=== PATIENT | female | born 1945 | race Caucasian/White ===

== ENCOUNTER 2020-01-02 07:53 | Outpatient (REF) | payer MEDICARE, SELFPAY ==
--- NOTE | 2020-01-02 08:48 | P.BOP_ITS ---
Brief Operative Note Date of Service: 01/02/20 Pre-op diagnosis: Nn toxic multinodular goiter Post-op diagnosis: same Procedure: This procedure was explained to the patient. Alternatives, risks and benefits were discussed. Written consent was obtained. After sterile preparation of the skin, fine-needle aspiration biopsy of left lower pole thyroid nodule size 1.6 x 1.2 x 1.5 cm was performed under direct ultrasound guidance to confirm accurate needle placement. Five passes were performed with 27 gauge needles. Sample was submitted to cytology, initial cytology reading was borderline. 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 Patient tolerated procedure well. Aftercare instructions were provided. Impression: uncomplicated fine-needle aspiration biopsy of lower pole thyroid nodule under direct ultrasound guidance. Surgeon: Genoveva Fuentse MD Anesthesia: local (Lidocaine 1 % 2ml) Estimated blood loss (mL): 0 Condition: stable Disposition: same day
[2020-01-02] MEDS: Lidocaine HCl 1 % MPF 5 ML VIAL SUBCUT (13:50)
== END 2020-01-02 07:54 | disposition home or self-care (01) ==
LOC: HO.US 07:53
PROVIDERS: Visit Provider Internal Medicine Endocrinology, Diabetes & Metabolism
DX: E04.2 Nontoxic multinodular goiter (principal)
CPT/HCPCS: 10005; 88172; 88173; 88177; 88305

== ENCOUNTER 2020-01-15 10:19 | Outpatient (REF) | payer MEDICARE, SELFPAY ==
[2020-01-15 14:17] LABS: MANUAL DIFF FLAG NO
[2020-01-15 14:30] LABS: Basophils Percent Auto 0.5 % (0-2); Eosinophils Absolute Auto 0.1 X10*3/uL (0.0-0.4); Eosinophils Percent Auto 1.3 % (0-4); Hematocrit 44.3 % (37-47); Hemoglobin 13.8 g/dl (12.0-16.0); Imm Gran Abs Auto 0.02 X10*3/uL (0.00-0.03); Imm Gran Pct Auto 0.2 % (0.0-0.4); Lymphocytes Percent Auto 34.8 % (20-40); Mean Corpuscular HGB Conc 31.2 g/dl (31.0-35.0); Mean Corpuscular Hemoglobin 27.4 pg (27.0-33.0); Mean Corpuscular Volume 87.9 fL (80-98); Mean Platelet Volume 11.6 fL (9.4-12.3); Monocytes Absolute Auto 0.7 X10*3/uL (0.1-1.2); Monocytes Percent Auto 7.6 % (2-11); NRBC Pct Auto 0.5 /100WBC (0.0-0.2); Neutrophils Absolute Auto 4.8 X10*3/uL (2.0-8.3); Neutrophils Percent Auto 55.6 % (45-73); Platelet Count 276 X10*3/uL (160-400); Red Blood Count 5.04 X10*6/uL (4.20-5.50); Red Cell Distribution Width 14.6 % (11.0-16.0); White Blood Count 8.7 X10*3/uL (4.8-10.8)
[2020-01-15 14:53] LABS: Alanine Aminotransferase 16 U/L (0-31); Albumin Level 4.2 g/dL (3.5-5.0); Alkaline Phosphatase 89 U/L (39-117); Anion Gap 12 (12-20); Aspartate Amino Transferase 17 U/L (5-31); Bilirubin Total 0.5 mg/dL (0.0-1.0); Blood Urea Nitrogen 15 mg/dL (9-16); Carbon Dioxide 22 mmol/L (22-29); Chloride 110 mmol/L (96-108); Estimated Glomerular Filt Rate > 60; Glucose Random 114 mg/dL (60-115); Potassium 4.5 mmol/l (3.3-5.1); Sodium 139 mmol/L (135-145); Total Protein 6.6 g/dL (6.5-8.0)
[2020-01-15 15:01] LABS: Free T4 (Free Thyroxine) 0.95 ng/dL (0.71-1.85)
[2020-01-15 15:17] LABS: Erythrocyte Sedimentation Rate 9 MM/HR (0-20)
== END 2020-01-15 10:20 | disposition home or self-care (01) ==
LOC: HO.10HDL 10:19
PROVIDERS: Visit Provider Family Medicine
DX: G62.9 Polyneuropathy, unspecified (principal)
CPT/HCPCS: 36415; 80053; 84439; 85025; 85652

== ENCOUNTER → 2020-01-23 09:23 | Outpatient (BNVA) | payer MEDICARE, SELFPAY | PROVIDERS: PCP Family Medicine; Referring Provider Family Medicine; Visit Provider Internal Medicine Endocrinology, Diabetes & Metabolism | DX: E04.2 Nontoxic multinodular goiter (principal); E21.0 Primary hyperparathyroidism; M81.0 Age-related osteoporosis without current pathological fracture | CPT/HCPCS: 99212 ==

== ENCOUNTER 2020-01-24 09:31 | Outpatient (REF) | payer MEDICARE, SELFPAY ==
[2020-01-24 11:16] LABS: Alanine Aminotransferase 13 U/L (0-31); Albumin Level 4.4 g/dL (3.5-5.0); Alkaline Phosphatase 87 U/L (39-117); Anion Gap 13 (12-20); Aspartate Amino Transferase 16 U/L (5-31); Bilirubin Total 0.7 mg/dL (0.0-1.0); Blood Urea Nitrogen 15 mg/dL (9-16); Calcium 10.2 mg/dL (8.4-10.2); Carbon Dioxide 24 mmol/L (22-29); Chloride 107 mmol/L (96-108); Estimated Glomerular Filt Rate > 60; Glucose Fasting 102 mg/dL (60-99); Magnesium 2.3 mg/dL (1.6-2.6); Phosphorus 2.7 mg/dL (2.7-4.5); Potassium 4.2 mmol/l (3.3-5.1); Sodium 140 mmol/L (135-145); Total Protein 6.6 g/dL (6.5-8.0)
[2020-01-27 19:02] LABS: Calcium (PTHI) 10.6 mg/dL (8.6-10.4); PTHI 84 pg/mL (14-64)
[2020-01-31 07:13] LABS: N-Telopeptide 50 (see note); NTXCreaRU 212 mg/dL (20-275)
== END 2020-01-24 09:32 | disposition home or self-care (01) ==
LOC: HO.10HDL 09:31
PROVIDERS: Visit Provider Internal Medicine Endocrinology, Diabetes & Metabolism
DX: E21.0 Primary hyperparathyroidism (principal)
CPT/HCPCS: 80053; 82306; 82523; 83735; 83970; 84100

== ENCOUNTER 2020-01-25 10:06 | Outpatient (REF) | payer MEDICARE, SELFPAY | END 2020-01-25 10:07 | disposition home or self-care (01) | LOC: HO.LAB 10:06 | PROVIDERS: PCP Family Medicine; Visit Provider Internal Medicine | DX: Z20.828 Contact with and (suspected) exposure to other viral communicable diseases (principal) | CPT/HCPCS: C9803; U0003 ==

== ENCOUNTER 2020-03-13 09:51 | Outpatient (REF) | payer MEDICARE, SELFPAY ==
--- NOTE | 2020-03-13 09:54 | FL_ITS ---
EXAMINATION: XR GI SERIES CLINICAL INFORMATION: Gastroesophageal reflux disease. Evaluate for ulcer. COMPARISON: None TECHNIQUE: Upper GI was performed using thin and thick barium and effervescent granules. FINDINGS: There is a small sliding-type hiatal hernia. There is mild gastroesophageal reflux. Esophageal motility is normal. The stomach and duodenum are normal-appearing. No fold thickening, mass, ulcer or stricture is seen. FLUOROSCOPY TIME: 1 minute. Dose 24 mgy. DAP 8 Bee per centimeter squared. 29 saved fluoroscopic images. FL/FL upper GI series IMPRESSION: Small sliding-type hiatal hernia and mild gastroesophageal reflux.
== END 2020-03-13 09:52 | disposition home or self-care (01) ==
LOC: HO.XRAY 09:51
PROVIDERS: Visit Provider Family Medicine
DX: K21.9 Gastro-esophageal reflux disease without esophagitis (principal)
CPT/HCPCS: 74240

== ENCOUNTER 2020-04-01 08:58 | Outpatient (REF) | payer MEDICARE, SELFPAY ==
[2020-04-01 10:40] LABS: Albumin Level 4.2 g/dL (3.5-5.0); Calcium 8.6 mg/dL (8.4-10.2)
== END 2020-04-01 08:59 | disposition home or self-care (01) ==
LOC: HO.10HDL 08:58
PROVIDERS: Visit Provider Surgery
DX: Z86.39 Personal history of other endocrine, nutritional and metabolic disease (principal); Z98.890 Other specified postprocedural states
CPT/HCPCS: 36415; 82040; 82310

== ENCOUNTER 2020-04-13 10:39 | Outpatient (REF) | payer MEDICARE, SELFPAY ==
[2020-04-13 14:42] LABS: Albumin Level 4.4 g/dL (3.5-5.0); Calcium 8.9 mg/dL (8.4-10.2)
== END 2020-04-13 10:40 | disposition home or self-care (01) ==
LOC: HO.10HDL 10:39
PROVIDERS: Visit Provider Surgery
DX: E89.2 Postprocedural hypoparathyroidism (principal)
CPT/HCPCS: 36415; 82040; 82310

== ENCOUNTER → 2020-06-26 08:32 | Outpatient (BNVA) | payer MEDICARE, SELFPAY | PROVIDERS: PCP Family Medicine; Visit Provider Internal Medicine Endocrinology, Diabetes & Metabolism | DX: E21.0 Primary hyperparathyroidism (principal); M81.0 Age-related osteoporosis without current pathological fracture; E04.2 Nontoxic multinodular goiter | CPT/HCPCS: 99212 ==

== ENCOUNTER 2020-06-26 09:45 | Outpatient (REF) | payer MEDICARE, SELFPAY ==
[2020-06-26 10:47] LABS: Alanine Aminotransferase 13 U/L (0-31); Albumin Level 4.2 g/dL (3.5-5.0); Alkaline Phosphatase 71 U/L (39-117); Anion Gap 12 (12-20); Aspartate Amino Transferase 16 U/L (5-31); Bilirubin Total 0.4 mg/dL (0.0-1.0); Blood Urea Nitrogen 16 mg/dL (9-16); Calcium 9.1 mg/dL (8.4-10.2); Carbon Dioxide 23 mmol/L (22-29); Chloride 109 mmol/L (96-108); Estimated Glomerular Filt Rate > 60; Glucose Random 107 mg/dL (60-115); Magnesium 2.3 mg/dL (1.6-2.6); Phosphorus 2.7 mg/dL (2.7-4.5); Sodium 140 mmol/L (135-145); Total Protein 6.3 g/dL (6.5-8.0)
[2020-06-26 11:11] LABS: Free T4 (Free Thyroxine) 0.83 ng/dL (0.71-1.85); Thyroid Stimulating Hormone 1.15 uIU/mL (0.32-4.0); Vitamin D 25-OH Total 38.4 ng/mL (>30)
[2020-06-29 13:32] LABS: Calcium (PTHI) 9.3 mg/dL (8.6-10.4); PTHI 20 pg/mL (14-64)
[2020-07-03 01:42] LABS: VITAMIN D (1,25 OH) D3 79 pg/mL; Vit D (1,25-Dihydroxy) Total 79 pg/mL (18-72); Vitamin D (1,25 OH) D2 <8 pg/mL
== END 2020-06-26 09:46 | disposition home or self-care (01) ==
LOC: HO.10HDL 09:45
PROVIDERS: Visit Provider Internal Medicine Endocrinology, Diabetes & Metabolism
DX: M81.0 Age-related osteoporosis without current pathological fracture (principal); E21.0 Primary hyperparathyroidism
CPT/HCPCS: 36415; 80053; 82306; 82652; 83735; 83970; 84100; 84439; 84443

== ENCOUNTER 2020-09-11 10:11 | Outpatient (REF) | payer MEDICARE, SELFPAY ==
[2020-09-16 23:01] LABS: N-Telopeptide 24 (see note); NTXCreaRU 117 mg/dL (20-275)
== END 2020-09-11 10:12 | disposition home or self-care (01) ==
LOC: HO.LNP 10:11
PROVIDERS: Visit Provider Internal Medicine Endocrinology, Diabetes & Metabolism
DX: E21.0 Primary hyperparathyroidism (principal); M81.0 Age-related osteoporosis without current pathological fracture
CPT/HCPCS: 82523

== ENCOUNTER 2020-09-22 08:50 | Outpatient (REF) | payer MEDICARE, SELFPAY ==
[2020-09-22 09:45] LABS: Anion Gap 11 (12-20); Blood Urea Nitrogen 19 mg/dL (9-16); Calcium 9.1 mg/dL (8.4-10.2); Carbon Dioxide 25 mmol/L (22-29); Chloride 108 mmol/L (96-108); Estimated Glomerular Filt Rate > 60; Potassium 4.2 mmol/L (3.3-5.1); Sodium 140 mmol/L (135-145)
[2020-09-22 10:11] LABS: Vitamin D 25-OH Total 42.6 ng/mL (>30)
[2020-09-23 16:37] LABS: Calcium (PTHI) 9.3 mg/dL (8.6-10.4); PTHI 19 pg/mL (14-64)
== END 2020-09-22 08:51 | disposition home or self-care (01) ==
LOC: HO.LAB 08:50
PROVIDERS: PCP Family Medicine; Visit Provider Family Medicine
DX: R19.7 Diarrhea, unspecified (principal); E21.3 Hyperparathyroidism, unspecified
CPT/HCPCS: 36415; 80051; 82306; 82310; 82565; 83970; 84100; 84439; 84443; 84520

== ENCOUNTER 2020-10-23 08:31 | Outpatient (REF) | payer MEDICARE, SELFPAY ==
--- NOTE | ~2020-10-23 | MM_ITS ---
EXAMINATION: MM SCREENING DIGITAL BREAST TOMOSYNTHESIS, BILATERAL CLINICAL INFORMATION: Screening. Asymptomatic. The lifetime risk of breast cancer based on the Tyrer-Cuzick Model is 4%. COMPARISON: Mammography: 11/29/2018, 09/11/2017, 06/07/2016 TECHNIQUE: Digital breast tomosynthesis is performed in both the craniocaudal and mediolateral oblique views along with computer-aided detection (CAD). Synthesized 2D images are generated from the tomosynthesis. FINDINGS: There are scattered areas of fibroglandular density (ACR BI-RADS breast composition Category b). There are no significant masses, abnormal calcifications, or other abnormalities. Parenchymal pattern is similar to prior studies. MM/MM tomosynthesis screening BI IMPRESSION: No mammographic evidence of malignancy. ASSESSMENT: BI-RADS 1: Negative RECOMMENDATION: Routine annual mammography screening. This patient's information was entered into a reminder system with a target due date for their next mammogram.
== END 2020-10-23 08:32 | disposition home or self-care (01) ==
LOC: HO.MAMMO 08:31
PROVIDERS: Visit Provider Family Medicine
DX: Z12.31 Encounter for screening mammogram for malignant neoplasm of breast (principal)
CPT/HCPCS: 77063; 77067

== ENCOUNTER 2021-03-04 10:16 | Outpatient (REF) | payer MEDICARE, SELFPAY ==
[2021-03-04 14:26] LABS: Calcium 9.5 mg/dL (8.4-10.2)
[2021-03-05 13:06] LABS: Calcium (PTHI) 9.1 mg/dL (8.6-10.4); PTHI 25 pg/mL (14-64)
== END 2021-03-04 10:17 | disposition home or self-care (01) ==
LOC: HO.10HDL 10:16
PROVIDERS: Visit Provider Family Medicine
DX: E21.0 Primary hyperparathyroidism (principal); M81.0 Age-related osteoporosis without current pathological fracture
CPT/HCPCS: 36415; 82310; 83970

== ENCOUNTER → 2021-06-30 14:27 | Outpatient (BNVA) | payer MEDICARE, SELFPAY | PROVIDERS: PCP Family Medicine; Visit Provider Internal Medicine Endocrinology, Diabetes & Metabolism | DX: M81.0 Age-related osteoporosis without current pathological fracture (principal); E04.2 Nontoxic multinodular goiter | CPT/HCPCS: 99212 ==

== ENCOUNTER 2021-07-08 09:47 | Outpatient (REF) | payer MEDICARE, SELFPAY ==
[2021-07-08 11:52] LABS: Free T4 (Free Thyroxine) 0.96 ng/dL (0.71-1.85); Thyroid Stimulating Hormone 1.39 uIU/mL (0.32-4.0)
[2021-07-12 15:26] LABS: Prot Elec - Albumin 4.1 g/dL (3.8-4.8); Prot Elec - Alpha1 0.2 g/dL (0.2-0.3); Prot Elec - Alpha2 0.8 g/dL (0.5-0.9); Prot Elec - Beta 1 0.4 g/dL (0.4-0.6); Prot Elec - Beta 2 0.3 g/dL (0.2-0.5); Prot Elec - Gamma 0.5 g/dL (0.8-1.7); Prot Elec - Total Protein 6.3 g/dL (6.1-8.1)
== END 2021-07-08 09:48 | disposition home or self-care (01) ==
LOC: HO.LAB 09:47
PROVIDERS: Internal Medicine Endocrinology, Diabetes & Metabolism; PCP Family Medicine; Visit Provider Family Medicine
DX: M81.0 Age-related osteoporosis without current pathological fracture (principal); E04.2 Nontoxic multinodular goiter
CPT/HCPCS: 84165; 84439; 84443; 86335

== ENCOUNTER 2021-08-11 08:57 | Outpatient (REF) | payer MEDICARE, SELFPAY ==
--- NOTE | ~2021-08-11 | US_ITS ---
EXAMINATION: US THYROID CLINICAL INFORMATION: Nontoxic multinodular goiter. COMPARISON: Ultrasound-guided thyroid biopsy 10/24/2019. Thyroid ultrasound 04/10/2019. TECHNIQUE: Linear transducer grayscale and color Doppler examination with attention to the region of the thyroid. FINDINGS: SIZE: Measurements of the thyroid lobes and nodules are given in sagittal, anteroposterior and transverse dimensions respectively. Right Thyroid Lobe: 5.5 x 1.2 x 2.0 cm, volume 8.6 mL. Previously 4.6 x 1.8 x 1.7 cm, volume 7.4 mL. Parenchyma: The gland echotexture is heterogeneous. Thyroid vascularity is increased. Left Thyroid Lobe: 5.4 x 1.1 x 1.7 cm, volume 5.3 mL. Previously 3.8 x 1.6 x 1.8 cm, volume 5.7 mL. Parenchyma: The gland echotexture is heterogeneous. Thyroid vascularity is increased. Isthmus: 0.5 cm in maximum AP dimension. Previously 0.4 cm. Estimated total number of nodules greater than or equal to 1 cm: 5. Wedding Planner nodules are described as follows: 1. Location: Right upper pole. Size: 1.7 x 0.7 x 1.5 cm, volume 0.9 mL. Previously: 1.5 x 1.0 x 1.4 cm, volume 1.1 mL. Nodule characteristics: Composition: Solid (2). Echogenicity: Isoechoic (1). Shape: Not taller than wide (0). Margins: Lobulated (2). Echogenic Foci: Punctate echogenic foci (3). ACR TI-RADS total points: 8 ACR TI-RADS category: 5 Significant change in size (>/= 20% in 2 dimensions and minimal increase of 2 mm or 50% or greater increase in volume): Minimal Change in features: None Change in ACR TI-RADS risk category: Not applicable 2. Location: Right midpole. Size: 1.2 x 0.8 x 1.6 cm, volume 0.8 mL. Previously: 1.9 x 1.5 x 1.3 cm, volume 1.9 mL. Nodule characteristics: Composition: Solid (2). Echogenicity: Isoechoic (1). Shape: Not taller than wide (0). Margins: Smooth (0). Echogenic Foci: None (0). ACR TI-RADS total points: 3 ACR TI-RADS category: 3 Significant change in size (>/= 20% in 2 dimensions and minimal increase of 2 mm or 50% or greater increase in volume): None Change in features: None Change in ACR TI-RADS risk category: Not applicable 3. Location: Right lower pole. Size: 1.4 x 1.0 x 1.1 cm, volume 0.8 mL. Previously: 0.8 x 0.9 x 0.9 cm, volume 0.3 mL. Nodule characteristics: Composition: Solid (2). Echogenicity: Isoechoic (1). Shape: Not taller than wide (0). Margins: Smooth (0). Echogenic Foci: None (0). ACR TI-RADS total points: 3 ACR TI-RADS category: 3 Significant change in size (>/= 20% in 2 dimensions and minimal increase of 2 mm or 50% or greater increase in volume): Minimal increase Change in features: None Change in ACR TI-RADS risk category: Not applicable 4. Location: Left lower pole. Size: 1.6 x 0.9 x 1.8 cm, volume 1.3 mL. Previously: 1.6 x 1.2 x 1.5 cm, volume 1.5 mL. Nodule characteristics: Not applicable Composition: Solid (2). Echogenicity: Isoechoic (1). Shape: Not taller than wide (0). Margins: Smooth (0). Echogenic Foci: None (0). ACR TI-RADS total points: 3 ACR TI-RADS category: 3 Significant change in size (>/= 20% in 2 dimensions and minimal increase of 2 mm or 50% or greater increase in volume): None Change in features: None Change in ACR TI-RADS risk category: Not applicable 5. Location: Right isthmus. Size: 1.0 x 0.6 x 1.5 cm, volume 0.5 mL. Previously: 1.5 x 0.6 x 1.2 cm, volume 0.6 mL. Nodule characteristics: Composition: Solid (2). Echogenicity: Hypoechoic (2). Shape: Not taller than wide (0). Margins: Smooth (0). Echogenic Foci: None (0). ACR TI-RADS total points: 4 ACR TI-RADS category: 4 Significant change in size (>/= 20% in 2 dimensions and minimal increase of 2 mm or 50% or greater increase in volume): None Change in features: None Change in ACR TI-RADS risk category: Not applicable NODES: No lymphadenopathy is seen in the tissue surrounding the thyroid gland. US/US thyroid IMPRESSION: Enlarged thyroid gland right greater than left with multiple nodules. There are fewer nodules in the left lobe compared to previous study. Hyperechoic area inferior to right lobe is not visualized at this time. There are multiple bilateral thyroid nodules. These nodules are measured but not mentioned on this report as they measured subcentimeter. Most suspicious nodule measuring 1.7 cm right upper pole. If this nodule has been biopsied continued followup is recommended, if not consider biopsy. ACR TI-RADS RECOMMENDATION REFERENCE: Ultrasound-guided fine-needle aspiration, followup ultrasound, no further follow up. * TR1 (0 point) and TR 2 (2 points): No FNA or follow up * TR3 (3 points): FNA if more than or equal to 2.5 cm in maximum dimension, followup ultrasound in 1, 3 and 5 years if 1.5 to 2.4 cm in maximum dimension. * TR4 (4-6 points): FNA if more than or equal to 1.5 cm in maximum dimension, followup ultrasound in 1, 2, 3 and 5 years if 1 to 1.4 cm in maximum dimension. * TR5 (more than or equal to 7 points): FNA if more than or equal to 1 cm in maximum dimension, followup ultrasound every year for 5 years if 0.5 to 0.9 cm in maximum dimension. * TR3, TR4 or TR5 nodules that are below the size threshold for follow up receive no follow up.
== END 2021-08-11 08:58 | disposition home or self-care (01) ==
LOC: HO.US 08:57
PROVIDERS: PCP Family Medicine; Visit Provider Internal Medicine Endocrinology, Diabetes & Metabolism
DX: E04.2 Nontoxic multinodular goiter (principal)
CPT/HCPCS: 76536

== ENCOUNTER 2021-08-24 07:55 | Outpatient (REF) | payer MEDICARE, SELFPAY | END 2021-08-24 07:56 | disposition home or self-care (01) | LOC: HO.MAMMO 07:55 | PROVIDERS: PCP Family Medicine; Visit Provider Internal Medicine Endocrinology, Diabetes & Metabolism | DX: Z13.89 Encounter for screening for other disorder (principal) ==

== ENCOUNTER 2021-09-07 08:49 | Outpatient (REF) | payer MEDICARE, SELFPAY ==
--- NOTE | ~2021-09-07 | MM_ITS ---
EXAMINATION: BONE DENSITOMETRY CLINICAL INDICATION: Osteoporosis. COMPARISON: Baseline BD dated 09/03/2019. TECHNIQUE: Using a [employer] DXA System (software version: 13.1) manufactured by [employer], dual-energy x-ray absorptiometry was performed of the lumbar spine, left hip, and left forearm radius 33%. The images are of good technical quality. Summary results are attached. FINDINGS: AP SPINE L1-L3 (excluding L4): The data of L1-L4 has been changed to exclude the L4 vertebral body, because degenerative changes at this level may cause overestimation of lumbar spine density. Current: BMD 0.741 g/cm2, Z-score -1.8, T-score -3.6, osteoporosis, 5.3% increase from baseline (<5% change is not significant). Baseline: BMD 0.704 g/cm2. LEFT FEMUR, NECK: Current: BMD 0.501 g/cm2, Z-score -1.9, T-score -3.9, osteoporosis. Baseline: BMD 0.537 g/cm2. LEFT FEMUR, TOTAL: Current: BMD 0.526 g/cm2, Z-score -2.0, T-score -3.8, osteoporosis, 6.2% decrease from baseline (<5% change is not significant). Baseline: BMD 0.561 g/cm2. LEFT FOREARM RADIUS 33%: BMD 0.532 g/cm2, Z-score -1.5, T-score -3.9, osteoporosis, 22.0% increase from baseline (<5% change is not significant). Baseline: BMD 0.436 g/cm2. IDENTIFIED RISK FACTORS: Early menopause, height loss, hyperparathyroid, low calcium intake, osteoporosis, secondary osteoporosis. HISTORY OF FRACTURE: None listed. MEDICATIONS: Calcium, vitamin D. MM/XR DEXA appendicular skeleton IMPRESSION: 1. DIAGNOSIS: Osteoporosis based on the lowest T-score value of -3.9 in the femur neck and forearm radius 33% applying World Health Organization criteria. 2. 10-YEAR FRACTURE RISK PREDICTION, FRAX: According to the guidelines, FRAX calculation should only be performed on patients in the osteopenia bone density category. Therefore, FRAX was not performed on this patient. 3. Treatment Recommendations: NOF guidelines recommend consideration for treatment in postmenopausal women and men age 50 and older presenting with the following: -A hip or vertebral (clinical or morphometric) fracture. -T-score less than or equal to -2.5 at the femoral neck or spine after appropriate evaluation to exclude secondary causes. -Low bone mass at the hip or spine and a 10-year fracture probability by FRAX of greater than or equal to 3% for hip fracture or greater than or equal to 20% for major osteoporotic fracture based on the [place] adapted WHO algorithm. 4. Other Recommendations: All treatment decisions require clinical judgment and consideration of individual patient factors, including patient preferences, comorbidities, previous drug use, risk factors not captured in the FRAX model (e.g. frailty, falls, vitamin D deficiency, increased bone turnover, interval significant decline in bone density) and possible under or overestimation of fracture risk by FRAX. Additional medical evaluation for secondary cause of low bone mineral density may be appropriate. FUTURE SCAN RECOMMENDATION: People with diagnosed cases of osteoporosis or at high risk for fracture should have regular bone mineral density tests. For patients eligible for Medicare, routine testing is allowed once every 2 years. The testing frequency can be increased to one year for patients who have rapidly progressing disease, those who are receiving or discontinuing medical therapy to restore bone mass, or have additional risk factors.
== END 2021-09-07 08:50 | disposition home or self-care (01) ==
LOC: HO.MAMMO 08:49
PROVIDERS: PCP Family Medicine; Visit Provider Family Medicine
DX: Z13.820 Encounter for screening for osteoporosis (principal); M81.0 Age-related osteoporosis without current pathological fracture; Z78.0 Asymptomatic menopausal state
CPT/HCPCS: 77081

== ENCOUNTER 2021-12-06 07:54 | Outpatient (REF) | payer MEDICARE, SELFPAY ==
--- NOTE | ~2021-12-06 | MM_ITS ---
EXAMINATION: MM SCREENING DIGITAL BREAST TOMOSYNTHESIS, BILATERAL CLINICAL INFORMATION: Screening. Asymptomatic. The lifetime risk of breast cancer based on the Tyrer-Cuzick Model is 1.2%. COMPARISON: Mammography: October 23, 2020 and studies dating back to 02/12/2021. TECHNIQUE: Digital breast tomosynthesis is performed in both the craniocaudal and mediolateral oblique views along with computer-aided detection (CAD). Synthesized 2D images are generated from the tomosynthesis. FINDINGS: There are scattered areas of fibroglandular density (ACR BI-RADS breast composition Category b). There is a stable parenchymal pattern of the right breast without evidence of new abnormal dominant mass or suspicious grouping of microcalcifications. Within the superior and probable lateral aspect of the left breast, there is a new ill-defined density without calcification or spiculated margins lying approximately 5 cm from the nipple on mediolateral oblique projection for which spot compression view is recommended. MM/MM tomosynthesis screening BI IMPRESSION: Left breast density superiorly for further evaluation. ASSESSMENT: BI-RADS 0: Incomplete - Need Additional Imaging Evaluation RECOMMENDATION: 1. Additional views of the left breast 2. Targeted ultrasound if warranted after review of the additional views. 3. Radiology department staff will contact the patient for additional imaging. This patient's information was entered into a reminder system with a target due date for their next mammogram.
== END 2021-12-06 07:55 | disposition home or self-care (01) ==
LOC: HO.MAMMO 07:54
PROVIDERS: PCP Family Medicine; Visit Provider Family Medicine
DX: Z12.31 Encounter for screening mammogram for malignant neoplasm of breast (principal)
CPT/HCPCS: 77063; 77067

== ENCOUNTER 2021-12-08 09:04 | Outpatient (REF) | payer MEDICARE, SELFPAY ==
[2021-12-08 10:40] LABS: Creatinine, mg/dL 99.48
[2021-12-08 10:41] LABS: Creatinine, mg/dL 100.12
[2021-12-08 12:40] LABS: Total Volume 24 Hour Urine 1000 mL
[2021-12-08 12:41] LABS: Total Volume 24 Hour Urine 1000 mL
[2021-12-09 17:51] LABS: Calcium, 24 Hr Urine 114 mg/24 h; Calcium/Creatinine Ratio 118 mg/g creat (30-275); Creatinine 24Hr Urine 0.97 g/24 h (0.50-2.15)
== END 2021-12-08 09:05 | disposition home or self-care (01) ==
LOC: HO.LNP 09:04
PROVIDERS: Visit Provider Internal Medicine Endocrinology, Diabetes & Metabolism
DX: M81.0 Age-related osteoporosis without current pathological fracture (principal); E04.2 Nontoxic multinodular goiter
CPT/HCPCS: 82340; 82570; 84300

== ENCOUNTER 2021-12-13 09:17 | Outpatient (REF) | payer MEDICARE, SELFPAY ==
--- NOTE | ~2021-12-13 | MM_ITS ---
EXAMINATION: MM DIAGNOSTIC DIGITAL BREAST TOMOSYNTHESIS, LEFT US DIAGNOSTIC ULTRASOUND BREAST, LEFT CLINICAL INFORMATION: Recall from screening for question of ill-defined oval asymmetric density anterior upper left breast on MLO view. COMPARISON: Mammography: 12/06/2021, 10/23/2020, 11/29/2018 TECHNIQUE: Digital breast tomosynthesis is performed. 2D images are generated from the tomosynthesis. The following views are obtained: Spot CC, spot ML, spot MLO. Ultrasound left breast is performed using grayscale imaging and color Doppler without and with harmonics. Imaging is performed from 12:00 through 7:00 position. FINDINGS: There are scattered areas of fibroglandular density (ACR BI-RADS breast composition Category b). The additional views show no architectural abnormality or significant mass. There is questionable oval equal attenuation parenchymal asymmetry in the area for recall upper breast 4.6 cm from nipple. Ultrasound demonstrates a bilobed cyst 2:00 position approximately 5 x 3 mm which may represent the finding intended for recall. There is no solid mass or architectural abnormality or focal duct ectasia. Results are discussed with the patient at time of visit. As a precaution, short interval follow-up left mammography will be recommended to exclude remote possibility of a occult developing density. MM/MM tomosynthesis added views L IMPRESSION: -Benign asymmetry upper left breast possibly related to a simple cyst on targeted ultrasound. -No architectural abnormality or solid mass. ASSESSMENT: BI-RADS 3: Probably Benign RECOMMENDATION: Diagnostic left mammography in 6 months. This patient's information was entered into a reminder system with a target due date for their next mammogram.
== END 2021-12-13 09:18 | disposition home or self-care (01) ==
LOC: HO.MAMMO 09:17
PROVIDERS: PCP Family Medicine; Visit Provider Family Medicine
DX: R92.2 Inconclusive mammogram (principal)
CPT/HCPCS: 76642; 77061; 77065

== ENCOUNTER → 2021-12-29 08:53 | Outpatient (BNVA) | payer MEDICARE, SELFPAY | PROVIDERS: PCP Family Medicine; Visit Provider Internal Medicine Endocrinology, Diabetes & Metabolism | DX: M81.0 Age-related osteoporosis without current pathological fracture (principal); E04.2 Nontoxic multinodular goiter | CPT/HCPCS: 99212 ==

== ENCOUNTER → 2022-03-17 09:37 | Outpatient (BNVA) | payer MEDICARE, SELFPAY | PROVIDERS: PCP Family Medicine; Visit Provider Internal Medicine Endocrinology, Diabetes & Metabolism | DX: Z13.89 Encounter for screening for other disorder (principal) ==

== ENCOUNTER 2022-06-21 15:13 | Emergency (ER) | payer MEDICARE, SELFPAY ==
[2022-06-21] VITALS (7 sets, daily range): BP systolic 153–187; BP diastolic 70–89; PULSE 67–94; RESP 13–18; TEMP 36.5–36.9; O2SAT 95–96; BMI 25.7
--- NOTE | ~2022-06-21 | CT_ITS ---
EXAMINATION: CT HEAD WITHOUT CONTRAST CLINICAL INFORMATION: Headache, lightheadedness COMPARISON: None available. TECHNIQUE: Contiguous axial imaging was performed from the skull base to vertex without intravenous administration of contrast. This CT examination was performed using dose optimization techniques as appropriate, variously including the following: *Automated exposure control *Adjustment of mA and/or kV according to patient size (this includes techniques or standardized protocols for targeted exams where dose is matched to indication/reason for exam; i.e. extremities or head) *Use of iterative reconstruction technique DLP: 593 mGy-cm FINDINGS: There is no evidence of acute intracranial hemorrhage or territorial infarction. No abnormal mass effect or midline shift is seen. Bee to white matter differentiation is well preserved. No extra-axial fluid collections are identified. The ventricles are normal in size. No abnormal attenuation in the brain parenchyma. No acute calvarial fracture.. Paranasal sinuses and mastoid air cells are well-aerated. CT/CT head/brain wo IV con IMPRESSION: No CT evidence of acute intracranial hemorrhage or edematous territorial infarction.
--- NOTE | 2022-06-21 15:52 | ED.GENADULT ---
HPI - General Adult General Chief complaint: Headache <JUAN Gorman - Last Filed: 06/21/22 16:09> Stated complaint: high bp <JUAN Gorman - Last Filed: 06/21/22 16:09> Time Seen by Provider: 06/21/22 21:08 <JUAN Gorman - Last Filed: 06/21/22 16:09> Source: patient <Paulino Martini MD - Last Filed: 06/22/22 00:09> Mode of arrival: ambulatory <Paulino Martini MD - Last Filed: 06/22/22 00:09> Limitations: no limitations <Paulino Martini MD - Last Filed: 06/22/22 00:09> History of Present Illness HPI narrative: Patient under increased stress lately no history of hypertension started complaining of headache at the top of the head since 14:00 by the time patient arrived to the ER headache is gone no nausea no vomit patient never had similar headache in the past patient when came blood pressure was 187/88 no chest pain or palpitation <Paulino Martini MD - Last Filed: 06/22/22 00:09> Related Data Home medications: Home Medications Medication Instructions Recorded Confirmed estradiol 0.01% (0.1 mg/gram) g vaginal 2XW 06/26/20 12/29/21 vaginal cream omeprazole 20 mg capsule,delayed 20 mg PO DAILY 06/26/20 12/29/21 release Previous Rx's Medication Instructions Recorded cholecalciferol (vitamin D3) 50 50 mcg PO DAILY 90 days #90 caps 06/26/20 mcg (2,000 unit) capsule teriparatide 20 mcg/dose (600 20 mcg (0.08 mL) subcut DAILY #2.4 03/14/22 mcg/2.4 mL) subcutaneous pen mL injector (Forteo) abaloparatide (Tymlos) 80 mcg (0.04 mL) subcut DAILY 03/15/22 #1.56 mL <JUAN Gorman - Last Filed: 06/21/22 16:09> Allergies/adverse reactions: Allergies Allergy/AdvReac Type Severity Reaction Status Date / Time From BENADRYL Allergy Unknown RACING Uncoded 06/21/22 16:04 HEART <JUAN Gorman - Last Filed: 06/21/22 16:09> Review of Systems Review of Systems: Yes all other systems are reviewed and are negative <Paulino Martini MD - Last Filed: 06/22/22 00:09> [facility] Past Medical History Medical History: Medical History Non-toxic multinodular goiter Osteoporosis Primary hyperparathyroidism <JUAN Gorman - Last Filed: 06/21/22 16:09> Surgical History: Surgical History Hx of hysterectomy Hx of left breast biopsy Hx of parathyroidectomy Hx of tonsillectomy Status post fine needle aspiration <JUAN Gorman - Last Filed: 06/21/22 16:09> Family History Family History: Family History Father Rectal cancer Mother Heart disease Diabetes Brother Celiac disease <JUAN Gorman - Last Filed: 06/21/22 16:09> Social History Social History: Social History Household Members: Spouse Alcohol intake: current Alcohol intake frequency: a few times a month Alcohol type: wine Patient Tobacco Use Status: Never used Tobacco Smoked in Last 30 Days: No Use of substances other than those prescribed or required for medical reasons: No Advance Directives: No Advance Directives Information Provided: Yes <JUAN Gorman - Last Filed: 06/21/22 16:09> Physical Exam ED Vital Signs: Vital Signs - 24 hr 06/21/22 15:59 06/21/22 21:04 06/21/22 21:42 Temperature 98.4 F 97.7 F Pulse Rate 94 75 75 Respiratory Rate 18 16 Blood Pressure 187/88 H 163/77 H 164/86 H Pulse Oximetry 95 96 Oxygen Delivery Method Room Air Room Air 06/21/22 21:43 06/21/22 21:45 06/21/22 22:34 Temperature Pulse Rate 81 88 67 Respiratory Rate 14 Blood Pressure 161/87 H 181/89 H 160/77 H Pulse Oximetry 95 Oxygen Delivery Method Room Air 06/21/22 22:52 Temperature Pulse Rate 70 Respiratory Rate 13 Blood Pressure 153/70 H Pulse Oximetry 95 Oxygen Delivery Method Room Air BMI result Body Mass Index 25.7 <JUAN Gorman - Last Filed: 06/21/22 16:09> Vital Signs - 24 hr 06/21/22 15:59 06/21/22 21:04 06/21/22 21:42 Temperature 98.4 F 97.7 F Pulse Rate 94 75 75 Respiratory Rate 18 16 Blood Pressure 187/88 H 163/77 H 164/86 H Pulse Oximetry 95 96 Oxygen Delivery Method Room Air Room Air 06/21/22 21:43 06/21/22 21:45 06/21/22 22:34 Temperature Pulse Rate 81 88 67 Respiratory Rate 14 Blood Pressure 161/87 H 181/89 H 160/77 H Pulse Oximetry 95 Oxygen Delivery Method Room Air 06/21/22 22:52 Temperature Pulse Rate 70 Respiratory Rate 13 Blood Pressure 153/70 H Pulse Oximetry 95 Oxygen Delivery Method Room Air BMI result Body Mass Index 25.7 <Paulino Martini MD - Last Filed: 06/22/22 00:09> Appearance: Alert. Oriented X3. No acute distress. Anxious Eyes: PERRLA, No Nystagmus ENT: Pharynx normal. Oral Mucosa moist Neck: Normal inspection. Neck supple. CVS: Normal heart rate and rhythm. Pulses normal. Respiratory: No respiratory distress. Equal air entry bilateral, no wheezing/rales/rhonchi Abdomen: Soft and nontender. Bowel sounds are present, no mass palpable, no CVA tenderness Skin: Skin warm and dry. Normal skin color. Normal skin turgor. Extremities: No lower extremity edema. No calf tenderness Neuro: Oriented X 3. No motor deficit. No sensory deficit.No cerebellar signs , cranial nerves II-XII intact <Paulino Martini MD - Last Filed: 06/22/22 00:09> Course Course Course Narrative: RME: 76-year-old female with a past medical history osteoporosis, hyperparathyroidism presenting to the ED complaining of PASCAL x 1.5hrs with assoc elevated BP 160's/unknown, lightheadedness and feeling off balance. Denies taking AC. admits has been under a lot of stress lately. also reports RUE pain BP 187/101 in triage, no focal neuro deficits, ambulating with steady gait EKG, labs, UA, head CT, orthostatics ordered Full HPI, ROS and PE to be performed by primary ED provider. <JUAN Gorman - Last Filed: 06/21/22 16:09> Medications Administered Discontinued Medications Generic Name Dose Route Start Last Admin Trade Name Freq PRN Reason Stop Dose Admin Losartan Potassium 25 mg 06/21/22 21:54 06/21/22 22:33 Losartan Potassium 25 Mg Tablet PO 06/21/22 21:55 25 mg ONCE ONE Administration Protocol <JUAN Gorman - Last Filed: 06/21/22 16:09> Medications Administered Discontinued Medications Generic Name Dose Route Start Last Admin Trade Name Freq PRN Reason Stop Dose Admin Losartan Potassium 25 mg 06/21/22 21:54 06/21/22 22:33 Losartan Potassium 25 Mg Tablet PO 06/21/22 21:55 25 mg ONCE ONE Administration Protocol <Paulino Martini MD - Last Filed: 06/22/22 00:09> Medical Decision Making Medical Decision Making MDM Narrative: Patient increased stress noticed to have slightly high blood pressure with headache CT scan of the head negative for bleed which was done within 6 hours of the headache. Patient feeling much better now denies any significant headache patient advised to follow with PCP check blood pressure likely is from tension headache <Paulino Martini MD - Last Filed: 06/22/22 00:09> Lab Data [facility] Lab Attestation statement: I reviewed the patient's lab results. <Paulino Martini MD - Last Filed: 06/22/22 00:09> Result Diagrams: 06/21/22 17:01 06/21/22 17:01 <JUAN Gorman - Last Filed: 06/21/22 16:09> Labs: Lab Results 06/21/22 06/21/22 06/21/22 Range/Units 17:01 17:01 17:01 WBC 9.8 (4.8-10.8) X10*3/uL RBC 5.06 (4.20-5.50) X10*6/uL Hgb 13.4 (12.0-16.0) g/dl Hct 42.4 (37.0-47.0) % MCV 83.8 (80.0-98.0) fL MCH 26.5 L (27.0-33.0) pg MCHC 31.6 (31.0-35.0) g/dl RDW 14.5 (11.0-16.0) % Plt Count 235 (160-400) X10*3/uL MPV 10.7 (9.4-12.3) fL Immature Gran % (Auto) 0.2 (0.0-0.4) % Neut % (Auto) 57.7 (45-73) % Lymph % (Auto) 33.0 (20-40) % [place] % (Auto) 6.7 (2-11) % Eos % (Auto) 2.0 (0-4) % Baso % (Auto) 0.4 (0-2) % Lymph # (Auto) 3.3 (1.2-4.9) X10*3/uL [place] # (Auto) 0.7 (0.1-1.2) X10*3/uL Eos # (Auto) 0.2 (0.0-0.4) X10*3/uL Baso # (Auto) 0.0 (0.0-0.2) X10*3/uL Abs Immat Gran (auto) 0.02 (0.00-0.03) X10*3/uL Absolute Neuts (auto) 5.7 (2.0-8.3) x10*3/uL Absolute Nucleated RBC 0.000 (0.0-0.012) X10*3/uL Nucleated RBC % (auto) 0.0 (0.0-0.2) /100WBC PT 10.8 (10.0-13.1) SEC INR 0.9 (0.9-1.1) Sodium 142 (135-145) mmol/L Potassium 4.0 (3.3-5.1) mmol/L Chloride 110 H (96-108) mmol/L Carbon Dioxide 27 (22-29) mmol/L Anion Gap 9 L (12-20) BUN 17 H (9-16) mg/dL Creatinine 0.87 (0.5-1.4) mg/dL Estim Creat Clear Calc 51.3 Estimated GFR > 60 Random Glucose 100 (60-115) mg/dL Calcium 9.3 (8.4-10.2) mg/dL Magnesium 2.1 (1.6-2.6) mg/dL Total Bilirubin 0.4 (0.0-1.0) mg/dL Direct Bilirubin 0.1 (0.0-0.5) mg/dL AST 20 (5-31) U/L ALT 15 (0-31) U/L Alkaline Phosphatase 73 (39-117) U/L Troponin I High Sens (<3.5-17.0) ng/L Total Protein 6.4 L (6.5-8.0) g/dL Albumin 4.3 (3.5-5.0) g/dL 06/21/22 Range/Units 17:01 WBC (4.8-10.8) X10*3/uL RBC (4.20-5.50) X10*6/uL Hgb (12.0-16.0) g/dl Hct (37.0-47.0) % MCV (80.0-98.0) fL MCH (27.0-33.0) pg MCHC (31.0-35.0) g/dl RDW (11.0-16.0) % Plt Count (160-400) X10*3/uL MPV (9.4-12.3) fL Immature Gran % (Auto) (0.0-0.4) % Neut % (Auto) (45-73) % Lymph % (Auto) (20-40) % [place] % (Auto) (2-11) % Eos % (Auto) (0-4) % Baso % (Auto) (0-2) % Lymph # (Auto) (1.2-4.9) X10*3/uL [place] # (Auto) (0.1-1.2) X10*3/uL Eos # (Auto) (0.0-0.4) X10*3/uL Baso # (Auto) (0.0-0.2) X10*3/uL Abs Immat Gran (auto) (0.00-0.03) X10*3/uL Absolute Neuts (auto) (2.0-8.3) x10*3/uL Absolute Nucleated RBC (0.0-0.012) X10*3/uL Nucleated RBC % (auto) (0.0-0.2) /100WBC PT (10.0-13.1) SEC INR (0.9-1.1) Sodium (135-145) mmol/L Potassium (3.3-5.1) mmol/L Chloride (96-108) mmol/L Carbon Dioxide (22-29) mmol/L Anion Gap (12-20) BUN (9-16) mg/dL Creatinine (0.5-1.4) mg/dL Estim Creat Clear Calc Estimated GFR Random Glucose (60-115) mg/dL Calcium (8.4-10.2) mg/dL Magnesium (1.6-2.6) mg/dL Total Bilirubin (0.0-1.0) mg/dL Direct Bilirubin (0.0-0.5) mg/dL AST (5-31) U/L ALT (0-31) U/L Alkaline Phosphatase (39-117) U/L Troponin I High Sens < 2.7 (<3.5-17.0) ng/L Total Protein (6.5-8.0) g/dL Albumin (3.5-5.0) g/dL <JUAN Gorman - Last Filed: 06/21/22 16:09> Lab Results 06/21/22 06/21/22 06/21/22 Range/Units 17:01 17:01 17:01 WBC 9.8 (4.8-10.8) X10*3/uL RBC 5.06 (4.20-5.50) X10*6/uL Hgb 13.4 (12.0-16.0) g/dl Hct 42.4 (37.0-47.0) % MCV 83.8 (80.0-98.0) fL MCH 26.5 L (27.0-33.0) pg MCHC 31.6 (31.0-35.0) g/dl RDW 14.5 (11.0-16.0) % Plt Count 235 (160-400) X10*3/uL MPV 10.7 (9.4-12.3) fL Immature Gran % (Auto) 0.2 (0.0-0.4) % Neut % (Auto) 57.7 (45-73) % Lymph % (Auto) 33.0 (20-40) % [place] % (Auto) 6.7 (2-11) % Eos % (Auto) 2.0 (0-4) % Baso % (Auto) 0.4 (0-2) % Lymph # (Auto) 3.3 (1.2-4.9) X10*3/uL [place] # (Auto) 0.7 (0.1-1.2) X10*3/uL Eos # (Auto) 0.2 (0.0-0.4) X10*3/uL Baso # (Auto) 0.0 (0.0-0.2) X10*3/uL Abs Immat Gran (auto) 0.02 (0.00-0.03) X10*3/uL Absolute Neuts (auto) 5.7 (2.0-8.3) x10*3/uL Absolute Nucleated RBC 0.000 (0.0-0.012) X10*3/uL Nucleated RBC % (auto) 0.0 (0.0-0.2) /100WBC PT 10.8 (10.0-13.1) SEC INR 0.9 (0.9-1.1) Sodium 142 (135-145) mmol/L Potassium 4.0 (3.3-5.1) mmol/L Chloride 110 H (96-108) mmol/L Carbon Dioxide 27 (22-29) mmol/L Anion Gap 9 L (12-20) BUN 17 H (9-16) mg/dL Creatinine 0.87 (0.5-1.4) mg/dL Estim Creat Clear Calc 51.3 Estimated GFR > 60 Random Glucose 100 (60-115) mg/dL Calcium 9.3 (8.4-10.2) mg/dL Magnesium 2.1 (1.6-2.6) mg/dL Total Bilirubin 0.4 (0.0-1.0) mg/dL Direct Bilirubin 0.1 (0.0-0.5) mg/dL AST 20 (5-31) U/L ALT 15 (0-31) U/L Alkaline Phosphatase 73 (39-117) U/L Troponin I High Sens (<3.5-17.0) ng/L Total Protein 6.4 L (6.5-8.0) g/dL Albumin 4.3 (3.5-5.0) g/dL 06/21/22 Range/Units 17:01 WBC (4.8-10.8) X10*3/uL RBC (4.20-5.50) X10*6/uL Hgb (12.0-16.0) g/dl Hct (37.0-47.0) % MCV (80.0-98.0) fL MCH (27.0-33.0) pg MCHC (31.0-35.0) g/dl RDW (11.0-16.0) % Plt Count (160-400) X10*3/uL MPV (9.4-12.3) fL Immature Gran % (Auto) (0.0-0.4) % Neut % (Auto) (45-73) % Lymph % (Auto) (20-40) % [place] % (Auto) (2-11) % Eos % (Auto) (0-4) % Baso % (Auto) (0-2) % Lymph # (Auto) (1.2-4.9) X10*3/uL [place] # (Auto) (0.1-1.2) X10*3/uL Eos # (Auto) (0.0-0.4) X10*3/uL Baso # (Auto) (0.0-0.2) X10*3/uL Abs Immat Gran (auto) (0.00-0.03) X10*3/uL Absolute Neuts (auto) (2.0-8.3) x10*3/uL Absolute Nucleated RBC (0.0-0.012) X10*3/uL Nucleated RBC % (auto) (0.0-0.2) /100WBC PT (10.0-13.1) SEC INR (0.9-1.1) Sodium (135-145) mmol/L Potassium (3.3-5.1) mmol/L Chloride (96-108) mmol/L Carbon Dioxide (22-29) mmol/L Anion Gap (12-20) BUN (9-16) mg/dL Creatinine (0.5-1.4) mg/dL Estim Creat Clear Calc Estimated GFR Random Glucose (60-115) mg/dL Calcium (8.4-10.2) mg/dL Magnesium (1.6-2.6) mg/dL Total Bilirubin (0.0-1.0) mg/dL Direct Bilirubin (0.0-0.5) mg/dL AST (5-31) U/L ALT (0-31) U/L Alkaline Phosphatase (39-117) U/L Troponin I High Sens < 2.7 (<3.5-17.0) ng/L Total Protein (6.5-8.0) g/dL Albumin (3.5-5.0) g/dL <Paulino Martini MD - Last Filed: 06/22/22 00:09> Discharge Plan Discharge Clinical Impression: Hypertension, Tension headache <JUAN Gorman - Last Filed: 06/21/22 16:09> Patient Disposition: Home, Self-Care <JUAN Gorman - Last Filed: 06/21/22 16:09> Instructions: Tension Headache (ED), Hypertension (ED) <JUAN Gorman - Last Filed: 06/21/22 16:09> Additional Instructions: You have slightly elevated blood pressure likely from the stress Relax check blood pressure 2 times a day and follow-up with your PCP Normal blood pressure should be less than 135/85 <JUAN Gorman - Last Filed: 06/21/22 16:09> Prescriptions: No Action Forteo 20 mcg/dose (600mcg/2.4mL) pen injector 20 mcg subcut DAILY Qty: 2.4 11RF Tymlos 80 mcg (3,120 mcg/1.56 mL) pen injector 80 mcg subcut DAILY Qty: 1.56 5RF Rx Instructions: inject into abdomen; do not inject within 2 inches of belly button/navel; rotate sites omeprazole 20 mg capsule,delayed release(DR/EC) 20 mg PO DAILY estradiol 0.01 % (0.1 mg/gram) cream vaginal 2XW cholecalciferol (vitamin D3) 50 mcg (2,000 unit) capsule 50 mcg PO DAILY 90 Days Qty: 90 3RF <JUAN Gorman - Last Filed: 06/21/22 16:09> Interventions: ED Discharge Assessment Last Done: 06/21/22 23:04 <JUAN Gorman - Last Filed: 06/21/22 16:09> Discharge Date/Time: 06/21/22 23:05 <JUAN Gorman - Last Filed: 06/21/22 16:09>
--- NOTE | 2022-06-21 15:59 | ECG_ITS ---
Test Reason : DIZZINESS/ HEADHACHE Blood Pressure : / mmHG Vent. Rate : 069 BPM Atrial Rate : 069 BPM P-R Int : 180 ms QRS Dur : 084 ms QT Int : 404 ms P-R-T Axes : 027 -16 005 degrees QTc Int : 432 ms Normal sinus rhythm Minimal voltage criteria for LVH, may be normal variant ( R in aVL ) Borderline ECG When compared with ECG of 16-FEB-2012 07:17, T wave inversion now evident in Inferior leads Referred By: Reva Pyle Electronically Signed By:ENOCH SOLANO
[2022-06-21 17:05] LABS: MANUAL DIFF FLAG NO
[2022-06-21 17:07] LABS: Basophils Percent Auto 0.4 % (0-2); Eosinophils Absolute Auto 0.2 X10*3/uL (0.0-0.4); Hematocrit 42.4 % (37.0-47.0); Hemoglobin 13.4 g/dl (12.0-16.0); Imm Gran Abs Auto 0.02 X10*3/uL (0.00-0.03); Imm Gran Pct Auto 0.2 % (0.0-0.4); Lymphocytes Absolute Auto 3.3 X10*3/uL (1.2-4.9); Mean Corpuscular HGB Conc 31.6 g/dl (31.0-35.0); Mean Corpuscular Hemoglobin 26.5 pg (27.0-33.0); Mean Corpuscular Volume 83.8 fL (80.0-98.0); Mean Platelet Volume 10.7 fL (9.4-12.3); Monocytes Absolute Auto 0.7 X10*3/uL (0.1-1.2); Monocytes Percent Auto 6.7 % (2-11); Neutrophils Absolute Auto 5.7 x10*3/uL (2.0-8.3); Neutrophils Percent Auto 57.7 % (45-73); Platelet Count 235 X10*3/uL (160-400); Red Blood Count 5.06 X10*6/uL (4.20-5.50); Red Cell Distribution Width 14.5 % (11.0-16.0); White Blood Count 9.8 X10*3/uL (4.8-10.8)
[2022-06-21 17:19] LABS: INTERNATIONAL NORM RATIO 0.9 (0.9-1.1); Prothrombin Time 10.8 SEC (10.0-13.1)
[2022-06-21 17:29] LABS: Troponin-I High Sensitivity < 2.7 ng/L (<3.5-17.0)
[2022-06-21 17:38] LABS: Alanine Aminotransferase 15 U/L (0-31); Albumin Level 4.3 g/dL (3.5-5.0); Alkaline Phosphatase 73 U/L (39-117); Anion Gap 9 (12-20); Aspartate Amino Transferase 20 U/L (5-31); Bilirubin Direct 0.1 mg/dL (0.0-0.5); Bilirubin Total 0.4 mg/dL (0.0-1.0); Blood Urea Nitrogen 17 mg/dL (9-16); Calcium 9.3 mg/dL (8.4-10.2); Carbon Dioxide 27 mmol/L (22-29); Chloride 110 mmol/L (96-108); Creatinine Clr Calc Pharmacy 51.3; Estimated Glomerular Filt Rate > 60; Glucose Random 100 mg/dL (60-115); Magnesium 2.1 mg/dL (1.6-2.6); Sodium 142 mmol/L (135-145); Total Protein 6.4 g/dL (6.5-8.0)
--- NOTE | 2022-06-21 21:12 | PC.NURSE ---
Pt ca&ox3. Pt denies chest pain and sob. No signs of distress. Pt changed into ed gown. Will continue to monitor.
--- NOTE | 2022-06-21 21:29 | PC.NURSE ---
Pt placed on monitor. Pt requesting to go home stating headache has resolved and would feel more comfortable resting at home. Pt denies chest pain and sob. No signs of distress. Will continue to monitor.
[2022-06-21] MEDS: Losartan Potassium 25 MG TABLET PO (22:33)
--- NOTE | 2022-06-21 22:39 | PC.NURSE ---
Pt ca&ox3. No signs of distress. Pt given meds per mar. Pt requesting food and drink. RN confirmed with provider and pt given food and drink. Pt denies chest pain and sob. Will continue to monitor.
--- NOTE | 2022-06-21 23:03 | PC.NURSE ---
Pt a&o, no sob or chest pain, no sign of distress, Reviewed discharge instructions, pt verbalized understanding,
== END 2022-06-21 23:05 | disposition home or self-care (01) ==
PROVIDERS: Physician Assistant; Emergency Provider Internal Medicine; PCP Family Medicine
DX: G44.209 Tension-type headache, unspecified, not intractable (principal); R10.11 Right upper quadrant pain; I10 Essential (primary) hypertension; Z79.899 Other long term (current) drug therapy
CPT/HCPCS: 36415; 70450; 80048; 80076; 83735; 84484; 85025; 85610; 93005; 99284; 99285

== ENCOUNTER 2022-06-26 15:59 | Emergency (ER) | payer MEDICARE, SELFPAY ==
[2022-06-26 16:07] VITALS: BP 163/82; PULSE 99; RESP 16; TEMP 37.1; O2SAT 100; BMI 25.6
--- NOTE | 2022-06-26 16:08 | ED.GENADULT ---
HPI - General Adult General Chief complaint: Headache Stated complaint: Blood [id number] Headache Time Seen by Provider: 06/26/22 16:29 Source: patient Mode of arrival: ambulatory Limitations: no limitations History of Present Illness HPI narrative: Patient history of multinodular goiter osteoporosis been having fluctuating hyper blood pressure for last 2 weeks was seen here on 06/21 when blood pressure was elevated with headache again today she comes at when she checked the blood pressure at home was 174/89 having frontal headache no nausea no vomiting no photosensitivity patient does have strong family history of hypertension did drink 2 cups of coffee today not in any stress at this time no chest pain or palpitation or shortness of breath Related Data Home Medications Medication Instructions Recorded Confirmed estradiol 0.01% (0.1 mg/gram) g vaginal 2XW 06/26/20 12/29/21 vaginal cream omeprazole 20 mg capsule,delayed 20 mg PO DAILY 06/26/20 12/29/21 release Previous Rx's Medication Instructions Recorded cholecalciferol (vitamin D3) 50 50 mcg PO DAILY 90 days #90 caps 06/26/20 mcg (2,000 unit) capsule teriparatide 20 mcg/dose (600 20 mcg (0.08 mL) subcut DAILY #2.4 03/14/22 mcg/2.4 mL) subcutaneous pen mL injector (Forteo) abaloparatide (Tymlos) 80 mcg (0.04 mL) subcut DAILY 03/15/22 #1.56 mL amlodipine 2.5 mg tablet 2.5 mg PO DAILY #30 tabs 06/26/22 aspirin 81 mg tablet,delayed 81 mg PO DAILY #90 tabs 06/26/22 release Allergies Allergy/AdvReac Type Severity Reaction Status Date / Time From BENADRYL Allergy Unknown RACING Uncoded 06/21/22 16:04 HEART Review of Systems Review of Systems: Yes all other systems are reviewed and are negative PMFSH Past Medical History Medical History Non-toxic multinodular goiter Osteoporosis Primary hyperparathyroidism Surgical History Hx of hysterectomy Hx of left breast biopsy Hx of parathyroidectomy Hx of tonsillectomy Status post fine needle aspiration Family History Family History Father Rectal cancer Mother Heart disease Diabetes Brother Celiac disease Social History Social History Household Members: Spouse Alcohol intake: current Alcohol intake frequency: holidays/special occasions only Alcohol type: wine Patient Tobacco Use Status: Never used Tobacco Smoked in Last 30 Days: No Use of substances other than those prescribed or required for medical reasons: No Advance Directives: No Advance Directives Information Provided: Yes Physical Exam ED Vital Signs: Vital Signs - 24 hr 06/26/22 16:07 06/26/22 17:26 Temperature 98.8 F Pulse Rate 99 86 Respiratory Rate 16 16 Blood Pressure 163/82 H 165/63 H Pulse Oximetry 100 98 Oxygen Delivery Method Room Air Room Air BMI result Body Mass Index 25.6 Appearance: Alert. Oriented X3. No acute distress. Eyes: PERRLA, No Nystagmus ENT: Pharynx normal. Oral Mucosa moist Neck: Normal inspection. Neck supple. CVS: Normal heart rate and rhythm. Pulses normal. Respiratory: No respiratory distress. Equal air entry bilateral, no wheezing/rales/rhonchi Abdomen: Soft and nontender. Bowel sounds are present, no mass palpable, no CVA tenderness Skin: Skin warm and dry. Normal skin color. Normal skin turgor. Extremities: No lower extremity edema. No calf tenderness Neuro: Oriented X 3. No motor deficit. No sensory deficit.No cerebellar signs , cranial nerves II-XII intact Course Course Course Narrative: RME performed by Lor Campbell PA-C. Patient is a 76 year old assigned female at presenting to the emergency department with a headache. Patient states that she was just evaluated here for a similar issue and was given blood pressure medicaiton which helped it. Patient states that she is not currently on blood pressure medications at home. Labs and EKG ordered. Patient placed back in the waiting room pending room availability and results. Medications Administered Discontinued Medications Generic Name Dose Route Start Last Admin Trade Name Freq PRN Reason Stop Dose Admin Acetaminophen 650 mg 06/26/22 16:55 06/26/22 17:25 Acetaminophen 325 Mg Tablet PO 06/26/22 16:56 650 mg ONCE ONE Administration Amlodipine Besylate 2.5 mg 06/26/22 16:55 06/26/22 17:24 Amlodipine Besylate 2.5 Mg Tablet PO 06/26/22 16:56 2.5 mg ONCE ONE Administration Protocol Aspirin 81 mg 06/26/22 16:55 06/26/22 17:24 Aspirin 81 Mg Tab.Chew PO 06/26/22 16:56 81 mg ONCE ONE Administration Medical Decision Making Medical Decision Making [facility] Narrative: Patient with mild hypertension with his increased risk factors will start patient on amlodipine 2.5 mg daily along with baby aspirin advised to follow-up with PCP Lab Data [facility] Lab Attestation statement: I reviewed the patient's lab results. 06/26/22 16:27 06/26/22 16:27 Labs: Lab Results 06/26/22 06/26/22 Range/Units 16:27 16:27 WBC 10.1 (4.8-10.8) X10*3/uL RBC 5.14 (4.20-5.50) X10*6/uL Hgb 13.7 (12.0-16.0) g/dl Hct 42.5 (37.0-47.0) % MCV 82.7 (80.0-98.0) fL MCH 26.7 L (27.0-33.0) pg MCHC 32.2 (31.0-35.0) g/dl RDW 14.3 (11.0-16.0) % Plt Count 251 (160-400) X10*3/uL MPV 10.6 (9.4-12.3) fL Immature Gran % (Auto) 0.3 (0.0-0.4) % Neut % (Auto) 55.0 (45-73) % Lymph % (Auto) 37.1 (20-40) % [place] % (Auto) 5.6 (2-11) % Eos % (Auto) 1.6 (0-4) % Baso % (Auto) 0.4 (0-2) % Lymph # (Auto) 3.8 (1.2-4.9) X10*3/uL [place] # (Auto) 0.6 (0.1-1.2) X10*3/uL Eos # (Auto) 0.2 (0.0-0.4) X10*3/uL Baso # (Auto) 0.0 (0.0-0.2) X10*3/uL Abs Immat Gran (auto) 0.03 (0.00-0.03) X10*3/uL Absolute Neuts (auto) 5.6 (2.0-8.3) x10*3/uL Absolute Nucleated RBC 0.000 (0.0-0.012) X10*3/uL Nucleated RBC % (auto) 0.0 (0.0-0.2) /100WBC Sodium 142 (135-145) mmol/L Potassium 3.9 (3.3-5.1) mmol/L Chloride 107 (96-108) mmol/L Carbon Dioxide 26 (22-29) mmol/L Anion Gap 13 (12-20) BUN 20 H (9-16) mg/dL Creatinine 1.04 (0.5-1.4) mg/dL Estim Creat Clear Calc 42.8 Estimated GFR 51 Random Glucose 133 H (60-115) mg/dL Calcium 9.7 (8.4-10.2) mg/dL Magnesium 1.9 (1.6-2.6) mg/dL Total Bilirubin 0.3 (0.0-1.0) mg/dL AST 22 (5-31) U/L ALT 16 (0-31) U/L Alkaline Phosphatase 80 (39-117) U/L Total Protein 6.8 (6.5-8.0) g/dL Albumin 4.5 (3.5-5.0) g/dL Independent Interpretation I performed an independent interpretation of an: EKG Interpretation: Heart rate 88 beats per minute normal sinus rhythm slightly LVH no acute ST changes no acute ischemia Discharge Plan Discharge Clinical Impression: Hypertension Patient Disposition: Home, Self-Care Instructions: Hypertension (ED) Additional Instructions: You have borderline hypertension Take amlodipine 2.5 mg daily normal blood pressure should be less than 135/85 Also start taking baby aspirin 81 mg Follow-up with your PCP Normal blood pressure should be less than 135/85 Prescriptions: New amlodipine 2.5 mg tablet 2.5 mg PO DAILY Qty: 30 2RF aspirin 81 mg tablet,delayed release (DR/EC) 81 mg PO DAILY Qty: 90 3RF No Action Forteo 20 mcg/dose (600mcg/2.4mL) pen injector 20 mcg subcut DAILY Qty: 2.4 11RF Tymlos 80 mcg (3,120 mcg/1.56 mL) pen injector 80 mcg subcut DAILY Qty: 1.56 5RF Rx Instructions: inject into abdomen; do not inject within 2 inches of belly button/navel; rotate sites omeprazole 20 mg capsule,delayed release(DR/EC) 20 mg PO DAILY estradiol 0.01 % (0.1 mg/gram) cream vaginal 2XW cholecalciferol (vitamin D3) 50 mcg (2,000 unit) capsule 50 mcg PO DAILY 90 Days Qty: 90 3RF
--- NOTE | 2022-06-26 16:09 | ECG_ITS ---
Test Reason : HIGH BLOOD PRESSURE/HEADACHE Blood Pressure : / mmHG Vent. Rate : 088 BPM Atrial Rate : 088 BPM P-R Int : 152 ms QRS Dur : 080 ms QT Int : 366 ms P-R-T Axes : 030 -18 034 degrees QTc Int : 442 ms Normal sinus rhythm Possible Left atrial enlargement Minimal voltage criteria for LVH, may be normal variant ( R in aVL ) Borderline ECG When compared with ECG of 21-JUN-2022 16:46, No significant change was found Referred By: Lor Campbell Electronically Signed By:Oscar Mejias
[2022-06-26 16:32] LABS: MANUAL DIFF FLAG NO
[2022-06-26 16:33] LABS: Basophils Percent Auto 0.4 % (0-2); Eosinophils Absolute Auto 0.2 X10*3/uL (0.0-0.4); Eosinophils Percent Auto 1.6 % (0-4); Hematocrit 42.5 % (37.0-47.0); Hemoglobin 13.7 g/dl (12.0-16.0); Imm Gran Abs Auto 0.03 X10*3/uL (0.00-0.03); Imm Gran Pct Auto 0.3 % (0.0-0.4); Lymphocytes Absolute Auto 3.8 X10*3/uL (1.2-4.9); Lymphocytes Percent Auto 37.1 % (20-40); Mean Corpuscular HGB Conc 32.2 g/dl (31.0-35.0); Mean Corpuscular Hemoglobin 26.7 pg (27.0-33.0); Mean Corpuscular Volume 82.7 fL (80.0-98.0); Mean Platelet Volume 10.6 fL (9.4-12.3); Monocytes Absolute Auto 0.6 X10*3/uL (0.1-1.2); Monocytes Percent Auto 5.6 % (2-11); Neutrophils Absolute Auto 5.6 x10*3/uL (2.0-8.3); Platelet Count 251 X10*3/uL (160-400); Red Blood Count 5.14 X10*6/uL (4.20-5.50); Red Cell Distribution Width 14.3 % (11.0-16.0); White Blood Count 10.1 X10*3/uL (4.8-10.8)
[2022-06-26 16:46] LABS: Alanine Aminotransferase 16 U/L (0-31); Albumin Level 4.5 g/dL (3.5-5.0); Alkaline Phosphatase 80 U/L (39-117); Anion Gap 13 (12-20); Aspartate Amino Transferase 22 U/L (5-31); Bilirubin Total 0.3 mg/dL (0.0-1.0); Blood Urea Nitrogen 20 mg/dL (9-16); Calcium 9.7 mg/dL (8.4-10.2); Carbon Dioxide 26 mmol/L (22-29); Chloride 107 mmol/L (96-108); Creatinine Clr Calc Pharmacy 42.8; Estimated Glomerular Filt Rate 51; Glucose Random 133 mg/dL (60-115); Magnesium 1.9 mg/dL (1.6-2.6); Potassium 3.9 mmol/L (3.3-5.1); Sodium 142 mmol/L (135-145); Total Protein 6.8 g/dL (6.5-8.0)
[2022-06-26] MEDS: Aspirin 81 MG TAB.CHEW PO (17:24)
[2022-06-26] MEDS: amLODIPine Besylate 2.5 MG TABLET PO (17:24)
[2022-06-26] MEDS: Acetaminophen 325 MG TABLET 650 MG PO (17:25)
[2022-06-26 17:26] VITALS: BP 165/63; PULSE 86; RESP 16; O2SAT 98
== END 2022-06-26 18:04 | disposition home or self-care (01) ==
PROVIDERS: Physician Assistant Medical; Emergency Provider Internal Medicine
DX: R51.9 Headache, unspecified (principal); I10 Essential (primary) hypertension; R94.31 Abnormal electrocardiogram [ECG] [EKG]; Z79.899 Other long term (current) drug therapy
CPT/HCPCS: 36415; 80053; 83735; 85025; 93005; 99284

== ENCOUNTER → 2022-06-28 08:47 | Outpatient (BNVA) | payer MEDICARE, SELFPAY | PROVIDERS: PCP Family Medicine; Visit Provider Internal Medicine Endocrinology, Diabetes & Metabolism | DX: M81.0 Age-related osteoporosis without current pathological fracture (principal); E04.2 Nontoxic multinodular goiter; I10 Essential (primary) hypertension | CPT/HCPCS: 99212 ==

== ENCOUNTER 2022-06-28 09:36 | Outpatient (REF) | payer MEDICARE, SELFPAY ==
[2022-06-28 11:19] LABS: Free T4 (Free Thyroxine) 0.87 ng/dL (0.71-1.85); Thyroid Stimulating Hormone 1.35 uIU/mL (0.32-4.0)
[2022-07-04 12:13] LABS: Renin 1.14 ng/mL/h (0.25-5.82)
[2022-07-04 19:43] LABS: Metanephrine, Free 77 pg/mL (<=57); Normetanephrines, Free 119 pg/mL (<=148); Total Metanephrine, Free 196 pg/mL (<=205)
== END 2022-06-28 09:37 | disposition home or self-care (01) ==
LOC: HO.10HDL 09:36
PROVIDERS: Visit Provider Internal Medicine Endocrinology, Diabetes & Metabolism
DX: E04.2 Nontoxic multinodular goiter (principal); I10 Essential (primary) hypertension
CPT/HCPCS: 36415; 82088; 83835; 84244; 84439; 84443

== ENCOUNTER 2022-07-13 13:09 | Outpatient (REF) | payer MEDICARE, SELFPAY ==
--- NOTE | ~2022-07-13 | MM_ITS ---
EXAMINATION: MM DIAGNOSTIC DIGITAL BREAST TOMOSYNTHESIS, LEFT CLINICAL INFORMATION: Short interval six-month follow-up benign-appearing parenchymal asymmetry upper outer left breast possibly related to a simple cyst on targeted ultrasound. Assess for developing density. TC score under 3%. COMPARISON: Mammography 12/13/2021, 12/06/2021 (BI-RADS 0), 10/23/2020, 11/29/2018. Ultrasound left breast 12/13/2021. TECHNIQUE: Digital breast tomosynthesis is performed in both the craniocaudal and mediolateral oblique views along with computer-aided detection (CAD). Synthesized 2D images are generated from the tomosynthesis. FINDINGS: There are scattered areas of fibroglandular density (ACR BI-RADS breast composition Category b). There are no significant masses, abnormal calcifications, or other abnormalities. The oval parenchymal asymmetry mid upper left breast MLO view appears slightly decreased. There is no developing density or architectural abnormality. Results are provided to the patient at time of visit by the technologist. MM/MM tomosynthesis diagnostic LT IMPRESSION: -No mammographic evidence of malignancy. -Finding for follow-up is slightly decreased. ASSESSMENT: BI-RADS 3: Probably Benign RECOMMENDATION: Diagnostic mammography at time of annual exam, due in 6 months. This patient's information was entered into a reminder system with a target due date for their next mammogram.
== END 2022-07-13 13:10 | disposition home or self-care (01) ==
LOC: HO.MAMMO 13:09
PROVIDERS: PCP Family Medicine; Visit Provider Family Medicine
DX: R92.2 Inconclusive mammogram (principal)
CPT/HCPCS: 77061; 77065

== ENCOUNTER 2022-07-15 10:21 | Outpatient (REF) | payer MEDICARE, SELFPAY ==
[2022-07-15 11:53] LABS: Creatinine, mg/dL 80.99
[2022-07-15 13:08] LABS: Creatinine, 24Hr Urine 0.9 G/Day (1.0-2.0); Total Volume 24 Hour Urine 1150 mL
[2022-07-21 11:33] LABS: Metanephrine, Free 24U 167 mcg/24 h (90-315); Normetanephrine, Free 24U 351 mcg/24 h (122-676); Total Metanephrine, Free 24U 518 mcg/24 h (224-832); Total Volume 24U 1150 mL
== END 2022-07-15 10:22 | disposition home or self-care (01) ==
LOC: HO.LNP 10:21
PROVIDERS: Visit Provider Internal Medicine Endocrinology, Diabetes & Metabolism
DX: R00.2 Palpitations (principal)
CPT/HCPCS: 82570; 83835

== ENCOUNTER 2022-11-14 12:45 | Outpatient (REF) | payer MEDICARE, SELFPAY ==
[2022-11-14 14:15] LABS: Anion Gap 13 (12-20); Blood Urea Nitrogen 18 mg/dL (9-16); Carbon Dioxide 23 mmol/L (22-29); Chloride 107 mmol/L (96-108); Estimated Glomerular Filt Rate > 60; Potassium 3.8 mmol/L (3.3-5.1); Sodium 139 mmol/L (135-145)
== END 2022-11-14 12:46 | disposition home or self-care (01) ==
LOC: HO.LAB 12:45
PROVIDERS: PCP Family Medicine; Visit Provider Family Medicine
DX: I10 Essential (primary) hypertension (principal)
CPT/HCPCS: 36415; 80051; 82565; 84520

== ENCOUNTER 2023-01-11 11:21 | Outpatient (REF) | payer MEDICARE, SELFPAY ==
--- NOTE | ~2023-01-11 | MM_ITS ---
EXAMINATION: MM DIAGNOSTIC DIGITAL BREAST TOMOSYNTHESIS, BILATERAL CLINICAL INFORMATION: Follow-up to left breast upper densities, likely cysts on ultrasound dated 12/13/2021. Patient also due for routine screening. COMPARISON: Mammography: 07/13/2022, 12/13/2021, 12/06/2021; ultrasound left breast 12/13/2021. TECHNIQUE: Digital breast tomosynthesis is performed in both the craniocaudal and mediolateral oblique views along with computer-aided detection (CAD). Synthesized 2D images are generated from the tomosynthesis. FINDINGS: There are scattered areas of fibroglandular density (ACR BI-RADS breast composition Category b). In the left breast, anterior aspect, upper region, there are 2 circumscribed densities which are completely unchanged in morphology and size, which likely correlate with cysts on recent ultrasound. These are probably benign and unchanged. Otherwise, There are no suspicious masses, suspicious grouped calcifications, or areas of architectural distortion in either breast. The parenchymal pattern is stable from prior exams. No skin or axillary changes. MM/MM tomosynthesis diagnostic BI IMPRESSION: There are no significant changes from prior study. No findings suspicious for malignancy in either breast. Stable parenchymal pattern with 2 small left breast upper asymmetries which most likely represent simple cysts. Recommend follow-up in one year's time to assess stability. No suspicious findings in the right breast. ASSESSMENT: BI-RADS BI-RADS 3 - Probably benign finding(s) - 12 month follow-up suggested RECOMMENDATION: 12 month diagnostic follow up Results were provided to the patient at time of visit by the technologist. This patient's information was entered into a reminder system with a target due date for their next mammogram.
== END 2023-01-11 11:22 | disposition home or self-care (01) ==
LOC: HO.MAMMO 11:21
PROVIDERS: PCP Family Medicine; Visit Provider Family Medicine
DX: R92.2 Inconclusive mammogram (principal)
CPT/HCPCS: 77062; 77066

== ENCOUNTER → 2023-01-11 11:30 | Outpatient (BNV) | payer MEDICARE, SELFPAY | PROVIDERS: PCP Family Medicine; Visit Provider Radiology Diagnostic Radiology | DX: N60.02 Solitary cyst of left breast (principal); R92.323 Mammographic fibroglandular density, bilateral breasts | CPT/HCPCS: 77062; 77066 ==

== ENCOUNTER 2023-05-25 14:05 | Outpatient (REF) | payer MEDICARE, SELFPAY ==
[2023-05-25 15:39] LABS: Anion Gap 12 (12-20); Blood Urea Nitrogen 16 mg/dL (9-16); Carbon Dioxide 24 mmol/L (22-29); Chloride 108 mmol/L (96-108); Estimated Glomerular Filt Rate > 60; Potassium 3.6 mmol/L (3.3-5.1); Sodium 140 mmol/L (135-145)
== END 2023-05-25 14:06 | disposition home or self-care (01) ==
LOC: HO.LAB 14:05
PROVIDERS: PCP Family Medicine; Visit Provider Family Medicine
DX: I10 Essential (primary) hypertension (principal)
CPT/HCPCS: 36415; 80051; 82565; 84520

== ENCOUNTER 2023-06-05 12:21 | Outpatient (REF) | payer MEDICARE, SELFPAY ==
--- NOTE | ~2023-06-05 | XR_ITS ---
EXAMINATION: XR SHOULDER, RIGHT CLINICAL INFORMATION: Patient states pain right shoulder, no trauma, limited range of motion. COMPARISON: None available. TECHNIQUE: AP external rotation, Grashey, scapular Y, and axillary views of the right shoulder. FINDINGS: The bones are diffusely demineralized. Degenerative changes in the imaged upper thoracic spine. Possible parenchymal disease in the visualized upper lung should be evaluated with dedicated views of the chest. Surgical clip in the medial upper right hemithorax. Moderate degenerative changes in the acromioclavicular joint. Glenohumeral alignment preserved. Mild subacromial spurring. XR/XR shoulder RT min 2V IMPRESSION: 1. Moderate degenerative changes in the acromioclavicular joint. 2. Possible parenchymal disease in the visualized upper lung should be evaluated with dedicated views of the chest.
== END 2023-06-05 12:22 | disposition home or self-care (01) ==
LOC: HO.XRAY 12:21
PROVIDERS: PCP Family Medicine; Visit Provider Family Medicine
DX: M25.511 Pain in right shoulder (principal)
CPT/HCPCS: 73030

== ENCOUNTER 2023-06-24 18:06 | Emergency (ER) | payer MEDICARE, SELFPAY ==
--- NOTE | ~2023-06-24 | CT_ITS ---
EXAMINATION: CTA OF THE HEAD AND NECK CLINICAL INFORMATION: Altered mental status. COMPARISON: Head CT dated 06/21/2022. TECHNIQUE: Test bolus sequences followed by intravenous administration 70 mL of Omnipaque 350. Helical imaging was performed in the axial plane from the mediastinum to the skull vertex. Delayed postcontrast imaging of the head was also performed. The data was processed at the generation engineering technologist's workstation for generation of MIP sequences. Three-dimensional volume rendered reformatted images were also generated at an offline 3-D workstation. Stenoses are assessed in accordance with NASCET criteria unless otherwise indicated. This CT examination was performed using dose optimization techniques as appropriate, variously including the following: *Automated exposure control *Adjustment of mA and/or kV according to patient size (this includes techniques or standardized protocols for targeted exams where dose is matched to indication/reason for exam; i.e. extremities or head) *Use of iterative reconstruction technique DLP: 2044 mGy-cm. FINDINGS: CT head: There is no evidence of acute intracranial hemorrhage or territorial infarction. There is no loss of michele to white matter differentiation. No abnormal mass effect or midline shift is seen. No extra-axial fluid collections are identified. There is no abnormal enhancement. The ventricles are normal in size. Patchy areas of low-density change again visible in the cerebral white matter from presumed underlying chronic microangiopathy. The osseous structures and soft tissues are normal. The mastoid air cells and visualized portions of the paranasal sinuses are well aerated. CTA neck: The imaged aortic arch and origins of the great vessels are normal. The common carotid arteries are widely patent. There is mild atheromatous disease at the origin of the left internal carotid artery without significant stenosis. The right carotid bifurcation and cervical right internal carotid artery are normal. The vertebral arteries opacify normally and are of normal caliber. Heterogeneous multinodular thyroid gland with a dominant 2 cm nodule in the right thyroid lobe. There is moderate to severe spondylosis in the mid to lower cervical spine with hypertrophic facet arthropathy and a leftward cervical spinal curvature. Additional reversal of the normal cervical lordosis evident. The imaged portions of the lungs are clear. CTA head: The intradural vertebral arteries are normal. The basilar artery is mildly irregular but otherwise widely patent. The posterior cerebral arteries are widely patent. The internal carotid arteries are of normal caliber. The TRINY and MCA vascular complexes bilaterally are normal. The venous sinuses opacify normally. CT/CT angio head neck IMPRESSION: No hemodynamically significant stenosis or vessel occlusion in the cervical or intracranial vasculature at the level of the [place]. No acute intracranial hemorrhage or territorial infarction. Mild chronic white matter microangiopathy. Multinodular thyroid gland with a dominant nodule measuring up to 2 cm in size. A nonemergent follow-up thyroid ultrasound is recommended for more complete evaluation. Moderate to severe mid to lower cervical spondylosis.
[2023-06-24 19:20] VITALS: BP 149/66; PULSE 91; RESP 16; TEMP 36.7; O2SAT 94; BMI 24.6
--- NOTE | 2023-06-24 19:22 | ED.GENADULT ---
HPI - General Adult General Chief complaint: Neuro Symptoms/Deficit Stated complaint: ref by pcp, speech/communication difficulty Time Seen by Provider: 06/24/23 20:11 Source: patient, RN notes reviewed and old records reviewed Mode of arrival: ambulatory Limitations: no limitations History of Present Illness HPI narrative: 77-year-old female with past medical history significant for hyperparathyroidism, osteoporosis presents for evaluation of word-finding difficulties. Patient reports that about 2 days ago, slightly over 48 hours ago she was on the phone with her daughter about an upcoming trip. The patient states that she was having difficulty finding words to discuss the trip that was upcoming in 1 week She reports that she was able to speak clearly and about anything other than the trip that was approaching She reports that these symptoms lasted for about 1 hour before completely resolving She had a mild headache at the same time but otherwise no other symptoms This was 2 days ago on The patient states that she called her brother who is a high school band teacher yesterday and when she explain what happened he encouraged her to call her primary The patient called her doctor who then prescribed baby aspirin and clopidogrel and asked the patient to call them back on Monday to check in The patient has had no further symptoms but presents for evaluation She never have any facial droop, slurred speech or difficulty moving any of her extremities Related Data Home Medications ?Medication ?Instructions ?Recorded ?Confirmed estradiol 0.01% (0.1 mg/gram) g vaginal 2XW 06/26/20 06/28/22 vaginal cream omeprazole 20 mg capsule,delayed 20 mg PO DAILY 06/26/20 06/28/22 release Previous Rx's ?Medication ?Instructions ?Recorded cholecalciferol (vitamin D3) 50 50 mcg PO DAILY 90 days #90 caps 06/26/20 mcg (2,000 unit) capsule amlodipine 2.5 mg tablet 2.5 mg PO DAILY #30 tabs 06/26/22 aspirin 81 mg tablet,delayed 81 mg PO DAILY #90 tabs 06/26/22 release abaloparatide (Tymlos) 10 mcg (0.005 mL) subcut DAILY 08/29/22 #1.56 mL Allergies Allergy/AdvReac Type Severity Reaction Status Date / Time From BENADRYL Allergy Unknown RACING Uncoded 06/24/23 19:30 HEART Review of Systems Constitutional: Constitutional: Denies body ache(s), Denies chills and Reports headache(s) Eyes: Eyes: Denies blurry vision and Denies loss of vision ENT: Reports headache(s) Cardiovascular: Cardiovascular: Denies chest pain and Denies dyspnea Respiratory: Respiratory: Denies cough and Denies dyspnea Gastrointestinal: Gastrointestinal: Denies abdominal pain, Denies nausea and Denies vomiting Integumentary/Breasts: Skin/Breast: Denies rash Neurologic: Reports headache(s), Denies focal weakness, Denies loss of vision and Denies memory loss Psychiatric: Psychiatric: Denies memory loss [facility] Past Medical History Medical History (Updated 06/24/23 @ 21:44 by Dante Ospina) Palpitation Non-toxic multinodular goiter Osteoporosis Primary hyperparathyroidism Surgical History (Updated 11/24/22 @ 15:57 by Sudha Palomo) Status post fine needle aspiration Hx of parathyroidectomy Hx of left breast biopsy Hx of tonsillectomy Hx of hysterectomy Family History Family History (System 11/24/22 @ 15:57 by Sudha Palomo) Father Rectal cancer Mother Heart disease Diabetes Brother Celiac disease Social History Social History (System 11/24/22 @ 15:57 by Sudha Palomo) Household Members: Spouse Alcohol intake: current Alcohol intake frequency: a few times a month Alcohol type: wine Patient Tobacco Use Status: Never used Tobacco Smoked in Last 30 Days: No Use of substances other than those prescribed or required for medical reasons: No Advance Directives: No Advance Directives Information Provided: No Do you have a plan to hurt others: No Plan Physical Exam ED Vital Signs: Vital Signs - 24 hr 06/24/23 19:20 06/24/23 20:02 06/24/23 21:41 Temperature 98.0 F 97.9 F 97.6 F Pulse Rate 91 83 87 Respiratory Rate 16 15 16 Blood Pressure 149/66 H 169/74 H 150/69 H Pulse Oximetry 94 96 98 Oxygen Delivery Method Room Air Room Air Room Air BMI result Body Mass Index 24.6 Const General: healthy appearing, comfortable, no acute distress, alert and awake Nutritional Appearance: well nourished Orientation/consciousness: patient oriented x3 HENMT Head: Yes normocephalic and Yes atraumatic Eyes Eyelids: Yes eyelids normal Conjunctivae: conjunctivae normal Sclerae: sclerae normal Corneas: corneas normal Pupils: Equal, round and reactive pupils present EOM: EOMs intact bilaterally Neck Neck: Yes full ROM Resp Effort & Inspection: normal respiratory effort, able to speak in complete sentences and not labored GI Inspection: No distended Palpation (GI): Soft to palpation, not firm, nontender, no guarding and not rigid Skin General skin exam: elasticity normal Neuro General: patient oriented x3 Cranial nerves: Yes CN's II-XII intact bilaterally, Yes Equal, round and reactive pupils present and Yes Bilaterally intact EOM present Cognition (Neuro): normal cognition Extrem Other: Moving all extremities well without any obvious deformities Course Course Course Narrative: This is a rapid medical exam completed by Bennett CORDOVAN: Additional HPI, ROS, PE not included below will be deferred to primary provider. Reports several days ago she had difficulty communicating what she wanted to say. States she was able to speak but was unable to use the words she wanted to. Reports that she spoke to her PCP who started her on plavix, amlodipine, and baby ASA. Reports concerns for hypertension. BP here in the ED 119/75 Plan: CT head, CTA, blood work, UA Medications Administered Discontinued Medications Generic Name Dose Route Start Last Admin Trade Name Freq PRN Reason Stop Dose Admin Iohexol 100 ml 06/24/23 20:44 06/24/23 20:44 Iohexol 350 Mg/Ml 100 Ml Infus..Btl IV 06/24/23 20:45 70 ml ONCE ONE Administration Medical Decision Making Medical Decision Making [facility] Narrative: 78-year-old female presents for evaluation of word-finding difficulties. This happened 2 days ago. History is consistent with TIA as her symptoms have completely resolved. She spoke with Who already prescribed aspirin and Plavix. She reports that she has had issues with statins in the past. Her blood pressure is well controlled. Currently her NIH stroke score is 0. Patient's labs have no significant abnormalities. CT angiography shows no evidence of critical stenosis or occlusion. No evidence of CVA or hemorrhage. I consider admission for the patient but the patient is reluctant to stay due to the holiday being tomorrow. She has a very close relationship with her PCP who was already expecting her to call to check on Monday. Therefore I feel is appropriate to discharge the patient at this time. Differential Diagnosis Differential Diagnoses: The differential diagnosis associated with the presentation includes TIA Word-finding difficulty CVA Medication side effects Lab Data [facility] Lab Attestation statement: I reviewed the patient's lab results. Patient has a mild leukocytosis to 11.2 with no left shift. No anemia. Normal platelet count. No electrolyte abnormalities. Patient's BUN is slightly above normal at 20 but creatinine within normal limits. Glucose slightly elevated to 120, but this is a random glucose. 06/24/23 19:37 06/24/23 19:37 Labs: Lab Results 06/24/23 06/24/23 Range/Units 19:37 19:38 WBC 11.2 H (4.8-10.8) X10*3/uL RBC 5.18 (4.20-5.50) X10*6/uL Hgb 14.2 (12.0-16.0) g/dl Hct 43.4 (37.0-47.0) % MCV 83.8 (80.0-98.0) fL MCH 27.4 (27.0-33.0) pg MCHC 32.7 (31.0-35.0) g/dl RDW 14.6 (11.0-16.0) % Plt Count 274 (160-400) X10*3/uL MPV 10.6 (9.4-12.3) fL Immature Gran % (Auto) 0.4 (0.0-0.4) % Neut % (Auto) 51.8 (45-73) % Lymph % (Auto) 37.9 (20-40) % Butts % (Auto) 7.6 (2-11) % Eos % (Auto) 1.8 (0-4) % Baso % (Auto) 0.5 (0-2) % Lymph # (Auto) 4.2 (1.2-4.9) X10*3/uL Butts # (Auto) 0.9 (0.1-1.2) X10*3/uL Eos # (Auto) 0.2 (0.0-0.4) X10*3/uL Baso # (Auto) 0.1 (0.0-0.2) X10*3/uL Abs Immat Gran (auto) 0.04 H (0.00-0.03) X10*3/uL Absolute Neuts (auto) 5.8 (2.0-8.3) x10*3/uL Absolute Nucleated RBC 0.000 (0.0-0.012) X10*3/uL Nucleated RBC % (auto) 0.0 (0.0-0.2) /100WBC Sodium 142 (135-145) mmol/L Potassium 3.6 (3.3-5.1) mmol/L Chloride 106 (96-108) mmol/L Carbon Dioxide 25 (22-29) mmol/L Anion Gap 15 (12-20) BUN 20 H (9-16) mg/dL Creatinine 0.91 (0.5-1.4) mg/dL Estim Creat Clear Calc 45.8 Estimated GFR 60 Random Glucose 120 H (60-115) mg/dL Calcium 9.8 (8.4-10.2) mg/dL Total Bilirubin 0.3 (0.0-1.0) mg/dL AST 18 (5-31) U/L ALT 15 (0-31) U/L Alkaline Phosphatase 72 (39-117) U/L Total Protein 7.1 (6.5-8.0) g/dL Albumin 4.5 (3.5-5.0) g/dL Urine Color Yellow Urine Appearance Cloudy Urine pH 7.0 (5.0-9.0) Ur Specific [place] 1.015 (1.005-1.025) Urine Protein Negative (Neg-Trace) mg/dL Urine Glucose (UA) Negative (Negative) mg/dL Urine Ketones Negative (Negative) mg/dL Urine Blood Small (1+) H (Negative) Urine Nitrite Negative (Negative) Ur Leukocyte Esterase Moderate (2+) H (Negative) Urine RBC 0-2 (0-2) /HPF Urine WBC 0-5 (0-5) /HPF Ur Squamous Epith Cells 0-2 (0-2) /HPF Urine Bacteria None Seen (None Seen) Hyaline Casts 0-2 (0-2) /LPF Independent Interpretation I performed an independent interpretation of an: CT Scan Interpretation: Agree with Radiology interpretation Radiology Impression Discussion of test interpretation with radiology: I have reviewed the radiologist's reading. Radiologist Impression: CT/CT angio head neck IMPRESSION: No hemodynamically significant stenosis or vessel occlusion in the cervical or intracranial vasculature at the level of the [place]. No acute intracranial hemorrhage or territorial infarction. Mild chronic white matter microangiopathy. Multinodular thyroid gland with a dominant nodule measuring up to 2 cm in size. A nonemergent follow-up thyroid ultrasound is recommended for more complete evaluation. Moderate to severe mid to lower cervical spondylosis. Discharge Plan Discharge Clinical Impression: Word finding difficulty Patient Disposition: Home, Self-Care Instructions: Transient Ischemic Attack (ED) Additional Instructions: There is some concern that you had a TIA or transient ischemic attack based on your history Your CT angiography did not show any stenosis or abnormal lesions Your blood work was reassuring I recommend that you continue the aspirin and clopidogrel that was recently prescribed Call your doctor on Monday as planned You may benefit from an outpatient MRI Return for new or worsening symptoms Prescriptions: No Action Tymlos 80 mcg (3,120 mcg/1.56 mL) pen injector 10 mcg subcut DAILY Qty: 1.56 11RF amlodipine 2.5 mg tablet 2.5 mg PO DAILY Qty: 30 2RF aspirin 81 mg tablet,delayed release (DR/EC) 81 mg PO DAILY Qty: 90 3RF omeprazole 20 mg capsule,delayed release(DR/EC) 20 mg PO DAILY estradiol 0.01 % (0.1 mg/gram) cream vaginal 2XW cholecalciferol (vitamin D3) 50 mcg (2,000 unit) capsule 50 mcg PO DAILY 90 Days Qty: 90 3RF Print Language: Uzbek
[2023-06-24 19:48] LABS: MANUAL DIFF FLAG NO
[2023-06-24 19:49] LABS: Basophils Absolute Auto 0.1 X10*3/uL (0.0-0.2); Basophils Percent Auto 0.5 % (0-2); Eosinophils Absolute Auto 0.2 X10*3/uL (0.0-0.4); Eosinophils Percent Auto 1.8 % (0-4); Hematocrit 43.4 % (37.0-47.0); Hemoglobin 14.2 g/dl (12.0-16.0); Imm Gran Abs Auto 0.04 X10*3/uL (0.00-0.03); Imm Gran Pct Auto 0.4 % (0.0-0.4); Lymphocytes Absolute Auto 4.2 X10*3/uL (1.2-4.9); Lymphocytes Percent Auto 37.9 % (20-40); Mean Corpuscular HGB Conc 32.7 g/dl (31.0-35.0); Mean Corpuscular Hemoglobin 27.4 pg (27.0-33.0); Mean Corpuscular Volume 83.8 fL (80.0-98.0); Mean Platelet Volume 10.6 fL (9.4-12.3); Monocytes Absolute Auto 0.9 X10*3/uL (0.1-1.2); Monocytes Percent Auto 7.6 % (2-11); Neutrophils Absolute Auto 5.8 x10*3/uL (2.0-8.3); Neutrophils Percent Auto 51.8 % (45-73); Platelet Count 274 X10*3/uL (160-400); Red Blood Count 5.18 X10*6/uL (4.20-5.50); Red Cell Distribution Width 14.6 % (11.0-16.0); White Blood Count 11.2 X10*3/uL (4.8-10.8)
[2023-06-24 19:51] LABS: Appearance Urine Cloudy; Color Urine Yellow; Glucose Urine UA Negative (Negative); Leukocyte Esterase Urine Moderate (2+) (Negative); Nitrite Urine Negative (Negative); Specific Gravity - Urine 1.015 (1.005-1.025); UMIC TRIGGER UACC YES; Urine Blood Small (1+) (Negative); Urine Ketones Negative (Negative); Urine Protein Negative (Neg-Trace)
[2023-06-24 19:58] LABS: Bacteria Urine None Seen (None Seen); Hyaline Casts Urine 0-2 /LPF (0-2); RBC Urine 0-2 /HPF (0-2); Squamous Epithelial Cell Urine 0-2 /HPF (0-2); WBC Urine 0-5 /HPF (0-5)
[2023-06-24 20:02] VITALS: BP 169/74; PULSE 83; RESP 15; TEMP 36.6; O2SAT 96
[2023-06-24 20:03] LABS: Alanine Aminotransferase 15 U/L (0-31); Albumin Level 4.5 g/dL (3.5-5.0); Alkaline Phosphatase 72 U/L (39-117); Anion Gap 15 (12-20); Aspartate Amino Transferase 18 U/L (5-31); Bilirubin Total 0.3 mg/dL (0.0-1.0); Blood Urea Nitrogen 20 mg/dL (9-16); Calcium 9.8 mg/dL (8.4-10.2); Carbon Dioxide 25 mmol/L (22-29); Chloride 106 mmol/L (96-108); Creatinine Clr Calc Pharmacy 45.8; Estimated Glomerular Filt Rate 60; Glucose Random 120 mg/dL (60-115); Potassium 3.6 mmol/L (3.3-5.1); Sodium 142 mmol/L (135-145); Total Protein 7.1 g/dL (6.5-8.0)
--- NOTE | 2023-06-24 20:11 | PC.NURSE ---
Pt brought into ED room 8 from waiting room . changed into hospital gown, placed on manager monitoring, initial assessment complete. Pt A&Ox4, speaking clear full sentences, in no apparent distress. Pt reports she experienced expressive aphasia and headache (sudden onset) ON MONDAY AFTERNOON while in the middle of a conversation with her granddaughter, LASTED 1 HOUR. EXPRESSIVE APHASIA AND HEADACHE RESOLVED AFTER 1 HR; however patient reports the episode was followed by feelings of high blood pressures throughout the rest of the day and Monday. Pt called her PCP - he increased the dose of her blood pressure medication, and advised she come to the ER for evaluation of possible TIA. #20g iv line placed in RAC, CT angio head/neck ordered by provider in triage. Call jose within reach. Plan of care ongoing.
[2023-06-24] MEDS: iohexoL 350 MG/ML 100 ML INFUS..BTL IV (20:44)
[2023-06-24 21:41] VITALS: BP 150/69; PULSE 87; RESP 16; TEMP 36.4; O2SAT 98
[2023-06-24 21:59] VITALS: BP 150/69; PULSE 87; RESP 16; TEMP 36.4; O2SAT 98
== END 2023-06-24 22:01 | disposition home or self-care (01) ==
PROVIDERS: Nurse Practitioner Family; Emergency Provider Emergency Medicine; PCP Family Medicine
DX: R47.01 Aphasia (principal); E21.3 Hyperparathyroidism, unspecified; M81.0 Age-related osteoporosis without current pathological fracture; R00.2 Palpitations; E04.9 Nontoxic goiter, unspecified; Z79.899 Other long term (current) drug therapy
CPT/HCPCS: 36415; 70496; 70498; 80053; 81001; 85025; 99284; Q9967

== ENCOUNTER 2023-08-08 13:30 | Outpatient (REF) | payer MEDICARE, SELFPAY ==
--- NOTE | ~2023-08-08 | XR_ITS ---
EXAMINATION: XR CHEST CLINICAL INFORMATION: Left upper lobe lesion cough COMPARISON: None. TECHNIQUE: 2 views of the chest were obtained. FINDINGS: Slight bronchial thickening. Left apical pleural parenchymal scarring. No pneumothorax. Trachea is midline. Cardiac mediastinal silhouette is not enlarged. No large pleural effusion. Degenerative changes of the thoracolumbar spine. Soft tissues are unremarkable. XR/XR chest 2V IMPRESSION: 1. Slight bronchial thickening. 2. Left apical pleural parenchymal scarring.
== END 2023-08-08 13:31 | disposition home or self-care (01) ==
LOC: HO.XRAY 13:30
PROVIDERS: PCP Family Medicine; Visit Provider Family Medicine
DX: R05.9 Cough, unspecified (principal)
CPT/HCPCS: 71046

== ENCOUNTER → 2023-09-05 12:39 | Outpatient (REF) | payer MEDICARE, SELFPAY ==
--- NOTE | 2023-09-05 12:49 | CA_ITS ---
Transthoracic Echocardiogram Patient (Last, First, Middle): Jody Carroll A Gender: Female Date of : 1945 Age: 78 Procedure Date: 09/05/2023 Procedure Type: Transthoracic Echocardiogram Location: OP Height: 162.56 cm Weight: 67.13 kg BSA: 1.72 m2 Heart Rate: bpm BP: 130 / 65 mmHg Drapery Estimator: NÉSTOR Referring MD: Daniel Park MD Symptoms: I.10 HTN [id number],[id number] HX TIA Study Quality: Adequate ECG Rhythm: Sinus Conclusions: - The left ventricular systolic function is normal. The calculated ejection fraction is 67% by biplane method. - There is mild to moderate tricuspid valve regurgitation. Findings Left Ventricle Normal left ventricular cavity size. The left ventricular systolic function is normal. The calculated ejection fraction is 67% by biplane method. There is no evidence of regional wall motion abnormalities. Diastolic function is normal for age. There is mild septal and mild basal asymmetric hypertrophy. Right Ventricle Normal right ventricular cavity size and systolic function. Atria Both atria are normal in size. Aortic Valve There is a normal trileaflet aortic valve. There is mild calcification of the aortic valve. There is no aortic valve stenosis. There is no aortic valve regurgitation. Mitral Valve The mitral valve appears normal. There is trace mitral valve regurgitation. There is no mitral valve stenosis. Pulmonic Valve The pulmonic valve is likely normal. Tricuspid Valve There is mild to moderate tricuspid valve regurgitation. There is no evidence of pulmonary hypertension. Great Vessels The asc aorta is normal in size. Venous The inferior vena cava is normal in size and collapses greater than 50% with inspiration. Pericardium/Pleural There is no evidence of pericardial effusion. Prior Study Comparison No prior study available for comparison. Measurements 2D Linear Measurements IVSd: 1.08 0.6-0.9/0.6-1.0 cm LVIDd: 3.60 3.9-5.3/4.2-5.9 cm LVIDd Index: 2.09 2.4-3.2/2.2-3.1 cm/m2 LVIDs: 2.46 2.0-3.6 cm LVPWd: 0.89 0.7-1.1 cm LA Diam: 3.10 2.7-3.8/3.0-4.0 cm LAIDs Index: 1.80 1.5-2.3 cm/m2 LV Mass: 131.10 67-162/88-224 g LV Mass Index: 76.22 43-95/49-115 g/m2 LVOT Diam: 1.90 3.0+(-)1.3 cm 2D Systolic Function EF 4C: 65.40 >55% EF 2C: 71.40 >55% EF BiP: 67.30 >55% Mitral Valve MV Pk E: 0.96 MV PK A: 1.01 MV Decel Time: 185.00 E/A: 0.90 E'Lateral: 8.59 E'Medial: 5.11 E/E' Med: 18.70 E/E' Lat: 11.10 PHT: 54.00 MVA PHT: 4.07 Decel [place]: 5.17 Aortic Valve AoV Pk Markus: 1.46 AoV Mn Markus: 1.00 AoV VTI: 0.31 AoV Pk Grad: 9.00 Aov Mn Grad: 5.00 SASHA Cont.VTI: 2.13 LVOT LVOT Pk Markus: 1.07 LVOT Mn Markus: 0.71 LVOT VTI: 0.23 LVOT Pk Grad: 5.00 LVOT Mn Grad: 2.00 LVOT Diam: 1.90 LVOT Area: 2.84 Diastolic Function MV Pk E: 0.96 MV Pk A: 1.01 E/A: 0.90 E'Medial: 5.11 E/E' Med: 18.70 E' Laterial: 8.59 E/E' Lat: 11.10 Right Ventricle TAPSE (mm): 21.60 TVS' Markus: 12.50 Tricuspid Valve TR Pk Markus: 2.47 TR Pk Grad: 24.00 RA Press: 3.00 RVSP: 27.00 Great Vessels Aorta Sinus of Valsalva: 2.92 2.0-3.[address] [place]: 1.96 1.7-3.4 cm Ao Asc: 3.60 2.1-3.4 cm Updated in Other Vendor System with Status of Final Valdez Thomas MD electronically signed on 09/05/2023 3:31:25 PM with status of Final
== END ==
LOC: HO.CARD 12:39
PROVIDERS: PCP Family Medicine; Visit Provider Family Medicine
DX: I10 Essential (primary) hypertension (principal); Z86.73 Personal history of transient ischemic attack (TIA), and cerebral infarction without residual deficits
CPT/HCPCS: 93242; 93306

== ENCOUNTER → 2023-09-05 12:49 | Outpatient (BNV) | payer MEDICARE, SELFPAY | PROVIDERS: PCP Family Medicine; Visit Provider Internal Medicine | DX: I36.1 Nonrheumatic tricuspid (valve) insufficiency (principal); I35.8 Other nonrheumatic aortic valve disorders; I42.2 Other hypertrophic cardiomyopathy | CPT/HCPCS: 93306 ==

== ENCOUNTER 2023-09-07 08:21 | Outpatient (AMB) | payer MEDICARE, SELFPAY ==
[2023-09-07 08:24] VITALS: BP 130/70; PULSE 95; BMI 25.3
--- NOTE | 2023-09-07 08:24 | A.OFFVIS_ITS ---
Vital Signs 09/07/23 08:24 Height 5 ft 5 in Weight 152 lb 1.903 oz BMI 25.3 BP 130/70 Blood Pressure Location Lt brachial Position Sitting Pulse 95 Pulse Source Pulse Oximeter Intake Visit Reasons: Osteoporosis-confirmed Intake Note: Patient present today for Osteoporosis follow up visit. 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 for nontoxic multinodular goiter and primary hyperparathyroidism/osteoporosis She is feeling , she has no complains. She had exploratory parathyroidectomy on 03/25/[address] Vo. She had right superior, left superior and left inferior parathyroidectomy and right inferior biopsy. PTH intraop was 99 decreased to 15 pg/mL She had fine-needle aspiration on 01/02/2020 of left lower pole nodule. Cytology was consistent with benign follicular nodule [place] category 2. Patient had fine-needle aspiration on 10/24/2019 of Right mid pole, right upper pole, isthmic and left lower pole nodules . Right side nodules and isthmic nodules cytology was consistent with benign follicular nodules. [place] category 2. The left lower pole nodule was nondiagnostic. Patient reports that she was diagnosed with osteoporosis in her 40s. She had hysterectomy ,but not oophorectomy at age 37 and she reports that 5 years after she was diagnosed with osteoporosis after an x-ray of her foot by a manager specialty. She reports that she was on Premarin for 10 years. Stopped at age 54. She also was on alendronate 70 mg weekly for about 10 years. Patient took alendronate 2 times and had severe GERD. She had to stop the m edication because she could not improve even with omeprazole. Was on risidronate but stopped due to GERD She is currently on Tymlos 80 mg q.d. as well as calcium and vitamin-D supplementation. Been on Tymlos since 03/2022 She denies history of fragility fractures. She has positive family history of osteoporosis in her mother, she had a spine fracture in her 60s. She denies use of high-dose of steroids, SSRIs, never smoker no antiseizure medications in a [place] use. She does have acid reflux and she has been on PPI for a while. She does not take calcium or vitamin-D. She has daily intolerant and she use daily product at a minimum. She denies family history of thyroid disease and hypercalcemia or kidney stones. She denies cold or heat intolerance, weigth loss or gain, diarrhea, constipation, imsomnia, fatigue, dry skin, she denies dysphagia, dyspnea, dysphonia, tremors, palpitations, irritability, anxiety. She has negative History of head or neck irradiation. Secondary workup was negative including repeat 24 hour urine for calcium Bisphosphonates use: 10 years many years ago. Herbal medications. none 04/10/2019 thyroid ultrasound Right Thyroid Lobe: 4.6 x 1.8 x 1.7 cm, volume 7.4 mL. Parenchyma: The gland echotexture is heterogeneous. Thyroid vascularity is increased. Left Thyroid Lobe: 3.8 x 1.6 x 1.8 cm, volume 5.7 mL. Parenchyma: The gland echotexture is heterogeneous. Thyroid vascularity is increased. Isthmus: 0.4 cm in maximum AP dimension. RIGHT THYROID LOBE: There are 4 nodules seen. 1. Location: Superior. Size: 1.5 x 1.0 x 1.4 cm. Nodule characteristics: Slightly hypoechoic, smooth margin, calcification and positive intranodular flow 2. Location: Middle. Size: 1.9 x 1.5 x 1.3 cm. Nodule characteristics: Slightly hypoechoic and heterogeneous, smooth margin, calcification and positive intranodular flow. 3. Location: Middle. Size: 0.6 x 0.5 x 0.6 cm. Nodule characteristics: Hypoechoic, smooth margin, no calcification and no intranodular flow. 4. Location: Exophytic to the lower pole Size: 0.8 x 0.9 x 0.9 cm. Nodule characteristics: Hypoechoic with echogenic center, smooth margin, no calcification and minimal central flow. Differential would include an exophytic nodule, adjacent lymph node and less likely given history of hyperparathyroidism, parathyroid adenoma. ISTHMUS: There is 1 nodule seen. 1. Location: Right isthmus. Size: 1.5 x 0.6 x 1.2 cm. Nodule characteristics: Hypoechoic, smooth margin, no calcification and positive intranodular flow. LEFT THYROID LOBE: There are 3 nodules seen. 1. Location: Superior. Size: 0.9 x 0.6 x 0.9 cm. Nodule characteristics: Hypoechoic and complex cystic, smooth margin, no calcification and positive peripheral flow. 2. Location: Middle. Size: 0.7 x 0.6 x 0.8 cm. Nodule characteristics: Isoechoic, smooth margin, no calcification and positive intranodular flow. 3. Location: Inferior. Size: 1.6 x 1.2 x 1.5 cm. Nodule characteristics: Isoechoic hyperechoic, smooth margin, no calcification and positive intranodular flow. 04/30/2019 had FNA of right mid pole nodule size1.8 x 1.3 x 1.4 cm IR was nondiagnostic. FINDINGS: AP SPINE L1-L3 (excluding L4): The data of L1-L4 has been changed to exclude the L4 vertebral body, because degenerative changes at this level may cause overestimation of lumbar spine density. Current: BMD 0.741 g/cm2, Z-score -1.8, T-score -3.6, osteoporosis, 5.3% increase from baseline (<5% change is not significant). Baseline: BMD 0.704 g/cm2. LEFT FEMUR, NECK: Current: BMD 0.501 g/cm2, Z-score -1.9, T-score -3.9, osteoporosis. Baseline: BMD 0.537 g/cm2. LEFT FEMUR, TOTAL: Current: BMD 0.526 g/cm2, Z-score -2.0, T-score -3.8, osteoporosis, 6.2% decrease from baseline (<5% change is not significant). Baseline: BMD 0.561 g/cm2. LEFT FOREARM RADIUS 33%: BMD 0.532 g/cm2, Z-score -1.5, T-score -3.9, osteoporosis, 22.0% increase from baseline (<5% change is not significant). Baseline: BMD 0.436 g/cm2. IDENTIFIED RISK FACTORS: Early menopause, height loss, hyperparathyroid, low calcium intake, osteoporosis, secondary osteoporosis. HISTORY OF FRACTURE: None listed. MEDICATIONS: Calcium, vitamin D. MM/XR DEXA appendicular skeleton IMPRESSION: 1. DIAGNOSIS: Osteoporosis based on the lowest T-score value of -3.9 in the femur neck and forearm radius 33% applying World Health Organization criteria.? ? Laboratory Tests 08/28/19 08/28/19 01/15/20 07:00 07:00 10:20 Creatinine Estimated GFR Calcium Phosphorus Magnesium Alkaline Phosphatase Albumin N-Telopeptide X-linked 25-OH Vitamin D Total Free T4 0.95 PTH Intact Calcium (PTH Intact) Ur 24 Hour Volume 1925 Urine Creatinine Ur Creatinine mg/dL 45.17 Ur Creatinine 24 Hour 0.9 L Ur Calcium 24 Hr 306 H Calcium/Creat 24 Hr 353 H 01/24/20 01/24/20 01/24/20 09:20 09:20 09:20 Creatinine 0.77 Estimated GFR > 60 Calcium Phosphorus 2.7 Magnesium 2.3 Alkaline Phosphatase 87 Albumin N-Telopeptide X-linked 50 25-OH Vitamin D Total 27.0 Free T4 PTH Intact 84 H Calcium (PTH Intact) 10.6 H Ur 24 Hour Volume Urine Creatinine 212 Ur Creatinine mg/dL Ur Creatinine 24 Hour Ur Calcium 24 Hr Calcium/Creat 24 Hr 04/13/20 10:40 Creatinine Estimated GFR Calcium 8.9 Phosphorus Magnesium Alkaline Phosphatase Albumin 4.4 N-Telopeptide X-linked 25-OH Vitamin D Total Free T4 PTH Intact Calcium (PTH Intact) Ur 24 Hour Volume Urine Creatinine Ur Creatinine mg/dL Ur Creatinine 24 Hour Ur Calcium 24 Hr Calcium/Creat 24 Hr She is also complaining of episodic hypertension associated with headache. Was seen in the emergency room placed on amlodipine. There are no other symptoms of pheochromocytoma . Workup for primary hyperaldosteronism and pheochromocytoma was negative. Currently on Tymlos for osteoporosis at end of course [facility] Medical History (Updated 06/25/23 @ 00:00 by Yamileth Monroe) Palpitation Non-toxic multinodular goiter Osteoporosis Primary hyperparathyroidism Surgical History (Updated 11/24/22 @ 15:57 by Sudha Palomo) Status post fine needle aspiration Hx of parathyroidectomy Hx of left breast biopsy Hx of tonsillectomy Hx of hysterectomy Family History (System 11/24/22 @ 15:57 by Sudha Palomo) Father Rectal cancer Mother Heart disease Diabetes Brother Celiac disease Social History (System 11/24/22 @ 15:57 by Sudha Palomo) Household Members: Spouse Alcohol intake: current Alcohol intake frequency: a few times a month Alcohol type: wine Patient Tobacco Use Status: Never used Tobacco Assessment & Plan Assessment & Plan (1) Osteoporosis: Code(s): M81.0 - Age-related osteoporosis without current pathological fracture Category: Medical Plan: This 76-year-old white female with a history of primary hyperparathyroidism status post parathyroidectomy with osteoporosis treated many years with bisphosphonate. She is currently on Tymlos 80 mg q.d. but has about a 2 week course left to complete the 18 months The plan is to continue the Tymlos for 18 months. Will recheck DEXA bone density of hip and spine. Depending upon above may transition the patient from Tymlos to either Prolia or bisphosphonate (2) Non-toxic multinodular goiter: Code(s): E04.2 - Nontoxic multinodular goiter Category: Medical Plan: Status post FNA of multiple nodules with benign cytology. Appears clinically euthyroid. Thyroid ultrasound done 2 years ago shows nodules are stable in size Will recheck TSH and free T4 and repeat thyroid ultrasound (3) Hypertension: Code(s): I10 - Essential (primary) hypertension Category: Medical Plan: Episodic hypertension associated with headache. Endocrine secondary causes ruled out such as pheochromocytoma and primary hyperaldosteronism (4) Non-toxic multinodular goiter: Code(s): E04.2 - Nontoxic multinodular goiter Category: Medical Plan: As per plan above (5) Osteoporosis: Code(s): M81.0 - Age-related osteoporosis without current pathological fracture Category: Medical Plan: See above plan Orders: Orders XR DEXA appendicular skeleton Today M81.0 - Age-related osteoporosis without current pathological fracture Free T4 (Free Thyroxine) Today E04.2 - Nontoxic multinodular goiter Thyroid Stimulating Hormone Today E04.2 - Nontoxic multinodular goiter XR DEXA axial skeleton Today M81.0 - Age-related osteoporosis without current pathological fracture US thyroid Today E04.2 - Nontoxic multinodular goiter Coding Level of Care Code Est Pt Level 3 (01784) Diagnoses Osteoporosis M81.0 Non-toxic multinodular goiter E04.2 Hypertension I10
== END 2023-09-07 09:04 | disposition home or self-care (01) ==
PROVIDERS: PCP Family Medicine; Visit Provider Internal Medicine Endocrinology, Diabetes & Metabolism
DX: M81.0 Age-related osteoporosis without current pathological fracture (principal); E04.2 Nontoxic multinodular goiter; I10 Essential (primary) hypertension
CPT/HCPCS: 99213

== ENCOUNTER → 2023-09-07 08:21 | Outpatient (BNVA) | payer MEDICARE, SELFPAY | PROVIDERS: PCP Family Medicine; Visit Provider Internal Medicine Endocrinology, Diabetes & Metabolism | DX: M81.0 Age-related osteoporosis without current pathological fracture (principal); E04.2 Nontoxic multinodular goiter; E83.51 Hypocalcemia; I10 Essential (primary) hypertension; Z98.890 Other specified postprocedural states; Z90.89 Acquired absence of other organs | CPT/HCPCS: 36415; 84439; 84443; 99212 ==

== ENCOUNTER 2023-09-07 09:23 | Outpatient (REF) | payer MEDICARE, SELFPAY ==
[2023-09-07 11:52] LABS: Free T4 (Free Thyroxine) 0.94 ng/dL (0.71-1.85); Thyroid Stimulating Hormone 0.33 uIU/mL (0.32-4.0)
== END 2023-09-07 09:24 | disposition home or self-care (01) ==
LOC: HO.10HDL 09:23
PROVIDERS: Visit Provider Internal Medicine Endocrinology, Diabetes & Metabolism
DX: Z13.89 Encounter for screening for other disorder (principal)
CPT/HCPCS: 36415; 84439; 84443

== ENCOUNTER 2023-09-12 13:47 | Outpatient (REF) | payer MEDICARE, SELFPAY ==
--- NOTE | ~2023-09-12 | MM_ITS ---
EXAMINATION: BONE DENSITOMETRY CLINICAL INDICATION: Age-related osteoporosis without current pathological fracture. COMPARISON: Previous BD dated 09/07/2021 and baseline BD dated 09/03/2019 for the left hip and left forearm radius 33%; this is the baseline for the spine. TECHNIQUE: Using a Xsigo DXA System (software version: 13.1) manufactured by [employer], dual-energy x-ray absorptiometry was performed of the lumbar spine and left hip and left forearm radius 33%. The images are of good technical quality. Summary results are attached. FINDINGS: LEFT FEMUR, NECK: Current: BMD 0.421 g/cm2, Z-score -2.4, T-score -4.4, osteoporosis. Prior: BMD 0.501 g/cm2. Baseline: BMD 0.537 g/cm2. LEFT FEMUR, TOTAL: Current: BMD 0.452 g/cm2, Z-score -2.5, T-score -4.4, osteoporosis, 14.1% decrease from previous, 19.4% decrease from baseline (<5% change is not significant). Prior: BMD 0.526 g/cm2. Baseline: BMD 0.561 g/cm2. AP SPINE L1-L4: Current: BMD 0.878 g/cm2, Z-score -0.8, T-score -2.5, osteoporosis. LEFT FOREARM RADIUS 33%: BMD 0.463 g/cm2, Z-score -2.1, T-score -4.7, osteoporosis, 13.0% decrease from previous, 6.2% increase from baseline (<5% change is not significant). Prior: BMD 0.532 g/cm2. Baseline: BMD 0.436 g/cm2. IDENTIFIED RISK FACTORS: Bilateral oophorectomy, early menopause, hyperparathyroid, hysterectomy, low calcium intake, osteoporosis, secondary osteoporosis. HISTORY OF FRACTURE: None listed. MEDICATIONS: Calcium, vitamin D. MM/XR DEXA appendicular skeleton IMPRESSION: 1. DIAGNOSIS: Osteoporosis based on the lowest T-score value of -4.7 in the forearm radius 33% applying World Health Organization criteria. 2. 10-YEAR FRACTURE RISK PREDICTION, FRAX: According to the guidelines, FRAX calculation should only be performed on patients in the osteopenia bone density category. Therefore, FRAX was not performed on this patient. 3. Treatment Recommendations: NOF guidelines recommend consideration for treatment in postmenopausal women and men age 50 and older presenting with the following: -A hip or vertebral (clinical or morphometric) fracture. -T-score less than or equal to -2.5 at the femoral neck or spine after appropriate evaluation to exclude secondary causes. -Low bone mass at the hip or spine and a 10-year fracture probability by FRAX of greater than or equal to 3% for hip fracture or greater than or equal to 20% for major osteoporotic fracture based on the [place] adapted WHO algorithm. 4. Other Recommendations: All treatment decisions require clinical judgment and consideration of individual patient factors, including patient preferences, comorbidities, previous drug use, risk factors not captured in the FRAX model (e.g. frailty, falls, vitamin D deficiency, increased bone turnover, interval significant decline in bone density) and possible under or overestimation of fracture risk by FRAX. Additional medical evaluation for secondary cause of low bone mineral density may be appropriate. FUTURE SCAN RECOMMENDATION: People with diagnosed cases of osteoporosis or at high risk for fracture should have regular bone mineral density tests. For patients eligible for Medicare, routine testing is allowed once every 2 years. The testing frequency can be increased to one year for patients who have rapidly progressing disease, those who are receiving or discontinuing medical therapy to restore bone mass, or have additional risk factors.
== END 2023-09-12 13:48 | disposition home or self-care (01) ==
LOC: HO.MAMMO 13:47
PROVIDERS: PCP Family Medicine; Visit Provider Internal Medicine Endocrinology, Diabetes & Metabolism
DX: M81.0 Age-related osteoporosis without current pathological fracture (principal)
CPT/HCPCS: 77081

== ENCOUNTER → 2023-09-13 10:30 | Outpatient (BNV) | payer MEDICARE, SELFPAY | PROVIDERS: PCP Family Medicine; Visit Provider Internal Medicine | DX: I47.10 Supraventricular tachycardia, unspecified (principal) | CPT/HCPCS: 93244 ==

== ENCOUNTER → 2023-09-13 13:07 | Outpatient (REF) | payer MEDICARE, SELFPAY ==
--- NOTE | 2023-09-13 | HM_ITS ---
* Total monitoring time 3 days. * Underlying rhythm is sinus with an average rate of 82/Min. * Rare supraventricular ectopy. * Rare ventricular ectopy. * No significant pauses or AV blocks. * No patient markers or diary events. MTDD
== END ==
LOC: HO.CARD 13:07
PROVIDERS: PCP Family Medicine; Visit Provider Family Medicine
DX: I10 Essential (primary) hypertension (principal); Z86.73 Personal history of transient ischemic attack (TIA), and cerebral infarction without residual deficits
CPT/HCPCS: 93242

== ENCOUNTER 2023-09-25 09:31 | Outpatient (REF) | payer MEDICARE, SELFPAY ==
[2023-09-25 10:56] LABS: Albumin Level 4.2 g/dL (3.5-5.0); Anion Gap 14 (12-20); Blood Urea Nitrogen 17 mg/dL (9-16); Carbon Dioxide 22 mmol/L (22-29); Chloride 110 mmol/L (96-108); Estimated Glomerular Filt Rate > 60; Glucose Random 99 mg/dL (60-115); Potassium 3.9 mmol/L (3.3-5.1); Sodium 142 mmol/L (135-145)
== END 2023-09-25 09:32 | disposition home or self-care (01) ==
LOC: HO.10HDL 09:31
PROVIDERS: Visit Provider Internal Medicine Endocrinology, Diabetes & Metabolism
DX: M81.0 Age-related osteoporosis without current pathological fracture (principal)
CPT/HCPCS: 36415; 80048; 82040; 96372; J0897

== ENCOUNTER 2023-09-25 14:00 | Outpatient (AMB) | payer MEDICARE, SELFPAY ==
--- NOTE | 2023-09-25 14:27 | AM.OFFVISNUR ---
Intake Visit Reasons: Prolia Injection Allergies From BENADRYL Allergy (Unknown, Uncoded 09/07/23 08:30) [facility] Office Meds Prolia 60 mg/mL subcutaneous syringe Performing Provider: Abdifatah Coombs MD [place] [facility] [place] Administered by: Dorothea Tolbert RN on 09/25/23 14:27 Dose Route Admin Location Dispensed Lot Number Expiration Date NDC Dye Worker 60 mg subcut left upper arm 1 mL [id number] 01/12/26 20117-606-31 [facility] Comments: Pt consent form signed. Pt tolerated well. Pt observed for 15 minutes following injection. Pt aware to call the office with any signs/symptoms of a reaction. Assessment & Plan Assessment & Plan Orders: Orders AMB Denosumab Injection Practice Supplied Today M81.0 - Age-related osteoporosis without current pathological fracture Medications: New Prolia (denosumab) 60 mg subcut ONCE 1 mL 0RF NS M81.0 - Age-related osteoporosis without current pathological fracture
== END 2023-09-25 14:26 | disposition home or self-care (01) ==
PROVIDERS: PCP Family Medicine; Visit Provider Internal Medicine Endocrinology, Diabetes & Metabolism
DX: M81.0 Age-related osteoporosis without current pathological fracture (principal)

== ENCOUNTER 2023-09-29 12:23 | Outpatient (REF) | payer MEDICARE, SELFPAY ==
[2023-09-29 13:54] LABS: Calcium 8.6 mg/dL (8.4-10.2)
== END 2023-09-29 12:24 | disposition home or self-care (01) ==
LOC: HO.10HDL 12:23
PROVIDERS: Visit Provider Internal Medicine Endocrinology, Diabetes & Metabolism
DX: M81.0 Age-related osteoporosis without current pathological fracture (principal)
CPT/HCPCS: 36415; 82310

== ENCOUNTER 2023-10-02 07:47 | Outpatient (REF) | payer MEDICARE, SELFPAY ==
--- NOTE | ~2023-10-02 | US_ITS ---
EXAMINATION: US THYROID CLINICAL INFORMATION: Multinodular goiter COMPARISON: August 11, 2021 TECHNIQUE: Linear transducer grayscale and color Doppler examination with attention to the region of the thyroid. FINDINGS: SIZE: Measurements of the thyroid lobes and nodules are given in sagittal, anteroposterior and transverse dimensions respectively. Right Thyroid Lobe: 5.3 x 1.9 x 1.9 cm, volume 9.2 mL. Parenchyma: The gland echotexture is heterogeneous. Thyroid vascularity is hypervascular. Left Thyroid Lobe: 4.6 x 1.4 x 1.9 cm, volume 5.9 mL. Parenchyma: The gland echotexture is heterogeneous. Thyroid vascularity is hypervascular. Isthmus: 0.8 cm in maximum AP dimension. Estimated total number of nodules greater than or equal to 1 cm: 5. Crushing Machine Operator nodules are described as follows: 1. Location: Right upper. Size: 1.8 x 0.9 x 1.8 cm, volume 1.5 mL. Nodule characteristics: Composition: Solid (2). Echogenicity: Isoechoic (1). Shape: Not taller than wide (0). Margins: Ill-defined (0). Echogenic Foci: None (0). ACR TI-RADS total points: 3 ACR TI-RADS category: 3 2. Location: Right midpole. Size: 0.8 x 0.6 x 0.7 cm, volume 0.16 mL. Nodule characteristics: Composition: Solid (2). Echogenicity: Very hypoechoic 3 Shape: Not taller than wide (0). Margins: 0 Echogenic Foci: 0 ACR TI-RADS total points: 5 ACR TI-RADS category: 4 3. Location: Right lower pole. Size: 1.9 x 1.3 x 1.4 cm, volume 1.8 mL. Nodule characteristics: Composition: Solid (2). Echogenicity: Hypoechoic 2 Shape: Not taller than wide (0). Margins: Smooth (0). Echogenic Foci: None (0). ACR TI-RADS total points: 4 ACR TI-RADS category: 4 4. Location: Isthmus Size: 1.6 x 0.7 x 1.3 cm, volume 3.0 mL. Nodule characteristics: Composition: Solid (2). Echogenicity: Isoechoic (1). Shape: Not taller than wide (0). Margins: Smooth (0). Echogenic Foci: None (0). ACR TI-RADS total points: 3 ACR TI-RADS category: 3 5. Location: Lower pole, left Size: 2.1 1.3 x 2.2 cm, volume 3.0 mL. Nodule characteristics: Composition: Solid (2). Echogenicity: Isoechoic (1). Shape: Not taller than wide (0). Margins: Ill-defined (0). Echogenic Foci: None (0). ACR TI-RADS total points: 3 ACR TI-RADS category: 3 NODES: No lymphadenopathy is seen in the tissue surrounding the thyroid gland. US/US thyroid IMPRESSION: Multinodular goiter, minimal interval change ACR TI-RADS RECOMMENDATION REFERENCE: Ultrasound-guided fine-needle aspiration, followup ultrasound, no further follow up. * TR1 (0 point) and TR2 (2 points): No FNA or follow up. * TR3 (3 points): FNA if more than or equal to 2.5 cm in maximum dimension, followup ultrasound in 1, 3 and 5 years if 1.5 to 2.4 cm in maximum dimension. * TR4 (4-6 points): FNA if more than or equal to 1.5 cm in maximum dimension, followup ultrasound in 1, 2, 3 and 5 years if 1 to 1.4 cm in maximum dimension. * TR5 (more than or equal to 7 points): FNA if more than or equal to 1 cm in maximum dimension, followup ultrasound every year for 5 years if 0.5 to 0.9 cm in maximum dimension. * TR3, TR4 or TR5 nodules that are below the size threshold for followup receive no follow up. Electronically signed by: Falguni Park MD 10/05/2023 09:29 AM EDT
== END 2023-10-02 07:48 | disposition home or self-care (01) ==
LOC: HO.US 07:47
PROVIDERS: PCP Family Medicine; Visit Provider Nurse Practitioner Family
DX: E04.2 Nontoxic multinodular goiter (principal)
CPT/HCPCS: 76536

== ENCOUNTER 2023-10-05 09:14 | Outpatient (AMB) | payer MEDICARE, SELFPAY ==
--- NOTE | 2023-10-05 09:30 | A.OFFVIS_ITS ---
Vital Signs 10/05/23 09:34 Height 5 ft 3.94 in Weight 152 lb 8.958 oz BMI 26.2 BP 126/62 Blood Pressure Location Rt brachial Position Sitting Pulse 75 Pulse Source Pulse Oximeter Intake Visit Reasons: Osteoporosis-confirmed Intake Note: Patient present today for Osteoporosis follow up visit. Wheel And Axle Inspector Required: No Accompanied by: Spouse Allergies From BENADRYL Allergy (Unknown, Uncoded 10/05/23 09:34) RACING HEART Medication List - Last Reconciled 10/05/23 by Abdifatah Coombs MD amlodipine 5 mg PO DAILY aspirin 81 mg PO DAILY cholecalciferol (vitamin D3) 50 mcg PO DAILY 90 days denosumab (Prolia) 60 mg subcut [id number] estradiol 0.01%(0.1mg/gram) grams vaginal 2XW ezetimibe 10 mg PO DAILY omeprazole 20 mg PO DAILY HPI Comments Details: 78-year-old female today for follow-up visit. for nontoxic multinodular goiter and primary hyperparathyroidism/osteoporosis She is feeling , she has no complains. She had exploratory parathyroidectomy on 03/25/[address] Vo. She had right superior, left superior and left inferior parathyroidectomy and right inferior biopsy. PTH intraop was 99 decreased to 15 pg/mL She had fine-needle aspiration on 01/02/2020 of left lower pole nodule. Cytology was consistent with benign follicular nodule [place] category 2. Patient had fine-needle aspiration on 10/24/2019 of Right mid pole, right upper pole, isthmic and left lower pole nodules . Right side nodules and isthmic nodules cytology was consistent with benign follicular nodules. [place] category 2. The left lower pole nodule was nondiagnostic. Patient reports that she was diagnosed with osteoporosis in her 40s. She had hysterectomy ,but not oophorectomy at age 37 and she reports that 5 years after she was diagnosed with osteoporosis after an x-ray of her foot by a music supervisor. She reports that she was on Premarin for 10 years. Stopped at age 54. She also was on alendronate 70 mg weekly for about 10 years. Patient took alendronate 2 times and had severe GERD. She had to stop the medication because she could not improve even with omeprazole. Was on risidronate but stopped due to GERD She is currently on Tymlos 80 mg q.d. as well as calcium and vitamin-D supplementation. Been on Tymlos since 03/2022 She denies history of fragility fractures. She has positive family history of osteoporosis in her mother, she had a spine fracture in her 60s. She denies use of high-dose of steroids, SSRIs, never smoker no antiseizure medications in a [place] use. She does have acid reflux and she has been on PPI for a while. She does not take calcium or vitamin-D. She has daily intolerant and she use daily product at a minimum. She denies family history of thyroid disease and hypercalcemia or kidney stones. She denies cold or heat intolerance, weigth loss or gain, diarrhea, constipation, imsomnia, fatigue, dry skin, she denies dysphagia, dyspnea, dysphonia, tremors, palpitations, irritability, anxiety. She has negative History of head or neck irradiation. Secondary workup was negative including repeat 24 hour urine for calcium Bisphosphonates use: 10 years many years ago. Herbal medications. none 04/10/2019 thyroid ultrasound Right Thyroid Lobe: 4.6 x 1.8 x 1.7 cm, volume 7.4 mL. Parenchyma: The gland echotexture is heterogeneous. Thyroid vascularity is increased. Left Thyroid Lobe: 3.8 x 1.6 x 1.8 cm, volume 5.7 mL. Parenchyma: The gland echotexture is heterogeneous. Thyroid vascularity is increased. Isthmus: 0.4 cm in maximum AP dimension. RIGHT THYROID LOBE: There are 4 nodules seen. 1. Location: Superior. Size: 1.5 x 1.0 x 1.4 cm. Nodule characteristics: Slightly hypoechoic, smooth margin, calcification and positive intranodular flow 2. Location: Middle. Size: 1.9 x 1.5 x 1.3 cm. Nodule characteristics: Slightly hypoechoic and heterogeneous, smooth margin, calcification and positive intranodular flow. 3. Location: Middle. Size: 0.6 x 0.5 x 0.6 cm. Nodule characteristics: Hypoechoic, smooth margin, no calcification and no intranodular flow. 4. Location: Exophytic to the lower pole Size: 0.8 x 0.9 x 0.9 cm. Nodule characteristics: Hypoechoic with echogenic center, smooth margin, no calcification and minimal central flow. Differential would include an exophytic nodule, adjacent lymph node and less likely given history of hyperparathyroidism, parathyroid adenoma. ISTHMUS: There is 1 nodule seen. 1. Location: Right isthmus. Size: 1.5 x 0.6 x 1.2 cm. Nodule characteristics: Hypoechoic, smooth margin, no calcification and positive intranodular flow. LEFT THYROID LOBE: There are 3 nodules seen. 1. Location: Superior. Size: 0.9 x 0.6 x 0.9 cm. Nodule characteristics: Hypoechoic and complex cystic, smooth margin, no calcification and positive peripheral flow. 2. Location: Middle. Size: 0.7 x 0.6 x 0.8 cm. Nodule characteristics: Isoechoic, smooth margin, no calcification and positive intranodular flow. 3. Location: Inferior. Size: 1.6 x 1.2 x 1.5 cm. Nodule characteristics: Isoechoic hyperechoic, smooth margin, no calcification and positive intranodular flow. 04/30/2019 had FNA of right mid pole nodule size1.8 x 1.3 x 1.4 cm IR was nondiagnostic. FINDINGS: AP SPINE L1-L3 (excluding L4): The data of L1-L4 has been changed to exclude the L4 vertebral body, because degenerative changes at this level may cause overestimation of lumbar spine density. Current: BMD 0.741 g/cm2, Z-score -1.8, T-score -3.6, osteoporosis, 5.3% increase from baseline (<5% change is not significant). Baseline: BMD 0.704 g/cm2. LEFT FEMUR, NECK: Current: BMD 0.501 g/cm2, Z-score -1.9, T-score -3.9, osteoporosis. Baseline: BMD 0.537 g/cm2. LEFT FEMUR, TOTAL: Current: BMD 0.526 g/cm2, Z-score -2.0, T-score -3.8, osteoporosis, 6.2% decrease from baseline (<5% change is not significant). Baseline: BMD 0.561 g/cm2. LEFT FOREARM RADIUS 33%: BMD 0.532 g/cm2, Z-score -1.5, T-score -3.9, osteoporosis, 22.0% increase from baseline (<5% change is not significant). Baseline: BMD 0.436 g/cm2. IDENTIFIED RISK FACTORS: Early menopause, height loss, hyperparathyroid, low calcium intake, osteoporosis, secondary osteoporosis. HISTORY OF FRACTURE: None listed. MEDICATIONS: Calcium, vitamin D. MM/XR DEXA appendicular skeleton IMPRESSION: 1. DIAGNOSIS: Osteoporosis based on the lowest T-score value of -3.9 in the femur neck and forearm radius 33% applying World Health Organization criteria.? ? Laboratory Tests 08/28/19 08/28/19 01/15/20 07:00 07:00 10:20 Creatinine Estimated GFR Calcium Phosphorus Magnesium Alkaline Phosphatase Albumin N-Telopeptide X-linked 25-OH Vitamin D Total Free T4 0.95 PTH Intact Calcium (PTH Intact) Ur 24 Hour Volume 1925 Urine Creatinine Ur Creatinine mg/dL 45.17 Ur Creatinine 24 Hour 0.9 L Ur Calcium 24 Hr 306 H Calcium/Creat 24 Hr 353 H 01/24/20 01/24/20 01/24/20 09:20 09:20 09:20 Creatinine 0.77 Estimated GFR > 60 Calcium Phosphorus 2.7 Magnesium 2.3 Alkaline Phosphatase 87 Albumin N-Telopeptide X-linked 50 25-OH Vitamin D Total 27.0 Free T4 PTH Intact 84 H Calcium (PTH Intact) 10.6 H Ur 24 Hour Volume Urine Creatinine 212 Ur Creatinine mg/dL Ur Creatinine 24 Hour Ur Calcium 24 Hr Calcium/Creat 24 Hr 04/13/20 10:40 Creatinine Estimated GFR Calcium 8.9 Phosphorus Magnesium Alkaline Phosphatase Albumin 4.4 N-Telopeptide X-linked 25-OH Vitamin D Total Free T4 PTH Intact Calcium (PTH Intact) Ur 24 Hour Volume Urine Creatinine Ur Creatinine mg/dL Ur Creatinine 24 Hour Ur Calcium 24 Hr Calcium/Creat 24 Hr She is also complaining of episodic hypertension associated with headache. Was seen in the emergency room placed on amlodipine. There are no other symptoms of pheochromocytoma . Workup for primary hyperaldosteronism and pheochromocytoma was negative. Currently on Tymlos for osteoporosis at end of course and transitioning to Prolia. Received 1st dose of Prolia 09/25/2023 [facility] Medical History (Updated 06/25/23 @ 00:00 by Yamileth Monroe) Palpitation Non-toxic multinodular goiter Osteoporosis Primary hyperparathyroidism Surgical History Status post fine needle aspiration Hx of parathyroidectomy Hx of left breast biopsy Hx of tonsillectomy Hx of hysterectomy Family History Father Rectal cancer Mother Heart disease Diabetes Brother Celiac disease Social History Household Members: Spouse Alcohol intake: current Alcohol intake frequency: a few times a month Alcohol type: wine Patient Tobacco Use Status: Never used Tobacco Physical Exam Const Other: Thyroid gland is normal size weighs about 15 g. There are no thyroid nodules palpated. There is no tenderness on palpation of the vertebral spine. Assessment & Plan Assessment & Plan (1) Osteoporosis: Code(s): M81.0 - Age-related osteoporosis without current pathological fracture Category: Medical Plan: This 76-year-old white female with a history of primary hyperparathyroidism status post parathyroidectomy with osteoporosis treated many years with bisphosphonate. She is currently on Tymlos 80 mg q.d. but has about a 2 week course left to complete the 18 months The plan is to continue the the Prolia. Suggested possible 2nd opinion at [facility] considering very large decrease in bone density on anabolic therapy which was not typical. She will have a follow-up visit with Dr. Diamond regarding the osteoporosis in 6 months as well (2) Non-toxic multinodular goiter: Code(s): E04.2 - Nontoxic multinodular goiter Category: Medical Plan: Status post FNA of multiple nodules with benign cytology. Appears clinically euthyroid. Thyroid ultrasound done last month shows nodules are stable in size. Clinically and biochemically euthyroid Plan is for continued observation . will schedule follow-up visit in [address] Diamond in digital experience manager recently starting on practice with expertise in thyroid ultrasound Coding Level of Care Code Est Pt Level 3 (87925) Diagnoses Osteoporosis M81.0 Non-toxic multinodular goiter E04.2
[2023-10-05 09:34] VITALS: BP 126/62; PULSE 75; BMI 26.2
== END 2023-10-05 10:12 | disposition home or self-care (01) ==
PROVIDERS: PCP Family Medicine; Visit Provider Internal Medicine Endocrinology, Diabetes & Metabolism
DX: M81.0 Age-related osteoporosis without current pathological fracture (principal); E04.2 Nontoxic multinodular goiter
CPT/HCPCS: 99213

== ENCOUNTER → 2023-10-05 09:14 | Outpatient (BNVA) | payer MEDICARE, SELFPAY | PROVIDERS: PCP Family Medicine; Visit Provider Internal Medicine Endocrinology, Diabetes & Metabolism | DX: M81.0 Age-related osteoporosis without current pathological fracture (principal); I10 Essential (primary) hypertension; E04.2 Nontoxic multinodular goiter; Z79.899 Other long term (current) drug therapy | CPT/HCPCS: 99212 ==

== ENCOUNTER 2023-10-11 07:53 | Emergency (ER) | payer MEDICARE, SELFPAY ==
--- NOTE | ~2023-10-11 | CT_ITS ---
EXAMINATION: CT ABDOMEN AND PELVIS WITH CONTRAST CLINICAL INFORMATION: Sudden onset left lower quadrant pain, rule out perforation, diverticulitis COMPARISON: None available. TECHNIQUE: Multidetector volumetric images were obtained from the superior aspect of the liver through the pubic symphysis following administration 85 mL of Omnipaque 350 intravenous contrast. Sagittal and coronal reformatted images were obtained on the technologist's workstation. Oral contrast: No This CT examination was performed using dose optimization techniques as appropriate, variously including the following: *Automated exposure control *Adjustment of mA and/or kV according to patient size (this includes techniques or standardized protocols for targeted exams where dose is matched to indication/reason for exam; i.e. extremities or head) *Use of iterative reconstruction technique DLP: 461 mGy-cm FINDINGS: LUNG BASES: Mild dependent atelectasis. Mild bibasilar bronchiectasis. No pleural effusions. LIVER, GALLBLADDER, AND BILIARY TREE: The liver is normal in size, shape, and attenuation. Few scattered simple hepatic cysts, the largest in the left hepatic lobe segment 3 measures up to 2.3 cm. Geographic area of enhancement within the left hepatic lobe segment 4 may be related to perfusion variant, 3:18. No biliary ductal dilatation is present. The gallbladder is physiologically distended with no evidence of radiopaque gallstones, gallbladder wall thickening, or obvious pericholecystic inflammatory changes. Mild wall enhancement at the level of the neck of the gallbladder. PANCREAS: Linear coarse calcification in the body of the pancreas. No ductal dilatation. SPLEEN: Unremarkable. ADRENAL GLANDS: Unremarkable. KIDNEYS AND URETERS: The kidneys are normal in size, shape, and attenuation. No hydronephrosis, hydroureter, or calculi seen. No perinephric stranding. Simple cyst in the upper pole of the left kidney, for which no dedicated follow-up imaging is required. Another subcentimeter cortical hypodensity at the inferior pole of the left kidney which is too small to characterize but statistically suggestive of a cyst BLADDER: Unremarkable. GASTROINTESTINAL TRACT: Stomach and small bowel are non-dilated. Moderate colonic stool burden. Scattered colonic diverticulosis. There is focal wall thickening in the region of the hepatic flexure in the region of the diverticula. Portions of the transverse colon are decompressed limiting evaluation. No pericolonic inflammatory changes. No evidence of free air or abscess. The appendix is unremarkable. ABDOMINAL WALL: Tiny fat-containing umbilical hernia. LYMPH NODES: No abdominopelvic lymphadenopathy. VASCULAR: The abdominal aorta is nonaneurysmal with scattered aortoiliac atherosclerosis. PELVIC VISCERA: The uterus is not visualized. No adnexal mass lesions. OSSEOUS STRUCTURES: Diffuse osteopenia. Degenerative changes of the visualized spine. Lumbosacral transitional vertebrae with sacralization of L5. Severe degenerative disc disease at L4-L5. CT/CT abdomen pelvis w IV con IMPRESSION: Scattered colonic diverticulosis without CT evidence of acute diverticulitis. There is focal wall thickening in the hepatic flexure of the colon in the region of the diverticuli. Although findings may be secondary to muscular hypertrophy , underlying lesion is not excluded. Further evaluation with colonoscopy is recommended. Fleischner guidelines were followed. Electronically signed by: Marcel Wall MD 10/11/2023 10:14 AM EDT
[2023-10-11 07:57] VITALS: BP 159/71; PULSE 90; RESP 18; TEMP 36.6; O2SAT 98; BMI 25.7
--- NOTE | 2023-10-11 08:16 | ED.ABDPAIN ---
HPI - Abdominal Pain General Chief Complaint: Abdominal Pain Stated Complaint: Abd pain Time Seen by Provider: 10/11/23 08:02 Source: patient and family Mode of arrival: ambulatory Limitations: no limitations History of Present Illness ED Provider: Dr. José Miguel Ricardo HPI narrative: 78-year-old female with a history of hypertension, hyperlipidemia, GERD who presents emergency department for elevation of sudden onset of left lower quadrant abdominal pain which began approximately 30 minutes prior to coming to the emergency department. The patient states that she did have a bowel movement this morning which was normal. She states this is a 1st episode this type of abdominal pain. She states the pain is constant, the pain does not radiate to her back or groin. She denied fever, chills, cough, chest pain, shortness of breath, nausea, vomiting, frequency, urgency or dysuria. She has not noticed any dark, red or bloody stools. Related Data Home Medications ?Medication ?Instructions ?Recorded ?Confirmed estradiol 0.01% (0.1 mg/gram) g vaginal 2XW 06/26/20 06/28/22 vaginal cream omeprazole 20 mg capsule,delayed 20 mg PO DAILY 06/26/20 06/28/22 release ezetimibe 10 mg tablet 10 mg PO DAILY 09/07/23 denosumab 60 mg/mL subcutaneous 60 mg subcut [id number] 09/27/23 syringe (Prolia) amlodipine 5 mg tablet 5 mg PO DAILY 10/05/23 Previous Rx's ?Medication ?Instructions ?Recorded cholecalciferol (vitamin D3) 50 50 mcg PO DAILY 90 days #90 caps 06/26/20 mcg (2,000 unit) capsule aspirin 81 mg tablet,delayed 81 mg PO DAILY #90 tabs 06/26/22 release Allergies Allergy/AdvReac Type Severity Reaction Status Date / Time From BENADRYL Allergy Unknown RACING Uncoded 10/11/23 07:59 HEART Review of Systems Review of Systems Yes all other systems are reviewed and are negative [facility] Past Medical History [facility] Narrative: Social history: She denies tobacco use. She occasionally drinks alcohol she states her last drink was 3 days prior-she drank 1 or 2 glasses of wine. She denies drug use. Medical History (Updated 10/11/23 @ 13:15 by José Miguel Ricardo MD) Palpitation Non-toxic multinodular goiter Osteoporosis Primary hyperparathyroidism Surgical History Status post fine needle aspiration Hx of parathyroidectomy Hx of left breast biopsy Hx of tonsillectomy Hx of hysterectomy Family History Family History Father Rectal cancer Mother Heart disease Diabetes Brother Celiac disease Social History Social History Household Members: Spouse Alcohol intake: current Alcohol intake frequency: a few times a month Alcohol type: wine Patient Tobacco Use Status: Never used Tobacco Smoked in Last 30 Days: No Use of substances other than those prescribed or required for medical reasons: No Advance Directives: No Do you have a plan to hurt others: No Plan Physical Exam ED Vital Signs: Vital Signs - 24 hr 10/11/23 07:57 10/11/23 10:05 10/11/23 11:51 Temperature 98 F 98.0 F 97.6 F Pulse Rate 90 81 73 Respiratory Rate 18 14 14 Blood Pressure 159/71 H 130/61 116/61 Pulse Oximetry 98 98 94 Oxygen Delivery Method Room Air Room Air 10/11/23 13:27 Temperature 97.6 F Pulse Rate 73 Respiratory Rate 14 Blood Pressure 116/61 Pulse Oximetry 94 Oxygen Delivery Method Room Air BMI result Body Mass Index 25.7 Vital signs revealed an elevated blood pressure of 159/71 otherwise unremarkable Exam: General: Awake, alert, appears to be uncomfortable, patient's bent over holding her left side Head: Normocephalic, atraumatic EENT: PERRL, Lids normal, sclera normal, conjunctiva normal, nose normal , ears normal, throat without erythema or exudates Neck: Supple, no adenopathy Lung: breath sounds symmetric, no wheezing, rales or rhonchi Chest: symmetric movement, nontender Heart: regular rate and rhythm, normal S1, S2 no murmurs or rubs Abdomen: soft, moderate left lower quadrant tenderness, no rebound, no voluntary or involuntary guarding, nondistended, normal bowel sounds Back: no vertebral tenderness, no CVAT Extremities: no deformities, moves all extremities symmetrically Neuro: Awake, alert, oriented, normal speech, moves all extremities symmetrically Psych: Pleasant, cooperative Medical Decision Making Medical Decision Making MDM Narrative: 78-year-old female with a history of hypertension, hyperlipidemia, GERD who presents emergency department for elevation of sudden onset of left lower quadrant abdominal pain, onset 30 minutes prior to arrival, pain is constant, severe 8/10, with no associated systemic symptoms, no nausea, vomiting, frequency, dysuria or change in bowel movements. She did have a bowel movement 1-1/2 hours prior to coming to the emergency department. Vital signs revealed an elevated blood pressure otherwise unremarkable. Physical examination did reveal moderate left lower quadrant tenderness with no rebound, no voluntary or involuntary guarding. Differential diagnosis: ?Includes but is not limited to pancreatitis, diverticulitis, perforation, renal colic, ureteral stone, anemia, electrolyte abnormalities Following evaluation was ordered: CBC, CMP, lactic acid, lipase, PTT, urinalysis, CT scan abdomen pelvis with IV contrast, case monitor, O2 saturation monitor, IV insert Patient was initially treated with the following: Toradol 15 mg IV, Zofran 4 mg IV, normal saline x1 L Course: 13:10 Patient's laboratory revealed no acute significant abnormalities. Patient's CT scan of the abdomen pelvis revealed scattered diverticulosis without clear evidence for diverticulitis. There was focal thickening at the hepatic flexure of the colon but I do not think that this is the cause of her pain, radiologist is recommending colonoscopy follow-up. Patient's pain completely resolved after the above treatment. Patient has no tenderness on repeat examination. At this time I do not have a clear etiology for her pain and I did discuss this with her and her . Patient was advised to take Tylenol ibuprofen for pain. She was advised to follow up with her PCP for re-evaluation in 2 days and discussion regarding GI follow-up. Admission/Observation Consideration of admission/observation: Escalation of care including admission/observation considered Lab Data [facility] Lab Attestation statement: I reviewed the patient's lab results. My independent interpretation patient's laboratory evaluation as follows: CBC was normal. CMP revealed an elevated BUN at 17, elevated glucose of 137, elevated AST and ALT of 72 and 32. Lipase was normal. Urinalysis was negative. 10/11/23 08:34 10/11/23 08:34 Labs: Lab Results 10/11/23 10/11/23 Range/Units 08:34 10:08 WBC 8.1 (4.8-10.8) X10*3/uL RBC 4.97 (4.20-5.50) X10*6/uL Hgb 13.4 (12.0-16.0) g/dl Hct 41.2 (37.0-47.0) % MCV 82.9 (80.0-98.0) fL MCH 27.0 (27.0-33.0) pg MCHC 32.5 (31.0-35.0) g/dl RDW 14.6 (11.0-16.0) % Plt Count 255 (160-400) X10*3/uL MPV 10.3 (9.4-12.3) fL Immature Gran % (Auto) 0.2 (0.0-0.4) % Neut % (Auto) 57.3 (45-73) % Lymph % (Auto) 32.8 (20-40) % [place] % (Auto) 7.1 (2-11) % Eos % (Auto) 2.2 (0-4) % Baso % (Auto) 0.4 (0-2) % Lymph # (Auto) 2.7 (1.2-4.9) X10*3/uL [place] # (Auto) 0.6 (0.1-1.2) X10*3/uL Eos # (Auto) 0.2 (0.0-0.4) X10*3/uL Baso # (Auto) 0.0 (0.0-0.2) X10*3/uL Abs Immat Gran (auto) 0.02 (0.00-0.03) X10*3/uL Absolute Neuts (auto) 4.7 (2.0-8.3) x10*3/uL Absolute Nucleated RBC 0.000 (0.0-0.012) X10*3/uL Nucleated RBC % (auto) 0.0 (0.0-0.2) /100WBC APTT 25.4 L (26.0-36.8) SEC Sodium 142 (135-145) mmol/L Potassium 3.8 (3.3-5.1) mmol/L Chloride 111 H (96-108) mmol/L Carbon Dioxide 24 (22-29) mmol/L Anion Gap 11 L (12-20) BUN 17 H (9-16) mg/dL Creatinine 0.84 (0.5-1.4) mg/dL Estim Creat Clear Calc 51.4 Estimated GFR > 60 Random Glucose 137 H (60-115) mg/dL Lactic Acid 0.7 (0.5-2.0) mmol/L Calcium 8.8 (8.4-10.2) mg/dL Total Bilirubin 0.7 (0.0-1.0) mg/dL AST 72 H (5-31) U/L ALT 32 H (0-31) U/L Alkaline Phosphatase 92 (39-117) U/L Total Protein 6.5 (6.5-8.0) g/dL Albumin 4.1 (3.5-5.0) g/dL Lipase 21 (8-78) U/L Urine Color Yellow Urine Appearance Clear Urine pH 7.0 (5.0-9.0) Ur Specific [place] 1.025 (1.005-1.025) Urine Protein Negative (Neg-Trace) mg/dL Urine Glucose (UA) Negative (Negative) mg/dL Urine Ketones Negative (Negative) mg/dL Urine Blood Negative (Negative) Urine Nitrite Negative (Negative) Ur Leukocyte Esterase Negative (Negative) Radiology Impression Discussion of test interpretation with radiology: I have reviewed the radiologist's reading. Radiologist Impression: CT abdomen pelvis w IV con IMPRESSION: Scattered colonic diverticulosis without CT evidence of acute diverticulitis. There is focal wall thickening in the hepatic flexure of the colon in the region of the diverticuli. Although findings may be secondary to muscular hypertrophy , underlying lesion is not excluded. Further evaluation with colonoscopy is recommended. Fleischner guidelines were followed. Electronically signed by: Marcel Wall MD 10/11/2023 10:14 AM EDT Dictated By: Marcel Wall Independent Historian Clinical information obtained from an independent historian. History obtained from or confirmed by: Spouse Chronic Conditions Patient?s care impacted by: Hypertension and Other (Hyperlipidemia) Medications Administered Discontinued Medications Generic Name Dose Route Start Last Admin Trade Name Freq PRN Reason Stop Dose Admin Sodium Chloride 1,000 mls @ 999 mls/hr 10/11/23 08:17 10/11/23 10:11 Ns IV 10/11/23 09:17 Infused .Q1H1M STA Infusion Iohexol 85 ml 10/11/23 09:25 10/11/23 09:25 Iohexol 350 Mg/Ml 75 Ml Infus..Btl IV 10/11/23 09:26 85 ml ONCE ONE Administration Ketorolac Tromethamine 15 mg 10/11/23 08:18 10/11/23 08:38 Ketorolac Tromethamine 15 Mg/Ml Vial IVPUSH 10/11/23 08:19 15 mg ONCE STA Administration Ondansetron HCl 4 mg 10/11/23 08:25 10/11/23 08:38 Ondansetron Hcl 4 Mg/2 Ml Vial IVPUSH 10/11/23 08:26 4 mg ONCE ONE Administration Discharge Plan Discharge Clinical Impression: Abdominal pain Qualifiers: Abdominal location: left lower quadrant Qualified Code(s): R10.32 - Left lower quadrant pain Patient Disposition: Home, Self-Care Instructions: Abdominal Pain (ED) Additional Instructions: Your lab evaluation did not reveal any concerning or specific abnormalities to explain your pain which is reassuring. The CT scan did reveal that you have diverticulosis but no evidence of diverticulitis at this time which is reassuring. The radiologist did question possible focal wall thickening at the splenic flexure but I do not think this is the cause of your pain but the radiologist did recommend that you get a follow-up colonoscopy to further evaluate this finding. At this time I do not have a clear cause for your pain but given the fact that your tenderness has resolved I think it is okay to send you home with close follow-up with your primary care doctor. Take ibuprofen 200 mg pills, 2 pills every 6 hours as needed for pain or fever. Take Tylenol (acetaminophen) 500 mg pills, 2 pills every 6 hours as needed for pain or fever. Follow-up with your doctor in 2 days. Please return to the emergency department if your symptoms get worse or if you develop any symptoms that are concerning to you. The radiology impression of your CT scan of the abdomen pelvis is below. Please review this with a your primary care doctor IMPRESSION: Scattered colonic diverticulosis without CT evidence of acute diverticulitis. There is focal wall thickening in the hepatic flexure of the colon in the region of the diverticuli. Although findings may be secondary to muscular hypertrophy , underlying lesion is not excluded. Further evaluation with colonoscopy is recommended. Fleischner guidelines were followed. Electronically signed by: Marcel Wall MD 10/11/2023 10:14 AM EDT RP Dictated By: Marcel Wall Prescriptions: No Action Prolia 60 mg/mL syringe 60 mg subcut [id number] aspirin 81 mg tablet,delayed release (DR/EC) 81 mg PO DAILY Qty: 90 3RF omeprazole 20 mg capsule,delayed release(DR/EC) 20 mg PO DAILY estradiol 0.01 % (0.1 mg/gram) cream vaginal 2XW cholecalciferol (vitamin D3) 50 mcg (2,000 unit) capsule 50 mcg PO DAILY 90 Days Qty: 90 3RF ezetimibe 10 mg tablet 10 mg PO DAILY amlodipine 5 mg tablet 5 mg PO DAILY Interventions: ED Discharge Assessment Last Done: 10/11/23 13:27 Discharge Date/Time: 10/11/23 13:28 Print Language: Mexican
[2023-10-11] MEDS: ondansetron HCL 4 MG/2 ML VIAL IVPUSH (08:38)
[2023-10-11] MEDS: Ketorolac Tromethamine 15 MG/ML VIAL IVPUSH (08:38)
[2023-10-11] MEDS: 0.9 % Sodium Chloride 1,000 ML 999 ML IV (08:38)
[2023-10-11 08:40] LABS: MANUAL DIFF FLAG NO
[2023-10-11 08:42] LABS: Basophils Percent Auto 0.4 % (0-2); Eosinophils Absolute Auto 0.2 X10*3/uL (0.0-0.4); Eosinophils Percent Auto 2.2 % (0-4); Hematocrit 41.2 % (37.0-47.0); Hemoglobin 13.4 g/dl (12.0-16.0); Imm Gran Abs Auto 0.02 X10*3/uL (0.00-0.03); Imm Gran Pct Auto 0.2 % (0.0-0.4); Lymphocytes Absolute Auto 2.7 X10*3/uL (1.2-4.9); Lymphocytes Percent Auto 32.8 % (20-40); Mean Corpuscular HGB Conc 32.5 g/dl (31.0-35.0); Mean Corpuscular Volume 82.9 fL (80.0-98.0); Mean Platelet Volume 10.3 fL (9.4-12.3); Monocytes Absolute Auto 0.6 X10*3/uL (0.1-1.2); Monocytes Percent Auto 7.1 % (2-11); Neutrophils Absolute Auto 4.7 x10*3/uL (2.0-8.3); Neutrophils Percent Auto 57.3 % (45-73); Platelet Count 255 X10*3/uL (160-400); Red Blood Count 4.97 X10*6/uL (4.20-5.50); Red Cell Distribution Width 14.6 % (11.0-16.0); White Blood Count 8.1 X10*3/uL (4.8-10.8)
[2023-10-11 08:55] LABS: Lactic Acid 0.7 mmol/L (0.5-2.0)
[2023-10-11 08:56] LABS: Partial Thromboplastin Time 25.4 SEC (26.0-36.8)
[2023-10-11 08:59] LABS: Alanine Aminotransferase 32 U/L (0-31); Albumin Level 4.1 g/dL (3.5-5.0); Alkaline Phosphatase 92 U/L (39-117); Anion Gap 11 (12-20); Aspartate Amino Transferase 72 U/L (5-31); Bilirubin Total 0.7 mg/dL (0.0-1.0); Blood Urea Nitrogen 17 mg/dL (9-16); Calcium 8.8 mg/dL (8.4-10.2); Carbon Dioxide 24 mmol/L (22-29); Chloride 111 mmol/L (96-108); Creatinine Clr Calc Pharmacy 51.4; Estimated Glomerular Filt Rate > 60; Glucose Random 137 mg/dL (60-115); Lipase 21 U/L (8-78); Potassium 3.8 mmol/L (3.3-5.1); Sodium 142 mmol/L (135-145); Total Protein 6.5 g/dL (6.5-8.0)
--- NOTE | 2023-10-11 09:24 | PC.NURSE ---
alert and oriented. comes to ED with after episode of sudden onset LUQ pain reported as an 8/10 30 min prior to arrival. tender upon palpation. After about half an hour in the ER pt reports that her pain has lessened to a 5/10. IV inserted, medicated per APR, pt to CT scan.
[2023-10-11] MEDS: iohexoL 350 MG/ML 75 ML INFUS..BTL 85 ML IV (09:25)
--- NOTE | 2023-10-11 10:02 | MHC.EDTECH ---
this tech assisted pt with ambulating to bathroom. pt ambulated with a steady gait and zero complaints.
[2023-10-11 10:05] VITALS: BP 130/61; PULSE 81; RESP 14; TEMP 36.7; O2SAT 98
[2023-10-11 10:18] LABS: Appearance Urine Clear; Color Urine Yellow; Glucose Urine UA Negative (Negative); Leukocyte Esterase Urine Negative (Negative); Nitrite Urine Negative (Negative); Specific Gravity - Urine 1.025 (1.005-1.025); Urine Blood Negative (Negative); Urine Ketones Negative (Negative); Urine Protein Negative (Neg-Trace)
[2023-10-11 11:51] VITALS: BP 116/61; PULSE 73; RESP 14; TEMP 36.4; O2SAT 94
[2023-10-11 13:27] VITALS: BP 116/61; PULSE 73; RESP 14; TEMP 36.4; O2SAT 94
== END 2023-10-11 13:28 | disposition home or self-care (01) ==
PROVIDERS: Emergency Provider Emergency Medicine Emergency Medical Services; PCP Family Medicine
DX: R10.32 Left lower quadrant pain (principal); I10 Essential (primary) hypertension; E78.5 Hyperlipidemia, unspecified; Z79.899 Other long term (current) drug therapy; Z79.82 Long term (current) use of aspirin
CPT/HCPCS: 36415; 74177; 80053; 81003; 83605; 83690; 85025; 85730; 96361; 96374; 96375; 99284; 99285; J1885; J2405; Q9967

== ENCOUNTER 2023-12-08 10:41 | Day surgery (SDC) | payer MEDICARE, SELFPAY ==
[2023-12-08 11:15] VITALS: BMI 24.9
[2023-12-08 11:17] VITALS: BP 124/69; PULSE 82; RESP 18; TEMP 36.7; O2SAT 96
--- NOTE | 2023-12-08 11:34 | MHC.SHP ---
Pre-Procedural Eval Section A - 24 Hr Update-Section A only Date of Service: 12/08/23 The patient is an INPATIENT: No Changes since office visit: No Cold of Flu in the past 2 weeks, No New Medical Problems, No Changes in Medication and No Patient answered all questions The patient has been examined within 24 hours of the surgical procedure. The History & Physical has been completed within 30 days and I have reviewed it.: Yes Section B - Complete if H&P > 30 days Chief Complaint: Abnormal findings on diagnostic imaging Allergies: Allergies Allergy/AdvReac Type Severity Reaction Status Date / Time From [facility] Allergy Unknown RACING Uncoded 10/11/23 07:59 HEART Plan I have reviewed the history and physical and performed a pertinent physical examination on my patient. No changes have occurred unless specified. Time Spent With Patient Time: Total time managing care of this patient today ____ minutes.
--- NOTE | 2023-12-08 11:39 | HO.ANESPROP2 ---
HPI - Anesthesia Eval Consult details Narrative: 78 yo F presenting for colonoscopy PMF Active Problems Active Problems: All Active Problems Palpitation (Acute) Non-toxic multinodular goiter (Acute) Osteoporosis (Acute) Primary hyperparathyroidism (Acute) Past Medical History Medical History (Updated 10/12/23 @ 00:00 by Yamileth [place]) Palpitation Non-toxic multinodular goiter Osteoporosis Primary hyperparathyroidism Family History Family History Father Rectal cancer Mother Heart disease Diabetes Brother Celiac disease Family history of problems with anesthesia: No Surgical History Surgical History Status post fine needle aspiration Hx of parathyroidectomy Hx of left breast biopsy Hx of tonsillectomy Hx of hysterectomy History of Problems with Anesthesia: No Social History Social History Household Members: Spouse Alcohol intake: current Alcohol intake frequency: a few times a month Alcohol type: wine Patient Tobacco Use Status: Never used Tobacco Advance Directives: No Advance Directives Information Provided: Yes Meds Allergies Allergy/AdvReac Type Severity Reaction Status Date / Time From BENADRYL Allergy Unknown RACING Uncoded 10/11/23 07:59 HEART Active Medications: Current Medications Lactated Ringer's (Lr) 1,000 mls @ 80 mls/hr IVCONT .[id number] KRYSTIAN Home Medications ?Medication ?Instructions ?Recorded ?Confirmed ?Last Taken ?Type estradiol 0.01% (0.1 mg/gram) g vaginal 2XW 06/26/20 06/28/22 Unknown History vaginal cream omeprazole 20 mg capsule,delayed 20 mg PO DAILY 06/26/20 06/28/22 Unknown History release ezetimibe 10 mg tablet 10 mg PO DAILY 09/07/23 12/08/23 12/08/23 10:00 History denosumab 60 mg/mL subcutaneous 60 mg subcut [id number] 09/27/23 Unknown History syringe (Prolia) amlodipine 5 mg tablet 5 mg PO DAILY 10/05/23 12/08/23 10:00 History Exam Exam Date and Time: 12/08/23 1135 Height,Weight and Vital Signs: Height 5 ft 4 in Weight 65.771 kg Last Vital Signs Temp 98.1 F 12/08/23 11:17 Pulse 82 12/08/23 11:17 Resp 18 12/08/23 11:17 BP 124/69 12/08/23 11:17 Pulse Ox 96 12/08/23 11:17 O2 Del Method Room Air 12/08/23 11:17 Airway Mallampati Class: II TM Dist: >3cm Neck ROM: Full Loose/Missing/Broken Teeth: No (patient denies any loose or broken teeth) Heart: S1S2 Lungs: CTAB Assessment and Plan Assessment Anesthesia Assessment: Anesthesia Plan Discussed and Chart Reviewed Final Anesthetic Review Family History of Problems with Anesthesia: No History of Problems with Anesthesia: No NPO: Yes ASA Class: II Final Preanesthetic Review: No Changes in Pt Med Stat, Meds/Allgs Chart Reviewed, Consent Obtained/Reviewed and Anes Risks/Benef Reviewed Patient Risk: Low Procedure Risk: Low Anesthetic Plan Anesthetic Plan: MAC: and Agree w/ Assess. and Plan Disposition: Standard PACU
[2023-12-08 12:17] VITALS: BP 90/42; PULSE 74; RESP 16; TEMP 36.1; O2SAT 95
[2023-12-08 12:36] VITALS: BP 116/62; PULSE 72; RESP 18; TEMP 36.1; O2SAT 97
--- NOTE | 2023-12-08 12:56 | OP_ITS ---
DATE OF SERVICE: 12/08/2023 SURGEON: Markus Rahman MD INDICATIONS: Abnormal CT scan of the colon and abdominal pain. PREOPERATIVE DIAGNOSIS: POSTOPERATIVE DIAGNOSIS: PROCEDURE PERFORMED: Colonoscopy to the cecum with biopsy. ESTIMATED BLOOD LOSS: COMPLICATIONS: ANESTHESIA: ASSISTANTS: SPECIMENS: MEDICATIONS: Monitored anesthesia care. DESCRIPTION OF PROCEDURE: A history and physical was performed. The risks and benefits of the procedure were explained to the patient. Informed consent was obtained. The patient was placed in the left lateral decubitus position. A digital rectal exam was performed and was found to be normal. The Olympus pediatric video colonoscope was introduced into the rectum and advanced to the cecum. The cecum was identified by transillumination, palpation, and identification of ileocecal valve. Examination was performed. The scope was removed. She tolerated the procedure well and was returned to the recovery area in stable condition. FINDINGS: The terminal ileum was not examined. The visualized colonic mucosa was normal. There was no evidence of colitis. Two less than 5 mm sessile polyps were identified and removed with a biopsy forceps. These were located in the cecum and hepatic flexure. No other polyps were identified. There was mild sigmoid diverticulosis with a few scattered diverticula throughout the remainder of the colon. Retroflexed examination was normal. IMPRESSION: Colon polyps. RECOMMENDATION: Follow up the biopsy results. MD PHOENIX Bernard/OSCARL / [id number]
== END 2023-12-08 13:17 | disposition home or self-care (01) ==
PROVIDERS: PCP Family Medicine; Visit Provider Internal Medicine Gastroenterology
PROC: 0DJD8ZZ Inspection of Lower Intestinal Tract, Via Natural or Artificial Opening Endoscopic (ICD-10-PCS; CPT 45378; principal; 2023-12-08 12:40)
DX: R93.3 Abnormal findings on diagnostic imaging of other parts of digestive tract (principal); Z86.0101 Personal history of adenomatous and serrated colon polyps; Z80.0 Family history of malignant neoplasm of digestive organs; D12.3 Benign neoplasm of transverse colon; K63.5 Polyp of colon; K57.30 Diverticulosis of large intestine without perforation or abscess without bleeding; K21.9 Gastro-esophageal reflux disease without esophagitis; I10 Essential (primary) hypertension; E78.5 Hyperlipidemia, unspecified; M81.0 Age-related osteoporosis without current pathological fracture; E21.0 Primary hyperparathyroidism; Z79.82 Long term (current) use of aspirin; Z79.83 Long term (current) use of bisphosphonates; Z79.899 Other long term (current) drug therapy; Z88.8 Allergy status to other drugs, medicaments and biological substances; Z91.011 Allergy to milk products; Z98.890 Other specified postprocedural states
CPT/HCPCS: 45380; 88305; J2003; J2371; J2704

== ENCOUNTER 2024-01-16 11:07 | Outpatient (REF) | payer MEDICARE, SELFPAY ==
--- NOTE | ~2024-01-16 | MM_ITS ---
EXAMINATION: MM DIAGNOSTIC DIGITAL BREAST TOMOSYNTHESIS, BILATERAL CLINICAL INFORMATION: Two-year follow-up for left breast asymmetries without prior sonographic correlate. COMPARISON: Mammography: Comparison is made with relevant prior exams. TECHNIQUE: Digital breast mammography with tomosynthesis is performed in both the craniocaudal and mediolateral oblique views along with computer-aided detection (CAD). FINDINGS: There are scattered areas of fibroglandular density (ACR BI-RADS breast composition Category b). The previously seen asymmetries in the superior lateral left breast without prior sonographic correlate are not significantly changed on prior mammograms dating back for 2 years and therefore benign. There are no significant masses, abnormal calcifications, or other abnormalities. Results are provided to the patient at time of visit by the technologist. MM/MM tomosynthesis diagnostic BI IMPRESSION: No mammographic evidence of malignancy. ASSESSMENT: BI-RADS BI-RADS 2 - Benign Findings RECOMMENDATION: 1 year F/U This patient's information was entered into a reminder system with a target due date for their next mammogram. Electronically signed by: Shahida Patel DO 01/16/2024 11:42 AM FANNY
--- OUTSIDE RECORDS SUMMARY | 2024-01-23 13:17 | XMS_ITS ---
Author Organization [facility] Address [address] [place] [address] Care Team Providers Care Production Crew Supervisor Name Role Phone Xavier WATSON, Daniel Primary Care Provider Unavailab Markus Lomeli Jr REASON FOR VISIT pathology Encounters Encounter Location Date Provider Diagnosis [facility] [address] [place] [address] 12/14/2023 Markus Rahman Jr PLAN OF TREATMENT No Information
--- OUTSIDE RECORDS SUMMARY | 2024-01-23 13:17 | XMS_ITS ---
Author Organization [facility] Address [address] [place] [address] Care Team Providers Care Hi Low Truck Driver Name Role Phone Xavier WATSON, Daniel Primary Care Provider Unavailab Markus Lomeli Jr Unavailable [phone] ALLERGIES Allergen (clinical drug ingredient) Drug/Non Drug Allergy documented on EMR Reaction Allergy Type Onset Date Status diphenhydramine Benadryl Unknown Drug Allergy A ctive dairy (uncoded) Unknown Allergy Acti ve REASON FOR VISIT Patient presents today for lower quadrant pain MEDICATIONS Medication SIG (Take, Route, Frequency, Duration) Notes Start Date End Date Status Vitamin B12 1000 MCG 1 tablet Orally Onc e a day for 30 day(s) Active Ezetimibe 10 MG TAKE 1 TABLET BY TAQUERIA TH DAILY Oral for 90 Active busPIRone HCl 5 MG TAKE 1 TABLET BY TAQUERIA TH TWICE DAILY NEEDED FOR ANXIETY Oral for 30 Active Omeprazole 20 MG TAKE 1 CAPSULE BY [place] [facility] EVERY DAY AT 4 PM Oral for 90 Active Aspirin Adult Low Dose 81 MG 1 tablet Orally Once a day for 30 day(s) Active Calcium + D 600-200 MG-UNIT 1 tablet Orally Twice a day for 30 day(s) Active MiraLax (colon prep) 17 GM/SCOOP mixed with Gatorade or Crystal Light Orally begin at 5:00 p.m. the day before the procedure for 1 day 11/30/2023 Active SOCIAL HISTORY Tobacco Use: Social History Observation Description Date Details (start date - stop date) Never Smoker NA - NA Sex Assigned At : Social History Observation Description Sex Assigned At Unknown Tobacco Use/Smoking Question Answer Notes Patient is a nonsmoker Alcohol Screen Question Answer Notes Did you have a drink contain ing alcohol in the past year? Yes How often did you have a dri nk containing alcohol in the past year? 2 to 4 times a month (2 points) How many drinks did you have on a typical day when you were drinking in the past year? 1 or 2 drinks (0 point) How often did you have 6 or more drinks on one occasion in the past year? Never (0 point) Points 2 Interpretation Negative PROBLEMS Problem Type ICD Code Onset Dates Problem Status W/U Status Risk SNOMED Code Notes Problem Abnormal CT scan, colon (R93.3) Active confirmed 148760409 Problem Left lower quadrant pain (R10.32) Active confirmed 896077039 Problem Long-term use of aspirin therapy (Z79.82) Active confirmed 809181607 VITAL SIGNS BMI 25.12 kg/m2 11/30/2023 Blood pressure systolic 00 mm Hg 11/30/19 24 Blood pressure diastolic 00 mm Hg 024 Height 65 in 11/30/2023 Weight 151 lbs 11/30/2023 Encounters Encounter Location Date Provider Diagnosis [facility] [address] [place] [address] 11/30/2023 Markus Rahman Jr Abnormal CT scan, colon R93.3 ; Left lower quadrant pain R10.32 and Long-term use of aspirin therapy Z79.82 ASSESSMENTS Encounter Date Diagnosis Assessment Notes Treatment Notes Treatment Clinical Notes 11/30/[address] scan, colon (ICD-10 - R93.3) Colonoscopy material was printed 11/30/2023 Left lower quadrant pain (ICD-10 - R10.32) 11/30/2023 Long-term use of aspirin therapy (ICD-10 - Z79.82) PLAN OF TREATMENT Medication Medication Name Sig Start Date Stop Date Notes MiraLax (colon prep) 17 GM/SCOOP mixed with Gatorade or Crystal Light Orally begin at 5:00 p.m. the day before the procedure for 1 day 11/30/2023 Treatment Notes Assessment Notes Abnormal CT scan, colon Colonoscopy mate rial was printed Future Test Test Name Order Date COLONOSCOPY 11/30/2023 COLONOSCOPY 12/04/2023 Next Appt Details Follow Up: 1 Year, Reason: Progress Notes * Examination Category Sub-Category Detail Notes General Examination GENERAL APPEARANCE: in no ac [place] distress HEAD: normocephalic EYES: sclera non-icteric NECK/THYROID: no lymphadenopathy HEART: S1, S2 normal, no mu rmurs CHEST: normal shape and exp ansion LUNGS: clear to auscultatio n bilaterally ABDOMEN: soft, nontender, non distended, bowel sounds present, no organomegaly SKIN: anicteric EXTREMITIES: no clubbing, cyanosi s, or edema PSYCH: cognitive function i ntact ORAL CAVITY: mucosa moist
--- OUTSIDE RECORDS SUMMARY | 2024-01-23 13:17 | XMS_ITS ---
Author Organization [facility] Address [address] [place] [address] Care Team Providers Care Cured Meat Packing Supervisor Name Role Phone Xavier WATSON, Daniel Primary Care Provider Unavailab Saumya Christianson Unavailable [phone] Farncesco Oleary Unavailable [phone] Allergies Allergen (clinical drug ingredient) Drug/Non Drug Allergy documented on EMR Reaction Allergy Type Onset Date Status diphenhydramine Benadryl rapid heart beat Drug Allergy Active REASON FOR VISIT Painful nail(s) aggrevated by shoes and causing difficulty standing/walking., pcp-09/2023 Medications Medication SIG (Take, Route, Frequency, Duration) Notes Start Date End Date Status Omeprazole 20 MG Oral for 30 A ctive Advil Not-Taking Estrogel Not-Taking Ibuprofen Not-Taking Zetia Not-Taking Ezetimibe 10 MG Oral for 90 Days Active Tymlos 3120 MCG/1.56ML as directed Subcutaneous Not-Taking Social History Tobacco Use: Social History Observation Description Date Details (start date - stop date) Never Smoker NA - NA Tobacco Use/Smoking Question Answer Notes Are you a: nonsmoker Additional Findings: Tobacco Non-User Current no n-smoker Alcohol Screen Question Answer Notes Did you have a drink contain ing alcohol in the past year? Yes How often did you have a dri nk containing alcohol in the past year? Monthly or less (1 point) Points 1 Interpretation Negative Tobacco use other than smoking: Question Answer Notes Are you an other tobacco user? No Vital Signs Height 5 ft 5 in in 11/13/2023 Weight 148 lbs 11/13/2023 BMI 24.63 kg/m2 11/13/2023 Blood pressure systolic 132 mm Hg 11/13/19 24 Blood pressure diastolic 60 mm Hg 024 Encounters Encounter Location Date Provider Diagnosis [facility] [address] [address] 11/13/2023 Francesco Oleary Tinea unguium B35.1 ; Ingrowing nail L60.0 ; Plantar fascial fibromatosis M72.2 ; Pain in right foot M79.671 ; Other hammer toe(s) (acquired), right foot M20.41 ; Xerosis cutis L85.3 ; Pain in right toe(s) M79.674 ; Pain in left toe(s) M79.675 and Abrasion of toe of left foot, initial encounter S90.415A Assessments Encounter Date Diagnosis (ICD Code) Assessment Notes Treatment Notes Treatment Clinical Notes Section Notes 11/13/2023 Tinea unguium (ICD-10 - B35.1) 11/13/2023 Ingrowing nail (ICD-10 - L60.0) 11/13/2023 Plantar fascial fibromatosis (ICD-10 - M72.2) 11/13/2023 Pain in right foot (ICD-10 - M79.671) 11/13/2023 Other hammer toe(s) (acquired), right foot (ICD-10 - M20.41) 11/13/2023 Xerosis cutis (ICD-10 - L85.3) 11/13/2023 Pain in right toe(s) (ICD-10 - M79.674) 11/13/2023 Pain in left toe(s) (ICD-10 - M79.675) 11/13/2023 Abrasion of toe of left foot, initial encounter (ICD-10 - S90.415A) Plan Of Treatment Next Appt Details Follow Up: 4 Months, Reason: Provider Name:Saumya diamond, 05/13/2024 09:00:00 AM, [address] [place] [address], [phone], Procedure Notes * Category Sub-Category Detail Notes Debride Nail 6-10 Nail debridement Nail debridem ent performed extensively to reduce/remove overall nail length and girth, subungual debris, and necrotic tissue, by manual and electrical means with use of a nail nipper and/or dremel, to more viable healthy nail plate or bed tissue 6-10. Silver nitrate used for any petechial bleeding as necessary. Patient chooses, no pharmaceutical tx (06899) Progress Notes * Jody CARROLL ADOB: 5 (78 yo F)Acc No.[id number]:11/13/2023 Progress Note Patient:?Jody Carroll A Provider:?Francesco Oleary DPM :1945???Age:78 Y???Sex:Female D ate:11/13/2023 Address: [place] [address] , [id number] Pcp:Daniel Park MD Subjective: * Chief Complaints: * ???Painful nail(s) aggrevate d by shoes and causing difficulty standing/walking.Pcp-09/2023 * HPI: ???Toe pain:?Nature:?aching, tenderness.?Location:?Great toe, Left foot.?Painful Nails:?Pt States Last PCP Visit:?Date:?09/14/2023 * ROS:?General/Constitutional:?Nausea?denies.?Vomiting?denies.?Hunger Thirst?denies.?Loss appetite?denies.?Chills?denies.?Fatigue?denies.?Fever?denies.?Night Sweats?denies.?Unexplained weight loss?denies.?Unexplained weight gain?denies.?HEENTM:?Dentures?denies.?Dizziness?denies.?Glasses/contacts?admits.?Retinopathy?de nies.?Blurred/double vision?denies.?TMJ?denies.?Discharge/drainage?denies.?Implants?denies.?Sore throat?denies.?Dental implants?denies.?Hard of hearing ?denies.?Difficulty chewing/swallowing/speaking?denies.?Nose bleeds?denies.?Sore mouth?denies.?Respiratory:?On Oxygen?denies.?Pneumonia/pleurisy?denies.?Bronchitis?denies.?Emphysema?denies.?C oughing?denies.?Cough blood?denies.?Shortness of breath?denies.?Wheezing?denies.?Cardiovascular:?Pacemaker?denies.?MVP?denies.?WPW?denies.?CHF?denies.?Heart attack?denies.?Septal defect?denies.?Rapid beat?denies.?Chest pain ?denies.?Atrial Fib.?denies.?Murmur/Palpitations?denies.?Gastrointestinal:?Hemorrhoids?denies.?Stomach/Abdominal pain?denies.?Dark blood stool?denies.?Irritable bowel ?denies.?Constipation?denies.?Diarrhea?denies.?Hematology:?Swelling?denies.?Clots?denies.?Varicose Veins?denies.?Bruising?denies.?Bleeding problem?denies.?Genitourinary:?Blood urine?denies.?Frequent/Painfu/urination/bladder control?denies.?Kidney stones?denies.?Infection (UTI)?denies.?Nephropathy?denies.?sex trans dis (STD)?denies.?Prostate?denies.?Musculoskeletal:?Hammertoes?admits.?Bunions?admits.?Back Pain?denies.?Muscle Cramps/ Resting?denies.?Muscle cramps / walking?denies.?Generalized aches and pains?admits.?Weakness?denies.?Integ.:?Alba?denies.?Scars?denies.?Corns/calluses?admits.?Ingrown nails?denies.?Painful nails?denies.?Open Sores?denies.?Rashes?denies.?Neurologic:?Difficulty sleeping?denies.?Brain disorder?denies.?Numbness?denies.?Balance trouble?denies.?Confusion?denies.?Fainting/blackouts?denies.?Tingling?denies.?Tr emors?denies.? * Medical History:? * Surgical History:?right foot hammertoe repair hysterectomy vericose vein surgery bilateral legs Condylectomy and hammertoe repair left 04/05/12biopsy on thyroid 10/24/19parathyroidectomy 03/2020 * Hospitalization/Major Diagno stic Procedure:?Denies Past Hospitalization * Family History:?Mother: dece ased, , poor circulation, diagnosed with Family history of arthritis, Diabetic - NIDDM.?Father: , diagnosed with Unspecified essential hypertension, Other malignant neoplasm of unspecified site.? * Social History:?Tobacco Use:?Tobacco Use/Smoking?Are you a:?nonsmoker ?Additional Findings: Tobacco Non-User?Current non-smoker ?Tobacco use other than smoking?Are you an other tobacco user??No ???Drugs/Alcohol:?Drugs?Have you used drugs other than those for medical reasons in the past 12 months??No ?Alcohol Screen?Did you have a drink containing alcohol in the past year??Yes ?How often did you have a drink containing alcohol in the past year??Monthly or less (1 point) ?Points?1 ?Interpretation?Negative ???Miscellaneous:?Caffeine: yes, frequency: decafe, 2-3 cups per day. ?Children: yes, 2. ?Exercise: yes, walking, exercise/dancing, classes at senior center, yoga. ?Marital status: . 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 * Medications:?TakingOmeprazol e 20 MG Capsule Delayed Release Oral Ezetimibe 10 MG Tablet Oral Taking Omeprazole 20 MG Capsule Delayed Release Oral Taking Ezetimibe 10 MG Tablet Oral Not-Taking/PRNTymlos 3120 MCG/1.56ML Solution Pen-injector as directed Subcutaneous Advil Estrogel Ibuprofen Zetia Medication List reviewed and reconciled with the patientNot-Taking/PRN Tymlos 3120 MCG/1.56ML Solution Pen-injector as directed Subcutaneous Not-Taking/PRN Advil Not-Taking/PRN Estrogel Not- Taking/PRN Ibuprofen Not-Taking/PRN Zetia Medication List reviewed and reconciled with the patient * Allergies:?Benadryl: rapid h herminia polk[Allergies Verified] Objective: * Vitals:?Ht: 5 ft 5 in, Wt: 1 48, BMI: 24.63, Shoe size: 9.5, BP: 132/60 mm Hg, Wt-k.13 kg. * Examination: ???Dermatologic: ?SKIN FINDINGS:?Skin shows sign(s) of two plantar fibroma right midfoot which measures 10mm in diameter with new lesion left midfoot is resolved, Skin shows sign(s) of, dryness, scaling, in a stocking fashion, no fissure(s) present, B/L; abrasions distal t2,t3.?Nails: ?NAILS are:? Elongated, overgrown, dystrophic, lytic, greater than 3mm thick, discolored and friable with crumbly malodorous subungual debris, with pain on palpation, 1-5 Right foot, TA, T1, T4.?Vascular: ?DP PULSES(B):?2/4, B/L.?PT PULSES(B):?2/4, B/L.?Neurological: ?SENSORY:?Neurological exam reveals intact sensorium, pain sensation normal, vibration sensation intact, pinprick sensation is normal in the lower extremities, 5.07 monofilament test , normal, B/L, Pt denies, anesthesia, burning, paresthesia, tingling, B/L.?General Examination: ?GENERAL APPEARANCE:?Reveals a pleasant, alert, well nourished, well developed, well hydrated individual, who demonstrates proper attention to hygene/body habitus, and is in no acute distress.?ORIENTED:?person, place, and time.? 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 Plan: * Treatment: * Procedures:?Debride Nail 6-10:?Nail debridement?Nail debridement performed extensively to reduce/remove overall nail length and girth, subungual debris, and necrotic tissue, by manual and electrical means with use of a nail nipper and/or dremel, to more viable healthy nail plate or bed tissue 6-10. Silver nitrate used for any petechial bleeding as necessary. Patient chooses, no pharmaceutical tx (71078).? * Procedure Codes:?06432 DEBRI DE NAIL, 6 OR MORE, Modifiers: XS * Follow Up:?4 Months * Images: * Sign off status: Completed true * Provider:?Francesco Oleary DPM Date:? 024 Generated for Neal virgen/Cynthia/eTpolly on:?01/23/2024 01:17 PM EST History and Physical Notes * HPI (History of Present Illness) Category Sub-Category Detail Notes Category Not es Toe pain Nature: aching, tenderness Location: Great toe, Left foot Painful Nails Pt States Last PCP Visit: Date:: 09/14/2023 Examination Category Sub-Category Detail Notes Category Not es Neurological SENSORY: Neurological exa m reveals intact sensorium, pain sensation normal, vibration sensation intact, pinprick sensation is normal in the lower extremities, 5.07 monofilament test , normal, B/L, Pt denies, anesthesia, burning, paresthesia, tingling, B/L Dermatologic SKIN FINDINGS: Skin shows sign( s) of two plantar fibroma right midfoot which measures 10mm in diameter with new lesion left midfoot is resolved, Skin shows sign(s) of, dryness, scaling, in a stocking fashion, no fissure(s) present, B/L; abrasions distal t2,t3 General Examination GENERAL APPEARANCE: Reveals a pleasant, alert, well nourished, well developed, well hydrated individual, who demonstrates proper attention to hygene/body habitus, and is in no acute distress ORIENTED: person, place, and t naya Vascular DP PULSES(B): 2/4, B/L PT PULSES(B): 2/4, B/L Nails NAILS are: Elongated, overg rown, dystrophic, lytic, greater than 3mm thick, discolored and friable with crumbly malodorous subungual debris, with pain on palpation, 1-5 Right foot, TA, T1, T4
--- OUTSIDE RECORDS SUMMARY | 2024-01-23 13:17 | XMS_ITS ---
Author Organization [facility] Address [address] [place] [address] Care Team Providers Care Special Inspector Name Role Phone Xavier WATSON, Daniel Primary Care Provider Unavailab Markus Lomeli Jr REASON FOR VISIT abnormal ct scan Encounters Encounter Location Date Provider Diagnosis [facility] Outpatient [address] [place] [id number] 12/08/2023 Markus Rahman Jr Abnormal abdominal ultrasound R93.5 ; Abdominal pain R10.9 and Colon polyps K63.5 ASSESSMENTS Encounter Date Diagnosis Assessment Notes Treatment Notes Treatment Clinical Notes 12/08/2023 Abnormal abdominal ultrasound (ICD-10 - R93.5) 12/08/2023 Abdominal pain (ICD-10 - R10.9) 12/08/2023 Colon polyps (ICD-10 - K63.5) PLAN OF TREATMENT No Information
--- OUTSIDE RECORDS SUMMARY | 2024-01-23 13:17 | XMS_ITS | Patient Health Record ---
Author Organization [facility] Address [address] [place] [address] Care Team Providers Care Store Team Member Name Role Phone Xavier WATSON, Daniel Primary Care Provider Unavailab Markus Lomeli Jr Unavailable ALLERGIES Allergen (clinical drug ingredient) Drug/Non Drug Allergy documented on EMR Reaction Allergy Type Onset Date Status diphenhydramine Benadryl Unknown Drug Allergy A ctive dairy (uncoded) Unknown Allergy Acti ve RESULTS Component Value Reference Range Notes Pathology Reviewed date:12/14/2023 07:54:11 AM Interpretation: Performing Lab:[facility], [address] [place] [id number] Notes/Report: REASON FOR REFERRAL No Information MEDICATIONS Medication SIG (Take, Route, Frequency, Duration) Notes Start Date End Date Status Vitamin B12 1000 MCG 1 tablet Orally Onc e a day for 30 day(s) Active Ezetimibe 10 MG TAKE 1 TABLET BY TAQUERIA TH DAILY Oral for 90 Active Aspirin Adult Low Dose 81 MG 1 tablet Orally Once a day for 30 day(s) Active Calcium + D 600-200 MG-UNIT 1 tablet Orally Twice a day for 30 day(s) Active MiraLax (colon prep) 17 GM/SCOOP mixed with Gatorade or Crystal Light Orally begin at 5:00 p.m. the day before the procedure for 1 day 11/30/2023 Active busPIRone HCl 5 MG TAKE 1 TABLET BY TAQUERIA TH TWICE DAILY NEEDED FOR ANXIETY Oral for 30 Active Omeprazole 20 MG TAKE 1 CAPSULE BY MO UT EVERY DAY AT 4 PM Oral for 90 Active IMMUNIZATIONS Vaccine Route Administration Date Status Comme nts Influenza Unknown 12/21/2017 Administered SOCIAL HISTORY Tobacco Use: Social History Observation [...] W/U Status Risk SNOMED Code Notes Problem Colon cancer screening (Z12.11) Active confirmed 783788197 Problem Encounter for other preprocedural examination (Z01.818) Active confirmed 19984217 Problem Family history of colon cancer (Z80.0) Active confirmed 902393255 Problem Hypertension, unspecified type (I10) Active confirmed 42294704 Problem Abdominal bloating (R14.0) Active confirmed 122146360 Problem Change in bowel habits (R19.4) Active confirmed 039227586 Problem Abnormal CT scan, colon (R93.3) Active confirmed 998725400 Problem Left lower quadrant pain (R10.32) Active confirmed 285025835 Problem Long-term use of aspirin therapy (Z79.82) Active confirmed 601780631 VITAL SIGNS Blood pressure diastolic 00 mm Hg 11/30/2023 Height 65 in 11/30/2023 Blood pressure systolic 00 mm Hg 11/30/2023 Weight 151 lbs 11/30/2023 BMI 25.12 kg/m2 11/30/2023 Encounters Encounter Location Date Provider Diagnosis [facility] [address] [place], [place] [phone] 12/08/2023 Markus Rahman Jr Abnormal abdominal ultrasound R93.5 ; Abdominal pain R10.9 and Colon polyps K63.5 [facility] [address] [place] [phone] 11/03/2023 Markus Rahman Jr [facility] [address] [place] [phone] 11/30/2023 Markus Rahman Jr Abnormal CT scan, colon R93.3 ; Left lower quadrant pain R10.32 and Long-term use of aspirin therapy Z79.82 [facility] [address] [place] [address] 10/12/2023 Markus Rahman Jr [facility] [address] [place] [address] 12/14/2023 Markus Rahman Jr ASSESSMENTS Encounter Date Diagnosis Assessment Notes Treatment Notes Treatment Clinical Notes 12/08/2023 Abdominal pain (ICD-10 - R10.9) 12/08/2023 Abnormal abdominal ultrasound (ICD-10 - R93.5) 11/30/2023 Left lower quadrant pain (ICD-10 - R10.32) 11/30/[address] scan, colon (ICD-10 - R93.3) Colonoscopy material was printed 12/08/2023 Colon polyps (ICD-10 - K63.5) 11/30/2023 Long-term use of aspirin therapy (ICD-10 - Z79.82) PLAN OF TREATMENT Future Test Test Name Order Date COLONOSCOPY 01/11/2017 COLONOSCOPY 11/30/2023 COLONOSCOPY 12/04/2023 Insurance Providers Payer Name Payer Address Payer Phone Subscriber Number Group Number Insured Name Patient Relationship to Insured Coverage Start Date Coverage End Date [facility] [address] [place] [address] [id number] DAVID MEREDITH Self - patient is the insured MEDICAL (GENERAL) HISTORY Medical History History ICD Code Hyperlipidemia Hypertension Osteoporosis Gastroesophageal reflux disease Colonoscopy 04/30, tubular adenoma, follo wup optional based on age Primary hyperparathyroidism Abnormal computed tomography of sigmoid colon R93.3 Surgical History Surgery Date(Month/Year) foot surgery hysterectomy
--- OUTSIDE RECORDS SUMMARY | 2024-01-23 13:18 | XMS_ITS ---
Author Organization [facility] Address [address] [place] [address] Care Team Providers Care Referral And Information Aide Name Role Phone Xavier WATSON, Daniel Primary Care Provider Unavailab Saumya Christianson Unavailable [phone] Francesco Oleary [phone] REASON FOR VISIT RS 10/12/23 Encounters Encounter [facility] Date [facility] [address] 10/10/[facility]23 Francesco Oleary Plan Of Treatment Next Appt Details Provider Name:Saumya Marti diamond, 05/13/2024 09:00:00 AM, [address] [place], [address], Progress Notes * GLENJody ADOB: (78 yo F)Acc No.[id number]:10/10/2023 Patient:?Jody Carroll :1945???Age:78 Y???Sex:Female Address:[place] [address] * true * Date:? Generated for Printi ng/Famarzenag/eTransmitting on:?01/23/2024 01:17 PM EST
--- OUTSIDE RECORDS SUMMARY | 2024-01-23 13:18 | XMS_ITS | Continuity of Care Document ---
Author Organization [facility] Address [address] [place] [address] Phone Care Team Providers Care Advertising Sales Executive Name Role Phone Landon WATSON, RVT, MARY [...] Mins- [place] & [place] [facility], [address] [place] [address] Dr Khan 1000[facility] [place] Brunson [place], [id number], tel:[phone] CV[place] Cramp and spasmRestless legs syndromeVenou s insufficiency (chronic) (peripheral)P ruritus, unspecified 4 Landon WATSON RVT, MARY JO Gardiner. [address] [place] [address], [id number], [place]. tel:[phone] Referring Provider: Daniel Park MD S, [address] [place] [address], [address]. tel:[phone] [facility], [address] [place] [address] Dr Khan 1000[facility] [place] Brunson [place], [id number], [place] tel:[phone] CVR - [place] Pain in right leg 4 Landon WATSON RVT, MARY JO Gardiner. [address] [place] [address], [id number], [place]. tel:[phone] Referring Provider: Daniel Park MD S, [address] [place] [address] [place] [address], [address]. tel:[phone] Office/Outpt E&M Established 15 Mins- [place] & [place] [facility], [address] [place] [address] Dr Khan 1000[facility] [place] Brunson MD, [id number], [place] tel:[phone] CVR - [place] Cramp and spasmRestless legs syndromeVenou s insufficiency (chronic) (peripheral)P ruritus, unspecified 4 Landon WATSON RVT, MARY JO Gardiner. [address] [place] [address] d, [place], [id number], [place]. tel:[phone] Referring Provider: Daniel Park MD S, [address] [place] [address] Dr [address], [place], [address]. tel:[phone] [facility], [address] [place] [address] Dr Khan 1000[address], [id number], [place] tel:[phone] CVR - [place] Localized swelling, mass and lump, right lower limbChronic venous hypertension (idiopathic) with other complications of right lower extremity Madhu-0 4 Landon WATSON RVT, MARY JO Gardiner. [address] [facility] 302, January [place], [id number], [place]. tel:[phone] Referring Provider: Daniel Park MD S, [address] [place] [address] [address], [place], [address]. tel:[phone] [facility], [address] [place] [address] [address], [id number], [place] tel:[phone] CVR - [place] - [place] Encounter for follow-up examination after completed treatment for conditions other than malignant neVaricose veins of right lower extremity with pain Apr-1 4 Landon WATSON RVT, MARY JO Gardiner. 3640 [facility] 302, January [place], [id number], [place]. tel:[phone] Referring Provider: Daniel Park MD S, [address] [place] [address] Dr [address] [place], [place], [address]. tel:[phone] [facility], [address] [place] [address] [address], [id number], [place] tel:[phone] CVR - [facility] Varicose veins of right lower extremity with other complications Apr-0 4 Conner Terry. [address] [facility] [address], [place], [id number], [place]. tel:[phone] Referring Provider: Daniel Park MD S, [address] [place] [address] Dr [address] [place], [place], [address]. tel:[phone] [facility], [address] [place] [address] Dr Khan 1000Suite [place] Brunson [place], [id number], [place] tel:[phone] CVR - [place] - [place] Encounter for follow-up examination after completed treatment for conditions other than malignant neVaricose veins of right lower extremity with pain Apr-0 4 Landon WATSON RVT, MARY JO Gardiner. [address] [place] [address], [place], [id number], [place]. tel:[phone] Referring Provider: Daniel Park MD S, [address] [place] [address] Dr [address], [place], [address]. tel:[phone] [facility], [address] [place] [address] Dr Khan 1000[address] 1000[place], [id number], [place] tel:[phone] [facility] - [place] Chronic venous hypertension (idiopathic) with inflammation of right lower extremity Apr-0 4 Landon WATSON RVT, MARY JO Gardiner. [address] [place] [address], [place], [id number], [place]. tel:[phone] Referring Provider: Daniel Park MD S, [address] [place] [address] Dr [address], [place], [address]. tel:[phone] Offic/outpt E&m Estab 5 Min Trial - Telemedicine [facility], [address] [place] [address] Dr Khan 1000Suite [place] Brunson MD, [id number], [place] tel:[phone] CVR [facility] Cramp and spasmRestless legs syndromeVenou s insufficiency (chronic) (peripheral)P ruritus, unspecified Mar-0 4 Conner Terry. 3640 [facility] 302, January [place], [id number], [place]. tel:[phone] Referring Provider: Daniel Park MD S, [address] [place] [address] Dr [address], [place], [address]. tel:[phone] Office/Oupt E&M New Pt 45 Mins [facility], [address] [place] [address] Dr Khan 1000[address] 1000[place], [id number], [place] tel:[phone] CVR - [facility] Varicose veins of bilateral lower extremities with other complications Pain in right lower legPain in left lower legPain in right legRestless legs syndromePruri tus, unspecifiedPa in in left legCramp and spasm 4 Landon WATSON RVT, MARY JO Gardiner. [address] [facility], [address], [place], [id number], [place]. tel:[phone] Referring Provider: Daniel Park MD S, [address] [place] [address] Dr [address], [place], [address]. tel:[phone] [facility], [address], [place], [id number], [place] tel:[phone] CV - [facility] Chronic venous hypertension (idiopathic) with other complications of bilateral lower extremity 4 Landon WATSON RVT, MARY JO Gardiner. 36[address] [facility], [facility] [address], January [place], [id number], [place]. tel:[phone] Referring Provider: Daniel Park MD S, [address] [place] [address] Dr [address], [place], [address]. tel:[phone] Family History Family Member Type Diagnosis Age At Onset No Information Payers Payer name Insurance type Covered green party ID Authoriza tion(s) [facility] AARP Medic are Complete CI [id number] Social History Type Description Quantity Date Captured [...] Information Instructions Date Instruction Additional Infor mation Patient education booklet given Related to Cramp and spasm Compression stocking usage as conservative measure Related to Cramp and spasm Lifestyle education [...]
--- OUTSIDE RECORDS SUMMARY | 2024-01-23 13:18 | XMS_ITS ---
Author Organization [facility] Address [address] [place] [address] Care Team Providers Care Microphone Boom Operator Name Role Phone Xavier WATSON, Daniel Primary Care Provider Unavailab Saumya Christianson Unavailable [phone] Francesco Oleary [phone] Encounters Encounter Location Date Provider Diagnosis [address] [address] 10/12/2023 Francesco Oleary Plan Of Treatment Next Appt Details Provider Name:Saumya Kidd lobo, 05/13/2024 09:00:00 AM, [address] [place] [address], [id number], Progress Notes * Jody CARROLL ADOB: 5 (78 yo F)Acc No.[id number]:10/12/2023 Progress Note Patient:?Jody CARROLL Provider:?Francesco Oleary DPM :1945???Age:78 Y???Sex:Female D ate:10/12/2023 Address:[id number] Pcp:Daniel Park MD Subjective: * Chief Complaints: * ??? * Medical History:? Objective: * Vitals:? Assessment: Plan: * Treatment: * Images: * The named appointment provid er may or may not be the originator of this progress note, and it is not deemed complete until electronically signed by the appointment provider. Sign off status: Pending * Provider:Angelique Oleary DPM Date:? 024 Generated for Neal virgen/Cynthia/Eric on:?01/23/2024 01:17 PM EST
--- OUTSIDE RECORDS SUMMARY | 2024-01-23 13:18 | XMS_ITS | Patient Health Record ---
Author Organization [facility] Address [address] [place] [address] Care Team Providers Care Registered Nurse Name Role Phone Daniel Park MD Primary Care Provider Unavailab Saumya Christianson Unavailable [phone] Francesco Oleary Unavailable [phone] Allergies Allergen (clinical drug ingredient) Drug/Non Drug Allergy documented on EMR Reaction Allergy Type Onset Date Status diphenhydramine Benadryl rapid heart beat Drug Allergy Active Reason For Referral No Information Medications Medication SIG (Take, Route, Frequency, Duration) Notes Start Date End Date Status Omeprazole 20 MG Oral for 30 A ctive Ezetimibe 10 MG Oral for 90 Days Active Tymlos 3120 MCG/1.56ML as directed Subcutaneous Not-Taking Advil Not-Taking Estrogel Not-Taking Ibuprofen Not-Taking Zetia Not-Taking Immunizations Vaccine Route Administration Date Status Comme nts COVID-19 Pfizer BioNTech Vaccine Unknown 12/03/2020 Administered 1st 04/04/20 2nd 04/27/20 Influenza Unknown 10/13/2021 Administered Social History Tobacco Use: Social History Observation [...] Are you an other tobacco user? 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) Active confirmed Problem Acquired hammer toe of right foot (164466626019272 5) Other hammer toe(s) (acquired), right foot (M20.41) Active confirmed Vital Signs Blood pressure diastolic 60 mm Hg 11/13/2023 Height 5 ft 5 in in 11/13/2023 Blood pressure systolic 132 mm Hg 11/13/2023 Weight 148 lbs 11/13/2023 BMI 24.63 kg/m2 11/13/2023 Encounters Encounter Location Date Provider Diagnosis [address] [address] 06/08/2023 Francesco Oleary Tinea unguium B35.1 ; Ingrowing nail L60.0 ; Plantar fascial fibromatosis M72.2 ; Pain in right foot M79.671 ; Other hammer toe(s) (acquired), right foot M20.41 ; Xerosis cutis L85.3 ; Pain in right toe(s) M79.674 ; Pain in left toe(s) M79.675 and Abrasion of toe of left foot, initial encounter S90.415A [facility] [address] 11/13/2023 Francesco Oleary Tinea unguium B35.1 ; Ingrowing nail L60.0 ; Plantar fascial fibromatosis M72.2 ; Pain in right foot M79.671 ; Other hammer toe(s) (acquired), right foot M20.41 ; Xerosis cutis L85.3 ; Pain in right toe(s) M79.674 ; Pain in left toe(s) M79.675 and Abrasion of toe of left foot, initial encounter S90.415A [facility] [address] [place] [address] 10/10/2023 Francesco Oleary Assessments Encounter Date Diagnosis (ICD Code) Assessment Notes Treatment Notes Treatment Clinical Notes Section Notes 06/08/2023 Tinea unguium (ICD-10 - B35.1) 06/08/2023 Ingrowing nail (ICD-10 - L60.0) 11/13/2023 Tinea unguium (ICD-10 - B35.1) 11/13/2023 Ingrowing nail (ICD-10 - L60.0) 06/08/2023 Plantar fascial fibromatosis (ICD-10 - M72.2) 11/13/2023 Plantar fascial fibromatosis (ICD-10 - M72.2) 11/13/2023 Pain in right foot (ICD-10 - M79.671) 06/08/2023 Pain in right foot (ICD-10 - M79.671) 06/08/2023 Other hammer toe(s) (acquired), right foot (ICD-10 - M20.41) 11/13/2023 Other hammer toe(s) (acquired), right foot (ICD-10 - M20.41) 06/08/2023 Xerosis cutis (ICD-10 - L85.3) 11/13/2023 Xerosis cutis (ICD-10 - L85.3) 11/13/2023 Pain in right toe(s) (ICD-10 - M79.674) 06/08/2023 Pain in right toe(s) (ICD-10 - M79.674) 06/08/2023 Pain in left toe(s) (ICD-10 - M79.675) 11/13/2023 Pain in left toe(s) (ICD-10 - M79.675) 06/08/2023 Abrasion of toe of left foot, initial encounter (ICD-10 - S90.415A) 11/13/2023 Abrasion of toe of left foot, initial encounter (ICD-10 - S90.415A) Plan Of Treatment Pending Test Test Name Order Date X ray : Foot, left 2V 04/09/2012 X ray : Foot, left 2V 04/19/2012 X ray : Foot, left 2V 05/03/2012 X ray : Foot, left 2V 11/30/2011 X ray : Foot, right 3V 11/30/2011 X ray : Foot, right 3V 06/07/2017 82720-BNZTJBF NAIL, 1-5 01/16/2013 68487-Foekuqoq Plate 05/03/2012 69518-Shpymcvu Plate 01/16/2013 81546-Xtjabbzd Plate 07/03/2013 12745-Wahcrjjl Plate 12/31/2014 65158-Frcaiccn Plate Each Additional 05/2012 26058- Debride <25 sq cm 02/04/2013 62118- Debride <25 sq cm 11/30/2011 60771- Nail Unit Biopsy 06/07/2017 Next Appt Details Provider Name:Saumya Marti diamond, 05/13/2024 09:00:00 AM, [address] [place] [address], [id number], Insurance Providers Payer Name Payer Address Payer Phone Subscriber Number Group Number Insured Name Patient Relationship to Insured Coverage Start Date Coverage End Date AARP Medicare Complete [address] [address] [place] [address] [id number] Jody Carroll Self - patient is the insured Medical (General) History Medical History History ICD Code back, hip, knee pain measles mumps chicken pox covid-19 Surgical History Surgery Date(Month/Year) right foot hammertoe repair hysterectomy vericose vein surgery bilateral legs Condylectomy and hammertoe repair left biopsy on thyroid 10/24/19 parathyroidectomy 03/2020
== END 2024-01-16 11:08 | disposition home or self-care (01) ==
LOC: HO.MAMMO 11:07
PROVIDERS: PCP Family Medicine; Visit Provider Family Medicine
DX: R92.1 Mammographic calcification found on diagnostic imaging of breast (principal)
CPT/HCPCS: 77062; 77066

== ENCOUNTER → 2024-01-16 11:30 | Outpatient (BNV) | payer MEDICARE, SELFPAY | PROVIDERS: PCP Family Medicine; Visit Provider Internal Medicine | DX: N64.89 Other specified disorders of breast (principal); R92.323 Mammographic fibroglandular density, bilateral breasts | CPT/HCPCS: 77066; G0279 ==

== ENCOUNTER 2024-03-22 10:11 | Outpatient (REF) | payer MEDICARE, SELFPAY ==
--- OUTSIDE RECORDS SUMMARY | 2024-03-22 11:04 | XMS_ITS | Continuity of Care Document ---
Author Organization [facility] Address [address] [place] [address] Phone Care Team Providers Care Service Supervisor Name Role Phone Landon WATSON, RVT, MARY [...] Mins- [place] & [place] [facility], [address] [place] [address] Dr Khan 1000[facility] [place] Brunson [place], [id number], tel:[phone] CV[place] - [place] Cramp and spasmRestless legs syndromeVenou s insufficiency (chronic) (peripheral)P ruritus, unspecified 4 Landon WATSON RVT, MARY JO Gardiner. [address] [place] [address], [id number], [place]. tel:[phone] Referring Provider: Daniel Park MD S, [address] [place] [address], [address]. tel:[phone] [facility], [address] [place] [address] Dr Khan 1000[facility] [place] Brunson [place], [id number], [place] tel:[phone] CVR - [place] Pain in right leg 4 Landon WATSON RVT, MARY JO Gradiner. [address] [place] [address], [id number], [place]. tel:[phone] Referring Provider: Daniel Park MD S, [address] [place] [address] [place] [address], [address]. tel:[phone] Office/Outpt E&M Established 15 Mins- [place] & [place] [facility], [address] [place] [address] Dr Khan 1000[facility] [place] Brunson MD, [id number], [place] tel:[phone] CVR - [place] Cramp and spasmRestless legs syndromeVenou s insufficiency (chronic) (peripheral)P ruritus, unspecified 4 Landon WATSON RVT, MARY JO Gardiner. [address] [place] [address] d, [place], [id number], [place]. tel:[phone] Referring Provider: Daniel Park MD S, [address] [place] [address] Dr Suite [facility], [place], [address]. tel:[phone] [facility], [address] [place] [address] Dr Khan 1000Suite 1000[place]lyn [place], [id number], [place] tel:[phone] CVR - [place] Localized swelling, mass and lump, right lower limbChronic venous hypertension (idiopathic) with other complications of right lower extremity Madhu-0 4 Landon WATSON RVT, MARY JO Gardiner. [address] [facility] 302, [place], [id number], [place]. tel:[phone] Referring Provider: Daniel Park MD S, [address] [place] [address] Suite [facility], [place], [address]. tel:[phone] [place] [facility], [address] [place] [address] [address] 1000Katlyn [place], [id number], [place] tel:[phone] CVR - [place] - [place] Encounter for follow-up examination after completed treatment for conditions other than malignant neVaricose veins of right lower extremity with pain Apr-1 4 Landon WATSON RVT, MARY JO Gardiner. 36[address] [facility] 302, January [place], [id number], [place]. tel:[phone] Referring Provider: Daniel Park MD S, [address] [place] [address] Dr Suite [facility], [place], [address]. tel:[phone] [facility], [address] [place] [address] [address] 1000Katlyn [place], [id number], [place] tel:[phone] CVR - [facility] Varicose veins of right lower extremity with other complications Apr-0 4 Conner Terry. [address] [facility] [address], January [place], [id number], [place]. tel:[phone] Referring Provider: Daniel Park MD S, [address] [place] [address] Dr Suite [facility], [place], [address]. tel:[phone] [facility], [address] [place] [address] Dr Khan 1000Suite [place] Brunson [place], [id number], [place] tel:[phone] CVR - [place] Encounter for follow-up examination after completed treatment for conditions other than malignant neVaricose veins of right lower extremity with pain Apr-0 4 Landon WATSON RVT, MARY JO Gardiner. [address] [place] [address], [place], [id number], [place]. tel:[phone] Referring Provider: Daniel Park MD S, [address] [place] [address] Dr [address], [place], [address]. tel:[phone] [facility], [address] [place] [address] Dr Khan 1000Suite 1000Katlyn [place], [id number], [place] tel:[phone] [facility] - [place] Chronic venous hypertension (idiopathic) with inflammation of right lower extremity Apr-0 4 Landon WATSON RVT, MARY JO Gardiner. [address] [place] [address], January [place], [id number], [place]. tel:[phone] Referring Provider: Daniel Park MD S, [address] [place] [address] Dr [address], [place], [address]. tel:[phone] Offic/outpt E&m Estab 5 Min Trial - Telemedicine [place] [facility], [address] [place] [address] Dr Khan 1000Suite [place] Brunson MD, [id number], [place] tel:[phone] CVR [facility] Cramp and spasmRestless legs syndromeVenou s insufficiency (chronic) (peripheral)P ruritus, unspecified Mar-0 4 Conner Terry. 36[address] [facility] 302, January [place], [id number], [place]. tel:[phone] Referring Provider: Daniel Park MD S, [address] [place] [address] Dr [address], [place], [address]. tel:[phone] Office/Oupt E&M New Pt 45 Mins [facility], [address] [place] [address] Dr Khan 1000Suite 1000Katlyn [place], [id number], [place] tel:[phone] CVR - [facility] Varicose veins of bilateral lower extremities with other complications Pain in right lower legPain in left lower legPain in right legRestless legs syndromePruri tus, unspecifiedPa in in left legCramp and spasm 4 Landon WATSON RVT, MARY JO Gardiner. [address] [facility], [address], [place], [id number], [place]. tel:[phone] Referring Provider: Daniel Park MD S, [address] [place] [address] Dr [address], [place], [address]. tel:[phone] [facility], [address], [place], [id number], [place] tel:[phone] CV - [facility] Chronic venous hypertension (idiopathic) with other complications of bilateral lower extremity 4 Landon WATSON RVT, MARY JO Gardiner. 36[address] [facility], [facility] 302, January [place], [id number], [place]. tel:[phone] Referring Provider: Daniel Park MD S, [address] [place] [address] Dr [address], [place], [address]. tel:[phone] Family History Family Member Type Diagnosis Age At Onset No Information Payers Payer name Insurance type Covered democrat ID Authoriza tion(s) [facility] AARP Medic are Complete CI [id number] Social History Type Description Quantity Date Captured [...] No Information Instructions Date Instruction Additional Infor rachelle Diet education Related to Body mass index [...] adult Patient education booklet given Related to Varicose veins of bilateral lower extremities with other complications Pre and post instruc tions reviewed and provided Related to Varicose veins of bilateral lower extremities with other complications Assessments Type Assessment Date No Information Patient Care Teams Name Effective Dates (start - stop) Status Members No Information
--- OUTSIDE RECORDS SUMMARY | 2024-03-22 11:04 | XMS_ITS ---
Author Organization [facility] Address [address] [facility] [place] [address] Care Team Providers Care Paster Supervisor Name Role Phone Xavier WATSON, Daniel Primary Care Provider Unavailab Saumya Christianson Unavailable [phone] Francesco Oleary Unavailable [phone] Allergies Allergen (clinical drug ingredient) Drug/Non Drug [...] 024 Encounters Encounter Location Date Provider Diagnosis [facility] [address] [address] 11/13/2023 Francesco Oleary Tinea unguium B35.1 ; [...] Up: 4 Months, Reason: Provider Name:Saumya diamond, 07/15/2024 11:15:00 AM, [address] [place] [address], [phone], Procedure Notes * Category Sub-Category Detail Notes [...] as necessary. Patient chooses, no pharmaceutical tx (27362) Progress Notes * Jody CARROLL ADOB: 5 (78 yo F)Acc No.[id number]:11/13/2023 Progress Note Patient:?Jody Carroll A Provider:?Francesco Oleary DPM :1945???Age:78 Y???Sex:Female D ate:11/13/2023 Address: [address] [id number] Pcp:Daniel Park MD Subjective: * Chief Complaints: [...] ?Marital status: . 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 * Medications:?TakingOmeprazol e 20 MG Capsule [...] as necessary. Patient chooses, no pharmaceutical tx (97461).? * Procedure Codes:?64822 DEBRI DE NAIL, 6 OR MORE, Modifiers: XS * Follow Up:?4 Months * Images: * Sign off status: Completed true * Provider:?Francesco Oleary DPM Date:? 024 Generated for Neal virgen/Cynthia/eTpolly on:?03/22/2024 11:04 AM EST History and Physical Notes * HPI [...] person, place, and t naya Vascular DP PULSES (B): 2/4, B/L PT PULSES (B): 2/4, B/L Nails NAILS are: Elongated, overg rown, dystrophic, lytic, greater than 3mm thick, discolored and friable with crumbly malodorous subungual debris, with pain on palpation, 1-5 Right foot, TA, T1, T4
--- OUTSIDE RECORDS SUMMARY | 2024-03-22 11:05 | XMS_ITS ---
Author Organization [facility] Address [address] [place] [address] Care Team Providers Care Bottom Filler Name Role Phone Xavier WATSON, Daniel Primary Care Provider Unavailab Markus Lomeli Jr REASON FOR VISIT abnormal ct scan Encounters Encounter Location Date Provider Diagnosis [facility] Outpatient [address] [place] [id number] 12/08/2023 Markus Rahman Jr Abnormal abdominal ultrasound R93.5 ; Abdominal pain R10.9 and Colon polyps K63.5 ASSESSMENTS Encounter Date Diagnosis Assessment Notes Treatment Notes Treatment Clinical Notes 12/08/2023 Abnormal abdominal ultrasound (ICD-10 - R93.5) 12/08/2023 Abdominal pain (ICD-10 - R10.9) 12/08/2023 Colon polyps (ICD-10 - K63.5) PLAN OF TREATMENT No Information
--- OUTSIDE RECORDS SUMMARY | 2024-03-22 11:05 | XMS_ITS ---
Author Organization [facility] Address [address] [place] [address] Care Team Providers Care Black Top Roller Name Role Phone Xavier WATSON, Daniel Primary Care Provider Unavailab Markus Lomeli Jr Unavailable [phone] ALLERGIES Allergen (clinical drug ingredient) Drug/Non Drug [...] MG TAKE 1 CAPSULE BY [facility] EVERY DAY AT 4 PM Oral for [...] Abnormal CT scan, colon (R93.3) Active confirmed 853690715 Problem Left lower quadrant pain (R10.32) Active confirmed 662951752 Problem Long-term use of aspirin therapy (Z79.82) Active confirmed 677054590 VITAL SIGNS BMI 25.12 kg/m2 11/30/2023 Blood pressure systolic 00 mm Hg 11/30/19 24 Blood pressure diastolic 00 mm Hg 024 Height 65 in 11/30/2023 Weight 151 lbs 11/30/2023 Encounters Encounter Location Date Provider Diagnosis [facility] [address] [place] [address] 11/30/2023 Markus Rahman Jr Abnormal CT scan, [...] General Examination GENERAL APPEARANCE: in no ac [place] distress HEAD: normocephalic EYES: sclera non-icteric NECK/THYROID: no lymphadenopathy HEART: S1, S2 normal, no mu rmurs CHEST: normal shape and exp ansion LUNGS: clear to auscultatio n bilaterally ABDOMEN: soft, nontender, non distended, bowel sounds present, no organomegaly SKIN: anicteric EXTREMITIES: no clubbing, cyanosi s, or edema PSYCH: cognitive function i ntact ORAL CAVITY: mucosa moist
--- OUTSIDE RECORDS SUMMARY | 2024-03-22 11:05 | XMS_ITS | Patient Health Record ---
Author Organization [facility] Address [address] [address] Care Team Providers Care Facility Technician Name Role Phone Daniel Park MD Primary Care Provider Unavailab Saumya Christianson Unavailable [phone] Francesco Oleary Unavailable [phone] Allergies Allergen (clinical drug ingredient) Drug/Non Drug Allergy documented on EMR Reaction Allergy Type Onset Date Status diphenhydramine Benadryl rapid heart beat Drug Allergy Active Reason For Referral No Information Medications Medication SIG (Take, Route, Frequency, Duration) Notes Start Date End Date Status Advil Not-Taking Tymlos 3120 MCG/1.56ML as directed Subcutaneous Not-Taking Ezetimibe 10 MG Oral for 90 Days Active Omeprazole 20 MG Oral for 30 A ctive Zetia Not-Taking Ibuprofen Not-Taking Estrogel Not-Taking Immunizations Vaccine Route Administration Date Status [...] Status Risk Notes Problem Plantar fascial fibromatosis (13713037) Plantar fascial fibromatosis (M72.2) Active confirmed Problem Acquired hammer toe of right foot (117226602602028 5) Other hammer toe(s) (acquired), right foot (M20.41) Active confirmed Vital Signs Blood pressure diastolic 80 mm Hg 02/22/2024 Height 5 ft 5 in in 02/22/2024 Blood pressure systolic 120 mm Hg 02/22/2024 Weight 144 lbs 02/22/2024 BMI 23.96 kg/m2 02/22/2024 Encounters Encounter Location Date Provider Diagnosis [address] [address] 06/08/2023 Francesco Oleary Tinea unguium B35.1 ; Ingrowing nail L60.0 ; Plantar fascial fibromatosis M72.2 ; Pain in right foot M79.671 ; Other hammer toe(s) (acquired), right foot M20.41 ; Xerosis cutis L85.3 ; Pain in right toe(s) M79.674 ; Pain in left toe(s) M79.675 and Abrasion of toe of left foot, initial encounter S90.415A [address] [address] 11/13/2023 Francesco Oleary Tinea unguium B35.1 ; Ingrowing nail L60.0 ; Plantar fascial fibromatosis M72.2 ; Pain in right foot M79.671 ; Other hammer toe(s) (acquired), right foot M20.41 ; Xerosis cutis L85.3 ; Pain in right toe(s) M79.674 ; Pain in left toe(s) M79.675 and Abrasion of toe of left foot, initial encounter S90.415A [address] [address] 02/22/2024 Saumya Harris Pain in right toe(s) M79.674 and Contusion of lesser toe of right foot without damage to nail, initial encounter S90.121A [facility] [address] [address] 10/10/2023 [facility] [place] [address] [place] [address] 02/20/2024 Saumya Harris Assessments Encounter Date Diagnosis (ICD Code) Assessment Notes Treatment Notes Treatment Clinical Notes Section Notes 06/08/2023 Tinea unguium (ICD-10 - B35.1) 06/08/2023 Ingrowing nail (ICD-10 - L60.0) 11/13/2023 Tinea unguium (ICD-10 - B35.1) 11/13/2023 Ingrowing nail (ICD-10 - L60.0) 02/22/2024 Pain in right toe(s) (ICD-10 - M79.674) 02/22/2024 Contusion of lesser toe of right foot without damage to nail, initial encounter (ICD-10 - S90.121A) 11/13/2023 Plantar fascial fibromatosis (ICD-10 - M72.2) 06/08/2023 Plantar fascial fibromatosis (ICD-10 - M72.2) 06/08/2023 Pain in right foot (ICD-10 - M79.671) 11/13/2023 Pain in right foot (ICD-10 - M79.671) 11/13/2023 Other hammer toe(s) (acquired), right foot (ICD-10 - M20.41) 06/08/2023 Other hammer toe(s) (acquired), right foot [...] X ray : Foot, right 3V 06/07/2017 X ray : Foot, right 3V 02/22/2024 44635-LSIQQQL NAIL, 1-5 01/16/2013 77108-Qxyinmfr Plate 05/03/2012 00305-Tltvhpef Plate 01/16/2013 55882-Bxwxeedj Plate 07/03/2013 60084-Zrpqdage Plate 12/31/2014 17436-Exhjosil Plate Each Additional 05/2012 57206- Debride <25 sq cm 02/04/2013 38497- Debride <25 sq cm 11/30/2011 13566- Nail Unit Biopsy 06/07/2017 Next Appt Details Provider Name:Saumya Kidd lobo, 07/15/2024 11:15:00 AM, [address], [place], [address], Insurance Providers Payer Name Payer Address Payer Phone Subscriber Number Group Number Insured Name Patient Relationship to Insured Coverage Start Date Coverage End Date [employer] Medicare Complete [address] [address] [place] [address] [id number] Jody Carroll Self - patient is the insured Medical (General) History Medical History History ICD Code back, hip, knee pain measles mumps chicken pox covid-19 Surgical History Surgery Date(Month/Year) right foot hammertoe repair hysterectomy vericose vein surgery bilateral legs Condylectomy and hammertoe repair left biopsy on thyroid 10/24/19 parathyroidectomy 03/2020
--- OUTSIDE RECORDS SUMMARY | 2024-03-22 11:05 | XMS_ITS | Patient Health Record ---
Author Organization [facility] Address [address] [place] [address] Care Team Providers Care Landscape Painter Name Role Phone Xavier WATSON, Daniel Primary Care Provider Unavailab Markus Lomeli Jr Unavailable [phone] ALLERGIES Allergen (clinical drug ingredient) Drug/Non Drug Allergy documented on EMR Reaction Allergy Type Onset Date Status diphenhydramine Benadryl Unknown Drug Allergy A ctive dairy (uncoded) Unknown Allergy Acti ve RESULTS Component Value Reference Range Notes Pathology Reviewed date:12/14/2023 07:54:11 AM Interpretation: Performing Lab:[facility], [address] [place] [id number] Notes/Report: REASON FOR REFERRAL No Information MEDICATIONS [...] Problem Colon cancer screening (Z12.11) Active confirmed 238066013 Problem Encounter for other preprocedural examination (Z01.818) Active confirmed 54159050 Problem Family history of colon cancer (Z80.0) Active confirmed 217146099 Problem Hypertension, unspecified type (I10) Active confirmed 81923081 Problem Abdominal bloating (R14.0) Active confirmed 038597256 Problem Change in bowel habits (R19.4) Active confirmed 422285849 Problem Abnormal CT scan, colon (R93.3) Active confirmed 589184627 Problem Left lower quadrant pain (R10.32) Active confirmed 625093619 Problem Long-term use of aspirin therapy (Z79.82) Active confirmed 850078070 VITAL SIGNS Blood pressure diastolic 00 mm Hg 11/30/2023 Height 65 in 11/30/2023 Blood pressure systolic 00 mm Hg 11/30/2023 Weight 151 lbs 11/30/2023 BMI 25.12 kg/m2 11/30/2023 Encounters Encounter Location Date Provider Diagnosis [facility] [address] [place], [place] [id number] 12/08/2023 Markus Rahman Jr Abnormal abdominal ultrasound R93.5 ; Abdominal pain R10.9 and Colon polyps K63.5 [facility] [address] [place] [address] 11/03/2023 Markus Rahman Jr [facility] [address] [place] [address] 11/30/2023 Markus Rahman Jr Abnormal CT scan, colon R93.3 ; Left lower quadrant pain R10.32 and Long-term use of aspirin therapy Z79.82 [facility] [address] [place] [address] 10/12/2023 Markus Rahman Jr [facility] [address] [place] [address] 12/14/2023 Markus Rahman Jr ASSESSMENTS Encounter Date [...] Insured Coverage Start Date Coverage End Date [facility] [address] [place] [address] [id number] DAVID MEREDITH Self - patient is the insured MEDICAL (GENERAL) HISTORY Medical History History ICD Code Hyperlipidemia Hypertension Osteoporosis Gastroesophageal reflux disease Colonoscopy 04/30, tubular adenoma, follo wup optional based on age Primary hyperparathyroidism Abnormal computed tomography of sigmoid colon R93.3 Surgical History Surgery Date(Month/Year) foot surgery hysterectomy
--- OUTSIDE RECORDS SUMMARY | 2024-03-22 11:05 | XMS_ITS ---
Author Organization [facility] Address [address] [place] [address] Care Team Providers Care Agile Java Developer Name Role Phone Xavier WATSON, Daniel Primary Care Provider Unavailab Saumya Christianson Unavailable [phone] REASON FOR VISIT injured RT FT Encounters Encounter Location Date Provider Diagnosis [address] [address] 02/20/2024 Saumya Harris Plan Of Treatment Next Appt Details Provider Name:Saumya diamond, 07/15/2024 11:15:00 AM, [address] [place] [address], [phone], Progress Notes * Jody CARROLL ADOB: (78 yo F)Acc No.[id number]:02/20/2024 Patient:?CARROLL Jody Bueno :1945???Age:78 Y???Sex:Female Address:[place] [address] * true * Date:? Generated for Printi param/Cynthia/eTransmitting on:?03/22/2024 11:05 AM EST
--- OUTSIDE RECORDS SUMMARY | 2024-03-22 11:05 | XMS_ITS ---
Author Organization [facility] Address [address] [place] [address] Care Team Providers Care Logging Tractor Operator Name Role Phone Xavier WATSON, Daniel Primary Care Provider Unavailab Markus Lomeli Jr REASON FOR VISIT pathology Encounters Encounter Location Date Provider Diagnosis [facility] [address] [place] [address] 12/14/2023 Markus Rahman Jr PLAN OF TREATMENT No Information
--- OUTSIDE RECORDS SUMMARY | 2024-03-22 11:06 | XMS_ITS | Clinical Summary ---
Author Organization [employer] Address [address] [place] [address] Care Team Providers Care Travel Registered Nurse Nicu Name Role Phone Unavailable Primary Care Provider Unavailabl e Immunizations Name Administration Dates Next Due Influenza, seasonal, injectable, preservative fr ee 11/01/2023 Pfizer Covid-19 Vaccine 12+ 11/01/2023 Social History Tobacco Use Types Packs/Day Years Used Date Smoking Tobacco: Never Assessed Comments Unknown Sex and Gender Information Value Date Recorded Sex Assigned at Female 12/13/2021 10:40 AM EDT Legal Sex Female 10:40 AM EDT Gender Identity Female 12/13/2021 10:40 AM EDT Sexual Orientation Straight 12/13/2021 10 :40 AM EDT Plan of Treatment Health Maintenance Due Date Last Done Comments Depression Screening 1945 Alcohol/Substance Use Screening 1956 Tobacco Screening 1957 Zoster Vaccines (1 of 2) 1994 DTaP/Tdap/Td Vaccines (1 - Tdap) 07/14/2016 07/13/2016 RSV Patients and Patients Aged 60 years or older (1 - 1-dose 75+ series) 07/27/2019 Pneumococcal Vaccine: 50+ Years Completed 02/27/2018, 08/02/2016 COVID-19 Vaccine Completed 11/01/2023, , 12/03/2020, Additional history exists Influenza Vaccine Completed 11/01/2023, , 11/22/2021, Additional history exists HIB Vaccines Aged Out No longer eligi ble based on patient's age to complete this topic HPV Vaccines Aged Out No longer eligi ble based on patient's age to complete this topic Hepatitis A Vaccines Aged Out No long er eligible based on patient's age to complete this topic Hepatitis B Vaccines Aged Out No long er eligible based on patient's age to complete this topic IPV Vaccines Aged Out No longer eligi ble based on patient's age to complete this topic Meningococcal Vaccine Aged Out No brittney bimal eligible based on patient's age to complete this topic RSV under 20 months Aged Out No longe r eligible based on patient's age to complete this topic Rotavirus Vaccines Aged Out No longer eligible based on patient's age to complete this topic
--- OUTSIDE RECORDS SUMMARY | 2024-03-22 11:06 | XMS_ITS | Patient Health Record ---
Author Organization [facility] Address [address] [place] [address] Care Team Providers Care Tool Grinder Name Role Phone YARITZA GARG Primary Care Provider TAMIE Navarro Unavailable [phone] Allergies Allergen (clinical drug ingredient) Drug/Non Drug Allergy documented on EMR Reaction Allergy Type Onset Date Status diphenhydramine Benadryl tachycardia Drug Allergy Active Reason For Referral No Information Medications Medication SIG (Take, Route, Frequency, Duration) Notes Start Date End Date Status Estradiol 0.1 MG/GM 1 gram Vaginal Two t imes a Week for 365 days 07/10/2020 Active Estradiol Vaginal Cream 0.1% 1 Gram Vaginally Twice a week for 30 days 04/20/2020 Active Social History Tobacco Use: Social History Observation Description Date Details (start date - stop date) Never Smoker NA - NA Tobacco Use/Smoking Question Answer Notes Are you a nonsmoker Alcohol Screen (Audit-C) Question Answer Notes Did you have a drink contain ing alcohol in the past year? Yes How often did you have a dri nk containing alcohol in the past year? 2 to 3 times a week (3 points) How many drinks did you have on a typical day when you were drinking in the past year? 1 or 2 drinks (0 point) How often did you have 6 or more drinks on one occasion in the past year? 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 [employer] [address] [address] [place] [address] [id number] DAVID MEREDITH Self - patient is the insured Medical (General) History Medical History History ICD Code Osteoporosis 733.0 COVID-19 U07.1 Surgical History Surgery Date(Month/Year) Hysterectomy 1979 Parathyroidectomy 01/2020 Left breast biopsy Hospitalization History Reason Date(Month/Year) childbirth
--- OUTSIDE RECORDS SUMMARY | 2024-03-22 11:06 | XMS_ITS ---
Author Organization [facility] Address [address] [facility] [place] [address] Care Team Providers Care Industrial Relations Manager Name Role Phone Xavier WATSON, Daniel Primary Care Provider UnavailSaumya Hill Unavailable [phone] Allergies Allergen (clinical drug ingredient) Drug/Non Drug Allergy documented on EMR Reaction Allergy Type Onset Date Status diphenhydramine Benadryl rapid heart beat Drug Allergy Active REASON FOR VISIT Painful Toe(s) Medications Medication SIG (Take, Route, Frequency, Duration) Notes Start Date End Date Status Advil Not-Taking Tymlos 3120 MCG/1.56ML as directed Subcutaneous Not-Taking Zetia Not-Taking Ibuprofen Not-Taking Estrogel Not-Taking Ezetimibe 10 MG Oral for 90 Days Active Omeprazole 20 MG Oral for 30 A ctive Social History Tobacco Use: Social History Observation [...] Signs Height 5 ft 5 in in 02/22/2024 Weight 144 lbs 02/22/2024 BMI 23.96 kg/m2 02/22/2024 Blood pressure systolic 120 mm Hg 02/21/19 25 Blood pressure diastolic 80 mm Hg 025 Encounters Encounter Location Date Provider Diagnosis [facility] [place] [address] [place] [address] 02/22/2024 Saumya Harris Pain in right toe(s) M79.674 and Contusion of lesser toe of right foot without damage to nail, initial encounter S90.121A Assessments Encounter Date Diagnosis (ICD Code) Assessment Notes Treatment Notes Treatment Clinical Notes Section Notes 02/22/2024 Pain in right toe(s) (ICD-10 - M79.674) 02/22/2024 Contusion of lesser toe of right foot without damage to nail, initial encounter (ICD-10 - S90.121A) Plan Of Treatment Pending Test Test Name Order Date X ray : Foot, right 3V 02/22/2024 Next Appt Details Follow Up: 2 Months, Reason: Provider Name:Saumya Kidd lobo, 07/15/2024 11:15:00 AM, [address] [place] [address], [id number], Progress Notes * Jody CARROLL ADOB: 5 (78 yo F)Acc No.[id number]:02/22/2024 Progress Note Patient:?Jody CARROLL Provider:?Saumya Harris DPM :1945???Age:78 Y???Sex:Female D ate:02/22/2024 [facility] Pcp:Daniel Park MD Subjective: * Chief Complaints: * ???Painful Toe(s) * HPI: ???Toe pain:?Nature:?aching,?bruising,?discoloration,?swelling,?tenderness,?throbbing.?Location:?Right foot.?Duration:?since DOI ( 02/20/24).?Onset/Cause:?states traumatic (fell in house ).?Course:?worse.?Aggravated by:?any pressure, standing/walking, shoes.?Treatments:?rest/alter normal daily activity, ice.? * ROS:?General/Constitutional:?Nausea?denies.?Vomiting?denies.?Hunger Thirst?denies.?Loss appetite?denies.?Chills?denies.?Fatigue?denies.?Fever?denies.?Night Sweats?denies.?Unexplained weight loss?denies.?Unexplained [...] arthritis, Diabetic - NIDDM.?Father: , diagnosed with Other malignant neoplasm of unspecified site, Unspecified essential hypertension.? * Social History:?Tobacco Use:?Tobacco Use/Smoking?Are you a:?nonsmoker [...] 2. ?Exercise: yes, walking, exercise/dancing, classes at [facility] [facility], yoga. ?Marital status: . 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 * Medications:?TakingOmeprazol e 20 MG Capsule [...] Objective: * Vitals:?Ht: 5 ft 5 in, Wt:14 4, BMI: 23.96, Shoe size:9.5, BP:120/80mm Hg, Wt-k.32 kg. * Examination: ???Orthopedic: ?DIGITAL DEFORMITIES:?Reveals pain to palpation, swelling, ecchymosis, and limited ROM, T8. T9.?Nails: ?NAILS are:? Nail plate intact.?X-Rays - IMAGING REPORT: ?Clinical Indication(s):? Evaluate for Fracture.?Views:?3 views of Foot, AP, LO, MO, RIGHT??Taken by trained?Podiatric Junior High School Teacher (?EF).?Findings:? normal bone?density consistent for patients age and sex, increase in soft tissue contour and density at the symptomatic site.?Fracture:?Negative fractures identified, possible incomplete intra- articular fracture to proximal phalanx of 4th digit, non displaced.?Vascular: ?DP PULSES (B):?2/4, B/L.?PT PULSES (B):?2/4, B/L.?Neurological: ?SENSORY:?Neurological exam reveals intact sensorium, pain [...] distress.?ORIENTED:?person, place, and time.? Assessment: * Assessment: 1.?Pain in right toe(s) - M7 9.674 (Primary)???2.?Contusion of lesser toe of right foot without damage to nail, initial encounter - S90.121A???Specify :Acute problem, Complicated w/ Multiple Tx Options(4),Dx New problem, Prognosis Uncertain (4)??? Plan: * Treatment: * Procedure Codes:?05529 X-RAY EXAM OF RIGHT FOOT 3V, Modifiers: 26 , RT * Preventive Medicine:? ??Counseling:?Discussion:?-14: Office or other outpatient visit for the evaluation and management of an established patient, which required a medically appropriate history and/or examination and MODERATE level of DECISION MAKING for: 1 OR MORE CHRONIC PROBLEM(S) THATS WORSENING, 2 STABLE CHRONIC PROBLEMS, A NEWLY DIAGNOSED PROBLEM WITH UNCERTAIN PROGNOSIS, AN ACUTE COMPLICATED INJURY WITH MULTIPLE TREATMENT OPTIONS, OR AN ACUTE PROBLEM WITH ACCOMPANYING SYSTEMIC SYMPTOMS, THAT POSE(S) A MODERATE RISK OF MORBIDITY. THIS CONDITION MAY ALSO INCLUDE RX DRUG MANAGEMENT, OR A DECISON FOR MINOR SURGERY. The visit on the day of the encounter encompassed interpreting the data and educating the patient as to the nature of their condition, treatment options available according to their individual PMH, meds, allergies, and overall health/living conditions, as well as any potential risks or complications that may occur from a failure to adhere to, and participate in, the recommended course of therapy. The discussion included a complete verbal, and/or written explanation of the examination results, any x-rays taken, the proposed diagnosis, and outline of the treatment plan. A schedule for future care needs was also explained. The patient verbalized an understanding of the instructions at this time and agreed to be an active participant in their treatment. If the patient should think of any questions or concerns after the visit, I have encouraged the patient to call the office.?Digital Treatment:?I explained to the patient the risks/benefits of all the different treatment options for their pain including: No treatment at all, Rest, Ice, New/supportive/wider/deeper Shoegear, Digital Padding/Strapping/Taping/Bracing/Gel protective sleeves, Foot/Ankle AFO Bracing, Stretching exercises, Deep Tissue Massage, Arch support/shoe inserts with splay metatarsal padding, and Custom orthoses. I insisted that any digital devices be removed daily and not worn overnight for safety. The patient is to carefully examine the toes daily for any skin irritation while using any splinting or padding device. The advantages and disadvantages of each option were discussed and the patients questions re: shoegear, padding, custom vs prefabricated inserts, activity level, and consistency in home treatment regimens for optimal success were answered to their verbally confirmed satisfaction. Conrad noriegaing shown to patient..?P.R.I.C.E.:?The patient was counseled on the use of P.R.I.C.E. and NSAIDS (if well tolerated) to aid in the recovery from their painful condition, Recommended Topical analgesics including Aspercream/Biofreeze/Voltaren gel as directed.? ??Screening/Special Tests:?Fall Risk?Screening:?No falls in the past year ?FALLS: Screening for Future Fall Risk?Have you had any falls with injury in the past year??No * Follow Up:?2 Months * Images: * Sign off status: Completed true * Provider:?Saumya Harris DPM Date:?0 02/22/2024 Generated for Printnevin ng/Faxing/eTransmitting on:?03/22/2024 11:05 AM EST History and Physical Notes * HPI (History of Present Illness) Category Sub-Category Detail Notes Category Not es Toe pain Nature: aching, bruising , discoloration, swelling, tenderness, throbbing Location: Right foot Duration: since DOI ( 02/20/24) Onset/Cause: states traumatic (fe ll in house ) Course: worse Aggravated by: any pressure, standi ng/walking, shoes Treatments: rest/alter normal da elma activity, ice Examination Category Sub-Category Detail Notes Category Not es Neurological SENSORY: Neurological exa m reveals intact sensorium, pain sensation normal, vibration sensation intact, pinprick sensation is normal in the lower extremities, 5.07 monofilament test , normal, B/L, Pt denies, anesthesia, burning, paresthesia, tingling, B/L Orthopedic DIGITAL DEFORMITIES: Reveals alo n to palpation, swelling, ecchymosis, and limited ROM, T8. T9 General Examination GENERAL APPEARANCE: Reveals a pleasant, alert, well nourished, well developed, well hydrated individual, who demonstrates proper attention to hygene/body habitus, and is in no acute distress ORIENTED: person, place, and t naya Vascular DP PULSES (B): 2/4, B/L PT PULSES (B): 2/4, B/L Nails NAILS are: Nail plate intact X-Rays - IMAGING REPORT Findings: normal b one density consistent for patients age and sex, increase in soft tissue contour and density at the symptomatic site Fracture: Negative fractures i dentified, possible incomplete intra-articular fracture to proximal phalanx of 4th digit, non displaced Views: 3 views of Foot, AP, LO, MO, RIGHT Taken by trained Podiatric Junior High School Teacher ( EF) Clinical Indication(s): Evaluate for Fra cture
[2024-03-28 13:13] LABS: Alkaline Phosphatase Bone 8.9 mcg/L (see note)
== END 2024-03-22 10:12 | disposition home or self-care (01) ==
LOC: HO.LAB 10:11
PROVIDERS: PCP Family Medicine; Visit Provider Student in an Organized Health Care Education/Training Program
DX: M81.0 Age-related osteoporosis without current pathological fracture (principal)
CPT/HCPCS: 36415; 80048; 82040; 82306; 83735; 84075; 84100; 84439; 84443

== ENCOUNTER 2024-03-25 08:51 | Outpatient (REF) | payer MEDICARE, SELFPAY ==
--- OUTSIDE RECORDS SUMMARY | 2024-03-25 09:14 | XMS_ITS ---
Author Organization [facility] Address [address] [place] [address] Care Team Providers Care Scow Captain Name Role Phone Xavier WATSON, Daniel Primary Care Provider Unavailab Markus Lomeli Jr REASON FOR VISIT pathology Encounters Encounter Location Date Provider Diagnosis [facility] [address] [place] [address] 12/14/2023 Markus Rahman Jr PLAN OF TREATMENT No Information
--- OUTSIDE RECORDS SUMMARY | 2024-03-25 09:14 | XMS_ITS ---
Author Organization [facility] Address [address] [place] [address] Care Team Providers Care Home Appliances Mechanic Name Role Phone Xavier WATSON, Daniel Primary Care Provider Unavailab Markus Lomeli Jr REASON FOR VISIT abnormal ct scan Encounters Encounter Location Date Provider Diagnosis [facility] Outpatient [address] [place] [id number] 12/08/2023 Markus Rahman Jr Abnormal abdominal ultrasound R93.5 ; Abdominal pain R10.9 and Colon polyps K63.5 ASSESSMENTS Encounter Date Diagnosis Assessment Notes Treatment Notes Treatment Clinical Notes 12/08/2023 Abnormal abdominal ultrasound (ICD-10 - R93.5) 12/08/2023 Abdominal pain (ICD-10 - R10.9) 12/08/2023 Colon polyps (ICD-10 - K63.5) PLAN OF TREATMENT No Information
--- OUTSIDE RECORDS SUMMARY | 2024-03-25 09:14 | XMS_ITS ---
Author Organization [facility] Address [address] [facility] [place] [address] Care Team Providers Care Tile Helper Name Role Phone Xavier WATSON, Daniel Primary Care Provider Unavailab Saumya Christianson Unavailable [phone] Francesco Oleary Unavailable [phone] Allergies Allergen (clinical drug ingredient) Drug/Non Drug [...] 024 Encounters Encounter Location Date Provider Diagnosis [facility] [address] [address] 11/13/2023 Francesco Oleary Tinea unguium B35.1 ; [...] Reason: Provider Name:Saumya diamond, 07/15/2024 11:15:00 AM, [address] [place] [address], [address], Procedure Notes * Category Sub-Category Detail Notes [...] as necessary. Patient chooses, no pharmaceutical tx (71023) Progress Notes * Jody CARROLL ADOB: 5 (78 yo F)Acc No.[id number]:11/13/2023 Progress Note Patient:?Jody Carroll A Provider:?Francesco Oleary DPM :1945???Age:78 Y???Sex:Female D ate:11/13/2023 Address: [id number] Pcp:Daniel Park MD Subjective: * Chief Complaints: [...] ?Marital status: . 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 * Medications:?TakingOmeprazol e 20 MG Capsule [...] as necessary. Patient chooses, no pharmaceutical tx (05890).? * Procedure Codes:?37800 DEBRI DE NAIL, 6 OR MORE, Modifiers: XS * Follow Up:?4 Months * Images: * Sign off status: Completed true * Provider:?Francesco Oleary DPM Date:? 024 Generated for Neal virgen/Cynthia/eTpolly on:?03/25/2024 09:14 AM EST History and Physical Notes * [...]
--- OUTSIDE RECORDS SUMMARY | 2024-03-25 09:14 | XMS_ITS | Patient Health Record ---
Author Organization [facility] Address [address] [facility] [place] [address] Care Team Providers Care Senior Genetic Counselor Name Role Phone Danile Park MD Primary Care Provider Unavailab Saumya Christianson Unavailable [phone] Francesco Oleary Unavailable [phone] Allergies Allergen (clinical drug ingredient) Drug/Non Drug [...] Status Risk Notes Problem Plantar fascial fibromatosis (44956202) Plantar fascial fibromatosis (M72.2) Active confirmed Problem Acquired hammer toe of right foot (926205636880099 5) Other hammer toe(s) (acquired), right foot (M20.41) Active confirmed Vital Signs Blood pressure diastolic 80 mm Hg 02/22/2024 Height 5 ft 5 in in 02/22/2024 Blood pressure systolic 120 mm Hg 02/22/2024 Weight 144 lbs 02/22/2024 BMI 23.96 kg/m2 02/22/2024 Encounters Encounter Location Date Provider Diagnosis [address] [address] 06/08/2023 Francesco Oleary Tinea unguium B35.1 ; Ingrowing nail L60.0 ; Plantar fascial fibromatosis M72.2 ; Pain in right foot M79.671 ; Other hammer toe(s) (acquired), right foot M20.41 ; Xerosis cutis L85.3 ; Pain in right toe(s) M79.674 ; Pain in left toe(s) M79.675 and Abrasion of toe of left foot, initial encounter S90.415A [address] [address] 11/13/2023 Francesco Oleary Tinea unguium B35.1 ; Ingrowing nail L60.0 ; Plantar fascial fibromatosis M72.2 ; Pain in right foot M79.671 ; Other hammer toe(s) (acquired), right foot M20.41 ; Xerosis cutis L85.3 ; Pain in right toe(s) M79.674 ; Pain in left toe(s) M79.675 and Abrasion of toe of left foot, initial encounter S90.415A [address] [address] 02/22/2024 Saumya Harris Pain in right toe(s) M79.674 and Contusion of lesser toe of right foot without damage to nail, initial encounter S90.121A [facility] [address] [address] 10/10/2023 [facility] [place] [address] [place] [address] 02/20/2024 Saumya Harris Assessments Encounter Date Diagnosis [...] X ray : Foot, right 3V 02/22/2024 28116-ZFRUEPM NAIL, 1-5 01/16/2013 74965-Lxxpuyau Plate 05/03/2012 30821-Ghpgjhse Plate 01/16/2013 94577-Ljrunxqh Plate 07/03/2013 80265-Gqvwkdrk Plate 12/31/2014 33182-Wzprgfqy Plate Each Additional 05/2012 46965- Debride <25 sq cm 02/04/2013 68678- Debride <25 sq cm 11/30/2011 08964- Nail Unit Biopsy 06/07/2017 Next Appt Details Provider Name:Saumya Kidd lobo, 07/15/2024 11:15:00 AM, [address] [facility], [place], [address], Insurance Providers Payer Name Payer Address Payer Phone Subscriber Number Group Number Insured Name Patient Relationship to Insured Coverage Start Date Coverage End Date AARP Medicare Complete [address] [address] [place] [address] [id number] Jody Carroll Self - patient is the insured Medical (General) History Medical History History ICD Code back, hip, knee pain measles mumps chicken pox covid-19 Surgical History Surgery Date(Month/Year) right foot hammertoe repair hysterectomy vericose vein surgery bilateral legs Condylectomy and hammertoe repair left biopsy on thyroid 10/24/19 parathyroidectomy 03/2020
--- OUTSIDE RECORDS SUMMARY | 2024-03-25 09:14 | XMS_ITS | Continuity of Care Document ---
Author Organization [facility] Address [address] [place] [address] Phone Care Team Providers Care Pharmacy Customer Care Specialist Name Role Phone Landon WATSON, RVT, MARY [...] Mins- [place] & [place] [facility], [address] [place] [address] Dr Khan [address] [place], [id number], tel:[phone] [facility] - [place] - [place] Cramp and spasmRestless legs syndromeVenou s insufficiency (chronic) (peripheral)P ruritus, unspecified 4 Landon WATSON RVT, MARY JO Gardiner. [address] [place] [address], [id number], [place]. tel:[phone] Referring Provider: Daniel Park MD S, [address] [place] [address], [address]. tel:[phone] [facility], [address] [place] [address] Dr Khan [address] [place], [id number], [place] tel:[phone] [facility] - [place] Pain in right leg 4 Landon WATSON RVT, MARY JO Gardiner. [address] [place] [address], [id number], [place]. tel:[phone] Referring Provider: Daniel Park MD S, [address] [place] [address] [place] [address], [address]. tel:[phone] Office/Outpt E&M Established 15 Mins- [place] & [place] [facility], [address] [place] [address] Dr Khan [address] [place] Brun[place], [id number], [place] tel:[phone] CVR - [place] - [place] Cramp and spasmRestless legs syndromeVenou s insufficiency (chronic) (peripheral)P ruritus, unspecified 4 Landon WATSON RVT, MARY JO Gardiner. [address] [place] [address] d, [place], [id number], [place]. tel:[phone] Referring Provider: Daniel Park MD S, [address] [place] [address] Dr Suite [facility], [place], [address]. tel:[phone] [facility], [address] [place] [address] Dr Khan [address], [id number], [place] tel:[phone] CVR - [place] - [place] Localized swelling, mass and lump, right lower limbChronic venous hypertension (idiopathic) with other complications of right lower extremity Madhu-0 4 Landon WATSON RVT, MARY JO Gardiner. [address] [facility] [address], [place], [id number], [place]. tel:[phone] Referring Provider: Daniel Park MD S, [address] [place] [address] Suite [facility], [place], [address]. tel:[phone] [facility], [address] [place] [address] [address], [id number], [place] tel:[phone] CVR - [place] - [place] Encounter for follow-up examination after completed treatment for conditions other than malignant neVaricose veins of right lower extremity with pain Apr-1 4 Landon WATSON RVT, MARY JO Gardiner. [address] [facility] [address], [place], [id number], [place]. tel:[phone] Referring Provider: Daniel Park MD S, [address] [place] [address] Dr Suite [facility], [place], [address]. tel:[phone] [facility], [address] [place] [address] [address], [id number], [place] tel:[phone] CVR - [facility] Varicose veins of right lower extremity with other complications Apr-0 4 Conner Terry. [address] [facility] [address], [place], [id number], [place]. tel:[phone] Referring Provider: Daniel Park MD S, [address] [place] [address] Dr Suite [facility], [place], [address]. tel:[phone] [facility], [address] [place] [address] Dr Khan [address]Suite [place], [id number], [place] tel:[phone] CVR - [place] Encounter for follow-up examination after completed treatment for conditions other than malignant neVaricose veins of right lower extremity with pain Apr-0 4 Landon WATSON RVT, MARY JO Gardiner. [address] [place] [address], [place], [id number], [place]. tel:[phone] Referring Provider: Daniel Park MD S, [address] [place] [address] Dr [address], [place], [address]. tel:[phone] [facility], [address] [place] [address] Dr Khan [address], [id number], [place] tel:[phone] [facility] - [place] Chronic venous hypertension (idiopathic) with inflammation of right lower extremity Apr-0 4 Landon WATSON RVT, MARY JO Gardiner. [address] [place] [address], [place], [id number], [place]. tel:[phone] Referring Provider: Daniel Park MD S, [address] [place] [address] Dr [address], [place], [address]. tel:[phone] Offic/outpt E&m Estab 5 Min Trial - Telemedicine [facility], [address] [place] [address] Dr Khan [address]Suite [place], [id number], [place] tel:[phone] CVR [facility] Cramp and spasmRestless legs syndromeVenou s insufficiency (chronic) (peripheral)P ruritus, unspecified Mar-0 4 Conner Terry. [address] [facility] [address], [place], [id number], [place]. tel:[phone] Referring Provider: Daniel Park MD S, [address] [place] [address] Dr [address], [place], [address]. tel:[phone] Office/Oupt E&M New Pt 45 Mins [facility], [address] [place] [address] Dr Khan [address], [id number], [place] tel:[phone] CVR - [facility] Varicose veins of bilateral lower extremities with other complications Pain in right lower legPain in left lower legPain in right legRestless legs syndromePruri tus, unspecifiedPa in in left legCramp and spasm 4 Landon WATSON RVT, MARY JO Gardiner. [address] [facility], [address], [place], [id number], [place]. tel:[phone] Referring Provider: Daniel Park MD S, [address] [place] [address] Dr [address], [place], [address]. tel:[phone] [facility], [address] [facility] [address] [facility] [address], [place], [id number], [place] tel:[phone] CV - [facility] Chronic venous hypertension (idiopathic) with other complications of bilateral lower extremity 4 Landon WASTON RVT, MARY JO Gardiner. [address] [facility], [facility] [address], [place], [id number], [place]. tel:[phone] Referring Provider: Daniel Park MD S, [address] [place] [address] Dr [address], [place], [address]. tel:[phone] Family History Family Member Type Diagnosis Age At Onset No Information Payers Payer name Insurance type Covered alliance party ID Authoriza tion(s) [facility] AARP Medic are Complete CI [id number] Social History Type Description Quantity Date Captured [...]
--- OUTSIDE RECORDS SUMMARY | 2024-03-25 09:15 | XMS_ITS ---
Author Organization [facility] Address [address] [place] [address] Care Team Providers Care Health Informatics Specialist Name Role Phone Xavier WATSON, Daniel Primary [...] 20 MG TAKE 1 CAPSULE BY [facility] EVERY DAY AT 4 PM Oral for [...] Abnormal CT scan, colon (R93.3) Active confirmed [id number] Problem Left lower quadrant pain (R10.32) Active confirmed [id number] Problem Long-term use of aspirin therapy (Z79.82) Active confirmed 880668556 VITAL SIGNS BMI 25.12 kg/m2 11/30/2023 Blood pressure systolic 00 mm Hg 11/30/19 24 Blood pressure diastolic 00 mm Hg 024 Height 65 in 11/30/2023 Weight 151 lbs 11/30/2023 Encounters Encounter Location Date Provider Diagnosis [facility] [address] [place] [address] 11/30/2023 Markus Rahman Jr Abnormal CT scan, [...] General Examination GENERAL APPEARANCE: in no ac [place] distress HEAD: normocephalic EYES: sclera non-icteric NECK/THYROID: no lymphadenopathy HEART: S1, S2 normal, no mu rmurs CHEST: normal shape and exp ansion LUNGS: clear to auscultatio n bilaterally ABDOMEN: soft, nontender, non distended, bowel sounds present, no organomegaly SKIN: anicteric EXTREMITIES: no clubbing, cyanosi s, or edema PSYCH: cognitive function i ntact ORAL CAVITY: mucosa moist
--- OUTSIDE RECORDS SUMMARY | 2024-03-25 09:15 | XMS_ITS | Clinical Summary ---
Author Organization [employer] Address [address] [facility] [address] [place] [address] Care Team Providers Care Quantitative Manager Name Role Phone Unavailable Primary Care Provider [...]
--- OUTSIDE RECORDS SUMMARY | 2024-03-25 09:15 | XMS_ITS ---
Author Organization [facility] Address [address] [place] [address] Care Team Providers Care Quiller Hand Name Role Phone Xavier WATSON, Daniel Primary Care Provider Unavailab Saumya Christianson Unavailable [phone] REASON FOR VISIT injured RT FT Encounters Encounter Location Date Provider Diagnosis [address] [address] 02/20/2024 Saumya Harris Plan Of Treatment Next Appt Details Provider Name:Saumya diamond, 07/15/2024 11:15:00 AM, [address] [place] [address], [phone], Progress Notes * Jody CARROLL ADOB: (78 yo F)Acc No.[id number]:02/20/2024 Patient:?CARROLL Jody Bueno :1945???Age:78 Y???Sex:Female Address:[place] [address] * true * Date:? Generated for Printi param/Cynthia/eTransmitting on:?03/25/2024 09:14 AM EST
--- OUTSIDE RECORDS SUMMARY | 2024-03-25 09:15 | XMS_ITS | Patient Health Record ---
Author Organization [facility] Address [address] [place] [address] Care Team Providers Care Insurance Advisor Name Role Phone Xavier WATSON, Daniel Primary Care Provider Unavailab Markus Lomeli Jr Unavailable ALLERGIES Allergen (clinical drug ingredient) Drug/Non Drug Allergy documented on EMR Reaction Allergy Type Onset Date Status diphenhydramine Benadryl Unknown Drug Allergy A ctive dairy (uncoded) Unknown Allergy Acti ve RESULTS Component Value Reference Range Notes Pathology Reviewed date:12/14/2023 07:54:11 AM Interpretation: Performing Lab:[facility], [address] [place] [id number] Notes/Report: REASON FOR REFERRAL No Information MEDICATIONS [...] Problem Colon cancer screening (Z12.11) Active confirmed 604257020 Problem Encounter for other preprocedural examination (Z01.818) Active confirmed 23570565 Problem Family history of colon cancer (Z80.0) Active confirmed 190697328 Problem Hypertension, unspecified type (I10) Active confirmed 69186558 Problem Abdominal bloating (R14.0) Active confirmed 162524148 Problem Change in bowel habits (R19.4) Active confirmed 798969508 Problem Abnormal CT scan, colon (R93.3) Active confirmed 244231375 Problem Left lower quadrant pain (R10.32) Active confirmed 910524908 Problem Long-term use of aspirin therapy (Z79.82) Active confirmed 531212417 VITAL SIGNS Blood pressure diastolic 00 mm Hg 11/30/2023 Height 65 in 11/30/2023 Blood pressure systolic 00 mm Hg 11/30/2023 Weight 151 lbs 11/30/2023 BMI 25.12 kg/m2 11/30/2023 Encounters Encounter Location Date Provider Diagnosis [facility] Outpatient [address] [place], [place] [id number] 12/08/2023 Markus Rahman Jr Abnormal abdominal ultrasound R93.5 ; Abdominal pain R10.9 and Colon polyps K63.5 [facility] [address] [place] [address] 11/03/2023 Markus Rahman Jr [facility] [address] [place] [address] 11/30/2023 Markus Rahman Jr Abnormal CT scan, colon R93.3 ; Left lower quadrant pain R10.32 and Long-term use of aspirin therapy Z79.82 [facility] [address] [place] [address] 10/12/2023 Markus Rahman Jr [facility] [address] [place] [address] 12/14/2023 Markus Rahman Jr ASSESSMENTS Encounter Date [...] Coverage End Date [facility] [address] [place] [address] [id number] DAVID MEREDITH Self - patient is the insured MEDICAL (GENERAL) HISTORY Medical History History ICD Code Hyperlipidemia Hypertension Osteoporosis Gastroesophageal reflux disease Colonoscopy 04/30, tubular adenoma, follo wup optional based on age Primary hyperparathyroidism Abnormal computed tomography of sigmoid colon R93.3 Surgical History Surgery Date(Month/Year) foot surgery hysterectomy
--- OUTSIDE RECORDS SUMMARY | 2024-03-25 09:15 | XMS_ITS | Patient Health Record ---
Author Organization [facility] Address [address] [place] [address] Care Team Providers Care Enamel Sprayer Name Role Phone YARITZA GARG Primary Care Provider TAMIE Navarro Unavailable [phone] Allergies Allergen (clinical drug ingredient) Drug/Non Drug [...] Status Risk Notes Problem Postmenopausal atrophic vaginitis (86699236) Postmenopausal atrophic vaginitis (N95.2) Active confirmed Plan Of Treatment Pending Test Test Name Order Date MM Digital Screening Mammogram 3D 2019 MM Digital Screening Mammogram 3D 2021 Insurance Providers Payer Name Payer Address Payer Phone Subscriber Number Group Number Insured Name Patient Relationship to Insured Coverage Start Date Coverage End Date [facility] [employer] [address] [address] [place] [address] [id number] DAVID MEREDITH Self - patient is the insured Medical (General) History Medical History History ICD Code Osteoporosis 733.0 COVID-19 U07.1 Surgical History Surgery Date(Month/Year) Hysterectomy 1979 Parathyroidectomy 01/2020 Left breast biopsy Hospitalization History Reason Date(Month/Year) childbirth
--- OUTSIDE RECORDS SUMMARY | 2024-03-25 09:15 | XMS_ITS ---
Author Organization [facility] Address [address] [place] [address] Care Team Providers Care Sand Technician Name Role Phone Xavier WATSON, Daniel Primary Care Provider UnavailSaumya Hill Unavailable [phone] Allergies Allergen (clinical drug ingredient) Drug/Non Drug [...] 025 Encounters Encounter Location Date Provider Diagnosis [facility] [place] [address] [place] [address] 02/22/2024 Saumya Harris Pain in right toe(s) [...] Provider Name:Saumya Kidd lobo, 07/15/2024 11:15:00 AM, [address] [place] [address], [phone], Progress Notes * Jody CARROLL ADOB: [birth year] (78 yo F)Acc No.[id number]:02/22/2024 Progress Note Patient:?Jody CARROLL Provider:?Saumya Harris DPM :1945???Age:78 Y???Sex:Female D ate:02/22/2024 [facility] Pcp:Daniel Park MD Subjective: * Chief [...] 2. ?Exercise: yes, walking, exercise/dancing, classes at [employer], yoga. ?Marital status: . 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 * Medications:?TakingOmeprazol e 20 MG Capsule [...] Foot, AP, LO, MO, RIGHT??Taken by trained?Podiatric Yarn Inspector (?EF).?Findings:? normal bone?density consistent for patients age [...] Uncertain (4)??? Plan: * Treatment: * Procedure Codes:?39745 X-RAY EXAM OF RIGHT FOOT 3V, Modifiers: [...] DPM Date:?0 02/22/2024 Generated for Printne[employer] ng/Faxing/eTransmitting on:?03/25/2024 09:15 AM EST History and Physical Notes * [...] LO, MO, RIGHT Taken by trained Podiatric Yarn Inspector ( EF) Clinical Indication(s): Evaluate for Fra cture
[2024-03-25 10:22] LABS: Albumin Level 4.1 g/dL (3.5-5.0); Anion Gap 11 (12-20); Blood Urea Nitrogen 15 mg/dL (9-16); Calcium 8.7 mg/dL (8.4-10.2); Carbon Dioxide 20 mmol/L (22-29); Chloride 113 mmol/L (96-108); Estimated Glomerular Filt Rate > 60; Glucose Random 92 mg/dL (60-115); Magnesium 2.1 mg/dL (1.6-2.6); Phosphorus 2.1 mg/dL (2.7-4.5); Potassium 3.8 mmol/L (3.3-5.1); Sodium 140 mmol/L (135-145)
[2024-03-25 10:40] LABS: Free T4 (Free Thyroxine) 0.92 ng/dL (0.71-1.85); Thyroid Stimulating Hormone 1.51 uIU/mL (0.32-4.0); Vitamin D 25-OH Total 33.6 ng/mL (>30)
[2024-03-29 22:58] LABS: Collagen Type I C-Telopeptide 65 pg/mL (see note)
== END 2024-03-25 08:52 | disposition home or self-care (01) ==
LOC: HO.LAB 08:51
PROVIDERS: PCP Family Medicine; Visit Provider Student in an Organized Health Care Education/Training Program
DX: M81.0 Age-related osteoporosis without current pathological fracture (principal); E04.2 Nontoxic multinodular goiter
CPT/HCPCS: 36415; 80048; 82040; 82306; 82523; 83735; 84100; 84439; 84443

== ENCOUNTER 2024-03-28 08:45 | Outpatient (AMB) | payer MEDICARE, SELFPAY ==
[2024-03-28 08:49] VITALS: BP 112/64; PULSE 80; O2SAT 97; BMI 25.2
--- NOTE | 2024-03-28 08:49 | A.OFFVIS_ITS ---
Vital Signs 03/28/24 08:49 Height 5 ft 4 in Weight 146 lb 13.246 oz BMI 25.2 BP 112/64 Blood Pressure Location Lt brachial Position Sitting Pulse 80 Pulse Source Pulse Oximeter Pulse Oximetry (%) 97 Oxygen Delivery Method Room Air Intake Visit Reasons: f/u MNG, osteoporosis/prolia -f/u with Dr. Diamond Intake Note: Patient present today for MNG, osteoporosis and Prolia inj. Hairspring Ii Inspector Required: No Accompanied by: Self / Same As Patient Allergies From BENADRYL Allergy (Unknown, Uncoded 03/28/24 08:54) [facility] Medication List - Last Reconciled 03/28/24 by Rena Diamond MD amlodipine 5 mg PO DAILY aspirin 81 mg PO DAILY cholecalciferol (vitamin D3) 50 mcg PO DAILY 90 days denosumab (Prolia) 60 mg subcut T3EXMOEN estradiol 0.01%(0.1mg/gram) grams vaginal 2XW ezetimibe 10 mg PO DAILY omeprazole 20 mg PO DAILY HPI Comments Details: 78-year-old female here today for follow up of multinodular goiter and osteoporosis with a history of primary hyperparathyroidism status post parathyroidectomy of right superior, left superior, left inferior parathyroid glands in March 2020. Multinodular goiter 04/30/2019: FNA of the right midpole nodule 1.8 cm with IR was nondiagnostic 10/24/2019: FNA biopsy of the right superior, right mid, isthmus nodule with benign cytology and FNA biopsy of the left inferior pole nodule with nondiagnostic cytology 01/02/2020: FNA biopsy of the left inferior pole nodule with benign cytology, [place] category 2. Last thyroid ultrasound done 09/2023 showed , I reviewed the images myself which showed the right superior nodule which has been biopsied before in 2019 with benign cytology measuring 1.8 cm in maximum dimension, solid isoechoic, TR 3 nodule which is gone up from 1.7 cm in maximum dimension, the right midpole nodule remained subcentimeter which is a solid very hypoechoic TR 4 category nodule but is much smaller compared to previous ultrasound in 2021 when it measured 1.6 cm in the maximum dimension, however was previously commented on as TR 3 nodule and isoechoic, the right lower pole nodule has had significant change in size which now measures 2.2 cm in the maximum dimension and previously was 1.9 cm in the maximum dimension, also this has not been biopsied before? This is TR 4 category nodule solid, hypoechoic. The right isthmus nodule which has also been biopsied before and 2019 with benign cytology has gone up from 1 X 0.6 X 1.5 cm to 1.6 X 0.7 X 1.3 cm. I would say this is minimal interval change in this TR 3 category nodule. The left lower pole nodule which was also biopsied in 2019 with benign cytology has also changed significantly in size from 1.6 X 0.9 x 1.8 cm to 2.1 X 1.3 X 2.2 cm in size, TR 3 nodule solid, isoechoic. My interpretation has a lot of these nodules have had some increase in size, however at this time since the right lower pole nodule was not biopsied before per chart review, we can do a biopsy of this. The left inferior nodule has also significantly increased in size and is a 2.2 cm TR 3 category nodule, we will biopsy this as well. The others we can watch with plan for repeat ultrasound in September 2024. Otherwise no history of head or neck radiation. No family history of thyroid cancer. No compressive symptoms Thyroid labs done 03/09 normal Osteoporosis History of primary hyperparathyroidism status post parathyroidectomy of right s uperior, left superior, left inferior parathyroid glands Patient with a history of primary hyperparathyroidism status post parathyroidectomy of right superior, left superior, left inferior parathyroid glands in March [address] Vo with intra op PTH dropping from 99-15. She has a history of osteoporosis diagnosed in her 40s. History of hysterectomy but not oophorectomy at age 37, was on Premarin for 10 years stopped at age 54. Treament history age 41 to age 51: alendronate 70 mg weekly for 10 years. Age 51 to age 56: drug holiday Age 56: tried to reintroduce alendronate, couldnt tolerate due to worsening GERD Then not on anything for 20 or so years from 2002 to 2022 Tymlos March 2022 to September 2023 Prolia 1st injection September 2023 Prolia 2nd injection administered today 03/28/2024 Has positive family history of osteoporosis in mother with spine fracture in her 60s. Never smoker No steroids No antiseizure medications Has been on PPI for a while due to GERD No history of fracture Secondary workup was negative including 24 hour urine calcium level. Fracture of right toe January 2024, no toher fractures, fall resulted in this fracture Vitamin D 2000 units daily but regular about taking it for the past few months Calcium: yogurt: once a day, cheese: occasionally , maybe on a calcium supplement too we are not sure how much Laboratory Tests 12/08/21 06/28/22 07/15/22 07:00 09:59 05:00 Sodium Potassium Creatinine Estimated GFR Calcium Phosphorus Magnesium Albumin Renin 1.14 Aldosterone 7 25-OH Vitamin D Total TSH 1.35 Free T4 0.87 Plasma Free Metaneph 77 H Plasma Free Normeta 119 Plas Total Metaneph 196 Ur 24 Hour Volume 1000 1150 Ur Creatinine mg/dL 100.12 80.99 Ur Creatinine 24 Hour 1.0 0.9 L Ur Sodium 24 Hour 92.0 Ur Calcium 24 Hr 114 Calcium/Creat 24 Hr 118 Urine Total Volume 1150 U Free Metanephrine 167 U Normetanephrine 24h 351 U Tot Metanephrine 24h 518 03/25/24 09:07 Sodium 140 Potassium 3.8 Creatinine 0.74 Estimated GFR > 60 Calcium 8.7 Phosphorus 2.1 L Magnesium 2.1 Albumin 4.1 Renin Aldosterone 25-OH Vitamin D Total 33.6 TSH 1.51 Free T4 0.92 Plasma Free Metaneph Plasma Free Normeta Plas Total Metaneph Ur 24 Hour Volume Ur Creatinine mg/dL Ur Creatinine 24 Hour Ur Sodium 24 Hour Ur Calcium 24 Hr Calcium/Creat 24 Hr Urine Total Volume U Free Metanephrine U Normetanephrine 24h U Tot Metanephrine 24h BONE DENSITOMETRY 08/2023 CLINICAL INDICATION: Age-related osteoporosis without current pathological fracture. COMPARISON: Previous BD dated 09/07/2021 and baseline BD dated 09/03/2019 for the left hip and left forearm radius 33%; this is the baseline for the spine. TECHNIQUE: Using a [employer] DXA System (software version: 13.1) manufactured by [employer], dual-energy x-ray absorptiometry was performed of the lumbar spine and left hip and left forearm radius 33%. The images are of good technical quality. Summary results are attached. FINDINGS: LEFT FEMUR, NECK: Current: BMD 0.421 g/cm2, Z-score -2.4, T-score -4.4, osteoporosis. Prior: BMD 0.501 g/cm2. Baseline: BMD 0.537 g/cm2. LEFT FEMUR, TOTAL: Current: BMD 0.452 g/cm2, Z-score -2.5, T-score -4.4, osteoporosis, 14.1% decrease from previous, 19.4% decrease from baseline (<5% change is not significant). Prior: BMD 0.526 g/cm2. Baseline: BMD 0.561 g/cm2. AP SPINE L1-L4: Current: BMD 0.878 g/cm2, Z-score -0.8, T-score -2.5, osteoporosis. LEFT FOREARM RADIUS 33%: BMD 0.463 g/cm2, Z-score -2.1, T-score -4.7, osteoporosis, 13.0% decrease from previous, 6.2% increase from baseline (<5% change is not significant). Prior: BMD 0.532 g/cm2. Baseline: BMD 0.436 g/cm2. IDENTIFIED RISK FACTORS: Bilateral oophorectomy, early menopause, hyperparathyroid, hysterectomy, low calcium intake, osteoporosis, secondary osteoporosis. HISTORY OF FRACTURE: None listed. MEDICATIONS: Calcium, vitamin D. MM/XR DEXA appendicular skeleton IMPRESSION: 1. DIAGNOSIS: Osteoporosis based on the lowest T-score value of -4.7 in the forearm radius 33% applying World Health Organization criteria. 2. 10-YEAR FRACTURE RISK PREDICTION, FRAX: According to the guidelines, FRAX calculation should only be performed on patients in the osteopenia bone density category. Therefore, FRAX was not performed on this patient. US THYROID 10/02/23 CLINICAL INFORMATION: Multinodular goiter COMPARISON: August 11, 2021 TECHNIQUE: Linear transducer grayscale and color Doppler examination with attention to the region of the thyroid. FINDINGS: SIZE: Measurements of the thyroid lobes and nodules are given in sagittal, anteroposterior and transverse dimensions respectively. Right Thyroid Lobe: 5.3 x 1.9 x 1.9 cm, volume 9.2 mL. Parenchyma: The gland echotexture is heterogeneous. Thyroid vascularity is hypervascular. Left Thyroid Lobe: 4.6 x 1.4 x 1.9 cm, volume 5.9 mL. Parenchyma: The gland echotexture is heterogeneous. Thyroid vascularity is hypervascular. Isthmus: 0.8 cm in maximum AP dimension. Estimated total number of nodules greater than or equal to 1 cm: 5. Measurement Technician nodules are described as follows: 1. Location: Right upper. Size: 1.8 x 0.9 x 1.8 cm, volume 1.5 mL. Nodule characteristics: Composition: Solid (2). Echogenicity: Isoechoic (1). Shape: Not taller than wide (0). Margins: Ill-defined (0). Echogenic Foci: None (0). ACR TI-RADS total points: 3 ACR TI-RADS category: 3 2. Location: Right midpole. Size: 0.8 x 0.6 x 0.7 cm, volume 0.16 mL. Nodule characteristics: Composition: Solid (2). Echogenicity: Very hypoechoic 3 Shape: Not taller than wide (0). Margins: 0 Echogenic Foci: 0 ACR TI-RADS total points: 5 ACR TI-RADS category: 4 3. Location: Right lower pole. Size: 1.9 x 1.3 x 1.4 cm, volume 1.8 mL. Nodule characteristics: Composition: Solid (2). Echogenicity: Hypoechoic 2 Shape: Not taller than wide (0). Margins: Smooth (0). Echogenic Foci: None (0). ACR TI-RADS total points: 4 ACR TI-RADS category: 4 4. Location: Isthmus Size: 1.6 x 0.7 x 1.3 cm, volume 3.0 mL. Nodule characteristics: Composition: Solid (2). Echogenicity: Isoechoic (1). Shape: Not taller than wide (0). Margins: Smooth (0). Echogenic Foci: None (0). ACR TI-RADS total points: 3 ACR TI-RADS category: 3 5. Location: Lower pole, left Size: 2.1 1.3 x 2.2 cm, volume 3.0 mL. Nodule characteristics: Composition: Solid (2). Echogenicity: Isoechoic (1). Shape: Not taller than wide (0). Margins: Ill-defined (0). Echogenic Foci: None (0). ACR TI-RADS total points: 3 ACR TI-RADS category: 3 NODES: No lymphadenopathy is seen in the tissue surrounding the thyroid gland. US/US thyroid IMPRESSION: Multinodular goiter, minimal interval change [facility] Medical History (Updated 03/28/24 @ 10:07 by Rena Diamond MD) Palpitation Non-toxic multinodular goiter Osteoporosis Primary hyperparathyroidism Surgical History Status post fine needle aspiration Hx of parathyroidectomy Hx of left breast biopsy Hx of tonsillectomy Hx of hysterectomy Family History Father Rectal cancer Mother Heart disease Diabetes Brother Celiac disease Social History Household Members: Spouse Alcohol intake: current Alcohol intake frequency: a few times a month Alcohol type: wine Patient Tobacco Use Status: Never used Tobacco Physical Exam Vital Signs: Last Vital Signs Pulse 80 03/28/24 08:49 BP 112/64 03/28/24 08:49 Pulse Ox 97 03/28/24 08:49 Oxygen Delivery Method Room Air 03/28/24 08:49 BMI result Body Mass Index 25.2 Office Meds Prolia 60 mg/mL subcutaneous syringe Performing Provider: Rena Diamond MD Performing Location: [facility] Administered by: Dorothea Tolbert RN on 03/28/24 09:53 Dose Route Admin Location Dispensed Lot Number Expiration Date [facility] Remote Computer Terminal Operator 60 mg subcut left upper arm 1 mL [id number] 08/12/26 46333-015-06 [facility] Comments: Consent form signed by patient. Pt tolerated injection well. Pt denies any adverse reactions to previous injections. Assessment & Plan Assessment & Plan (1) Non-toxic multinodular goiter: Code(s): E04.2 - Nontoxic multinodular goiter Category: Medical Plan: 78-year-old female with no family history of thyroid cancer with no personal history of head or neck radiation coming in today for follow up of multinodular goiter. She has multiple bilateral nodules and has had biopsies of the right superior, right mid, isthmus and left inferior nodules in 2019, with benign cytology. The right inferior nodule has never been biopsied. Last thyroid ultrasound done 09/2023 showed , I reviewed the images myself which showed the right superior nodule which has been biopsied before in 2019 with benign cytology measuring 1.8 cm in maximum dimension, solid isoechoic, TR 3 nodule which is gone up from 1.7 cm in maximum dimension, the right midpole nodule remained subcentimeter which is a solid very hypoechoic TR 4 category nodule but is much smaller compared to previous ultrasound in 2021 when it measured 1.6 cm in the maximum dimension, however was previously commented on as TR 3 nodule and isoechoic, the right lower pole nodule has had significant change in size which now measures 2.2 cm in the maximum dimension and previously was 1.9 cm in the maximum dimension, also this has not been biopsied before? This is TR 4 category nodule solid, hypoechoic. The right isthmus nodule which has also been biopsied before and 2019 with benign cytology has gone up from 1 X 0.6 X 1.5 cm to 1.6 X 0.7 X 1.3 cm. I would say this is minimal interval change in this TR 3 category nodule. The left lower pole nodule which was also biopsied in 2019 with benign cytology has also changed significantly in size from 1.6 X 0.9 x 1.8 cm to 2.1 X 1.3 X 2.2 cm in size, TR 3 nodule solid, isoechoic. My interpretation has a lot of these nodules have had some increase in size, however at this time since the right lower pole nodule was not biopsied before per chart review, we can do a biopsy of this. The left inferior nodule has also significantly increased in size and is a 2.2 cm TR 3 category, we will repeat biopsy of this as well. The others we can watch with plan for repeat ultrasound in September 2024. I explained that it is common to have thyroid nodules. About 95% of the time these nodules are benign. However if the nodule is > 1 cm in size or suspicious on ultrasound then a fine need aspiration biopsy is recommended. I also explained to her that if nodules change greater than 20% in 2 dimensions are greater than 50% change in volume, we also after repeat biopsy. We discussed that a FNAB involves 4-5 passes with a small gauge needle and material obtained is sent off for cytology.If the cytopathology is benign then the nodule will be followed annually with repeat ultrasounds. However if it is suspicious or malignant, we will need to discuss further management. Indeterminate cytology can be further investigated with repeat FNA, genetic testing or empiric lobectomy. Malignant cytology is managed with either lobectomy or total thyroidectomy. We discussed briefly that thyroid cancer is, in most patients, an indolent disease that does not affect mortality. We will arrange for FNA of the right inferior 1.9 cm and the left inferior 2.2 cm thyroid nodules at next available opening and patient will follow up with me in clinic thereafter for results and further decision making. No compressive symptoms. Normal TFTs from February 2024. Plan: -scheduled for FNA of the right inferior 1.9 cm and the left inferior 2.2 cm thyroid nodule biopsies with me in follow up in 2 weeks to discuss results (2) Osteoporosis: Code(s): M81.0 - Age-related osteoporosis without current pathological fracture Category: Medical Qualifiers: Osteoporosis type: age-related Presence of current pathological fracture: without current pathological fracture Qualified Code(s): M81.0 - Age- related osteoporosis without current pathological fracture Plan: 78-year-old female with a history of osteoporosis diagnosed at age 39, with no prior fracture history, with the risk factors of PPI use, family history of osteoporosis, hyperparathyroidism. She is status post right superior, left superior, left inferior parathyroidectomy in March [address] Genny Vo at [facility], with intra op PTH dropping from 99-15. Now her risk factors are age, being postmenopausal, history of hyperparathyroidism and PPI use. She also has a history of hysterectomy at age 37, who was on Premarin up until age 54, no oophorectomy. She was on alendronate 70 mg weekly for 10 years from age 39 due to age 51, and then subsequently was on no treatment up until March 2022 when she was started on Tymlos and completed 1-1/2 years up until September 2023. Subsequently she has been on Prolia with 1st injection on September 2023 and 2nd injection administered today on 03/28/2024. Her bone density from 2021 showed that she had 22% increase at her forearm which shows that she did a group bone after her parathyroid surgery but her T-score was still low at -3.9. T-score at the spine in 2021 was-3.6 with a 5.3% increase from the rate baseline which also shows a slightly significant increase. However she had a 6.2% decrease in her bone density at the hip and had a T-score of-3 point 9 at the left femoral neck in 2021. However clearly the bone density showed some significant accrual of bone after parathyroid ryan pradeep. Bone density from August 2023 showed T-score of -2.5 at the spine, T-score of- 4.4 at the left femoral total and-4.4 of the left femur neck with a 14% decrease from previous bone density in 2021. Left forearm-4.7 T-score with 13% decrease from previous. No bone resorption markers done recently, she is pending a CTX level that I had ordered. She did not have significant improvement in her bone density on the Tymlos. Her most recent 24 hour urine calcium done in 2021 was normal. Other secondary workup was apparently also normal. However fortunately she has not had any fractures. She is now on Prolia started September 2023, and got her 2nd injection today. I will follow up on her CTX level, for now we will continue the Prolia especially given those low T-scores. Given this low T- scores, maybe Evenity would have been a better option for her, however maybe it was not approved by insurance or she also has a history of TIA maybe that is Tymlos was chosen. I have asked her to continue vitamin-D supplementation as well as good calcium intake. She is not sure of the doses in her supplements, she will bring bottles to next visit. We will plan to repeat a bone density in August 2026. We will also keep an eye on her CTX and BS AP level annually prior to Prolia injection. Plan: -follow up CTX level -continue Prolia every 6 months, administered today 03/28/2024, next injection due September 2024 -we will need BMP, calcium, albumin prior to Prolia injection in August 2024 -next bone density would be due August 2026 -continue vitamin-D 5526-0901 units daily, patient will bring bottles to next visit -continue 1000 mg of calcium through diet/supplement -weight-bearing exercise advised Plan I spent 60 minutes in reviewing the record, seeing the patient and documenting in the medical record. Orders: Orders AMB Denosumab Injection Practice Supplied Today M81.0 - Age-related osteoporosis without current pathological fracture US biopsy thyroid Today E04.2 - Nontoxic multinodular goiter Patient Instructions: We will see you on 04/10/24 for thyroid biopsies and a follow up 2 weeks after to discuss results Bring vitamin D calcium bottles to next visit Coding Level of Care Code Est Pt Level 5 (73585) Diagnoses Non-toxic multinodular goiter E04.2 Age-related osteoporosis without current pathological fracture M81.0 Osteoporosis type: age-related Presence of current pathological fracture: without current pathological fracture Time Spent (min) 60
--- OUTSIDE RECORDS SUMMARY | 2024-03-28 08:56 | XMS_ITS ---
Author Organization [facility] Address [address] [place] [address] Care Team Providers Care Assembled Wood Products Repairer Name Role Phone Xavier WATSON, Daniel Primary Care Provider Unavailab Saumya Christianson Unavailable [phone] Francesco Olaery Unavailable [phone] Allergies Allergen (clinical drug ingredient) Drug/Non Drug [...] 024 Encounters Encounter Location Date Provider Diagnosis [facility] [address] [address] 11/13/2023 Francesco Oleary Tinea unguium B35.1 ; [...] Reason: Provider Name:Saumya diamond, 07/15/2024 11:15:00 AM, [address] [place] [address], [id number], Procedure Notes * Category Sub-Category Detail Notes [...] as necessary. Patient chooses, no pharmaceutical tx (42939) Progress Notes * Jody CARROLL ADOB: [birth year] (78 yo F)Acc No.[id number]:11/13/2023 Progress Note Patient:?Jody Carroll A Provider:?Francesco Oleary DPM :[id number]???Age:78 Y???Sex:Female D ate:11/13/2023 Address: [address] , [id number] Pcp:Daniel Park MD Subjective: * Chief Complaints: [...] ?Marital status: . 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 * Medications:?TakingOmeprazol e 20 MG Capsule [...] as necessary. Patient chooses, no pharmaceutical tx ([id number]).? * Procedure Codes:?59876 DEBRI DE NAIL, 6 OR MORE, Modifiers: XS * Follow Up:?4 Months * Images: * Sign off status: Completed true * Provider:?Francesco Oleary DPM Date:? 024 Generated for Neal virgen/Cynthia/eTpolly on:?03/28/2024 08:55 AM EST History and Physical Notes * [...]
--- OUTSIDE RECORDS SUMMARY | 2024-03-28 08:56 | XMS_ITS | Patient Health Record ---
Author Organization [facility] Address [address] [facility] [place] [address] Care Team Providers Care Radiography Technician Name Role Phone Daniel Park MD Primary Care Provider Unavailab Saumya Christianson Unavailable [phone] Francesco Oleary Unavailable [phone] Allergies Allergen (clinical drug ingredient) Drug/Non Drug [...] Status Risk Notes Problem Plantar fascial fibromatosis (77827112) Plantar fascial fibromatosis (M72.2) Active confirmed Problem Acquired hammer toe of right foot (449067430480848 5) Other hammer toe(s) (acquired), right foot (M20.41) Active confirmed Vital Signs Blood pressure diastolic 80 mm Hg 02/22/2024 Height 5 ft 5 in in 02/22/2024 Blood pressure systolic 120 mm Hg 02/22/2024 Weight 144 lbs 02/22/2024 BMI 23.96 kg/m2 02/22/2024 Encounters Encounter Location Date Provider Diagnosis [address] [address] 06/08/2023 Francesco Oleary Tinea unguium B35.1 ; Ingrowing nail L60.0 ; Plantar fascial fibromatosis M72.2 ; Pain in right foot M79.671 ; Other hammer toe(s) (acquired), right foot M20.41 ; Xerosis cutis L85.3 ; Pain in right toe(s) M79.674 ; Pain in left toe(s) M79.675 and Abrasion of toe of left foot, initial encounter S90.415A [address] [address] 11/13/2023 Francesco Oleary Tinea unguium B35.1 ; Ingrowing nail L60.0 ; Plantar fascial fibromatosis M72.2 ; Pain in right foot M79.671 ; Other hammer toe(s) (acquired), right foot M20.41 ; Xerosis cutis L85.3 ; Pain in right toe(s) M79.674 ; Pain in left toe(s) M79.675 and Abrasion of toe of left foot, initial encounter S90.415A [address] [address] 02/22/2024 Saumya Harris Pain in right toe(s) M79.674 and Contusion of lesser toe of right foot without damage to nail, initial encounter S90.121A [facility] [address] [address] 10/10/2023 [facility] [place] [address] [place] [address] 02/20/2024 Saumya Harris Assessments Encounter Date Diagnosis [...] X ray : Foot, right 3V 02/22/2024 42100-TRUDPGZ NAIL, 1-5 01/16/2013 57655-Itedonzr Plate 05/03/2012 06867-Hhmorypv Plate 01/16/2013 61893-Qirnipcl Plate 07/03/2013 64315-Vxknuaxe Plate 12/31/2014 90962-Dlcibnvh Plate Each Additional 05/2012 11715- Debride <25 sq cm 02/04/2013 83652- Debride <25 sq cm 11/30/2011 21570- Nail Unit Biopsy 06/07/2017 Next Appt Details Provider Name:Saumya Kidd lobo, 07/15/2024 11:15:00 AM, [address] [facility], [place], [address], Insurance Providers Payer Name Payer Address Payer Phone Subscriber Number Group Number Insured Name Patient Relationship to Insured Coverage Start Date Coverage End Date AARP Medicare Complete [address] [address] [place] [address] [id number] Jody Carroll Self - patient is the insured Medical (General) History Medical History History ICD Code back, hip, knee pain measles mumps chicken pox covid-19 Surgical History Surgery Date(Month/Year) right foot hammertoe repair hysterectomy vericose vein surgery bilateral legs Condylectomy and hammertoe repair left biopsy on thyroid 10/24/19 parathyroidectomy 03/2020
--- OUTSIDE RECORDS SUMMARY | 2024-03-28 08:57 | XMS_ITS ---
Author Organization [facility] Address [address] [place] [address] Care Team Providers Care Lease Out Man Name Role Phone Xavier WATSON, Daniel Primary Care Provider Unavailab Markus Lomeli Jr [phone] REASON FOR VISIT abnormal ct scan Encounters Encounter Location Date Provider Diagnosis [facility] [address] [place] [id number] 12/08/2023 Markus Rahman Jr Abnormal abdominal ultrasound R93.5 ; Abdominal pain R10.9 and Colon polyps K63.5 ASSESSMENTS Encounter Date Diagnosis Assessment Notes Treatment Notes Treatment Clinical Notes 12/08/2023 Abnormal abdominal ultrasound (ICD-10 - R93.5) 12/08/2023 Abdominal pain (ICD-10 - R10.9) 12/08/2023 Colon polyps (ICD-10 - K63.5) PLAN OF TREATMENT No Information
--- OUTSIDE RECORDS SUMMARY | 2024-03-28 08:57 | XMS_ITS ---
Author Organization [facility] Address [address] [place] [address] Care Team Providers Care Information Receptionist Name Role Phone Xavier WATSON, Daniel Primary Care Provider Unavailab Markus Lomeli Jr REASON FOR VISIT pathology Encounters Encounter Location Date Provider Diagnosis [facility] [address] [place] [address] 12/14/2023 Markus Rahman Jr PLAN OF TREATMENT No Information
--- OUTSIDE RECORDS SUMMARY | 2024-03-28 08:57 | XMS_ITS ---
Author Organization [facility] Address [address] [place] [address] Care Team Providers Care Pet Caretaker Name Role Phone Xavier WATSON, Daniel Primary Care Provider Unavailab Saumya Christianson Unavailable [phone] REASON FOR VISIT injured RT FT Encounters Encounter Location Date Provider Diagnosis [address] [address] 02/20/2024 Saumya Harris Plan Of Treatment Next Appt Details Provider Name:Saumya diamond, 07/15/2024 11:15:00 AM, [address] [place] [address], [address], Progress Notes * GLEN Jody ADOB: (78 yo F)Acc No.[id number]:02/20/2024 Patient:?CARROLL Jody Bueno :1945???Age:78 Y???Sex:Female Address:[place] [address] * true * Date:? Generated for Printi ng/Fatori/eTransmitting on:?03/28/2024 08:57 AM EST
--- OUTSIDE RECORDS SUMMARY | 2024-03-28 08:57 | XMS_ITS | Patient Health Record ---
Author Organization [facility] Address [address] [place] [address] Care Team Providers Care Manager Office Services Name Role Phone Xavier WATSON, Daniel Primary Care Provider Unavailab Markus Lomeli Jr Unavailable ALLERGIES Allergen (clinical drug ingredient) Drug/Non Drug Allergy documented on EMR Reaction Allergy Type Onset Date Status diphenhydramine Benadryl Unknown Drug Allergy A ctive dairy (uncoded) Unknown Allergy Acti ve RESULTS Component Value Reference Range Notes Pathology Reviewed date:12/14/2023 07:54:11 AM Interpretation: Performing Lab:[facility], [address] [place] [phone] Notes/Report: REASON FOR REFERRAL No Information MEDICATIONS [...] Problem Colon cancer screening (Z12.11) Active confirmed 816883085 Problem Encounter for other preprocedural examination (Z01.818) Active confirmed 19647604 Problem Family history of colon cancer (Z80.0) Active confirmed 722953850 Problem Hypertension, unspecified type (I10) Active confirmed 78872569 Problem Abdominal bloating (R14.0) Active confirmed 726778289 Problem Change in bowel habits (R19.4) Active confirmed 151673440 Problem Abnormal CT scan, colon (R93.3) Active confirmed 270179513 Problem Left lower quadrant pain (R10.32) Active confirmed 022725042 Problem Long-term use of aspirin therapy (Z79.82) Active confirmed 265306753 VITAL SIGNS Blood pressure diastolic 00 mm Hg 11/30/2023 Height 65 in 11/30/2023 Blood pressure systolic 00 mm Hg 11/30/2023 Weight 151 lbs 11/30/2023 BMI 25.12 kg/m2 11/30/2023 Encounters Encounter Location Date Provider Diagnosis [facility] Out[facility] [address] [place], [place] [phone] 12/08/2023 Markus Rahman Jr Abnormal abdominal ultrasound R93.5 ; Abdominal pain R10.9 and Colon polyps K63.5 [facility] [address] [place] [address] 11/03/2023 Markus Rahman Jr [facility] [address] [place] [address] 11/30/2023 Markus Rahman Jr Abnormal CT scan, colon R93.3 ; Left lower quadrant pain R10.32 and Long-term use of aspirin therapy Z79.82 [facility] [address] [place] [address] 10/12/2023 Markus Rahman Jr [facility] [address] [place] [address] 12/14/2023 Markus Rahman Jr ASSESSMENTS Encounter Date [...] Insured Coverage Start Date Coverage End Date [facility] [address] [place] [address] [id number] DAVID MEREDITH Self - patient is the insured MEDICAL (GENERAL) HISTORY Medical History History ICD Code Hyperlipidemia Hypertension Osteoporosis Gastroesophageal reflux disease Colonoscopy 04/30, tubular adenoma, follo wup optional based on age Primary hyperparathyroidism Abnormal computed tomography of sigmoid colon R93.3 Surgical History Surgery Date(Month/Year) foot surgery hysterectomy
--- OUTSIDE RECORDS SUMMARY | 2024-03-28 08:58 | XMS_ITS | Continuity of Care Document ---
Author Organization [facility] Address [address] [place] [address] Phone Care Team Providers Care Locker Room Manager Name Role Phone Landon WATSON, RVT, MARY [...] Mins- [place] & [place] [facility], [address] [place] [address] Dr Khan [address] [place], [id number], tel:[phone] [facility] - [place] Cramp and spasmRestless legs syndromeVenou s insufficiency (chronic) (peripheral)P ruritus, unspecified 4 Landon WATSON RVT, MARY JO Gardiner. [address] [place] [address], [id number], [place]. tel:[phone] Referring Provider: Daniel Park MD S, [address] [place] [address], [address]. tel:[phone] [facility], [address] [place] [address] Dr [address] [place], [id number], [place] tel:[phone] [facility] Pain in right leg 4 Landon WATSON RVT, MARY JO Gardiner. [address] [place] [address], [id number], [place]. tel:[phone] Referring Provider: Daniel Park MD S, [address] [place] [address] [place] [address], [address]. tel:[phone] Office/Outpt E&M Established 15 Mins- [place] & [place] [facility], [address] [place] [address] Dr Khan [address] [place], [id number], [place] tel:[phone] CVR - [place] Cramp and spasmRestless legs syndromeVenou s insufficiency (chronic) (peripheral)P ruritus, unspecified 4 Landon WATSON RVT, MARY JO Gardiner. [address] [place] [address] d, [place], [id number], [place]. tel:[phone] Referring Provider: Daniel Park MD S, [address] [place] [address] Dr Suite [facility], [place], [address]. tel:[phone] [facility], [address] [place] [address] Dr [address], [id number], [place] tel:[phone] CVR - [place] Localized swelling, mass and lump, right lower limbChronic venous hypertension (idiopathic) with other complications of right lower extremity Madhu-0 4 Landon WATSON RVT, MARY JO Gardiner. [address] [facility] [address], [place], [id number], [place]. tel:[phone] Referring Provider: Daniel Park MD S, [address] [place] [address] Suite [facility], [place], [address]. tel:[phone] [facility], [address] [place] [address] [address], [id number], [place] tel:[phone] CVR - [place] Encounter for follow-up examination after completed treatment for conditions other than malignant neVaricose veins of right lower extremity with pain Apr-1 4 Landon WATSON RVT, MARY JO Gardiner. [address] [facility] [address], [place], [id number], [place]. tel:[phone] Referring Provider: Daniel Park MD S, [address] [place] [address] Dr Suite [facility], [place], [address]. tel:[phone] [facility], [address] [place] [address] [address], [id number], [place] tel:[phone] CVR - [facility] Varicose veins of right lower extremity with other complications Apr-0 4 Conner Terry. [address] [facility] [address], [place], [id number], [place]. tel:[phone] Referring Provider: Daniel Park MD S, [address] [place] [address] Dr Suite [facility], [place], [address]. tel:[phone] [facility], [address] [place] [address] Dr Khan [address]Suite [place], [id number], [place] tel:[phone] CVR - [place] Encounter for follow-up examination after completed treatment for conditions other than malignant neVaricose veins of right lower extremity with pain Apr-0 4 Landon WATSON RVT, MARY JO Gardiner. [address] [place] [address], [place], [id number], [place]. tel:[phone] Referring Provider: Daniel Park MD S, [address] [place] [address] Dr [address], [place], [address]. tel:[phone] [facility], [address] [place] [address] Dr Khan [address], [id number], [place] tel:[phone] [facility] - [place] Chronic venous hypertension (idiopathic) with inflammation of right lower extremity Apr-0 4 Landon WATSON RVT, MARY JO Gardiner. [address] [place] [address], [place], [id number], [place]. tel:[phone] Referring Provider: Daniel Park MD S, [address] [place] [address] Dr [address], [place], [address]. tel:[phone] Offic/outpt E&m Estab 5 Min Trial - Telemedicine [facility], [address] [place] [address] Dr Khan [address]Suite [place] Brun[place], [id number], [place] tel:[phone] CVR [facility] Cramp and spasmRestless legs syndromeVenou s insufficiency (chronic) (peripheral)P ruritus, unspecified Mar-0 4 Conner Terry. [address] [facility] [address], [place], [id number], [place]. tel:[phone] Referring Provider: Daniel Park MD S, [address] [place] [address] Dr [address], [place], [address]. tel:[phone] Office/Oupt E&M New Pt 45 Mins [facility], [address] [place] [address] Dr [address], [id number], [place] tel:[phone] CVR - [facility] Varicose veins of bilateral lower extremities with other complications Pain in right lower legPain in left lower legPain in right legRestless legs syndromePruri tus, unspecifiedPa in in left legCramp and spasm 4 Landon WATSON RVT, MARY JO Gardiner. [address] [facility], [address], [place], [id number], [place]. tel:[phone] Referring Provider: Daniel Park MD S, [address] [place] [address] Dr [address], [place], [address]. tel:[phone] [facility], [address], [place], [id number], [place] tel:[phone] CV - [facility] Chronic venous hypertension (idiopathic) with other complications of bilateral lower extremity 4 Landon WATSON RVT, MARY JO Gardiner. [address] [facility], [facility] [address], [place], [id number], [place]. tel:[phone] Referring Provider: Daniel Park MD S, [address] [place] [address] Dr [address], [place], [address]. tel:[phone] Family History Family Member Type Diagnosis Age At Onset No Information Payers Payer name Insurance type Covered alliance party ID Authoriza tion(s) [facility] AARP Medic are Complete CI [id number] Social History Type Description Quantity Date Captured [...]
--- OUTSIDE RECORDS SUMMARY | 2024-03-28 08:58 | XMS_ITS ---
Author Organization [facility] Address [address] [place] [address] Care Team Providers Care Courtesy Car Driver Name Role Phone Xavier WATSON, Daniel [...] 20 MG TAKE 1 CAPSULE BY [place] [facility] EVERY DAY AT 4 PM Oral for [...] Abnormal CT scan, colon (R93.3) Active confirmed 746808878 Problem Left lower quadrant pain (R10.32) Active confirmed 621985307 Problem Long-term use of aspirin therapy (Z79.82) Active confirmed 117788344 VITAL SIGNS BMI 25.12 kg/m2 11/30/2023 Blood pressure systolic 00 mm Hg 11/30/19 24 Blood pressure diastolic 00 mm Hg 024 Height 65 in 11/30/2023 Weight 151 lbs 11/30/2023 Encounters Encounter Location Date Provider Diagnosis [facility] [address] [place] [address] 11/30/2023 Markus Rahman Jr Abnormal CT scan, [...] General Examination GENERAL APPEARANCE: in no ac [place] distress HEAD: normocephalic EYES: sclera non-icteric NECK/THYROID: no lymphadenopathy HEART: S1, S2 normal, no mu rmurs CHEST: normal shape and exp ansion LUNGS: clear to auscultatio n bilaterally ABDOMEN: soft, nontender, non distended, bowel sounds present, no organomegaly SKIN: anicteric EXTREMITIES: no clubbing, cyanosi s, or edema PSYCH: cognitive function i ntact ORAL CAVITY: mucosa moist
--- OUTSIDE RECORDS SUMMARY | 2024-03-28 08:58 | XMS_ITS | Clinical Summary ---
Author Organization [employer] Address [address] [facility] [address] [place] [address] Care Team Providers Care Railway Switch Operator Name Role Phone Unavailable Primary Care Provider [...]
--- OUTSIDE RECORDS SUMMARY | 2024-03-28 08:58 | XMS_ITS ---
Author Organization [facility] Address [address] [facility] [place] [address] Care Team Providers Care Digital Forensic Examiner Name Role Phone Xavier WATSON, Daniel Primary Care Provider UnavailSaumya Hill Unavailable [phone] Allergies Allergen (clinical drug ingredient) Drug/Non Drug [...] 025 Encounters Encounter Location Date Provider Diagnosis [facility] [address] [place] [address] 02/22/2024 Saumya Harris Pain in right toe(s) [...] Provider Name:Saumya Kidd lobo, 07/15/2024 11:15:00 AM, [address] [place] [address], [address], Progress Notes * Jody CARROLL ADOB: [birth year] (78 yo F)Acc No.[id number]:02/22/2024 Progress Note Patient:?Jody CARROLL Provider:?Saumya Harris DPM :1945???Age:78 Y???Sex:Female D ate:02/22/2024 [facility] Pcp:Daniel Park MD Subjective: * Chief [...] 2. ?Exercise: yes, walking, exercise/dancing, classes at [facility], yoga. ?Marital status: . 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 * Medications:?TakingOmeprazol e 20 MG Capsule Delayed [...] Foot, AP, LO, MO, RIGHT??Taken by trained?Podiatric Shirt Marker (?EF).?Findings:? normal bone?density consistent for patients age [...] Uncertain (4)??? Plan: * Treatment: * Procedure Codes:?92443 X-RAY EXAM OF RIGHT FOOT 3V, Modifiers: [...] DPM Date:?0 02/22/2024 Generated for Printnevin ng/Faxing/eTransmitting on:?03/28/2024 08:57 AM EST History and Physical Notes * [...] LO, MO, RIGHT Taken by trained Podiatric Shirt Marker ( EF) Clinical Indication(s): Evaluate for Fra cture
--- OUTSIDE RECORDS SUMMARY | 2024-03-28 08:58 | XMS_ITS | Patient Health Record ---
Author Organization [facility] Address [address] [place] [address] Care Team Providers Care Inspector Penetrant Name Role Phone YARITZA GARG Primary Care Provider TAMIE Navarro Unavailable [phone] Allergies Allergen (clinical drug ingredient) Drug/Non Drug [...] Status Risk Notes Problem Postmenopausal atrophic vaginitis (42078493) Postmenopausal atrophic vaginitis (N95.2) Active confirmed Plan Of Treatment Pending Test Test Name Order Date MM Digital Screening Mammogram 3D 2019 MM Digital Screening Mammogram 3D 2021 Insurance Providers Payer Name Payer Address Payer Phone Subscriber Number Group Number Insured Name Patient Relationship to Insured Coverage Start Date Coverage End Date [facility] MEDICARE SOLUTIONS [address] [address] [place] [address] [id number] DAVID MEREDITH Self - patient is the insured Medical (General) History Medical History History ICD Code Osteoporosis 733.0 COVID-19 U07.1 Surgical History Surgery Date(Month/Year) Hysterectomy 1979 Parathyroidectomy 01/2020 Left breast biopsy Hospitalization History Reason Date(Month/Year) childbirth
== END 2024-03-28 09:59 | disposition home or self-care (01) ==
PROVIDERS: PCP Family Medicine; Visit Provider Student in an Organized Health Care Education/Training Program
DX: E04.2 Nontoxic multinodular goiter (principal); M81.0 Age-related osteoporosis without current pathological fracture
CPT/HCPCS: 99215

== ENCOUNTER → 2024-03-28 08:45 | Outpatient (BNVA) | payer MEDICARE, SELFPAY | PROVIDERS: PCP Family Medicine; Visit Provider Student in an Organized Health Care Education/Training Program | DX: M81.0 Age-related osteoporosis without current pathological fracture (principal); E04.2 Nontoxic multinodular goiter | CPT/HCPCS: 96372; 99212; J0897 ==

== ENCOUNTER 2024-04-10 09:50 | Outpatient (REF) | payer MEDICARE, SELFPAY ==
--- NOTE | 2024-04-10 10:38 | PM.PROC ---
Brief Operative Note Date of procedure: 04/10/24 Pre-op diagnosis: left inferior 2.2 cm and right inferior 1.9 cm thyroid nodule FNA biopsy Post-op diagnosis: same Procedure: THYROID FINE NEEDLE ASPIRATION PROCEDURE NOTE ? PROCEDURE PERFORMED: Ultrasound-guided FNA of thyroid nodule ? OPERATORS: Dr. Rena Diamond ? INDICATION: left inferior 2.2 cm and right inferior 1.9 cm thyroid nodules ; FNA performed to assess for malignancy ? DESCRIPTION OF PROCEDURE: The indications for FNA (to assess for malignancy) were reviewed with the patient in detail. Potential complications (e.g., bleeding, infection, damage to local structures, absence of clear diagnosis after FNA) were reviewed. Alternatives to FNA including conservative observation or surgery were described. The patient understood and agreed to proceed. This was documented by the signing of the written informed consent form. A time-out was performed to confirm the patient's identity and the site of planned FNA. The nodules of interest were identified using ultrasound (14 MHz linear array probe). The sites of FNA was then draped in the usual fashion and carefully cleaned and prepared using alcohol swabs. The skin at the previously-identified site of needle insertion was iced and sprayed with numbing spray. First for the left inferior 2.2 cm thyroid nodule , under ultrasound guidance, _4_ passes were performed using a 1.5-inch, 25-gauge needle, and sample was obtained via capillary action. The needle tip was clearly visualized to be within the nodule at the time of sampling for 4__ of _4_ passes. Then for the right inferior 1.9 cm thyroid nodule , under ultrasound guidance, _4_ passes were performed using a 1.5-inch, 25-gauge needle, and sample was obtained via capillary action. The needle tip was clearly visualized to be within the nodule at the time of sampling for 4__ of _4_ passes The patient tolerated the procedure well. There were no immediate complications. A small adhesive bandage was applied, and the patient was advised to take acetaminophen (rather than NSAIDs) for any discomfort and to report any signs of inflammation/infection or marked swelling. IMPRESSION: Technically successful ultrasound-guided fine needle aspiration of left inferior 2.2 cm and right inferior 1.9 cm thyroid nodules . PLAN: The patient was advised that I will provide follow-up regarding the cytology result and any subsequent plans. Rena Diamond MD Endocrinology Attending Condition: stable Disposition: same day
--- OUTSIDE RECORDS SUMMARY | 2024-04-10 11:35 | XMS_ITS ---
Author Organization [facility] Address [address] [place] [address] Care Team Providers Care Energy Conservation Director Name Role Phone Xavier WATSON, Daniel Primary Care Provider Unavailab Markus Lomeli Jr Unavailable [phone] ALLERGIES Allergen (clinical drug ingredient) Drug/Non Drug [...] 20 MG TAKE 1 CAPSULE BY [facility] EVERY DAY AT 4 PM [...] Abnormal CT scan, colon (R93.3) Active confirmed 172127034 Problem Left lower quadrant pain (R10.32) Active confirmed 453076284 Problem Long-term use of aspirin therapy (Z79.82) Active confirmed 909862940 VITAL SIGNS Blood pressure systolic 00 mm Hg 11/30/19 24 Blood pressure diastolic 00 mm Hg 024 Height 65 in 11/30/2023 Weight 151 lbs 11/30/2023 BMI 25.12 kg/m2 11/30/2023 Encounters Encounter Location Date Provider Diagnosis [facility] [address] [place] [address] 11/30/2023 Markus Rahman Jr Abnormal CT scan, [...] General Examination GENERAL APPEARANCE: in no ac lower [place] distress HEAD: normocephalic EYES: sclera non-icteric NECK/THYROID: no lymphadenopathy HEART: S1, S2 normal, no mu rmurs CHEST: normal shape and exp ansion LUNGS: clear to auscultatio n bilaterally ABDOMEN: soft, nontender, non distended, bowel sounds present, no organomegaly SKIN: anicteric EXTREMITIES: no clubbing, cyanosi s, or edema PSYCH: cognitive function i ntact ORAL CAVITY: mucosa moist
--- OUTSIDE RECORDS SUMMARY | 2024-04-10 11:35 | XMS_ITS | Patient Health Record ---
Author Organization [facility] Address [address] [place] [address] Care Team Providers Care Station Operator Name Role Phone Xavier WATSON, Daniel Primary Care Provider Unavailab Markus Lomeli Jr Unavailable [phone] ALLERGIES Allergen (clinical drug ingredient) Drug/Non Drug Allergy documented on EMR Reaction Allergy Type Onset Date Status diphenhydramine Benadryl Unknown Drug Allergy A ctive dairy (uncoded) Unknown Allergy Acti ve RESULTS Component Value Reference Range Notes Pathology Reviewed date:12/14/2023 07:54:11 AM Interpretation: Performing Lab:[facility], [address] [place] [phone] Notes/Report: REASON FOR REFERRAL No Information MEDICATIONS [...] Problem Colon cancer screening (Z12.11) Active confirmed 797647095 Problem Left lower quadrant pain (R10.32) Active confirmed 032249207 Problem Abdominal bloating (R14.0) Active confirmed 980151154 Problem Encounter for other preprocedural examination (Z01.818) Active confirmed 07711200 Problem Change in bowel habits (R19.4) Active confirmed 159538432 Problem Family history of colon cancer (Z80.0) Active confirmed 067772721 Problem Abnormal CT scan, colon (R93.3) Active confirmed 404980591 Problem Long-term use of aspirin therapy (Z79.82) Active confirmed 924231351 Problem Hypertension, unspecified type (I10) Active confirmed 88710666 VITAL SIGNS Blood pressure diastolic 00 mm Hg 11/30/2023 Height 65 in 11/30/2023 Blood pressure systolic 00 mm Hg 11/30/2023 Weight 151 lbs 11/30/2023 BMI 25.12 kg/m2 11/30/2023 Encounters Encounter Location Date Provider Diagnosis [facility] [address] [place] [address] 11/03/2023 Markus Rahman Jr [facility] [address] [place] [phone] 12/08/2023 Markus Rahman Jr Abnormal abdominal ultrasound R93.5 ; Abdominal pain R10.9 and Colon polyps K63.5 [facility] [address] [place] [address] 11/30/2023 Markus Rahman Jr Abnormal CT scan, colon R93.3 ; Left lower quadrant pain R10.32 and Long-term use of aspirin therapy Z79.82 [facility] [address] [place] [address] 10/12/2023 Markus Rahman Jr [facility] [address] [place] [address] 12/14/2023 Markus Rahman Jr ASSESSMENTS Encounter Date [...] Insured Coverage Start Date Coverage End Date [facility] [address] [place] [address] [id number] DAVID MEREDITH Self - patient is the insured MEDICAL (GENERAL) HISTORY Medical History History ICD Code Hyperlipidemia Hypertension Osteoporosis Gastroesophageal reflux disease Colonoscopy 04/30, tubular adenoma, follo wup optional based on age Primary hyperparathyroidism Abnormal computed tomography of sigmoid colon R93.3 Surgical History Surgery Date(Month/Year) foot surgery hysterectomy
--- OUTSIDE RECORDS SUMMARY | 2024-04-10 11:35 | XMS_ITS ---
Author Organization [facility] Address [address] [place] [address] Care Team Providers Care Peanut Shaker Name Role Phone Xavier WATSON, Daniel Primary Care Provider Unavailab Markus Lomeli Jr REASON FOR VISIT abnormal ct scan Encounters Encounter Location Date Provider Diagnosis [facility] [address] [place] [phone] 12/08/2023 Markus Rahman Jr Abnormal abdominal ultrasound R93.5 ; Abdominal pain R10.9 and Colon polyps K63.5 ASSESSMENTS Encounter Date Diagnosis Assessment Notes Treatment Notes Treatment Clinical Notes 12/08/2023 Abnormal abdominal ultrasound (ICD-10 - R93.5) 12/08/2023 Abdominal pain (ICD-10 - R10.9) 12/08/2023 Colon polyps (ICD-10 - K63.5) PLAN OF TREATMENT No Information
--- OUTSIDE RECORDS SUMMARY | 2024-04-10 11:35 | XMS_ITS | Patient Health Record ---
Author Organization [facility] Address [address] [place] [address] Care Team Providers Care Supply Chain Technician Name Role Phone YARITZA GARG Primary Care Provider TAMIE Navarro Unavailable [phone] Allergies Allergen (clinical drug ingredient) Drug/Non Drug [...] Status Risk Notes Problem Postmenopausal atrophic vaginitis (38634289) Postmenopausal atrophic vaginitis (N95.2) Active confirmed Plan Of Treatment Pending Test Test Name Order Date MM Digital Screening Mammogram 3D 2019 MM Digital Screening Mammogram 3D 2021 Insurance Providers Payer Name Payer Address Payer Phone Subscriber Number Group Number Insured Name Patient Relationship to Insured Coverage Start Date Coverage End Date [facility] [employer] [address] [address] [place] [address] [id number] DAVID MEREDITH Self - patient is the insured Medical (General) History Medical History History ICD Code Osteoporosis 733.0 COVID-19 U07.1 Surgical History Surgery Date(Month/Year) Hysterectomy 1979 Parathyroidectomy 01/2020 Left breast biopsy Hospitalization History Reason Date(Month/Year) childbirth
--- OUTSIDE RECORDS SUMMARY | 2024-04-10 11:35 | XMS_ITS ---
Author Organization [facility] Address [address] [facility] [place] [address] Care Team Providers Care State Farm Agent Team Member Name Role Phone Xavier WATSON, Daniel Primary Care Provider Unavailab Saumya Christianson Unavailable [phone] Francesco Oleary Unavailable [phone] Allergies Allergen (clinical drug ingredient) Drug/Non Drug [...] 024 Encounters Encounter Location Date Provider Diagnosis [facility] [address] [address] 11/13/2023 Francesco Oleary Tinea unguium B35.1 ; [...] Reason: Provider Name:Saumya diamond, 07/15/2024 11:15:00 AM, [address] [place] [address], [phone], Procedure Notes * Category Sub-Category Detail Notes [...] as necessary. Patient chooses, no pharmaceutical tx (34837) Progress Notes * Jody CARROLL ADOB: 5 (78 yo F)Acc No.[id number]:11/13/2023 Progress Note Patient:?Jody Carroll A Provider:?Francesco Oleary DPM :1945???Age:78 Y???Sex:Female D ate:11/13/2023 Address: [address] [place] , [id number] Pcp:Daniel Park MD Subjective: * Chief Complaints: [...] ?Marital status: . 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 * Medications:?TakingOmeprazol e 20 MG Capsule [...] as necessary. Patient chooses, no pharmaceutical tx (46695).? * Procedure Codes:?50876 DEBRI DE NAIL, 6 OR MORE, Modifiers: XS * Follow Up:?4 Months * Images: * Sign off status: Completed true * Provider:?Francesco Oleary DPM Date:? 024 Generated for Neal virgen/Cynthia/eTpolly on:?04/10/2024 11:34 AM EST History and Physical Notes * [...]
--- OUTSIDE RECORDS SUMMARY | 2024-04-10 11:35 | XMS_ITS | Clinical Summary ---
Author Organization [employer] Address [address] [facility] 7[address] [place] [address] Care Team Providers Care Bleacher [employer] Name Role Phone Unavailable Primary Care Provider [...]
--- OUTSIDE RECORDS SUMMARY | 2024-04-10 11:35 | XMS_ITS | Patient Health Record ---
Author Organization [facility] Address [address] [facility] [address] Care Team Providers Care Geology Faculty Member Name Role Phone Daniel Park MD Primary Care Provider Unavailab Saumya Christianson Unavailable [phone] Francesco Oleary Unavailable [phone] Allergies Allergen (clinical drug ingredient) Drug/Non Drug [...] Status Risk Notes Problem Plantar fascial fibromatosis (04363918) Plantar fascial fibromatosis (M72.2) Active confirmed Problem Acquired hammer toe of right foot (080121699743435 5) Other hammer toe(s) (acquired), right foot (M20.41) Active confirmed Vital Signs Blood pressure diastolic 80 mm Hg 02/22/2024 Height 5 ft 5 in in 02/22/2024 Blood pressure systolic 120 mm Hg 02/22/2024 Weight 144 lbs 02/22/2024 BMI 23.96 kg/m2 02/22/2024 Encounters Encounter Location Date Provider Diagnosis [address] [address] 06/08/2023 Francesco Oleary Tinea unguium B35.1 ; Ingrowing nail L60.0 ; Plantar fascial fibromatosis M72.2 ; Pain in right foot M79.671 ; Other hammer toe(s) (acquired), right foot M20.41 ; Xerosis cutis L85.3 ; Pain in right toe(s) M79.674 ; Pain in left toe(s) M79.675 and Abrasion of toe of left foot, initial encounter S90.415A [address] [address] 11/13/2023 Francesco Oleary Tinea unguium B35.1 ; Ingrowing nail L60.0 ; Plantar fascial fibromatosis M72.2 ; Pain in right foot M79.671 ; Other hammer toe(s) (acquired), right foot M20.41 ; Xerosis cutis L85.3 ; Pain in right toe(s) M79.674 ; Pain in left toe(s) M79.675 and Abrasion of toe of left foot, initial encounter S90.415A [address] [address] 02/22/2024 Saumya Harris Pain in right toe(s) M79.674 and Contusion of lesser toe of right foot without damage to nail, initial encounter S90.121A [facility] [address] [address] 10/10/2023 [facility] [place] [address] [place] [address] 02/20/2024 Saumya Harris Assessments Encounter Date Diagnosis [...] left foot, initial encounter (ICD-10 - S90.415A) 06/08/2023 Abrasion of toe of left foot, [...] X ray : Foot, right 3V 02/22/2024 80959-NFUXKXX NAIL, 1-5 01/16/2013 23005-Wwubmdcd Plate 01/16/2013 65016-Ilyptzsg Plate 05/03/2012 86950-Ogzyfpnq Plate 07/03/2013 15014-Xqsdqeoy Plate 12/31/2014 04839-Cegbtzev Plate Each Additional 05/2012 30284- Debride <25 sq cm 11/30/2011 04184- Debride <25 sq cm 02/04/2013 27099- Nail Unit Biopsy 06/07/2017 Next Appt Details Provider Name:Saumya Kidd lobo, 07/15/2024 11:15:00 AM, [address] [facility], [place], [address], Insurance Providers Payer Name Payer Address Payer Phone Subscriber Number Group Number Insured Name Patient Relationship to Insured Coverage Start Date Coverage End Date [employer] Medicare Complete [address] [address] [place] [address] [phone] [id number] Jody Carroll Self - patient is the insured Medical (General) History Medical History History ICD Code back, hip, knee pain measles mumps chicken pox covid-19 Surgical History Surgery Date(Month/Year) right foot hammertoe repair hysterectomy vericose vein surgery bilateral legs Condylectomy and hammertoe repair left biopsy on thyroid 10/24/19 parathyroidectomy 03/2020
--- OUTSIDE RECORDS SUMMARY | 2024-04-10 11:35 | XMS_ITS ---
Author Organization [facility] Address [address] [place] [address] Care Team Providers Care Telephone Clerk Telegraph Office Name Role Phone Xavier WATSON, Daniel Primary Care Provider Unavailab Saumya Christianson Unavailable [phone] REASON FOR VISIT injured RT FT Encounters Encounter Location Date Provider Diagnosis [address] [address] 02/20/2024 Saumya Harris Plan Of Treatment Next Appt Details Provider Name:Saumya diamond, 07/15/2024 11:15:00 AM, [address] [place] [address], [phone], Progress Notes * GLEN Jody ADOB: (78 yo F)Acc No.[id number]:02/20/2024 Patient:?CARROLL Jody Bueno :1945???Age:78 Y???Sex:Female Address:[place] [address] * true * Date:? Generated for Printi ng/Cynthia/eTransmitting on:?04/10/2024 11:35 AM EST
--- OUTSIDE RECORDS SUMMARY | 2024-04-10 11:35 | XMS_ITS ---
Author Organization [facility] Address [address] [facility] [place] [address] Care Team Providers Care Bundle Breaker Name Role Phone Xavier WATSON, Daniel Primary Care Provider UnavailSaumya Hill Unavailable [phone] Allergies Allergen (clinical drug ingredient) Drug/Non Drug [...] 025 Encounters Encounter Location Date Provider Diagnosis [facility] [place] [address] [place] [address] 02/22/2024 Saumya Harris Pain in right toe(s) [...] Provider Name:Saumya Kidd lobo, 07/15/2024 11:15:00 AM, [address] [place] [address], [phone], Progress Notes * Jody CARROLL ADOB: [birth year] (78 yo F)Acc No.[id number]:02/22/2024 Progress Note Patient:?Jody CARROLL Provider:?Saumya Harris DPM :1945???Age:78 Y???Sex:Female D ate:02/22/2024 [facility] Pcp:Daniel Park MD Subjective: * Chief [...] 2. ?Exercise: yes, walking, exercise/dancing, classes at [facility], yoga. ?Marital status: . 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 * Medications:?TakingOmeprazol e 20 MG Capsule [...] Foot, AP, LO, MO, RIGHT??Taken by trained?Podiatric Cuffer (?EF).?Findings:? normal bone?density consistent for patients age [...] Uncertain (4)??? Plan: * Treatment: * Procedure Codes:?12652 X-RAY EXAM OF RIGHT FOOT 3V, Modifiers: [...] DPM Date:?0 02/22/2024 Generated for Printnevin ng/Faxing/eTransmitting on:?04/10/2024 11:35 AM EST History and Physical Notes * [...] LO, MO, RIGHT Taken by trained Podiatric Cuffer ( EF) Clinical Indication(s): Evaluate for Fra cture
--- OUTSIDE RECORDS SUMMARY | 2024-04-10 11:35 | XMS_ITS ---
Author Organization [facility] Address [address] [place] [address] Care Team Providers Care Label Cutter Name Role Phone Xavier WATSON, Daniel Primary Care Provider Unavailab Markus Lomeli Jr REASON FOR VISIT pathology Encounters Encounter Location Date Provider Diagnosis [facility] [address] [place] [address] 12/14/2023 Markus Rahman Jr PLAN OF TREATMENT No Information
== END 2024-04-10 09:51 | disposition home or self-care (01) ==
LOC: HO.US 09:50
PROVIDERS: PCP Family Medicine; Visit Provider Student in an Organized Health Care Education/Training Program
DX: E04.2 Nontoxic multinodular goiter (principal)
CPT/HCPCS: 10005; 10006; 88173; 88305

== ENCOUNTER → 2024-04-10 09:50 | Outpatient (BNV) | payer MEDICARE, SELFPAY | PROVIDERS: PCP Family Medicine; Visit Provider Student in an Organized Health Care Education/Training Program | DX: E04.2 Nontoxic multinodular goiter (principal) | CPT/HCPCS: 10005; 10006 ==

== ENCOUNTER 2024-04-25 14:34 | Outpatient (AMB) | payer MEDICARE, SELFPAY ==
[2024-04-25 14:36] VITALS: BP 116/58; PULSE 90; O2SAT 97; BMI 25.7
--- NOTE | 2024-04-25 14:36 | A.OFFVIS_ITS ---
Vital Signs 3 04/25/24 14:36 Height 5 ft 4 in Weight 149 lb 14.629 oz BMI 25.7 BP 116/58 L Blood Pressure Location Rt brachial Position Sitting Pulse 90 Pulse Source Pulse Oximeter Pulse Oximetry (%) 97 Oxygen Delivery Method Room Air Intake Visit Reasons: Biopsy f/u Intake Note: Patient present here today to go over Biopsy Result: L Advertising Material Distributor Required: No Accompanied by: Self / Same As Patient Allergies From BENADRYL Allergy (Unknown, Uncoded 04/25/24 14:38) RACING HEART HPI Comments Details: 78-year-old female here today for follow up of multinodular goiter and osteoporosis with a history of primary hyperparathyroidism status post parathyroidectomy of right superior, left superior, left inferior parathyroid glands in March 2020. Multinodular goiter 04/30/2019: FNA of the right midpole nodule 1.8 cm with IR was nondiagnostic 10/24/2019: FNA biopsy of the right superior, right mid, isthmus nodule with benign cytology and FNA biopsy of the left inferior pole nodule with nondiagnostic cytology 01/02/2020: FNA biopsy of the left inferior pole nodule with benign cytology, Gilby category 2. Last thyroid ultrasound done 09/2023 showed , I reviewed the images myself which showed the right superior nodule which has been biopsied before in 2019 with benign cytology measuring 1.8 cm in maximum dimension, solid isoechoic, TR 3 nodule which is gone up from 1.7 cm in maximum dimension, the right midpole nodule remained subcentimeter which is a solid very hypoechoic TR 4 category nodule but is much smaller compared to previous ultrasound in 2021 when it measured 1.6 cm in the maximum dimension, however was previously commented on as TR 3 nodule and isoechoic, the right lower pole nodule has had significant change in size which now measures 2.2 cm in the maximum dimension and previously was 1.9 cm in the maximum dimension, also this has not been biopsied before? This is TR 4 category nodule solid, hypoechoic. The right isthmus nodule which has also been biopsied before and 2019 with benign cytology has gone up from 1 X 0.6 X 1.5 cm to 1.6 X 0.7 X 1.3 cm. I would say this is minimal interval change in this TR 3 category nodule. The left lower pole nodule which was also biopsied in 2019 with benign cytology has also changed significantly in size from 1.6 X 0.9 x 1.8 cm to 2.1 X 1.3 X 2.2 cm in size, TR 3 nodule solid, isoechoic. My interpretation has a lot of these nodules have had some increase in size, however at this time since the right lower pole nodule was not biopsied before per chart review, we can do a biopsy of this. The left inferior nodule has also significantly increased in size and is a 2.2 cm TR 3 category nodule, we will biopsy this as well. The others we can watch with plan for repeat ultrasound in September 2024. Otherwise no history of head or neck radiation. No family history of thyroid cancer. No compressive symptoms Thyroid labs done 03/09 normal interval history 04/10/2024: FNA biopsies of both the right inferior 1.9 cm and the left inferior 2.1 cm nodules came back as nondiagnostic Gilby category 1. Osteoporosis History of primary hyperparathyroidism status post parathyroidectomy of right superior, left superior, left inferior parathyroid glands Patient with a history of primary hyperparathyroidism status post parathyroidectomy of right superior, left superior, left inferior parathyroid glands in March [address] Vo with intra op PTH dropping from 99-15. She has a history of osteoporosis diagnosed in her 40s. History of hysterectomy but not oophorectomy at age 37, was on Premarin for 10 years stopped at age 54. Treament history age 41 to age 51: alendronate 70 mg weekly for 10 years. Age 51 to age 56: drug holiday Age 56: tried to reintroduce alendronate, couldnt tolerate due to worsening GERD Then not on anything for 20 or so years from 2002 to 2022 [facility] March 2022 to September 2023 Prolia 1st injection September 2023 Prolia 2nd injection administered 03/28/2024 Has positive family history of osteoporosis in mother with spine fracture in her 60s. Never smoker No steroids No antiseizure medications Has been on PPI for a while due to GERD No history of fracture Secondary workup was negative including 24 hour urine calcium level. Fracture of right toe January 2024, no toher fractures, fall resulted in this fracture Vitamin D 2000 units daily but regular about taking it for the past few months Calcium: yogurt: once a day, cheese: occasionally , maybe on a calcium supplement too we are not sure how much Physical exam General: sitting comfortably in no acute distress HEENT: normocephalic/atraumatic, Neck: supple, palpable 2 cm left-sided nodule, palpable 2 cm right-sided nodule Cardiac: normal heart sounds Pulm: normal breath sounds B/L, no added breath sounds Abd: not distended, no tenderness Extremities: no edema, no signs of myxedema Laboratory Tests 12/08/21 06/28/22 07/15/22 07:00 09:59 05:00 Sodium Potassium Creatinine Estimated GFR Calcium Phosphorus Magnesium Albumin Renin 1.14 Aldosterone 7 25-OH Vitamin D Total TSH 1.35 Free T4 0.87 Plasma Free Metaneph 77 H Plasma Free Normeta 119 Plas Total Metaneph 196 Ur 24 Hour Volume 1000 1150 Ur Creatinine mg/dL 100.12 80.99 Ur Creatinine 24 Hour 1.0 0.9 L Ur Sodium 24 Hour 92.0 Ur Calcium 24 Hr 114 Calcium/Creat 24 Hr 118 Urine Total Volume 1150 U Free Metanephrine 167 U Normetanephrine 24h 351 U Tot Metanephrine 24h 518 03/25/24 09:07 Sodium 140 Potassium 3.8 Creatinine 0.74 Estimated GFR > 60 Calcium 8.7 Phosphorus 2.1 L Magnesium 2.1 Albumin 4.1 Renin Aldosterone 25-OH Vitamin D Total 33.6 TSH 1.51 Free T4 0.92 Plasma Free Metaneph Plasma Free Normeta Plas Total Metaneph Ur 24 Hour Volume Ur Creatinine mg/dL Ur Creatinine 24 Hour Ur Sodium 24 Hour Ur Calcium 24 Hr Calcium/Creat 24 Hr Urine Total Volume U Free Metanephrine U Normetanephrine 24h U Tot Metanephrine 24h Laboratory Tests 03/25/24 09:07 Creatinine 0.74 Estimated GFR > 60 Albumin 4.1 Collgn I C-Telopeptide 65 25-OH Vitamin D Total 33.6 TSH 1.51 Free T4 0.92 BONE DENSITOMETRY 08/2023 CLINICAL INDICATION: Age-related osteoporosis without current pathological fracture. COMPARISON: Previous BD dated 09/07/2021 and baseline BD dated 09/03/2019 for the left hip and left forearm radius 33%; this is the baseline for the spine. TECHNIQUE: Using a [employer] DXA System (software version: 13.1) manufactured by [employer], dual-energy x-ray absorptiometry was performed of the lumbar spine and left hip and left forearm radius 33%. The images are of good technical quality. Summary results are attached. FINDINGS: LEFT FEMUR, NECK: Current: BMD 0.421 g/cm2, Z-score -2.4, T-score -4.4, osteoporosis. Prior: BMD 0.501 g/cm2. Baseline: BMD 0.537 g/cm2. LEFT FEMUR, TOTAL: Current: BMD 0.452 g/cm2, Z-score -2.5, T-score -4.4, osteoporosis, 14.1% decrease from previous, 19.4% decrease from baseline (<5% change is not significant). Prior: BMD 0.526 g/cm2. Baseline: BMD 0.561 g/cm2. AP SPINE L1-L4: Current: BMD 0.878 g/cm2, Z-score -0.8, T-score -2.5, osteoporosis. LEFT FOREARM RADIUS 33%: BMD 0.463 g/cm2, Z-score -2.1, T-score -4.7, osteoporosis, 13.0% decrease from previous, 6.2% increase from baseline (<5% change is not significant). Prior: BMD 0.532 g/cm2. Baseline: BMD 0.436 g/cm2. IDENTIFIED RISK FACTORS: Bilateral oophorectomy, early menopause, hyperparathyroid, hysterectomy, low calcium intake, osteoporosis, secondary osteoporosis. HISTORY OF FRACTURE: None listed. MEDICATIONS: Calcium, vitamin D. MM/XR DEXA appendicular skeleton IMPRESSION: 1. DIAGNOSIS: Osteoporosis based on the lowest T-score value of -4.7 in the forearm radius 33% applying World Health Organization criteria. 2. 10-YEAR FRACTURE RISK PREDICTION, FRAX: According to the guidelines, FRAX calculation should only be performed on patients in the osteopenia bone density category. Therefore, FRAX was not performed on this patient. US THYROID 10/02/23 CLINICAL INFORMATION: Multinodular goiter COMPARISON: August 11, 2021 TECHNIQUE: Linear transducer grayscale and color Doppler examination with attention to the region of the thyroid. FINDINGS: SIZE: Measurements of the thyroid lobes and nodules are given in sagittal, anteroposterior and transverse dimensions respectively. Right Thyroid Lobe: 5.3 x 1.9 x 1.9 cm, volume 9.2 mL. Parenchyma: The gland echotexture is heterogeneous. Thyroid vascularity is hypervascular. Left Thyroid Lobe: 4.6 x 1.4 x 1.9 cm, volume 5.9 mL. Parenchyma: The gland echotexture is heterogeneous. Thyroid vascularity is hypervascular. Isthmus: 0.8 cm in maximum AP dimension. Estimated total number of nodules greater than or equal to 1 cm: 5. Access Lead nodules are described as follows: 1. Location: Right upper. Size: 1.8 x 0.9 x 1.8 cm, volume 1.5 mL. Nodule characteristics: Composition: Solid (2). Echogenicity: Isoechoic (1). Shape: Not taller than wide (0). Margins: Ill-defined (0). Echogenic Foci: None (0). ACR TI-RADS total points: 3 ACR TI-RADS category: 3 2. Location: Right midpole. Size: 0.8 x 0.6 x 0.7 cm, volume 0.16 mL. Nodule characteristics: Composition: Solid (2). Echogenicity: Very hypoechoic 3 Shape: Not taller than wide (0). Margins: 0 Echogenic Foci: 0 ACR TI-RADS total points: 5 ACR TI-RADS category: 4 3. Location: Right lower pole. Size: 1.9 x 1.3 x 1.4 cm, volume 1.8 mL. Nodule characteristics: Composition: Solid (2). Echogenicity: Hypoechoic 2 Shape: Not taller than wide (0). Margins: Smooth (0). Echogenic Foci: None (0). ACR TI-RADS total points: 4 ACR TI-RADS category: 4 4. Location: Isthmus Size: 1.6 x 0.7 x 1.3 cm, volume 3.0 mL. Nodule characteristics: Composition: Solid (2). Echogenicity: Isoechoic (1). Shape: Not taller than wide (0). Margins: Smooth (0). Echogenic Foci: None (0). ACR TI-RADS total points: 3 ACR TI-RADS category: 3 5. Location: Lower pole, left Size: 2.1 1.3 x 2.2 cm, volume 3.0 mL. Nodule characteristics: Composition: Solid (2). Echogenicity: Isoechoic (1). Shape: Not taller than wide (0). Margins: Ill-defined (0). Echogenic Foci: None (0). ACR TI-RADS total points: 3 ACR TI-RADS category: 3 NODES: No lymphadenopathy is seen in the tissue surrounding the thyroid gland. US/US thyroid IMPRESSION: Multinodular goiter, minimal interval change [facility] Medical History (Updated 03/28/24 @ 10:07 by Rena Diamond MD) Palpitation Non-toxic multinodular goiter Osteoporosis Primary hyperparathyroidism Surgical History Status post fine needle aspiration Hx of parathyroidectomy Hx of left breast biopsy Hx of tonsillectomy Hx of hysterectomy Family History Father Rectal cancer Mother Heart disease Diabetes Brother Celiac disease Social History Household Members: Spouse Alcohol intake: current Alcohol intake frequency: a few times a month Alcohol type: wine Patient Tobacco Use Status: Never used Tobacco Physical Exam Vital Signs: Last Vital Signs Pulse 90 04/25/24 14:36 BP 116/58 L 04/25/24 14:36 Pulse Ox 97 04/25/24 14:36 Oxygen Delivery Method Room Air 04/25/24 14:36 BMI result Body Mass Index 25.7 Assessment & Plan Assessment & Plan (1) Non-toxic multinodular goiter: Code(s): E04.2 - Nontoxic multinodular goiter Category: Medical Plan: 78-year-old female with no family history of thyroid cancer with no personal history of head or neck radiation coming in today for follow up of multinodular goiter. She has multiple bilateral nodules and has had biopsies of the right superior, right mid, isthmus and left inferior nodules in 2019, with benign cytology. The right inferior nodule has never been biopsied. Last thyroid ultrasound done 09/2023 showed , I reviewed the images myself which showed the right superior nodule which has been biopsied before in 2019 with benign cytology measuring 1.8 cm in maximum dimension, solid isoechoic, TR 3 nodule which is gone up from 1.7 cm in maximum dimension, the right midpole nodule remained subcentimeter which is a solid very hypoechoic TR 4 category nodule but is much smaller compared to previous ultrasound in 2022 when it measured 1.6 cm in the maximum dimension, however was previously commented on as TR 3 nodule and isoechoic, the right lower pole nodule has had significant change in size which now measures 2.2 cm in the maximum dimension and previously was 1.9 cm in the maximum dimension, also this has not been biopsied before? This is TR 4 category nodule solid, hypoechoic. The right isthmus nodule which has also been biopsied before and 2019 with benign cytology has gone up from 1 X 0.6 X 1.5 cm to 1.6 X 0.7 X 1.3 cm. I would say this is minimal interval change in this TR 3 category nodule. The left lower pole nodule which was also biopsied in 2019 with benign cytology has also changed significantly in size from 1.6 X 0.9 x 1.8 cm to 2.1 X 1.3 X 2.2 cm in size, TR 3 nodule solid, isoechoic. My interpretation has a lot of these nodules have had some increase in size, however at this time since the right lower pole nodule was not biopsied before per chart review, we can do a biopsy of this. The left inferior nodule has also significantly increased in size and is a 2.2 cm TR 3 category, we will repeat biopsy of this as well. The others we can watch with plan for repeat ultrasound 04/10/2024: FNA biopsies of both the right inferior 1.9 cm and the left inferior 2.1 cm nodules came back as nondiagnostic Gilby category 1. I discussed with her that her nodules are overall mildly To moderately suspicious.. Given that she has had prior biopsies with benign results that is reassuring. We discussed with her both options of repeating the biopsy of both the nodules in 3 months or doing a repeat ultrasound in September 2024 just to watch with surveillance. I did discuss with her the risk of 5-10% risk of malignancy nodules which can potentially spread. At this time she would like to proceed with repeat biopsies in 3 months. We will arrange for repeat FNA of the right inferior 1.9 cm and the left inferior 2.2 cm thyroid nodules at next available opening and patient will follow up with me in clinic thereafter for results and further decision making. No compressive symptoms. Normal TFTs from February 2024. Plan: -scheduled for repeat FNA of the right inferior 1.9 cm and the left inferior 2.2 cm thyroid nodule biopsies with me in follow up in 2 weeks to discuss results (2) Osteoporosis: Code(s): M81.0 - Age-related osteoporosis without current pathological fracture Category: Medical Qualifiers: Osteoporosis type: age-related Presence of current pathological fracture: without current pathological fracture Qualified Code(s): M81.0 - Age- related osteoporosis without current pathological fracture Plan: 78-year-old female with a history of osteoporosis diagnosed at age 39, with no prior fracture history, with the risk factors of PPI use, family history of osteoporosis, hyperparathyroidism. She is status post right superior, left superior, left inferior parathyroidectomy in March [address] Genny Vo at [facility], with intra op PTH dropping from 99-15. Now her risk factors are age, being postmenopausal, history of hyperparathyroidism and PPI use. She also has a history of hysterectomy at age 37, who was on Premarin up until age 54, no oophorectomy. She was on alendronate 70 mg weekly for 10 years from age 39 due to age 51, and then subsequently was on no treatment up until March 2022 when she was started on Tymlos and completed 1-1/2 years up until September 2023. Subsequently she has been on Prolia with 1st injection on September 2023 and 2nd injection administered on 03/28/2024. Her bone density from 2021 showed that she had 22% increase at her forearm which shows that she did a group bone after her parathyroid surgery but her T-score was still low at -3.9. T-score at the spine in 2021 was-3.6 with a 5.3% increase from the rate baseline which also shows a slightly significant increase. However she had a 6.2% decrease in her bone density at the hip and had a T-score of-3 point 9 at the left femoral neck in 2021. However clearly the bone density showed some significant accrual of bone after parathyroid surgery. Bone density from August 2023 showed T-score of -2.5 at the spine, T-score of- 4.4 at the left femoral total and-4.4 of the left femur neck with a 14% decrease from previous bone density in 2021. Left forearm-4.7 T-score with 13% decrease from previous. No bone resorption markers done recently, she is pending a CTX level that I had ordered. She did not have significant improvement in her bone density on the Tymlos. Her most recent 24 hour urine calcium done in 2021 was normal. Other secondary workup was apparently also normal. However fortunately she has not had any fractures. She is now on Prolia started September 2023, and got her 2nd injection today. I will follow up on her CTX level, for now we will continue the Prolia especially given those low T-scores. Given this low T- scores, maybe Evenity would have been a better option for her, however maybe it was not approved by insurance or she also has a history of TIA maybe that is Tymlos was chosen. I have asked her to continue vitamin-D supplementation as well as good calcium intake. She is not sure of the doses in her supplements, she will bring bottles to next visit. We will plan to repeat a bone density in August 2026. We will also keep an eye on her CTX and BS AP level annually prior to Prolia injection. Plan: -continue Prolia every 6 months, administered today 03/28/2024, next injection due September 2024 -we will need BMP, calcium, albumin, CTX and bSAP prior to Prolia injection in August 2024 , we will order next visit -next bone density would be due August 2026 -continue vitamin-D 9244-4732 units daily, patient will bring bottles to next visit -continue 1000 mg of calcium through diet/supplement -weight-bearing exercise advised Plan see above Orders: Orders 2 US biopsy thyroid Today E04.2 - Nontoxic multinodular goiter Patient Instructions: We will see You back in 3 months for repeat biopsy of your right and left-sided nodules, and a follow up 2 weeks after to discuss results. Your next Prolia shot is due in September 2024, you will need blood work the month before. -continue vitamin-D 4791-1632 units daily, patient will bring bottles to next visit -continue 1000 mg of calcium through diet/supplement -weight-bearing exercise advised Coding Level of Care Code Est Pt Level 3 (43201) Diagnoses Non-toxic multinodular goiter E04.2 Age-related osteoporosis without current pathological fracture M81.0 Osteoporosis type: age-related Presence of current pathological fracture: without current pathological fracture
--- OUTSIDE RECORDS SUMMARY | 2024-04-25 18:23 | XMS_ITS | Patient Health Record ---
[facility] Organization [facility] Address [address] [address] Care Team Providers Care Production Roustabout Name Role Phone Daniel Park MD Primary Care Provider Unavailab Saumya Christianson Unavailable [phone] Francesco Oleary Unavailable [phone] Allergies Allergen (clinical drug ingredient) Drug/Non Drug [...] Status Risk Notes Problem Plantar fascial fibromatosis (89083458) Plantar fascial fibromatosis (M72.2) Active confirmed Problem Acquired hammer toe of right foot ([id number] 5) Other hammer toe(s) (acquired), right foot (M20.41) Active confirmed Vital Signs Blood pressure diastolic 80 mm Hg 02/22/2024 Height 5 ft 5 in in 02/22/2024 Blood pressure systolic 120 mm Hg 02/22/2024 Weight 144 lbs 02/22/2024 BMI 23.96 kg/m2 02/22/2024 Encounters Encounter Location Date Provider Diagnosis [address] [address] 06/08/2023 Francesco Oleary Tinea unguium B35.1 ; Ingrowing nail L60.0 ; Plantar fascial fibromatosis M72.2 ; Pain in right foot M79.671 ; Other hammer toe(s) (acquired), right foot M20.41 ; Xerosis cutis L85.3 ; Pain in right toe(s) M79.674 ; Pain in left toe(s) M79.675 and Abrasion of toe of left foot, initial encounter S90.415A [address] [address] 11/13/2023 Francesco Oleary Tinea unguium B35.1 ; Ingrowing nail L60.0 ; Plantar fascial fibromatosis M72.2 ; Pain in right foot M79.671 ; Other hammer toe(s) (acquired), right foot M20.41 ; Xerosis cutis L85.3 ; Pain in right toe(s) M79.674 ; Pain in left toe(s) M79.675 and Abrasion of toe of left foot, initial encounter S90.415A [address] [address] 02/22/2024 Saumya Harris Pain in right toe(s) M79.674 and Contusion of lesser toe of right foot without damage to nail, initial encounter S90.121A [facility] [address] [address] 10/10/2023 [facility] [place] [address] [place] [address] 02/20/2024 Saumya Harris Assessments Encounter Date Diagnosis [...] X ray : Foot, right 3V 02/22/2024 95271-VQNLFZA NAIL, 1-5 01/16/2013 76195-Aveovjbv Plate 05/03/2012 87549-Fyylpely Plate 01/16/2013 43610-Dtahbtyg Plate 07/03/2013 56414-Jsoklmfb Plate 12/31/2014 98720-Mehwhwla Plate Each Additional 05/2012 87127- Debride <25 sq cm 02/04/2013 75246- Debride <25 sq cm 11/30/2011 29232- Nail Unit Biopsy 06/07/2017 Next Appt Details Provider Name:Saumya Kidd lobo, 07/15/2024 11:15:00 AM, [address] [facility], [place], [address], Insurance Providers Payer Name Payer Address Payer Phone Subscriber Number Group Number Insured Name Patient Relationship to Insured Coverage Start Date Coverage End Date [employer] Medicare Complete [address] [address] [place] [address] [phone] [id number] Jody Carroll Self - patient is the insured Medical (General) History Medical History History ICD Code back, hip, knee pain measles mumps chicken pox covid-19 Surgical History Surgery Date(Month/Year) right foot hammertoe repair hysterectomy vericose vein surgery bilateral legs Condylectomy and hammertoe repair left biopsy on thyroid 10/24/19 parathyroidectomy 03/2020
--- OUTSIDE RECORDS SUMMARY | 2024-04-25 18:23 | XMS_ITS ---
Author Organization [facility] Address [address] [address] [address] Care Team Providers Care Anthropometrist Name Role Phone Xavier WATSON, Daniel Primary Care Provider Unavailab Saumya Christianson Unavailable [phone] Francesco Oleary Unavailable [phone] Allergies Allergen (clinical drug ingredient) Drug/Non Drug [...] 024 Encounters Encounter Location Date Provider Diagnosis [facility] [address] [address] 11/13/2023 Francesco Oleary Tinea unguium B35.1 ; [...] Reason: Provider Name:Saumya diamond, 07/15/2024 11:15:00 AM, [address] [place] [address], [phone], Procedure Notes * Category Sub-Category Detail Notes [...] as necessary. Patient chooses, no pharmaceutical tx (21823) Progress Notes * Jody CARROLL ADOB: [birth year] (78 yo F)Acc No.[id number]:11/13/2023 Progress Note Patient:?Jody Carroll A Provider:?Francesco Oleary DPM :[id number]???Age:78 Y???Sex:Female D ate:11/13/2023 Address: [address] [place] , [id number] Pcp:Daniel Park MD Subjective: * Chief Complaints: [...] ?Marital status: . 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 * Medications:?TakingOmeprazol e 20 MG Capsule [...] as necessary. Patient chooses, no pharmaceutical tx (68408).? * Procedure Codes:?92350 DEBRI DE NAIL, 6 OR MORE, Modifiers: XS * Follow Up:?4 Months * Images: * Sign off status: Completed true * Provider:?Francesco Oleary DPM Date:? 024 Generated for Neal virgen/Cynthia/eTransmmichelle on:?04/25/2024 06:23 PM EDT History and Physical Notes * HPI (History [...]
--- OUTSIDE RECORDS SUMMARY | 2024-04-25 18:24 | XMS_ITS | Patient Health Record ---
Author Organization [facility] Address [address] [place] [address] Care Team Providers Care Textile Converter Name Role Phone Xavier WATSON, Daniel Primary Care Provider Unavailab Markus Lomeli Jr Unavailable Allergies Allergen (clinical drug ingredient) Drug/Non Drug Allergy documented on EMR Reaction Allergy Type Onset Date Status diphenhydramine Benadryl Unknown Drug Allergy A ctive dairy (uncoded) Unknown Allergy Acti ve Results Component Value Reference Range Notes Pathology Reviewed date:12/14/2023 07:54:11 AM Interpretation: Performing Lab:[facility], [address] [place] [id number] Notes/Report: Name: Jody Carroll Age/Sex: 78/F : 1945 Unit#: [id number] Attend Dr: Markus Rahman MD Re12/08/23 Status : [facility] Location: [facility] Disch: SPEC : [id number] RECD : 12/08/23 STATUS: TATIANA PASTRANA NUM: [id number] EMANI: 12/08/231202 SUBM DR: Markus Rahman MD ENTERED: 12/08/23 TYPE: Surgical OTHR DR: Daniel Park MD ORDERED: HE Stain/6, Gross Micro L4/2 Diagnosis A. Cecum, polypectom y: Colonic mucosa with mild surface hyperplastic changes. B. Colon, hepatic fl exure, polypectomy: Fragments of tubular adenoma; negative for high-grade dysplasia or carcinoma. Clinical History Pre-Op Dx: Abnormal imaging Post-Op Dx: Colon polyps Microscopic Description A, B. Microscopic se ctions reviewed. Material Received A. Cecum polyp B. Polyp hepatic flexure Gross Description Received in two parts. Part A: Received in formalin labeled ?polyp cecum? are 2 cunha irregular tissue fragments measuring 0.1 and 0. 2 cm, submitted in toto in a cassette labeled A. Part B: Received in formalin labeled ?polyp hepatic flexure is a 0.25 cm cunha irregular tissue fragment, sub mitted in toto in cassette labeled B. CEDS Copies To: Markus Rahman MD [facility] [address] [place] [address] [address] [place] [address] Daniel Park MD [address] [place] [address] DR[address] [place] [address] CONTINUED ON NEXT PAGE Name: Jody Carroll Age/Sex: 78/F : 1945 Unit#: [id number] Attend Dr: Markus Rahman MD Re12/08/23 [place] [facility] [place]: [place] Disch: SPEC : [id number] RECD : 12/08/23 STATUS: TATIANA PASTRANA NUM: [id number] EMANI: 12/08/[address] [facility] [address]: Markus Rahman MD ENTERED: 12/08/23 SP TYPE: Surgical OTHR DR: Daniel Park MD ORDERED: BENNY Mahajan/6Emma L4/2 Signed (si gnloni on file) Colt Mendez MD 12/12/23 1008 END OF REPORT Reason For Referral No Information Medications Medication SIG (Take, Route, Frequency, Duration) Notes Start Date End Date Status Vitamin B12 1000 MCG 1 tablet Orally Onc e a day for 30 day(s) Active Ezetimibe 10 MG TAKE 1 TABLET BY DAILY Oral for 90 Active Aspirin Adult [...] 5 MG TAKE 1 TABLET BY [place] TWICE DAILY NEEDED FOR ANXIETY Oral for 30 Active Omeprazole 20 MG TAKE 1 CAPSULE BY [facility] EVERY DAY AT 4 PM Oral for 90 Active Immunizations Vaccine Route Administration Date Status Comme nts Influenza Unknown 12/21/2017 Administered Social History Tobacco Use: Social History Observation Description Date Details (start date - stop date) Never Smoker NA - NA Tobacco Use/Smoking Question Answer Notes Patient is [...] Never (0 point) Points 2 Interpretation Negative Problems Problem Type SNOMED Code ICD Code Onset Dates Problem Status W/U Status Risk Notes Problem 440325629 Colon cancer screening (Z12.11) Active confirmed Problem 609249353 Left lower quadrant pain (R10.32) Active confirmed Problem 131227457 Abdominal bloati ng (R14.0) Active confirmed Problem 50565330 Encounter for other preprocedural examination (Z01.818) Active confirmed Problem 974519974 Change in bowel habits (R19.4) Active confirmed Problem 258933643 Family history o f colon cancer (Z80.0) Active confirmed Problem 685844451 Abnormal CT scan , colon (R93.3) Active confirmed Problem 372531375 Long-term use of aspirin therapy (Z79.82) Active confirmed Problem 31758698 Hypertension, unspecified type (I10) Active confirmed Vital Signs Blood pressure diastolic 00 mm Hg 11/30/2023 Height 65 in 11/30/2023 Blood pressure systolic 00 mm Hg 11/30/2023 Weight 151 lbs 11/30/2023 BMI 25.12 kg/m2 11/30/2023 Encounters Encounter Location Date Provider Diagnosis [facility] Out[facility] [address] [place], [place] [phone] 12/08/2023 Markus Rahman Jr Abnormal abdominal ultrasound R93.5 ; Abdominal pain R10.9 and Colon polyps K63.5 [facility] [address] [place] [address] 11/30/2023 Markus Rahman Jr Ab[address] CT scan, colon R93.3 ; Left lower quadrant pain R10.32 and Long-term use of aspirin therapy Z79.82 [facility] [address] [place] [address] 10/12/2023 Markus Rahman Jr [facility] [address] [place] [address] 12/14/2023 Markus Rahman Jr Assessments Encounter Date Diagnosis (ICD Code) Assessment Notes Treatment Notes Treatment Clinical Notes Section Notes 12/08/2023 Abdominal pain (ICD-10 - R10.9) 12/08/2023 Abnormal abdominal ultrasound (ICD-10 - R93.5) 11/30/2023 Left lower quadrant pain (ICD-10 - R10.32) We reviewed her findings in detail today. This is unlikely to represent a colon cancer based on her previous colonoscopy evaluation. The cause of her severe abdominal pain is unclear, and has resolved. We will monitor this for the time being. She will undergo colonoscopy for further evaluation. She is aware risks and benefits and agrees to proceed. She is advised stop aspirin one week before the procedure. 11/30/[address] scan, colon (ICD-10 - R93.3) Colonoscopy material was printed We reviewed her findings in detail today. This is unlikely to represent a colon cancer based on her previous colonoscopy evaluation. The cause of her severe abdominal pain is unclear, and has resolved. We will monitor this for the time being. She will undergo colonoscopy for further evaluation. She is aware risks and benefits and agrees to proceed. She is advised stop aspirin one week before the procedure. 12/08/2023 Colon polyps (ICD-10 - K63.5) 11/30/2023 Long-term use of aspirin therapy (ICD-10 - Z79.82) We reviewed her findings in detail today. This is unlikely to represent a colon cancer based on her previous colonoscopy evaluation. The cause of her severe abdominal pain is unclear, and has resolved. We will monitor this for the time being. She will undergo colonoscopy for further evaluation. She is aware risks and benefits and agrees to proceed. She is advised stop aspirin one week before the procedure. Plan Of Treatment Future Test Test Name Order Date COLONOSCOPY 01/11/2017 COLONOSCOPY 11/30/2023 COLONOSCOPY 12/04/2023 Insurance Providers Payer Name Payer Address Payer Phone Subscriber Number Group Number Insured Name Patient Relationship to Insured Coverage Start Date Coverage End Date [facility] [address] [address] [place] [address] [id number] JODY CARROLL Self - patient is the insured Medical (General) History Medical History History ICD Code Hyperlipidemia Hypertension Osteoporosis Gastroesophageal reflux disease Colonoscopy 04/30, tubular adenoma, follo wup optional based on age Primary hyperparathyroidism Abnormal computed tomography of sigmoid colon R93.3 Surgical History Surgery Date(Month/Year) foot surgery hysterectomy
--- OUTSIDE RECORDS SUMMARY | 2024-04-25 18:24 | XMS_ITS ---
Author Organization [facility] Address [address] [place] [address] Care Team Providers Care Education Program Associate Name Role Phone Xavier WATSON, Daniel Primary Care Provider Unavailab Markus Lomeli Jr Unavailable [phone] Allergies Allergen (clinical drug ingredient) Drug/Non Drug Allergy documented on EMR Reaction Allergy Type Onset Date Status diphenhydramine Benadryl Unknown Drug Allergy A ctive dairy (uncoded) Unknown Allergy Acti ve REASON FOR VISIT Patient presents today for lower quadrant pain Medications Medication SIG (Take, Route, Frequency, Duration) [...] 20 MG TAKE 1 CAPSULE BY [facility] EVERY DAY AT 4 PM Oral [...] the procedure for 1 day 11/30/2023 Active Social History Tobacco Use: Social History [...] Problem Status W/U Status Risk Notes Problem 147320554 Abnormal CT scan, colon (R93.3) Active confirmed Problem 551599224 Left lower quadrant pain (R10.32) Active confirmed Problem 666463870 Long-term use of aspirin therapy (Z79.82) Active confirmed Vital Signs Blood pressure systolic 00 mm Hg 11/30/19 24 Blood pressure diastolic 00 mm Hg 024 Height 65 in 11/30/2023 Weight 151 lbs 11/30/2023 BMI 25.12 kg/m2 11/30/2023 Encounters Encounter Location Date Provider Diagnosis [facility] [address] [place] [address] 11/30/2023 Markus Rahman Jr Abnormal CT scan, colon R93.3 ; Left lower quadrant pain R10.32 and Long-term use of aspirin therapy Z79.82 Assessments Encounter Date Diagnosis (ICD Code) Assessment Notes Treatment Notes Treatment Clinical Notes Section Notes 11/30/[address] scan, colon (ICD-10 [...] aspirin one week before the procedure. 11/30/2023 Left lower quadrant pain (ICD-10 - [...] aspirin one week before the procedure. 11/30/2023 Long-term use of aspirin therapy (ICD-10 [...] week before the procedure. Plan Of Treatment Medication Medication Name Sig Start Date Stop Date Notes MiraLax (colon prep) 17 GM/SCOOP mixed with Gatorade or Crystal Light Orally begin at 5:00 p.m. the day before the procedure for 1 day 11/30/2023 Treatment Notes Assessment Notes Abnormal CT scan, colon Colonoscopy mate megha was printed Future Test Test Name Order Date COLONOSCOPY 11/30/2023 COLONOSCOPY 12/04/2023 Next Appt Details Follow Up: 1 Year, Reason: Progress Notes * JODY MEREDITHDOB:1945 (78 yo F)Acc No.[id number]:11/30/2023 Progress Notes Patient:?JODY MEREDITH Provider:?Markus Rahman MD :1945???Age:78 Y???Sex:Female D ate:11/30/2023 Address:[address] [place], [place] [id number] Pcp:Daniel Park MD Subjective: * Chief Complaints: * ???1. Patient presents today for lower quadrant pain. * HPI: ???New symptom(s):? Jody is a 78-year-old woman seen today in consultation. She previously underwent colonoscopy in 2018 with removal of a tubular adenoma. Followup at that time was optional based on age. ?She was seen in the emergency department earlier this year in September with abdominal pain. This was a sudden abdominal discomfort that was severe. There was no associated symptoms of GI bleeding, fevers, or chills. Laboratory studies were fairly unremarkable. CT scanning was obtained which showed focal wall thickening at the hepatic flexure for which colonoscopy was recommended. We reviewed her emergency department visit in detail today. ?Currently she feels well. She has no complaints of abdominal pain. She has no rectal bleeding. She does have a family history of colon cancer in her father. * ROS:?General/Constitutional:?Change in appetite?denies.?Fatigue?denies.?ENT:?Patient denies?difficulty swallowing.?Respiratory:?Patient denies?shortness of breath.?Cardiovascular:?Patient denies?chest pain.?Gastrointestinal:?Comments?See HPI for details.?Genitourinary:?Difficulty urinating?denies.?Incontinence?denies.?Musculoskeletal:?Patient denies?muscle aches.?Skin:?Patient denies?pruritis.?Neurologic:?Patient denies?low back pain.?Psychiatric:?Patient denies?mental or physical abuse.? * Medical History:?Hyperlipide alex, Hypertension, Osteoporosis, Gastroesophageal reflux disease, Colonoscopy 04/30, tubular adenoma, followup optional based on age, Primary hyperparathyroidism. * Surgical History:?foot surge ry , hysterectomy . * Family History:?Father: dece ased, dx with colon cancer in his late 70's, diagnosed with Colon cancer, HTN (hypertension).?Mother: , diagnosed with Heart disease, HTN (hypertension), Diabetes.?Siblings: alive, celiac disease.? * Social History:?Tobacco Use:?Tobacco Use/Smoking?Patient is a?nonsmoker.?Drugs/Alcohol:?Alcohol Screen?Did you have a drink containing alcohol in the past year??Yes,?How often did you have a drink containing alcohol in the past year??2 to 4 times a month (2 points),?How many drinks did you have on a typical day when you were drinking in the past year??1 or 2 drinks (0 point),?How often did you have 6 or more drinks on one occasion in the past year??Never (0 point),?Points?2,?Interpretation?Negative.?Miscellaneous:?Marital status: . Occupation: retired. * Medications:?Taking Aspirin Adult Low Dose 81 MG Tablet Delayed Release 1 tablet Orally Once a day, Taking Calcium + D 600-200 MG-UNIT Tablet 1 tablet Orally Twice a day, Taking Vitamin B12 1000 MCG Tablet Extended Release 1 tablet Orally Once a day, Taking Ezetimibe 10 MG Tablet TAKE 1 TABLET BY MOUTH DAILY Oral , Taking Omeprazole 20 MG Capsule Delayed Release TAKE 1 CAPSULE BY MOUTH EVERY DAY AT 4 PM Oral , Taking busPIRone HCl 5 MG Tablet TAKE 1 TABLET BY MOUTH TWICE DAILY NEEDED FOR ANXIETY Oral , Discontinued Pepcid 20 MG Tablet 1 tablet at bedtime Orally Once a day, Discontinued Gas-X 80 MG Tablet Chewable 1 tablet after meals and at bedtime as needed Orally Four times a day/prn, Discontinued Probiotic 250 MG Capsule 1 capsule Orally prn, Discontinued Magnesium 250 MG Tablet 1 tablet with a meal Orally Once a day, Medication List reviewed and reconciled with the patient * Allergies:?Benadryl, dairy. Objective: * Vitals:?Wt: 151 lbs, Ht: 65 in, BMI:25.12 Index, BP: 00/00 mm Hg. * Examination: ???General Examination: ?GENERAL APPEARANCE:?in no acute distress.?HEAD:?normocephalic.?EYES:?sclera non-icteric.?ORAL CAVITY:?mucosa moist.?NECK/THYROID:?no lymphadenopathy.?SKIN:?anicteric.?HEART:?S1, S2 normal, no murmurs.?LUNGS:?clear to auscultation bilaterally.?CHEST:?normal shape and expansion.?ABDOMEN:?soft, nontender, nondistended, bowel sounds present, no organomegaly .?EXTREMITIES:?no clubbing, cyanosis, or edema.?PSYCH:?cognitive function intact.? Assessment: * Assessment: 1.?Abnormal CT scan, colon - R93.3 (Primary)?2.?Left lower quadrant pain - R10.32?3.?Long-term use of aspirin therapy - Z79.82? We reviewed her findings in detail today. [...] stop aspirin one week before the procedure. Plan: * Treatment: 2.?Others? Start MiraLax (colon prep) Powder, 17 GM/SCOOP, mixed with Gatorade or Crystal Light, Orally, begin at 5:00 p.m. the day before the procedure, 1 day, 8.3 Ounce, Refills 0.?? * Procedure Orders:? * ?Procedure: COLONOSCOPY (Ordered for 11/30/2023) * Procedure Codes:?G9903 Pt sc rn tbco id as non user, G9744 PATIENT NOT ELIG D/T ACTIVE DX HTN * Preventive Medicine:? ??Urinary Incontinence:?Urinary Incontinence?Assessment:?Absent,?Plan of care documented:?No, reason not specified.? ??Screenings:?Fall Risk Screening?Fall Risk Assessment:?No falls in the past year,?Screening:?No falls in the past year,?Assessment:?Not performed, no reason specified,?Plan of Care:?Not documented, no reason specified.? * Follow Up:?1 Year * * Sign off status: Completed true * Provider:?Markus Rahman MD Date:?1 Generated for Neal virgen/Cynthia/eTmikesmitting on:?04/25/2024 06:24 PM EDT History and Physical Notes * HPI (History of Present Illness) Category Sub-Category Detail Notes Category Not es New symptom(s) Jody is a 78-year-old woman seen today in consultation. She previously underwent colonoscopy in 2018 with removal of a tubular adenoma. Followup at that time was optional based on age. She was seen in the emergency department earlier this year in September with abdominal pain. This was a sudden abdominal discomfort that was severe. There was no associated symptoms of GI bleeding, fevers, or chills. Laboratory studies were fairly unremarkable. CT scanning was obtained which showed focal wall thickening at the hepatic flexure for which colonoscopy was recommended. We reviewed her emergency department visit in detail today. Currently she feels well. She has no complaints of abdominal pain. She has no rectal bleeding. She does have a family history of colon cancer in her father. Examination Category Sub-Category Detail Notes Category Not es General Examination GENERAL APPEARANCE: in no acute di stress HEAD: normocephalic EYES: sclera non-icteric NECK/THYROID: no lymphadenopathy HEART: S1, S2 normal, no mu rmurs CHEST: normal shape and exp ansion LUNGS: clear to auscultatio n bilaterally ABDOMEN: soft, nontender, non distended, bowel sounds present, no organomegaly SKIN: anicteric EXTREMITIES: no clubbing, cyanosi s, or edema PSYCH: cognitive function i ntact ORAL CAVITY: mucosa moist
--- OUTSIDE RECORDS SUMMARY | 2024-04-25 18:24 | XMS_ITS ---
Author Organization [facility] Address [address] [place] [address] Care Team Providers Care Upholstery Sewer Name Role Phone Xavier WASTON, Daniel Primary Care Provider UnavailSaumya Hill Unavailable [phone] Allergies Allergen (clinical drug ingredient) Drug/Non Drug [...] 025 Encounters Encounter Location Date Provider Diagnosis [facility] [address] [place] [address] 02/22/2024 Saumya Harris Pain in right toe(s) [...] Provider Name:Saumya Kidd lobo, 07/15/2024 11:15:00 AM, [address] [place] [address], [phone], Progress Notes * Jody CARROLL ADOB: [birth year] (78 yo F)Acc No.[id number]:02/22/2024 Progress Note Patient:?Jody CARROLL Provider:?Saumya Harris DPM :1945???Age:78 Y???Sex:Female D ate:02/22/2024 [facility] Pcp:Daniel Park MD Subjective: * [...] 2. ?Exercise: yes, walking, exercise/dancing, classes at [email or web address] center, yoga. ?Marital status: . 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 * Medications:?TakingOmeprazol e 20 MG Capsule [...] Foot, AP, LO, MO, RIGHT??Taken by trained?Podiatric Multiple Spindle Router Operator (?EF).?Findings:? normal bone?density consistent for patients age [...] Uncertain (4)??? Plan: * Treatment: * Procedure Codes:?67923 X-RAY EXAM OF RIGHT FOOT 3V, Modifiers: [...] DPM Date:?0 02/22/2024 Generated for Printnevin ng/Faxing/eTransmitting on:?04/25/2024 06:24 PM EDT History and Physical [...] LO, MO, RIGHT Taken by trained Podiatric Multiple Spindle Router Operator ( EF) Clinical Indication(s): Evaluate for Fra cture
--- OUTSIDE RECORDS SUMMARY | 2024-04-25 18:24 | XMS_ITS ---
Author Organization [facility] Address [address] [place] [address] Care Team Providers Care Independent Insurance Adjuster Name Role Phone Xavier WATSON, Daniel Primary Care Provider Unavailab Saumya Christianson Unavailable [phone] REASON FOR VISIT injured RT FT Encounters Encounter Location Date Provider Diagnosis [address] [address] 02/20/2024 Saumya Harris Plan Of Treatment Next Appt Details Provider Name:Saumya diamond, 07/15/2024 11:15:00 AM, [address] [place] [address], [phone], Progress Notes * Jody CARROLL ADOB: (78 yo F)Acc No.[id number]:02/20/2024 Patient:?GLEN Jody Bueno :1945???Age:78 Y???Sex:Female Address:[place] [address] * true * Date:? Generated for Printi ng/Famarzenag/eTransmitting on:?04/25/2024 06:24 PM EDT
--- OUTSIDE RECORDS SUMMARY | 2024-04-25 18:24 | XMS_ITS ---
Author Organization [facility] Address [address] [place] [address] Care Team Providers Care Ground Intelligence Officer Name Role Phone Xavier WATSON, Daniel Primary Care Provider Unavailab Markus Lomeli Jr [phone] REASON FOR VISIT abnormal ct scan Encounters Encounter Location Date Provider Diagnosis [facility] [address] [place] [phone] 12/08/2023 Markus Rahman Jr Abnormal abdominal ultrasound R93.5 ; Abdominal pain R10.9 and Colon polyps K63.5 Assessments Encounter Date Diagnosis (ICD Code) Assessment Notes Treatment Notes Treatment Clinical Notes Section Notes 12/08/2023 Abnormal abdominal ultrasound (ICD-10 - R93.5) 12/08/2023 Abdominal pain (ICD-10 - R10.9) 12/08/2023 Colon polyps (ICD-10 - K63.5) Plan Of Treatment No Information Progress Notes * DAVID MEREDITHDOB:1945 (78 yo F)Acc No.[id number]:12/08/2023 COLON WITH MAC Patient:?DAVID MEREDITH Provider:?Markus Rahman MD :1945???Age:78 Y???Sex:Female D ate:12/08/2023 Address:[address] [place], [place] [phone] Pcp:Daniel Park MD Subjective: * Chief Complaints: * ???1. Abnormal ct scan. * Medical History:? Objective: * Vitals:? Assessment: * Assessment: 1.?Abnormal abdominal ultras ound - R93.5 (Primary)???2.?Abdominal pain - R10.9???3.?Colon polyps - K63.5??? Plan: * Treatment: * Procedure Codes:?86276 COLON OSCOPY AND BIOPSY, 0529F INTRVL 3+YRS PTS CLNSCP DOCD, 0528F RCMND FLW-UP 10 YRS DOCD, Modifiers: 1P * * The named appointment provid er may or may not be the originator of this progress note, and it is not deemed complete until electronically signed by the appointment provider. Sign off status: Pending * Provider:?Markus Rahman MD Date:?1 Generated for Neal virgen/Cynthia/Steveitting on:?04/25/2024 06:23 PM EDT
--- OUTSIDE RECORDS SUMMARY | 2024-04-25 18:24 | XMS_ITS ---
Author Organization [facility] Address [address] [place] [address] Care Team Providers Care Highway Maintenance Crew Worker Name Role Phone Xavier WATSON, Daniel Primary Care Provider Unavailab Markus Lomeli Jr [phone] REASON FOR VISIT pathology Encounters Encounter Location Date Provider Diagnosis [facility] [address] [place] [address] 12/14/2023 Markus Rahman Jr Plan Of Treatment No Information Progress Notes * DAVID MEREDITHDOB:1945 (78 yo F)Acc No.[id number]:12/14/2023 Patient:?DAVID MEREDITH :1945???Age:78 Y???Sex:Female Address:[address] [place], [place] [address], [address] * true * Date:? Generated for Printi param/Cynthia/eTransmitting on:?04/25/2024 06:23 PM EDT
--- OUTSIDE RECORDS SUMMARY | 2024-04-25 18:25 | XMS_ITS | Patient Health Record ---
Author Organization [facility] Address [address] [place] [address] Care Team Providers Care Oven Heater Name Role Phone YARITZA GARG Primary Care Provider TAMIE Navarro Unavailable [phone] Allergies Allergen (clinical drug ingredient) Drug/Non Drug [...] Status Risk Notes Problem Postmenopausal atrophic vaginitis (24895556) Postmenopausal atrophic vaginitis (N95.2) Active confirmed Plan Of Treatment Pending Test Test Name Order Date MM Digital Screening Mammogram 3D 2019 MM Digital Screening Mammogram 3D 2021 Insurance Providers Payer Name Payer Address Payer Phone Subscriber Number Group Number Insured Name Patient Relationship to Insured Coverage Start Date Coverage End Date [facility] [employer] [address] [address] [place] [address] [id number] DAVID MEREDITH Self - patient is the insured Medical (General) History Medical History History ICD Code Osteoporosis 733.0 COVID-19 U07.1 Surgical History Surgery Date(Month/Year) Hysterectomy 1979 Parathyroidectomy 01/2020 Left breast biopsy Hospitalization History Reason Date(Month/Year) childbirth
--- OUTSIDE RECORDS SUMMARY | 2024-04-25 18:25 | XMS_ITS | Clinical Summary ---
Author Organization [employer] Address [address] [facility] [address] [facility] [address] [place] [address] Care Team Providers Care Foundation Stage Teacher Name Role Phone Unavailable Primary Care Provider [...]
== END 2024-04-25 14:58 | disposition home or self-care (01) ==
LOC: HO.ENCR 14:35
PROVIDERS: PCP Family Medicine; Visit Provider Student in an Organized Health Care Education/Training Program
DX: E04.2 Nontoxic multinodular goiter (principal); M81.0 Age-related osteoporosis without current pathological fracture
CPT/HCPCS: 99213

== ENCOUNTER → 2024-04-25 14:34 | Outpatient (BNVA) | payer MEDICARE, SELFPAY | PROVIDERS: PCP Family Medicine; Visit Provider Student in an Organized Health Care Education/Training Program | DX: E04.2 Nontoxic multinodular goiter (principal); M81.0 Age-related osteoporosis without current pathological fracture | CPT/HCPCS: 99212 ==

== ENCOUNTER 2024-07-10 13:26 | Outpatient (REF) | payer MEDICARE, SELFPAY ==
--- OUTSIDE RECORDS SUMMARY | 2024-07-10 14:20 | XMS_ITS | Patient Health Record ---
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 Problem Acquired hammer toe of right foot (766637149331901 5) Other hammer toe(s) (acquired), right foot (M20.41) Active confirmed Vital Signs Blood pressure diastolic 80 mm Hg 02/22/2024 Height 5 ft 5 in in 02/22/2024 Blood pressure systolic 120 mm Hg 02/22/2024 Weight 144 lbs 02/22/2024 BMI 23.96 kg/m2 02/22/2024 Encounters Encounter Location Date Provider Diagnosis [address] [address] 11/13/2023 Francesco Oleary Tinea unguium B35.1 ; Ingrowing nail L60.0 ; Plantar fascial fibromatosis M72.2 ; Pain in right foot M79.671 ; Other hammer toe(s) (acquired), right foot M20.41 ; Xerosis cutis L85.3 ; Pain in right toe(s) M79.674 ; Pain in left toe(s) M79.675 and Abrasion of toe of left foot, initial encounter S90.415A [facility] [address] 02/22/2024 Saumya Harris Pain in right toe(s) M79.674 and Contusion of lesser toe of right foot without damage to nail, initial encounter S90.121A [facility] [address] [address] 10/10/2023 Francesco Oleary [address] [address] 02/20/2024 Saumya Harris Assessments Encounter Date Diagnosis [...] X ray : Foot, right 3V 02/22/2024 01829-ZFKAAMC NAIL, 1-5 01/16/2013 44243-Fnbfkuma Plate 05/03/2012 76938-Mfsvqpmx Plate 01/16/2013 79564-Upptuxrs Plate 07/03/2013 21333-Xyzaxooh Plate 12/31/2014 10418-Nmyinuot Plate Each Additional 05/2012 89643- Debride <25 sq cm 02/04/2013 48199- Debride <25 sq cm 11/30/2011 54189- Nail Unit Biopsy 06/07/2017 Next Appt Details Provider Name:Saumya Marti diamond, 07/15/2024 11:15:00 AM, [address] [place], [address], Insurance Providers Payer Name Payer Address Payer Phone Subscriber Number Group Number Insured Name Patient Relationship to Insured Coverage Start Date Coverage End Date [employer] Medicare Complete [address] [address] [place] [address] [id number] Jody Carroll Self - patient is the insured Medical (General) History Medical History History ICD Code back, hip, knee pain measles mumps chicken pox covid-19 Surgical History Surgery Date(Month/Year) right foot hammertoe repair hysterectomy vericose vein surgery bilateral legs Condylectomy and hammertoe repair left biopsy on thyroid 10/24/19 parathyroidectomy 03/2020
[2024-07-10 15:45] LABS: Calcium 8.9 mg/dL (8.4-10.2)
[2024-07-10 15:49] LABS: Anion Gap 12 (12-20); Blood Urea Nitrogen 16 mg/dL (9-16); Carbon Dioxide 24 mmol/L (22-29); Chloride 109 mmol/L (96-108); Estimated Glomerular Filt Rate > 60; Potassium 3.7 mmol/L (3.3-5.1); Sodium 141 mmol/L (135-145)
[2024-07-14 06:30] LABS: Collagen Type I C-Telopeptide 58 pg/mL (see note)
== END 2024-07-10 13:27 | disposition home or self-care (01) ==
LOC: HO.LAB 13:26
PROVIDERS: Student in an Organized Health Care Education/Training Program; PCP Family Medicine; Visit Provider Family Medicine
DX: I10 Essential (primary) hypertension (principal); M81.0 Age-related osteoporosis without current pathological fracture; E83.52 Hypercalcemia
CPT/HCPCS: 36415; 80051; 82310; 82523; 82565; 84520

== ENCOUNTER 2024-07-31 08:45 | Outpatient (REF) | payer MEDICARE, SELFPAY ==
--- OUTSIDE RECORDS SUMMARY | 2024-01-16 05:00 | XMS_ITS | Continuity of Care Document ---
Author Organization [facility] Address [address] [place] [address] Phone Care Team Providers Care Net Web Developer Name Role Phone Landon WATSON, RVT, MARY [...] Mins- CT & [place] [facility], [address] [place] [address] Dr Khan 1000[facility] [place] Brunson MD, [id number], tel:[phone] CVR - [place] - [place] Cramp and spasmRestless legs syndromeVenou s insufficiency (chronic) (peripheral)P ruritus, unspecified 4 Landon WATSON RVT, MARY JO Gardiner. [address] [place] [address], [id number], [place]. tel:[phone] Referring Provider: Daniel Park MD S, [address] [place] [address], [address]. tel:[phone] [facility], [address] [place] [address] Dr Khan 1000[facility] Kat[place] Brunson MD, [id number], [place] tel:[phone] CVR - [place] - [place] Pain in right leg 4 Landon WATSON RVT, MARY JO Gardiner. [address] [place] [address], [id number], [place]. tel:[phone] Referring Provider: Daniel Park MD S, [address] [place] [address] [place] [address], [address]. tel:[phone] Office/Outpt E&M Established 15 Mins- CT & [place] [facility], [address] [place] [address] Dr Khan 1000[facility] [place] Brunson MD, [id number], [place] tel:[phone] CVR - [place] - [place] Cramp and spasmRestless legs syndromeVenou s insufficiency (chronic) (peripheral)P ruritus, unspecified 4 Landon WATSON RVT, MARY JO Gardiner. [address] [place] [address] d, [place], [id number], [place]. tel:[phone] Referring Provider: Daniel Park MD S, [address] [place] [address] Dr Suite [facility], [place], [address]. tel:[phone] [facility], [address] [place] [address] Dr Khan 1000[address] 1000[place], [id number], [place] tel:[phone] CVR - [place] - [place] Localized swelling, mass and lump, right lower limbChronic venous hypertension (idiopathic) with other complications of right lower extremity Madhu-0 4 Landon WATSON RVT, MARY JO Gardiner. [address] [facility] [address], [place], [id number], [place]. tel:[phone] Referring Provider: Daniel Park MD S, [address] [place] [address] Suite [facility], [place], [address]. tel:[phone] [facility], [address] [place] [address] [address] 1000[place], [id number], [place] tel:[phone] CVR - [place] - [place] Encounter for follow-up examination after completed treatment for conditions other than malignant neVaricose veins of right lower extremity with pain Apr-1 4 Landon WATSON RVT, MARY JO Gardiner. [address] [facility] [address], [place], [id number], [place]. tel:[phone] Referring Provider: Daniel Pakr MD S, [address] [place] [address] Dr Suite [facility], [place], [address]. tel:[phone] [facility], [address] [place] [address] [address], [id number], [place] tel:[phone] CVR - [facility] Varicose veins of right lower extremity with other complications Apr-0 4 Conner Terry. [address] [facility] [address], [place], [id number], [place]. tel:[phone] Referring Provider: Daniel Park MD S, [address] [place] [address] Dr Suite [facility], [place], [address]. tel:[phone] [facility], [address] [place] [address] Dr Khan 1000Suite [place] Brunson [place], [id number], [place] tel:[phone] CVR - [place] - [place] Encounter for follow-up examination after completed treatment for conditions other than malignant neVaricose veins of right lower extremity with pain Apr-0 4 Landon WATSON RVT, MARY JO Gardiner. [address] [place] [address], [place], [id number], [place]. tel:[phone] Referring Provider: Daniel Park MD S, [address] [place] [address] Dr [address], [place], [address]. tel:[phone] [facility], [address] [place] [address] Dr Khan 1000Suite 1000[place], [id number], [place] tel:[phone] [facility] - [place] Chronic venous hypertension (idiopathic) with inflammation of right lower extremity Apr-0 4 Landon WATSON RVT, MARY JO Gardiner. [address] [place] [address], [place], [id number], [place]. tel:[phone] Referring Provider: Daniel Park MD S, [address] [place] [address] Dr [address], [place], [address]. tel:[phone] Offic/outpt E&m Estab 5 Min Trial - Telemedicine [facility], [address] [place] [address] Dr Khan 1000Suite [place] Brunson [place], [id number], [place] tel:[phone] CVR [facility] Cramp and spasmRestless legs syndromeVenou s insufficiency (chronic) (peripheral)P ruritus, unspecified Mar-0 4 Conner Terry. [address] [facility] [address], [place], [id number], [place]. tel:[phone] Referring Provider: Daniel Park MD S, [address] [place] [address] Dr [address], [place], [address]. tel:[phone] Office/Oupt E&M New Pt 45 Mins [facility], [address] [place] [address] Dr Khan 1000Suite 1000[place], [id number], [place] tel:[phone] CVR - [facility] Varicose veins of bilateral lower extremities with other complications Pain in right lower legPain in left lower legPain in right legRestless legs syndromePruri tus, unspecifiedPa in in left legCramp and spasm 4 Landon WATSON RVT, MARY JO Gardiner. [address] [facility], [address], [place], [id number], [place]. tel:[phone] Referring Provider: Daniel Park MD S, [address] [place] [address] Dr [address], [place], [address]. tel:[phone] [facility], [address], [place], [id number], [place] tel:[phone] CV - [facility] Chronic venous hypertension (idiopathic) with other complications of bilateral lower extremity 4 Landon WATSON RVT, MARY JO Gardiner. [address] [facility], [facility] [address], [place], [id number], [place]. tel:[phone] Referring Provider: Daniel Park MD S, [address] [place] [address] Dr [address], [place], [address]. tel:[phone] Family History Family Member Type Diagnosis Age At Onset No Information Payers Payer name Insurance type Covered alliance party ID Authoriza tion(s) [facility] AARP Medic are Complete CI [id number] Social History Type Description Quantity Date Captured [...] booklet given Related to Cramp and spasm Lifestyle education Related to B tatyana mass index (BMI) 25.0-25.9, adult Giving Encouragement to exercise Related to Body mass index (BMI) 25.0-25.9, adult Diet education Related to Body mass index (BMI) 25.0-25.9, adult Patient education [...]
--- NOTE | 2024-07-31 09:55 | PM.PROC ---
Brief Operative Note Date of procedure: 07/31/24 Pre-op diagnosis: left lower 2.2 cm and right lower 1.9 cm thyroid nodule FNA biopsy Post-op diagnosis: same Procedure: THYROID FINE NEEDLE ASPIRATION PROCEDURE NOTE ? PROCEDURE PERFORMED: Ultrasound-guided FNA of thyroid nodule ? OPERATORS: Dr. Rena Diamond ? INDICATION: left lower 2.2 cm and right lower 1.9 cm thyroid nodule FNA biopsy; FNA performed to assess for malignancy ? DESCRIPTION OF PROCEDURE: The indications for FNA (to assess for malignancy) were reviewed with the patient in detail. Potential complications (e.g., bleeding, infection, damage to local structures, absence of clear diagnosis after FNA) were reviewed. Alternatives to FNA including conservative observation or surgery were described. The patient understood and agreed to proceed. This was documented by the signing of the written informed consent form. A time-out was performed to confirm the patient's identity and the site of planned FNA. The nodules of interest was identified using ultrasound (14 MHz linear array probe). The sites of FNA was then draped in the usual fashion and carefully cleaned and prepared using alcohol swabs. The skin at the previously-identified sites of needle insertion was iced and sprayed with numbing spray. first for the left nodule , Under ultrasound guidance, _5_ passes were performed using a 1.5-inch, 25-gauge needle, and sample was obtained via capillary action. The needle tip was clearly visualized to be within the nodule at the time of sampling for _5_ of 5__ passes Then for the right nodule, Under ultrasound guidance, _5_ passes were performed using a 1.5-inch, 25-gauge needle, and sample was obtained via capillary action. The needle tip was clearly visualized to be within the nodule at the time of sampling for _5_ of 5__ passes The patient tolerated the procedure well. There were no immediate complications. A small adhesive bandage was applied, and the patient was advised to take acetaminophen (rather than NSAIDs) for any discomfort and to report any signs of inflammation/infection or marked swelling. IMPRESSION: Technically successful ultrasound-guided fine needle aspiration of left lower 2.2 cm and right lower 1.9 cm thyroid nodules. PLAN: The patient was advised that I will provide follow-up regarding the cytology result and any subsequent plans. Rena Diamond MD Endocrinology Attending Condition: stable Disposition: same day
== END 2024-07-31 08:46 | disposition home or self-care (01) ==
LOC: HO.US 08:45
PROVIDERS: PCP Family Medicine; Visit Provider Student in an Organized Health Care Education/Training Program
DX: E04.2 Nontoxic multinodular goiter (principal)
CPT/HCPCS: 10005; 10006; 88173; 88305

== ENCOUNTER → 2024-07-31 08:45 | Outpatient (BNV) | payer MEDICARE, SELFPAY | PROVIDERS: PCP Family Medicine; Visit Provider Student in an Organized Health Care Education/Training Program | DX: E04.2 Nontoxic multinodular goiter (principal) | CPT/HCPCS: 10005; 10006 ==

== ENCOUNTER 2024-08-14 12:24 | Outpatient (AMB) | payer MEDICARE, SELFPAY ==
--- OUTSIDE RECORDS SUMMARY | 2023-12-08 08:40 | XMS_ITS ---
Author Organization [facility] Address [address] [place] [address] Care Team Providers Care Security Professional Name Role Phone Xavier WATSON, Daniel Primary Care Provider Unavailab Markus Lomeli Jr REASON FOR VISIT abnormal ct scan Encounters Encounter Location Date Provider Diagnosis [facility] Out[facility] [address] [place] [phone] 12/08/2023 Markus Rahman Jr Abnormal abdominal ultrasound R93.5 ; Abdominal pain R10.9 and Colon polyps K63.5 Assessments Encounter Date Diagnosis (ICD Code) Assessment Notes Treatment Notes Treatment Clinical Notes Section Notes 12/08/2023 Abnormal abdominal ultrasound (ICD-10 - R93.5) 12/08/2023 Abdominal pain (ICD-10 - R10.9) 12/08/2023 Colon polyps (ICD-10 - K63.5) Plan Of Treatment No Information Progress Notes * DAVID MEREDITHDOB:1945 (79 yo F)Acc No.[id number]:12/08/2023 COLON WITH MAC Patient: DAVID GOMEZ Provider: Jonatan Rahman MD :1945 A ge:78 Y S ex:Female Date:12/08/2023 Address:[address] [place], [place] [phone] Pcp:Daniel Park MD Subjective: * Chief Complaints: * 1 [...] 1 Generated for Neal virgen/Cynthia/Steveitting on: 0 08/14/2024 12:58 PM EDT
--- OUTSIDE RECORDS SUMMARY | 2024-01-16 05:00 | XMS_ITS | Continuity of Care Document ---
Author Organization [facility] Address [address] [place] [address] Phone Care Team Providers Care Commissary Officer Name Role Phone Landon WATSON, RVT, MARY JO, Abdifatah Rendon U navailable Procedures Procedure Date Office/Outpt E&M Established 15 Mins- CT & [place] Duplex Scan-extrem Veins; Uni/ CT & [place] D Office/Outpt E&M Established 15 Mins- CT & [place] Surgical Stockings CVR Reveal Knee High - Duplex Scan-extrem Veins; Uni/ CT & MA J Duplex Scan-extrem Veins; Uni/ CT & [place] A Inj Scleros Solut; Mx Veins 1- CT & MA A Ultrason Guidan Needle Bx-rad- CT & MA A Duplex Scan-extrem Veins; Uni/ CT & MA A Endovenous Laser, 1st Vein- CT & [place] Inj Scleros Solut; Mx Veins 1- CT & MA A Ultrason Guidan Needle Bx-rad- CT & MA A Offic/outpt E&m Estab 5 Min Trial - Tele medicine Office/Oupt E&M New Pt 45 Mins Duplex Scan-extrem Veins; Comp Advance Directives Directive Yes / No Effective Date File Name Other Directive No 01/16/2024 N/A WARNING:The information contained in this section is historical and is provided for information only and does not constitute a legal document or any assurance that the information is still accurate. Please verify the information with the dubois of the legal document before using it for clinical purposes. Encounters Encounter Description Practice Location Reason(s) For Visit Diagnoses Date Provider Providers Copied on Encounter Office/Outpt E&M Established 15 Mins- CT & [place] [facility], [address] [place] [address] Dr Khan 1000[facility] [place] Brunson MD, [id number], tel:[phone] CVR - [place] Cramp and spasmRestless legs syndromeVenou s insufficiency (chronic) (peripheral)P ruritus, unspecified 4 Landon WATSON RVT, MARY JO Gardiner. [address] [place] [address], [id number], [place]. tel:[phone] Referring Provider: Daniel Park MD S, [address] [place] [address], [address]. tel:[phone] [facility], [address] [place] [address] Dr Khan 1000[facility] [place] Brunson [place], [id number], [place] tel:[phone] CV[place] - [place] Pain in right leg 4 Landon WATSON RVT, MARY JO Gardiner. [address] [place] [address], [id number], [place]. tel:[phone] Referring Provider: Daniel Park MD S, [address] [place] [address] [place] [address], [address]. tel:[phone] Office/Outpt E&M Established 15 Mins- CT & [place] [facility], [address] [place] [address] Dr Khan 1000[facility] [place] Brunson MD, [id number], [place] tel:[phone] CVR - [place] Cramp and spasmRestless legs syndromeVenou s insufficiency (chronic) (peripheral)P ruritus, unspecified 4 Landon WATSON RVT, MARY JO Gardiner. [address] [place] [address] d, [place], [id number], [place]. tel:[phone] Referring Provider: Daniel Park MD S, [address] [place] [address] Dr Suite [facility], [place], [address]. tel:[phone] [facility], [address] [place] [address] Dr Khan 1000[address], [id number], [place] tel:[phone] CVR - [place] Localized swelling, mass and lump, right lower limbChronic venous hypertension (idiopathic) with other complications of right lower extremity Madhu-0 4 Landon WATSON RVT, MARY JO Gardiner. [address] [facility] [address], [place], [id number], [place]. tel:[phone] Referring Provider: Daniel Park MD S, [address] [place] [address] Suite [facility], [place], [address]. tel:[phone] [facility], [address] [place] [address] [address], [id number], [place] tel:[phone] CVR - [place] - [place] Encounter for follow-up examination after completed treatment for conditions other than malignant neVaricose veins of right lower extremity with pain Apr-1 4 Landon WATSON RVT, MARY JO Gardiner. [address] [facility] [address], [place], [id number], [place]. tel:[phone] Referring Provider: Daniel Park MD S, [address] [place] [address] Dr Suite [facility], [place], [address]. tel:[phone] [facility], [address] [place] [address] [address], [id number], [place] tel:[phone] CVR - [facility] Varicose veins of right lower extremity with other complications Apr-0 4 Conner Terry. [address] [facility] [address], [place], [id number], [place]. tel:[phone] Referring Provider: Daniel Park MD S, [address] [place] [address] Dr Suite [facility], [place], [address]. tel:[phone] [facility], [address] [place] [address] Dr Khan 1000Suite [place] Brunson MD, [id number], [place] tel:[phone] CVR - [place] - [place] Encounter for follow-up examination after completed treatment for conditions other than malignant neVaricose veins of right lower extremity with pain Apr-0 4 Landon WATSON RVT, MARY JO Gardiner. [address] [place] [address], [place], [id number], [place]. tel:[phone] Referring Provider: Daniel Park MD S, [address] [place] [address] Dr [address], [place], [address]. tel:[phone] [facility], [address] [place] [address] Dr Khan 1000[address] 1000[place], [id number], [place] tel:[phone] [facility] - [place] Chronic venous hypertension (idiopathic) with inflammation of right lower extremity Apr-0 4 Landon WATSON RVT, MARY JO Gardiner. [address] [place] [address], [place], [id number], [place]. tel:[phone] Referring Provider: Daniel Park MD S, [address] [place] [address] Dr [address], [place], [address]. tel:[phone] Offic/outpt E&m Estab 5 Min Trial - Telemedicine [facility], [address] [place] [address] Dr Khan 1000Suite [place] Brunson [place], [id number], [place] tel:[phone] CVR [facility] Cramp and spasmRestless legs syndromeVenou s insufficiency (chronic) (peripheral)P ruritus, unspecified Mar-0 4 Conner Terry. [address] [facility] [address], [place], [id number], [place]. tel:[phone] Referring Provider: Daniel Park MD S, [address] [place] [address] Dr [address], [place], [address]. tel:[phone] Office/Oupt E&M New Pt 45 Mins [facility], [address] [place] [address] Dr Khan 1000Suite 1000[place], [id number], [place] tel:[phone] CVR - [facility] Varicose veins of bilateral lower extremities with other complications Pain in right lower legPain in left lower legPain in right legRestless legs syndromePruri tus, unspecifiedPa in in left legCramp and spasm 4 Landon WATSON RVT, MARY JO Gardiner. [address] [facility], [address], [place], [id number], [place]. tel:[phone] Referring Provider: Daniel Park MD S, [address] [place] [address] Dr [address], [place], [address]. tel:[phone] [facility], [address], [place], [id number], [place] tel:[phone] CV - [facility] Chronic venous hypertension (idiopathic) with other complications of bilateral lower extremity 4 Landon WATSON RVT, MARY JO Gardiner. [address] [facility], [facility] [address], [place], [id number], [place]. tel:[phone] Referring Provider: Daniel Park MD S, [address] [place] [address] Dr [address], [place], [address]. tel:[phone] Family History Family Member Type Diagnosis Age At Onset No Information Payers Payer name Insurance type Covered green party ID Authoriza tion(s) [facility] AARP Medic are Complete CI [id number] Social History Type Description Quantity Date Captured Comments Alcohol Use Details Unknown Caffeine Use Details Unknown Tobacco Use Status Current non-smoker Smoking Status Never Smoker Non-Smoking Tobacco Use Details : No Details Available : No Details Available Sex Female Vital Signs Date / Time: Height Weight BMI Pulse Rate Blood Pressure Temperature Respiratory Rate Body Surface Area Head Circumference Head Circ. Percentile Wt./Markus. Percentile BMI percentile Pulse Ox Inhaled Ox 66.680 kg (147.00 lbs) 25.2 8 kg/m eter (2) 134/84 mm[Hg] Chief Complaint And Reason For Visit No Information Reason For Referral Reason For Referral No Information Plan Of Treatment Date Type Action Status Goal Diet education completed Goal Diet education completed Goal Diet education completed Referral Ordered: Weight management: Referral to physician timeframe: 3 Months (related to Body mass index (BMI) 25.0-25.9, adult) ordered Referral Ordered: Weight management: Referral to physician timeframe: 3 Months (related to Body mass index (BMI) 25.0-25.9, adult) ordered Referral Ordered: Weight management: Referral to physician timeframe: 3 Months (related to Body mass index (BMI) 25.0-25.9, adult) ordered History Of Present Illness Encounter Date Complaint History Of Prese nt Illness No Information Functional Status Date Functional Assessmen t No Information Instructions Date Instruction Additional Infor mation Diet education Related to Body mass index (BMI) 25.0-25.9, adult Giving Encouragement to exercise Related to Body mass index (BMI) 25.0-25.9, adult Lifestyle education Related to B tatyana mass index (BMI) 25.0-25.9, adult Compression stocking usage as conservative measure Related to Cramp and spasm Patient education booklet given Related to Cramp and spasm Diet education Related to Body mass index (BMI) 25.0-25.9, adult Giving Encouragement to exercise Related to Body mass index (BMI) 25.0-25.9, adult Lifestyle education Related to B tatyana mass index (BMI) 25.0-25.9, adult Patient education booklet given Related to Cramp and spasm Patient education booklet given Related to Cramp and spasm Pre and post instruc tions reviewed and provided Related to Varicose veins of bilateral lower extremities with other complications Patient education booklet given Related to Varicose veins of bilateral lower extremities with other complications Lifestyle education Related to B tatyana mass index (BMI) 25.0-25.9, adult Giving Encouragement to exercise Related to Body mass index (BMI) 25.0-25.9, adult Diet education Related to Body mass index (BMI) 25.0-25.9, adult Assessments Type Assessment Date No Information Patient Care Teams Name Effective Dates (start - stop) Status Members No Information
--- NOTE | 2024-08-14 12:27 | MHC.OFFVIS ---
Vital Signs 08/14/24 12:28 Height 5 ft 4 in Weight 149 lb 0.52 oz BMI 25.6 BP 108/62 Blood Pressure Location Lt brachial Position Sitting Pulse 97 Pulse Source Pulse Oximeter Pulse Oximetry (%) 97 Oxygen Delivery Method Room Air Intake Visit Reasons: f/u FNA biopsy Intake Note: Patient present today for FNA biopsy follow up visit. Well Testing Operator Required: No Accompanied by: Spouse Allergies From BENADRYL Allergy (Unknown, Uncoded 08/14/24 12:33) RACING HEART Medication List - Last Reconciled 08/14/24 by Rena Diamond MD amlodipine 5 mg PO DAILY aspirin 81 mg PO DAILY calcium carbonate 600 mg PO DAILY cholecalciferol (vitamin D3) 50 mcg PO DAILY 90 days denosumab (Prolia) 60 mg subcut [id number] estradiol 0.01%(0.1mg/gram) grams vaginal 2XW ezetimibe 10 mg PO DAILY omeprazole 20 mg PO DAILY HPI Comments Details: 78-year-old female here today for follow up of multinodular goiter and osteoporosis with a history of primary hyperparathyroidism status post parathyroidectomy of right superior, left superior, left inferior parathyroid glands in March 2020. Multinodular goiter 04/30/2019: FNA of the right midpole nodule 1.8 cm with IR was nondiagnostic 10/24/2019: FNA biopsy of the right superior, right mid, isthmus nodule with benign cytology and FNA biopsy of the left inferior pole nodule with nondiagnostic cytology 01/02/2020: FNA biopsy of the left inferior pole nodule with benign cytology, [place] category 2. Last thyroid ultrasound done 09/2023 showed , I reviewed the images myself which showed the right superior nodule which has been biopsied before in 2019 with benign cytology measuring 1.8 cm in maximum dimension, solid isoechoic, TR 3 nodule which is gone up from 1.7 cm in maximum dimension, the right midpole nodule remained subcentimeter which is a solid very hypoechoic TR 4 category nodule but is much smaller compared to previous ultrasound in 2021 when it measured 1.6 cm in the maximum dimension, however was previously commented on as TR 3 nodule and isoechoic, the right lower pole nodule has had significant change in size which now measures 2.2 cm in the maximum dimension and previously was 1.9 cm in the maximum dimension, also this has not been biopsied before? This is TR 4 category nodule solid, hypoechoic. The right isthmus nodule which has also been biopsied before and 2019 with benign cytology has gone up from 1 X 0.6 X 1.5 cm to 1.6 X 0.7 X 1.3 cm. I would say this is minimal interval change in this TR 3 category nodule. The left lower pole nodule which was also biopsied in 2019 with benign cytology has also changed significantly in size from 1.6 X 0.9 x 1.8 cm to 2.1 X 1.3 X 2.2 cm in size, TR 3 nodule solid, isoechoic. My interpretation has a lot of these nodules have had some increase in size, however at this time since the right lower pole nodule was not biopsied before per chart review, we can do a biopsy of this. The left inferior nodule has also significantly increased in size and is a 2.2 cm TR 3 category nodule, we will biopsy this as well. The others we can watch with plan for repeat ultrasound in September 2024. Otherwise no history of head or neck radiation. No family history of thyroid cancer. No compressive symptoms Thyroid labs done 03/09 normal interval history 04/10/2024: FNA biopsies of both the right inferior 1.9 cm and the left inferior 2.1 cm nodules came back as nondiagnostic [place] category 1. 07/31/2024: Repeat FNA biopsies of both the right inferior 1.9 cm in the left inferior 2.2 cm nodules again came back as nondiagnostic, [place] category 1. Osteoporosis History of primary hyperparathyroidism status post parathyroidectomy of right superior, left superior, left inferior parathyroid glands Patient with a history of primary hyperparathyroidism status post parathyroidectomy of right superior, left superior, left inferior parathyroid glands in March [address] Vo with intra op PTH dropping from 99-15. She has a history of osteoporosis diagnosed in her 40s. History of hysterectomy but not oophorectomy at age 37, was on Premarin for 10 years stopped at age 54. Treament history age 41 to age 51: alendronate 70 mg weekly for 10 years. Age 51 to age 56: drug holiday Age 56: tried to reintroduce alendronate, couldnt tolerate due to worsening GERD Then not on anything for 20 or so years from 2002 to 2022 Tymlos March 2022 to September 2023 Prolia 1st injection September 2023 Prolia 2nd injection administered 03/28/2024 Has positive family history of osteoporosis in mother with spine fracture in her 60s. Never smoker No steroids No antiseizure medications Has been on PPI for a while due to GERD No history of fracture Secondary workup was negative including 24 hour urine calcium level. Fracture of right toe January 2024, no toher fractures, fall resulted in this fracture Vitamin D 2000 units daily but regular about taking it for the past few months Calcium: yogurt: once a day, cheese: occasionally , maybe on a calcium supplement too we are not sure how much Physical exam General: sitting comfortably in no acute distress HEENT: normocephalic/atraumatic, Neck: supple, palpable 2 cm left-sided nodule, palpable 2 cm right-sided nodule Cardiac: normal heart sounds Pulm: normal breath sounds B/L, no added breath sounds Abd: not distended, no tenderness Extremities: no edema, no signs of myxedema Laboratory Tests 12/08/21 06/28/22 07/15/22 07:00 09:59 05:00 Sodium Potassium Creatinine Estimated GFR Calcium Phosphorus Magnesium Albumin Renin 1.14 Aldosterone 7 25-OH Vitamin D Total TSH 1.35 Free T4 0.87 Plasma Free Metaneph 77 H Plasma Free Normeta 119 Plas Total Metaneph 196 Ur 24 Hour Volume 1000 1150 Ur Creatinine mg/dL 100.12 80.99 Ur Creatinine 24 Hour 1.0 0.9 L Ur Sodium 24 Hour 92.0 Ur Calcium 24 Hr 114 Calcium/Creat 24 Hr 118 Urine Total Volume 1150 U Free Metanephrine 167 U Normetanephrine 24h 351 U Tot Metanephrine 24h 518 03/25/24 09:07 Sodium 140 Potassium 3.8 Creatinine 0.74 Estimated GFR > 60 Calcium 8.7 Phosphorus 2.1 L Magnesium 2.1 Albumin 4.1 Renin Aldosterone 25-OH Vitamin D Total 33.6 TSH 1.51 Free T4 0.92 Plasma Free Metaneph Plasma Free Normeta Plas Total Metaneph Ur 24 Hour Volume Ur Creatinine mg/dL Ur Creatinine 24 Hour Ur Sodium 24 Hour Ur Calcium 24 Hr Calcium/Creat 24 Hr Urine Total Volume U Free Metanephrine U Normetanephrine 24h U Tot Metanephrine 24h Laboratory Tests 03/25/24 09:07 Creatinine 0.74 Estimated GFR > 60 Albumin 4.1 Collgn I C-Telopeptide 65 25-OH Vitamin D Total 33.6 TSH 1.51 Free T4 0.92 BONE DENSITOMETRY 08/2023 CLINICAL INDICATION: Age-related osteoporosis without current pathological fracture. COMPARISON: Previous BD dated 09/07/2021 and baseline BD dated 09/03/2019 for the left hip and left forearm radius 33%; this is the baseline for the spine. TECHNIQUE: Using a [employer] DXA System (software version: 13.1) manufactured by [employer], dual-energy x-ray absorptiometry was performed of the lumbar spine and left hip and left forearm radius 33%. The images are of good technical quality. Summary results are attached. FINDINGS: LEFT FEMUR, NECK: Current: BMD 0.421 g/cm2, Z-score -2.4, T-score -4.4, osteoporosis. Prior: BMD 0.501 g/cm2. Baseline: BMD 0.537 g/cm2. LEFT FEMUR, TOTAL: Current: BMD 0.452 g/cm2, Z-score -2.5, T-score -4.4, osteoporosis, 14.1% decrease from previous, 19.4% decrease from baseline (<5% change is not significant). Prior: BMD 0.526 g/cm2. Baseline: BMD 0.561 g/cm2. AP SPINE L1-L4: Current: BMD 0.878 g/cm2, Z-score -0.8, T-score -2.5, osteoporosis. LEFT FOREARM RADIUS 33%: BMD 0.463 g/cm2, Z-score -2.1, T-score -4.7, osteoporosis, 13.0% decrease from previous, 6.2% increase from baseline (<5% change is not significant). Prior: BMD 0.532 g/cm2. Baseline: BMD 0.436 g/cm2. IDENTIFIED RISK FACTORS: Bilateral oophorectomy, early menopause, hyperparathyroid, hysterectomy, low calcium intake, osteoporosis, secondary osteoporosis. HISTORY OF FRACTURE: None listed. MEDICATIONS: Calcium, vitamin D. MM/XR DEXA appendicular skeleton IMPRESSION: 1. DIAGNOSIS: Osteoporosis based on the lowest T-score value of -4.7 in the forearm radius 33% applying World Health Organization criteria. 2. 10-YEAR FRACTURE RISK PREDICTION, FRAX: According to the guidelines, FRAX calculation should only be performed on patients in the osteopenia bone density category. Therefore, FRAX was not performed on this patient. US THYROID 10/02/23 CLINICAL INFORMATION: Multinodular goiter COMPARISON: August 11, 2021 TECHNIQUE: Linear transducer grayscale and color Doppler examination with attention to the region of the thyroid. FINDINGS: SIZE: Measurements of the thyroid lobes and nodules are given in sagittal, anteroposterior and transverse dimensions respectively. Right Thyroid Lobe: 5.3 x 1.9 x 1.9 cm, volume 9.2 mL. Parenchyma: The gland echotexture is heterogeneous. Thyroid vascularity is hypervascular. Left Thyroid Lobe: 4.6 x 1.4 x 1.9 cm, volume 5.9 mL. Parenchyma: The gland echotexture is heterogeneous. Thyroid vascularity is hypervascular. Isthmus: 0.8 cm in maximum AP dimension. Estimated total number of nodules greater than or equal to 1 cm: 5. Blend Technician nodules are described as follows: 1. Location: Right upper. Size: 1.8 x 0.9 x 1.8 cm, volume 1.5 mL. Nodule characteristics: Composition: Solid (2). Echogenicity: Isoechoic (1). Shape: Not taller than wide (0). Margins: Ill-defined (0). Echogenic Foci: None (0). ACR TI-RADS total points: 3 ACR TI-RADS category: 3 2. Location: Right midpole. Size: 0.8 x 0.6 x 0.7 cm, volume 0.16 mL. Nodule characteristics: Composition: Solid (2). Echogenicity: Very hypoechoic 3 Shape: Not taller than wide (0). Margins: 0 Echogenic Foci: 0 ACR TI-RADS total points: 5 ACR TI-RADS category: 4 3. Location: Right lower pole. Size: 1.9 x 1.3 x 1.4 cm, volume 1.8 mL. Nodule characteristics: Composition: Solid (2). Echogenicity: Hypoechoic 2 Shape: Not taller than wide (0). Margins: Smooth (0). Echogenic Foci: None (0). ACR TI-RADS total points: 4 ACR TI-RADS category: 4 4. Location: Isthmus Size: 1.6 x 0.7 x 1.3 cm, volume 3.0 mL. Nodule characteristics: Composition: Solid (2). Echogenicity: Isoechoic (1). Shape: Not taller than wide (0). Margins: Smooth (0). Echogenic Foci: None (0). ACR TI-RADS total points: 3 ACR TI-RADS category: 3 5. Location: Lower pole, left Size: 2.1 1.3 x 2.2 cm, volume 3.0 mL. Nodule characteristics: Composition: Solid (2). Echogenicity: Isoechoic (1). Shape: Not taller than wide (0). Margins: Ill-defined (0). Echogenic Foci: None (0). ACR TI-RADS total points: 3 ACR TI-RADS category: 3 NODES: No lymphadenopathy is seen in the tissue surrounding the thyroid gland. US/US thyroid IMPRESSION: Multinodular goiter, minimal interval change [facility] Medical History (Updated 03/28/24 @ 10:07 by Rena Diamond MD) Palpitation Non-toxic multinodular goiter Osteoporosis Primary hyperparathyroidism Surgical History Status post fine needle aspiration Hx of parathyroidectomy Hx of left breast biopsy Hx of tonsillectomy Hx of hysterectomy Family History Father Rectal cancer Mother Heart disease Diabetes Brother Celiac disease Social History Household Members: Spouse Alcohol intake: current Alcohol intake frequency: a few times a month Alcohol type: wine Patient Tobacco Use Status: Never used Tobacco Physical Exam Vital Signs: BMI result Body Mass Index 25.6 Assessment & Plan Assessment & Plan (1) Non-toxic multinodular goiter: Code(s): E04.2 - Nontoxic multinodular goiter Category: Medical Plan: 78-year-old female with no family history of thyroid cancer with no personal history of head or neck radiation coming in today for follow up of multinodular goiter. She has multiple bilateral nodules and has had biopsies of the right superior, right mid, isthmus and left inferior nodules in 2019, with benign cytology. The right inferior nodule has never been biopsied. Last thyroid ultrasound done 09/2023 showed , I reviewed the images myself which showed the right superior nodule which has been biopsied before in 2019 with benign cytology measuring 1.8 cm in maximum dimension, solid isoechoic, TR 3 nodule which is gone up from 1.7 cm in maximum dimension, the right midpole nodule remained subcentimeter which is a solid very hypoechoic TR 4 category nodule but is much smaller compared to previous ultrasound in 2021 when it measured 1.6 cm in the maximum dimension, however was previously commented on as TR 3 nodule and isoechoic, the right lower pole nodule has had significant change in size which now measures 2.2 cm in the maximum dimension and previously was 1.9 cm in the maximum dimension, also this has not been biopsied before? This is TR 4 category nodule solid, hypoechoic. The right isthmus nodule which has also been biopsied before and 2019 with benign cytology has gone up from 1 X 0.6 X 1.5 cm to 1.6 X 0.7 X 1.3 cm. I would say this is minimal interval change in this TR 3 category nodule. The left lower pole nodule which was also biopsied in 2019 with benign cytology has also changed significantly in size from 1.6 X 0.9 x 1.8 cm to 2.1 X 1.3 X 2.2 cm in size, TR 3 nodule solid, isoechoic. My interpretation has a lot of these nodules have had some increase in size, however at this time since the right lower pole nodule was not biopsied before per chart review, we can do a biopsy of this. The left inferior nodule has also significantly increased in size and is a 2.2 cm TR 3 category, we will repeat biopsy of this as well. The others we can watch with plan for repeat ultrasound 04/10/2024: FNA biopsies of both the right inferior 1.9 cm and the left inferior 2.1 cm nodules came back as nondiagnostic [place] category 1. 07/31/2024: Repeat FNA biopsies of both the right inferior 1.9 cm in the left inferior 2.2 cm nodules again came back as nondiagnostic, [place] category 1. I discussed with her that her nodules are overall mildly To moderately suspicious.. Given that she has had prior biopsies with benign results that is reassuring. We discussed with her both options of diagnostic thyroidectomy or doing a repeat ultrasound next year just to watch with surveillance. I did discuss with her the risk of 5-10% risk of malignancy nodules which can potentially spread. However overall her nodules are not very high-risk. At this time we agreed on surveillance ultrasound. No compressive symptoms. Normal TFTs from February 2024. Plan: -ultrasound of the thyroid ordered for May 2025 and with follow up in June 2025 (2) Osteoporosis: Code(s): M81.0 - Age-related osteoporosis without current pathological fracture Category: Medical Qualifiers: Osteoporosis type: age-related Presence of current pathological fracture: without current pathological fracture Qualified Code(s): M81.0 - Age-related osteoporosis without current pathological fracture Plan: 78-year-old female with a history of osteoporosis diagnosed at age 39, with no prior fracture history, with the risk factors of PPI use, family history of osteoporosis, hyperparathyroidism. She is status post right superior, left superior, left inferior parathyroidectomy in March [address] Genny Vo at [facility], with intra op PTH dropping from 99-15. Now her risk factors are age, being postmenopausal, history of hyperparathyroidism and PPI use. She also has a history of hysterectomy at age 37, who was on Premarin up until age 54, no oophorectomy. She was on alendronate 70 mg weekly for 10 years from age 39 due to age 51, and then subsequently was on no treatment up until March 2022 when she was started on Tymlos and completed 1-1/2 years up until September 2023. Subsequently she has been on Prolia with 1st injection on September 2023 and 2nd injection administered on 03/28/2024. Her bone density from 2021 showed that she had 22% increase at her forearm which shows that she did a group bone after her parathyroid surgery but her T-score was still low at -3.9. T-score at the spine in 2021 was-3.6 with a 5.3% increase from the rate baseline which also shows a slightly significant increase. However she had a 6.2% decrease in her bone density at the hip and had a T-score of-3 point 9 at the left femoral neck in 2021. However clearly the bone density showed some significant accrual of bone after parathyroid surgery. Bone density from August 2023 showed T-score of -2.5 at the spine, T-score of-4.4 at the left femoral total and-4.4 of the left femur neck with a 14% decrease from previous bone density in 2021. Left forearm-4.7 T-score with 13% decrease from previous. No bone resorption markers done recently, she is pending a CTX level that I had ordered. She did not have significant improvement in her bone density on the Tymlos. Her most recent 24 hour urine calcium done in 2021 was normal. Other secondary workup was apparently also normal. However fortunately she has not had any fractures. She is now on Prolia started September 2023, and got her 2nd injection today. I will follow up on her CTX level, for now we will continue the Prolia especially given those low T-scores. Given this low T-scores, maybe Evenity would have been a better option for her, however maybe it was not approved by insurance or she also has a history of TIA maybe that is Tymlos was chosen. I have asked her to continue vitamin-D supplementation as well as good calcium intake. She is not sure of the doses in her supplements, she did not bring the bottles.. We will plan to repeat a bone density in August 2026. We will also keep an eye on her CTX and BS AP level annually prior to Prolia injection. Plan: -continue Prolia every 6 months, administered last 03/28/2024, next injection scheduled 09/30/2024 -ordered BMP, calcium, albumin, CTX and bSAP prior to Prolia injection to be done 2 weeks prior to Prolia -next bone density would be due August 2026 -continue vitamin-D 0950-5269 units daily -continue 1000 mg of calcium through diet/supplement -weight-bearing exercise advised Plan I spent 30 minutes in reviewing the record, seeing the patient and documenting in the medical record. Orders: Orders Albumin Level 4 Weeks M81.0 - Age-related osteoporosis without current pathological fracture Vitamin D 25-OH Total 4 Weeks M81.0 - Age-related osteoporosis without current pathological fracture Basic Metabolic Panel 4 Weeks M81.0 - Age-related osteoporosis without current pathological fracture US thyroid 05/26/25 E04.2 - Nontoxic multinodular goiter Alkaline Phosphatase Bone 4 Weeks M81.0 - Age-related osteoporosis without current pathological fracture Calcium 4 Weeks M81.0 - Age-related osteoporosis without current pathological fracture Collagen Type I C-Telopeptide 4 Weeks M81.0 - Age-related osteoporosis without current pathological fracture Patient Instructions: Do blood work in 4 weeks at 8 AM fasting Continue Prolia every 6 months Continue vitamin D 1000 units daily Try to incorporate 1000 mg of calcium daily between food and supplement Next US thyroid ordered for May 2025, someone will call you to schedule this , please make sure this is done a few weeks prior to your next follow up with me in June 2025 Coding Level of Care Code Est Pt Level 4 (30232) Diagnoses Non-toxic multinodular goiter E04.2 Age-related osteoporosis without current pathological fracture M81.0 Osteoporosis type: age-related Presence of current pathological fracture: without current pathological fracture Time Spent (min) 30
[2024-08-14 12:28] VITALS: BP 108/62; PULSE 97; O2SAT 97; BMI 25.6
--- OUTSIDE RECORDS SUMMARY | 2024-08-14 12:58 | XMS_ITS | Patient Health Record ---
[facility] Address [address] [facility] [place] [address] Care Team Providers Care Wind Instrument Repairer Name Role Phone Daniel Park MD Primary Care Provider Unavailab Saumya Christianson Unavailable [phone] Francesco Oleary Unavailable [phone] Allergies Allergen (clinical drug ingredient) Drug/Non Drug Allergy documented on EMR Reaction Allergy Type Onset Date Status diphenhydramine Benadryl rapid heart beat Drug Allergy Active Reason For Referral No Information Medications Medication SIG (Take, Route, Frequency, Duration) Notes Start Date End Date Status Advil Not-Taking Tymlos 3120 MCG/1.56ML as directed Subcutaneous Not-Taking Ezetimibe 10 MG Oral; Duration: 90 Days Active Omeprazole 20 MG Oral; Duration: 30 Active Zetia Not-Taking Ibuprofen Not-Taking Estrogel Not-Taking Immunizations [...] Status Risk Notes Problem Plantar fascial fibromatosis (84673960) Plantar fascial fibromatosis (M72.2) Active confirmed Problem Acquired hammer toe of right foot ([id number]) Other hammer toe(s) (acquired), right foot (M20.41) Active confirmed Vital Signs Blood pressure diastolic 80 mm Hg 02/22/2024 Height 5 ft 5 in in 02/22/2024 Blood pressure systolic 120 mm Hg 02/22/2024 Weight 144 lbs 02/22/2024 BMI 23.96 kg/m2 02/22/2024 Encounters Encounter Location Date Provider Diagnosis [address] [address] 11/13/2023 Francesco Oleary Tinea unguium B35.1 ; Ingrowing nail L60.0 ; Plantar fascial fibromatosis M72.2 ; Pain in right foot M79.671 ; Other hammer toe(s) (acquired), right foot M20.41 ; Xerosis cutis L85.3 ; Pain in right toe(s) M79.674 ; Pain in left toe(s) M79.675 and Abrasion of toe of left foot, initial encounter S90.415A [address] [address] 02/22/2024 Saumya Harris Pain in right toe(s) M79.674 and Contusion of lesser toe of right foot without damage to nail, initial encounter S90.121A [address] [address] 10/10/2023 Francesco Oleary [address] [address] 02/20/2024 Saumya Harris [address] [address] 07/11/2024 Saumya Harris Assessments Encounter Date Diagnosis (ICD [...] X ray : Foot, right 3V 02/22/2024 [id number] NAIL, 1-5 01/16/2013 21586-Fqitgvbw Plate 05/03/2012 42276-Pjwcbcsu Plate 01/16/2013 73590-Vzkajfet Plate 07/03/2013 53488-Aelkxpxq Plate 12/31/2014 77969-Wwqsblzf Plate Each Additional 05/2012 03883- Debride <25 sq cm 02/04/2013 31571- Debride <25 sq cm 11/30/2011 44379- Nail Unit Biopsy 06/07/2017 Insurance Providers Payer Name Payer Address Payer Phone Subscriber Number Group Number Insured Name Patient Relationship to Insured Coverage Start Date Coverage End Date [employer] Medicare Complete [address] [address] [place] [address] [id number] Carroll, Jody Self - patient is the insured Medical (General) History Medical History History ICD Code back, hip, knee pain measles mumps chicken pox covid-19 Surgical History Surgery Date(Month/Year) right foot hammertoe repair hysterectomy vericose vein surgery bilateral legs Condylectomy and hammertoe repair left biopsy on thyroid 10/24/19 parathyroidectomy 03/2020
--- OUTSIDE RECORDS SUMMARY | 2024-08-14 12:59 | XMS_ITS | Patient Health Record ---
Author Organization [facility] Address [address] [place] [address] [address] [place] [address] Care Team Providers Care Corporate Health Consultant Name Role Phone YARITZA GARG Primary Care Provider TAMIE Navarro Unavailable [phone] Allergies Allergen (clinical drug ingredient) Drug/Non Drug Allergy documented on EMR Reaction Allergy Type Onset Date Status diphenhydramine Benadryl tachycardia Drug Allergy Active Reason For Referral No Information Medications Medication SIG (Take, Route, Frequency, Duration) Notes Start Date End Date Status Estradiol 0.1 MG/GM 1 gram Vaginal Two t imes a Week; Duration: 365 days 07/10/2020 Active Estradiol Vaginal Cream 0.1% 1 Gram Vaginally Twice a week; Duration: 30 days 04/20/2020 Active Social History Tobacco [...] Status Risk Notes Problem Postmenopausal atrophic vaginitis (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) Active confirmed Plan Of Treatment Pending Test Test Name Order Date MM Digital Screening Mammogram 3D 2019 MM Digital Screening Mammogram 3D 2021 Insurance Providers Payer Name Payer Address Payer Phone Subscriber Number Group Number Insured Name Patient Relationship to Insured Coverage Start Date Coverage End Date [facility] [employer]IC[facility] SOLUTIONS [address] [address] [place] [address] [id number] DAVID MEREDITH Self - patient is the insured Medical (General) History Medical History History ICD Code Osteoporosis 733.0 COVID-19 U07.1 Surgical History Surgery Date(Month/Year) Hysterectomy 1979 Parathyroidectomy 01/2020 Left breast biopsy Hospitalization History Reason Date(Month/Year) childbirth
--- OUTSIDE RECORDS SUMMARY | 2024-08-14 12:59 | XMS_ITS | Clinical Summary ---
Author Organization [employer] Address [address] [facility] 7t [place] [address] Care Team Providers Care Codifier Name Role Phone Unavailable Primary Care Provider Unavailabl e Immunizations Immunization Administration Dates Next Due Influenza, seasonal, injectable, [...] older (1 - 1-dose 75+ series) 07/27/2019 COVID-19 Vaccine ( season) 2024 11/01/2023, 08/27/2021, 12/03/2020, Additional history exists Pneumococcal Vaccine: 50+ Years Completed 02/27/2018, 08/02/2016 Influenza Vaccine Completed 11/01/2023, , 11/22/2021, Additional [...] patient's age to complete this topic Meningococcal B Vaccine Aged Out No l onger eligible based on patient's age to complete [...]
== END 2024-08-14 13:00 | disposition home or self-care (01) ==
LOC: HO.ENCR 12:25
PROVIDERS: PCP Family Medicine; Visit Provider Student in an Organized Health Care Education/Training Program
DX: E04.2 Nontoxic multinodular goiter (principal); M81.0 Age-related osteoporosis without current pathological fracture
CPT/HCPCS: 99214

== ENCOUNTER → 2024-08-14 12:24 | Outpatient (BNVA) | payer MEDICARE, SELFPAY | PROVIDERS: PCP Family Medicine; Visit Provider Student in an Organized Health Care Education/Training Program | DX: E04.2 Nontoxic multinodular goiter (principal); M81.0 Age-related osteoporosis without current pathological fracture; Z79.899 Other long term (current) drug therapy | CPT/HCPCS: 99212 ==

== ENCOUNTER 2024-09-12 19:03 | Emergency (ER) | payer MEDICARE, SELFPAY ==
--- NOTE | ~2024-09-12 | CT_ITS ---
CLINICAL HISTORY: renal colic? CT abdomen and pelvis without contrast Comparison: CT - CT ABDOMEN PELVIS WITH IV CONTRAST - 10/11/23 09:12 EDT Findings: The lung bases are clear. 1.2 cm cyst in the upper segment 4A of the liver. There is a 2.7 cm cyst in the anterior left lobe of the liver. In the inferior right lobe of the liver there is a subcapsular 1.0 cm cyst. Spleen, adrenal glands, pancreas, gallbladder. No hydronephrosis. Kidneys are normal in size and cortical thickness. No renal or ureteral stones. No bowel obstruction, pneumoperitoneum, or pneumatosis. Moderate fecal loading within the colon. Normal appendix. Urinary bladder is decompressed. Uterus is absent. No ascites. The bones are intact. Degenerative changes of the lower lumbar spine. IMPRESSION: No acute findings. No evidence of obstructive uropathy. No renal or ureteral stones. This document has been electronically signed by: Ankush Alba MD on 09/12/2024 23:02:09
[2024-09-12 19:09] VITALS: BP 156/68; PULSE 92; RESP 18; TEMP 36.7; O2SAT 95; BMI 25.4
--- NOTE | 2024-09-12 19:09 | ED.GENADULT ---
HPI - General Adult General Chief complaint: Abdominal Pain Stated complaint: lower mid abd pain/all of a sudden pain Time Seen by Provider: 09/12/24 20:27 Source: patient History of Present Illness HPI narrative: 79 year old female with pmhx of hysterectomy, HTN, hypercholesterolemia, GERD, osteoporosis, primary hyperparathyroidism, palpitations, and non-toxic multinodular goiter who presents to the ED for abdominal that began around 4 hours ago. She reports cleaning out her closet when the pain began. The pain began suddenly and was a sharp, stabbing sensation. She states the pain was localized to the mid abdomen. She denies having current abdominal pain. Denies N/V/D, dizziness, CP, SOB, vision changes, recent trauma, issues with bowel movents or urination. Related Data Home Medications ?Medication ?Instructions ?Recorded ?Confirmed estradiol 0.01% (0.1 mg/gram) g vaginal 2XW 06/26/20 08/14/24 vaginal cream omeprazole 20 mg capsule,delayed 20 mg PO DAILY 06/26/20 08/14/24 release ezetimibe 10 mg tablet 10 mg PO DAILY 09/07/23 08/14/24 denosumab 60 mg/mL subcutaneous 60 mg subcut [id number] 09/27/23 08/14/24 syringe (Prolia) amlodipine 5 mg tablet 5 mg PO DAILY 10/05/23 08/14/24 calcium carbonate 600 mg PO DAILY 08/14/24 08/14/24 Previous Rx's ?Medication ?Instructions ?Recorded cholecalciferol (vitamin D3) 50 50 mcg PO DAILY 90 days #90 caps 06/26/20 mcg (2,000 unit) capsule aspirin 81 mg tablet,delayed 81 mg PO DAILY #90 tabs 06/26/22 release Allergies Allergy/AdvReac Type Severity Reaction Status Date / Time From BENADRYL Allergy Unknown RACING Uncoded 09/12/24 19:11 [facility] Past Medical History Medical History (Updated 09/14/24 @ 00:01 by Yamileth Monroe) Palpitation Non-toxic multinodular goiter Osteoporosis Primary hyperparathyroidism Surgical History Status post fine needle aspiration Hx of parathyroidectomy Hx of left breast biopsy Hx of tonsillectomy Hx of hysterectomy Family History Family History Father Rectal cancer Mother Heart disease Diabetes Brother Celiac disease Social History Social History Household Members: Spouse Alcohol intake: current Alcohol intake frequency: does not drink Alcohol type: wine Patient Tobacco Use Status: Never used Tobacco Smoked in Last 30 Days: No Use of substances other than those prescribed or required for medical reasons: No Advance Directives: No Advance Directives Information Provided: Yes Physical Exam ED Vital Signs: Vital Signs - 24 hr 09/12/24 19:09 Temperature 98.1 F Pulse Rate 92 Respiratory Rate 18 Blood Pressure 156/68 H Pulse Oximetry 95 Oxygen Delivery Method Room Air BMI result Body Mass Index 25.4 Course Course Course Narrative: JUAN Cano 09/12/241908 This is a Rapid Medical Examination (RME) performed by Breezy Aguero PA-C in triage. Full HPI, ROS, assessment and treatment plan per primary provider in the Main ED. Hx: 79 yo F here for eval of acute onset periumbilical abdominal pain x1 hour. no N/V/D, fever, chills. hx of hysterectomy, no other abd surgeries. Plan: labs, UA Medical Decision Making Medical Decision Making MDM Narrative: 79 year old female with pmhx of hysterectomy, HTN, hypercholesterolemia, GERD, osteoporosis, primary hyperparathyroidism, palpitations, and non-toxic multinodular goiter who presents to the ED for abdominal that began around 4 hours ago. She reports cleaning out her closet when the pain began. The pain began suddenly and was a sharp, stabbing sensation. She states the pain was localized to the mid abdomen. She denies having current abdominal pain. Denies N/V/D, dizziness, CP, SOB, vision changes, recent trauma, issues with bowel movents or urination. Problem: Age History: Per patient I have considered the following differential diagnoses: Abdominal wall strain, UTI, renal colic, pyelonephritis Plan: Patient's symptoms have completely resolved, labs were obtained from triage, the only abnormality is for hematuria, perhaps she passed a stone. Given her age, I am inclined to scan her abdomen. I have independently reviewed the following tests: Labs: No leukocytosis, not anemic, no electrolyte abnormality, urine not infected, passing a scant amount of hematuria CT abdomen and pelvis:Findings: The lung bases are clear. 1.2 cm cyst in the upper segment 4A of the liver. There is a 2.7 cm cyst in the anterior left lobe of the liver. In the inferior right lobe of the liver there is a subcapsular 1.0 cm cyst. Spleen, adrenal glands, pancreas, gallbladder. No hydronephrosis. Kidneys are normal in size and cortical thickness. No renal or ureteral stones. No bowel obstruction, pneumoperitoneum, or pneumatosis. Moderate fecal loading within the colon. Normal appendix. Urinary bladder is decompressed. Uterus is absent. No ascites. The bones are intact. Degenerative changes of the lower lumbar spine. IMPRESSION: No acute findings. No evidence of obstructive uropathy. No renal or ureteral stones. Lab Data 09/12/24 19:30 09/12/24 19:30 Labs: Lab Results 09/12/24 Range/Units 19:30 WBC 9.8 (4.8-10.8) X10*3/uL RBC 5.01 (4.20-5.50) X10*6/uL Hgb 13.5 (12.0-16.0) g/dl Hct 40.7 (37.0-47.0) % MCV 81.2 (80.0-98.0) fL MCH 26.9 L (27.0-33.0) pg MCHC 33.2 (31.0-35.0) g/dl RDW 14.6 (11.0-16.0) % Plt Count 253 (160-400) X10*3/uL MPV 10.2 (9.4-12.3) fL Immature Gran % (Auto) 0.3 (0.0-0.4) % Neut % (Auto) 55.6 (45-73) % Lymph % (Auto) 35.4 (20-40) % [place] % (Auto) 6.4 (2-11) % Eos % (Auto) 1.9 (0-4) % Baso % (Auto) 0.4 (0-2) % Lymph # (Auto) 3.5 (1.2-4.9) X10*3/uL [place] # (Auto) 0.6 (0.1-1.2) X10*3/uL Eos # (Auto) 0.2 (0.0-0.4) X10*3/uL Baso # (Auto) 0.0 (0.0-0.2) X10*3/uL Abs Immat Gran (auto) 0.03 (0.00-0.03) X10*3/uL Absolute Neuts (auto) 5.5 (2.0-8.3) x10*3/uL Absolute Nucleated RBC 0.000 (0.0-0.012) X10*3/uL Nucleated RBC % (auto) 0.0 (0.0-0.2) /100WBC Sodium 142 (135-145) mmol/L Potassium 3.4 (3.3-5.1) mmol/L Chloride 108 (96-108) mmol/L Carbon Dioxide 22 (22-29) mmol/L Anion Gap 15 (12-20) BUN 22 H (9-16) mg/dL Creatinine 0.89 (0.5-1.4) mg/dL Estim Creat Clear Calc 47.4 Estimated GFR > 60 Random Glucose 143 H (60-115) mg/dL Calcium 8.5 (8.4-10.2) mg/dL Magnesium 2.2 (1.6-2.6) mg/dL Total Bilirubin 0.5 (0.0-1.0) mg/dL AST 139 H (5-31) U/L ALT 55 H (0-31) U/L Alkaline Phosphatase 111 (39-117) U/L Total Protein 6.8 (6.5-8.0) g/dL Albumin 4.6 (3.5-5.0) g/dL Lipase 24 (8-78) U/L Urine Color Yellow Urine Appearance Clear Urine pH 7.0 (5.0-9.0) Ur Specific [place] 1.015 (1.005-1.025) Urine Protein Trace (Neg-Trace) mg/dL Urine Glucose (UA) Negative (Negative) mg/dL Urine Ketones Negative (Negative) mg/dL Urine Blood Trace H (Negative) Urine Nitrite Negative (Negative) Ur Leukocyte Esterase Trace H (Negative) Urine RBC 6-10 H (0-2) /HPF Urine WBC 0-5 (0-5) /HPF Ur Squamous Epith Cells 0-2 (0-2) /HPF Urine Bacteria None Seen (None Seen) Hyaline Casts 0-2 (0-2) /LPF Discharge Plan Discharge Clinical Impression: Constipation, Hematuria Patient Disposition: Home, Self-Care Instructions: Constipation (ED), Hematuria (ED) Additional Instructions: Overall your screening labs were normal, you were passing a small amount of blood in your urine, but the urine is not infected. The CT scan revealed that you are constipated. See home care instructions. You should use [id number] Colace, this is a stool softener, 1 to 2 times a day. You should use the MiraLax 1 to 2 times a day as well. You were also incidentally found to have 2 cysts in the liver, 1 in each lobe. The next step would be an MRI of the abdomen as an outpatient, your primary care provider can order this for you. Prescriptions: No Action Prolia 60 mg/mL syringe 60 mg subcut [id number] aspirin 81 mg tablet,delayed release (DR/EC) 81 mg PO DAILY Qty: 90 3RF omeprazole 20 mg capsule,delayed release(DR/EC) 20 mg PO DAILY estradiol 0.01 % (0.1 mg/gram) cream vaginal 2XW cholecalciferol (vitamin D3) 50 mcg (2,000 unit) capsule 50 mcg PO DAILY 90 Days Qty: 90 3RF ezetimibe 10 mg tablet 10 mg PO DAILY amlodipine 5 mg tablet 5 mg PO DAILY calcium carbonate 600 mg calcium (1,500 mg) tablet 600 mg PO DAILY Interventions: ED Discharge Assessment Last Done: 09/12/24 23:45 Discharge Date/Time: 09/12/24 23:45 Print Language: Icelandic
[2024-09-12 19:34] LABS: MANUAL DIFF FLAG NO
[2024-09-12 19:36] LABS: Appearance Urine Clear; Glucose Urine UA Negative (Negative); Hematocrit 40.7 % (37.0-47.0); Hemoglobin 13.5 g/dl (12.0-16.0); Imm Gran Abs Auto 0.03 X10*3/uL (0.00-0.03); Imm Gran Pct Auto 0.3 % (0.0-0.4); Lymphocytes Absolute Auto 3.5 X10*3/uL (1.2-4.9); Mean Corpuscular HGB Conc 33.2 g/dl (31.0-35.0); Mean Corpuscular Hemoglobin 26.9 pg (27.0-33.0); Mean Corpuscular Volume 81.2 fL (80.0-98.0); NRBC Abs Auto 0.000 X10*3/uL (0.0-0.012); NRBC Pct Auto 0.0 /100WBC (0.0-0.2); PH 7.0 (5.0-9.0); Platelet Count 253 X10*3/uL (160-400); Red Blood Count 5.01 X10*6/uL (4.20-5.50); Specific Gravity - Urine 1.015 (1.005-1.025); UMIC TRIGGER UACC YES; White Blood Count 9.8 X10*3/uL (4.8-10.8)
[2024-09-12 19:51] LABS: Alanine Aminotransferase 55 U/L (0-31); Albumin Level 4.6 g/dL (3.5-5.0); Alkaline Phosphatase 111 U/L (39-117); Anion Gap 15 (12-20); Aspartate Amino Transferase 139 U/L (5-31); Blood Urea Nitrogen 22 mg/dL (9-16); Calcium 8.5 mg/dL (8.4-10.2); Carbon Dioxide 22 mmol/L (22-29); Chloride 108 mmol/L (96-108); Creatinine Clr Calc Pharmacy 47.4; Estimated Glomerular Filt Rate > 60; Lipase 24 U/L (8-78); Magnesium 2.2 mg/dL (1.6-2.6); Potassium 3.4 mmol/L (3.3-5.1); Sodium 142 mmol/L (135-145); Total Protein 6.8 g/dL (6.5-8.0)
[2024-09-12 23:45] VITALS: BP 147/65; PULSE 81; RESP 16; TEMP 36.6; O2SAT 95
== END 2024-09-12 23:45 | disposition home or self-care (01) ==
PROVIDERS: Physician Assistant Medical; Emergency Provider Emergency Medicine; PCP Internal Medicine
DX: K59.00 Constipation, unspecified (principal); R31.9 Hematuria, unspecified; R10.2 Pelvic and perineal pain; Z79.899 Other long term (current) drug therapy
CPT/HCPCS: 36415; 74176; 80053; 81001; 83690; 83735; 85025; 99284

== ENCOUNTER → 2024-09-12 20:47 | Outpatient (BNV) | payer MEDICARE, SELFPAY | PROVIDERS: Emergency Provider Emergency Medicine; PCP Internal Medicine; Visit Provider Radiology Diagnostic Radiology | DX: R10.30 Lower abdominal pain, unspecified (principal) | CPT/HCPCS: 74176 ==

== ENCOUNTER 2024-09-19 07:48 | Outpatient (REF) | payer MEDICARE, SELFPAY ==
--- OUTSIDE RECORDS SUMMARY | 2023-12-08 08:40 | XMS_ITS ---
Author Organization [facility] Address [address] [place] [address] Care Team Providers Care Superintendent Tests Name Role Phone Xavier (RETIRED) , Daniel Primary Care Provider Unavailable Markus Rahman Jr REASON FOR VISIT abnormal ct scan Encounters Encounter Location Date Provider Diagnosis [facility] [address] [place] [id number] 12/08/2023 Markus Rahman Jr Abnormal abdominal ultrasound R93.5 ; Abdominal pain R10.9 and Colon polyps K63.5 Assessments Encounter Date Diagnosis (ICD Code) Assessment Notes Treatment Notes Treatment Clinical Notes Section Notes 12/08/2023 Abnormal abdominal ultrasound (ICD-10 - R93.5) 12/08/2023 Abdominal pain (ICD-10 - R10.9) 12/08/2023 Colon polyps (ICD-10 - K63.5) Plan Of Treatment No Information Progress Notes * DAVID MEREDITHDOB:1945 (79 yo F)Acc No.[id number]:12/08/2023 COLON WITH MAC Patient: DAVID GOMEZ Provider: Jonatan Rahman MD :1945 A ge:78 Y S ex:Female Date:12/08/2023 Address:[address] [place], [place] [phone] Pcp:Daniel Park (RETIRED) MD Subjective: * Chief [...] 1 Generated for Neal virgen/Cynthia/Steveitting on: 0 09/19/2024 07:51 AM EDT
--- OUTSIDE RECORDS SUMMARY | 2024-09-19 07:51 | XMS_ITS | Patient Health Record ---
[facility] Address [address] [facility] [place] [address] Care Team Providers Care Procurement Professional Logistics Name Role Phone Daniel Park MD Primary Care Provider Unavailab Saumya Christianson Unavailable [phone] Francesco Oleary Unavailable [phone] Allergies Allergen (clinical drug ingredient) Drug/Non Drug [...] Administration Date Status Comme nts Influenza Unknown 10/13/2021 Administered COVID-19 Pfizer BioNTech Vaccine Unknown 12/03/2020 Administered 1st 04/04/20 2nd 04/27/20 Social History Tobacco Use: Social History Observation [...] Status Risk Notes Problem Plantar fascial fibromatosis (04828186) Plantar fascial fibromatosis (M72.2) Active confirmed Problem Other hammer toe(s) (acquired), right foot (M20.41) Active confirmed Vital Signs Blood pressure diastolic 80 mm Hg 02/22/2024 Height 5 ft 5 in in 02/22/2024 Blood pressure systolic 120 mm Hg 02/22/2024 Weight 144 lbs 02/22/2024 BMI 23.96 kg/m2 02/22/2024 Encounters Encounter Location Date Provider Diagnosis [address] [address] 11/13/2023 Francesco Oleary Tinea unguium B35.1 ; Ingrowing nail L60.0 ; Plantar fascial fibromatosis M72.2 ; Pain in right foot M79.671 ; Other hammer toe(s) (acquired), right foot M20.41 ; Xerosis cutis L85.3 ; Pain in right toe(s) M79.674 ; Pain in left toe(s) M79.675 and Abrasion of toe of left foot, initial encounter S90.415A [address] [address] 02/22/2024 Saumya Harris Pain in right toe(s) M79.674 and Contusion of lesser toe of right foot without damage to nail, initial encounter S90.121A [address] [address] 10/10/2023 Francesco Oleary [address] [address] 02/20/2024 Saumya Harris [address] [address] 07/11/2024 Saumya Harris Assessments Encounter Date Diagnosis [...] X ray : Foot, right 3V 02/22/2024 [id number] NAIL, 1-5 01/16/2013 97952-Bycmdlgk Plate 05/03/2012 89865-Bqnndpzw Plate 01/16/2013 11729-Gbislsuh Plate 07/03/2013 62236-Qkfdspqp Plate 12/31/2014 42650-Xabnowdo Plate Each Additional 05/2012 42265- Debride <25 sq cm 02/04/2013 90640- Debride <25 sq cm 11/30/2011 41420- Nail Unit Biopsy 06/07/2017 Insurance Providers Payer Name Payer Address Payer Phone Subscriber Number Group Number Insured Name Patient Relationship to Insured Coverage Start Date Coverage End Date [employer] Medicare Complete [address] [address] [place] [address] [phone] [id number] Jody Carroll Self - patient is the insured Medical (General) History Medical History History ICD Code back, hip, knee pain measles mumps chicken pox covid-19 Surgical History Surgery Date(Month/Year) right foot hammertoe repair hysterectomy vericose vein surgery bilateral legs Condylectomy and hammertoe repair left biopsy on thyroid 10/24/19 parathyroidectomy 03/2020
--- OUTSIDE RECORDS SUMMARY | 2024-09-19 07:51 | XMS_ITS | Patient Health Record ---
Author Organization [facility] Address [address] [place] [address] Care Team Providers Care Sleep Tech Name Role Phone YARITZA GARG Primary Care Provider TAMIE Navarro Unavailable [phone] Allergies Allergen (clinical drug ingredient) Drug/Non Drug [...] Status Risk Notes Problem Postmenopausal atrophic vaginitis (15573482) Postmenopausal atrophic vaginitis (N95.2) Active confirmed Plan Of Treatment Pending Test Test Name Order Date MM Digital Screening Mammogram 3D 2019 MM Digital Screening Mammogram 3D 2021 Insurance Providers Payer Name Payer Address Payer Phone Subscriber Number Group Number Insured Name Patient Relationship to Insured Coverage Start Date Coverage End Date [facility] MEDIC[facility] SOLUTIONS [address] [address] [place] [address] [id number] DAVID MEREDITH Self - patient is the insured Medical (General) History Medical History History ICD Code Osteoporosis 733.0 COVID-19 U07.1 Surgical History Surgery Date(Month/Year) Hysterectomy 1979 Parathyroidectomy 01/2020 Left breast biopsy Hospitalization History Reason Date(Month/Year) childbirth
--- OUTSIDE RECORDS SUMMARY | 2024-09-19 07:51 | XMS_ITS | Clinical Summary ---
Author Organization [employer] Address [address] [facility] 7t [place] [address] Care Team Providers Care Platen Press Feeder Name Role Phone Unavailable Primary Care Provider [...] 2024 11/01/2023, 08/27/2021, 12/03/2020, Additional history exists Influenza Vaccine (#1) 2024 , 12/19/2022, 11/22/2021, Additional history exists Pneumococcal Vaccine: 50+ Years Completed 02/27/2018, 08/02/2016 HIB Vaccines Aged Out No longer eligi [...]
[2024-09-19 11:12] LABS: Albumin Level 4.5 g/dL (3.5-5.0); Anion Gap 14 (12-20); Blood Urea Nitrogen 21 mg/dL (9-16); Calcium 8.7 mg/dL (8.4-10.2); Carbon Dioxide 23 mmol/L (22-29); Chloride 109 mmol/L (96-108); Estimated Glomerular Filt Rate > 60; Potassium 3.8 mmol/L (3.3-5.1); Sodium 142 mmol/L (135-145)
[2024-09-23 20:38] LABS: Collagen Type I C-Telopeptide 52 pg/mL (see note)
== END 2024-09-19 07:49 | disposition home or self-care (01) ==
LOC: HO.10HDL 07:48
PROVIDERS: Visit Provider Student in an Organized Health Care Education/Training Program
DX: M81.0 Age-related osteoporosis without current pathological fracture (principal)
CPT/HCPCS: 36415; 80048; 82040; 82306; 82523; 84075

== ENCOUNTER 2024-09-30 08:16 | Outpatient (AMB) | payer MEDICARE, SELFPAY ==
--- OUTSIDE RECORDS SUMMARY | 2023-12-08 08:40 | XMS_ITS ---
Author Organization [facility] Address [address] [place] [address] Care Team Providers Care Steam Plant Control Room Operator Name Role Phone Xavier (RETIRED) , Daniel Primary Care Provider Unavailable Markus Rahman Jr REASON FOR VISIT abnormal ct scan Encounters Encounter Location Date Provider Diagnosis [facility] Outpatient [address] [place] [id number] 12/08/2023 Markus Rahman Jr Abnormal abdominal ultrasound R93.5 ; Abdominal pain R10.9 and Colon polyps K63.5 Assessments Encounter Date Diagnosis (ICD Code) Assessment Notes Treatment Notes Treatment Clinical Notes Section Notes 12/08/2023 Abnormal abdominal ultrasound (ICD-10 - R93.5) 12/08/2023 Abdominal pain (ICD-10 - R10.9) 12/08/2023 Colon polyps (ICD-10 - K63.5) Plan Of Treatment No Information Progress Notes * DAVID MEREDITHDOB:1945 (79 yo F)Acc No.[id number]:12/08/2023 COLON WITH MAC Patient: DAVID GOMEZ Provider: Jonatan Rahman MD :1945 A ge:78 Y S ex:Female Date:12/08/2023 Address:[address] [place], [place] [phone] Pcp:Daniel Park (RETIRED) MD Subjective: * Chief Complaints: * [address] scan. * Medical History: Objective: * Vitals: Assessment: * Assessment: 1. A bnormal abdominal ultrasound - R93.5 (Primary) 2 . A bdominal pain - R10.9 3 . C olon polyps - K63.5 Plan: * Treatment: * Procedure Codes: 4 5380 COLONOSCOPY AND BIOPSY, 0529F INTRVL 3+YRS PTS CLNSCP DOCD, 0528F RCMND FLW-UP 10 YRS DOCD, Modifiers: 1P * * The named appointment provid er may or may not be the originator of this progress note, and it is not deemed complete until electronically signed by the appointment provider. Sign off status: Pending * Provider: Jonatan Rahman MD Date: 1 Generated for Neal virgen/Cynthia/Steveitting on: 0 09/30/2024 08:36 AM EDT
--- OUTSIDE RECORDS SUMMARY | 2024-01-16 05:00 | XMS_ITS | Continuity of Care Document ---
Author Organization [facility] Address [address] [place] [address] Phone Care Team Providers Care Blunger Machine Operator Name Role Phone Landon WATSON, RVT, MARY [...] Mins- [place] & [place] [facility], [address] [place] [address] Dr Khan 1000[facility] [place] Brunson MD, [id number], tel:[phone] CV[place] - [place] [facility] Cramp and spasmRestless legs syndromeVenou s insufficiency (chronic) (peripheral)P ruritus, unspecified 4 Landon WATSON RVT, MARY JO Gardiner. [address] [place] [address], [id number], [place]. tel:[phone] Referring Provider: Daniel Park MD S, [address] [place] [address], [address]. tel:[phone] [facility], [address] [place] [address] Dr Khan 1000[facility] [place] Brunson [place], [id number], [place] tel:[phone] [place] [facility] Pain in right leg 4 Landon WATSON RVT, MARY JO Gardiner. [address] [place] [address], [id number], [place]. tel:[phone] Referring Provider: Daniel Park MD S, [address] [place] [address] [place] [address], [address]. tel:[phone] Office/Outpt E&M Established 15 Mins- [place] & [place] [facility], [address] [place] [address] Dr Khan 1000[facility] [place] Brunson [place], [id number], [place] tel:[phone] [place] [facility] Cramp and spasmRestless legs syndromeVenou s insufficiency (chronic) (peripheral)P ruritus, unspecified 4 Landon WATSON RVT, MARY JO Gardiner. [address] [place] [address] d, [place], [id number], [place]. tel:[phone] Referring Provider: Daniel Park MD S, [address] [place] [address] Dr Suite [facility], [place], [address]. tel:[phone] [facility], [address] [place] [address] Dr Khan 1000[address], [id number], [place] tel:[phone] CVR - [place] [facility] Localized swelling, mass and lump, right lower limbChronic venous hypertension (idiopathic) with other complications of right lower extremity Madhu-0 4 Landon WATSON RVT, MARY JO Gardiner. [address] [facility] [address], [place], [id number], [place]. tel:[phone] Referring Provider: Daniel Park MD S, [address] [place] [address] Suite [facility], [place], [address]. tel:[phone] [place] [facility], [address] [place] [address] [address], [id number], [place] tel:[phone] CVR - [place] - [facility] Encounter for follow-up examination after completed treatment for conditions other than malignant neVaricose veins of right lower extremity with pain Apr-1 4 Landon WATSON RVT, MARY JO Gardiner. [address] [facility] [address], [place], [id number], [place]. tel:[phone] Referring Provider: Daniel Park MD S, [address] [place] [address] Dr Suite [facility], [place], [address]. tel:[phone] [facility], [address] [place] [address] [address], [id number], [place] tel:[phone] CVR - [facility] Varicose veins of right lower extremity with other complications Apr-0 4 Conner Terry. [address] [facility] [address], [place], [id number], [place]. tel:[phone] Referring Provider: Daniel Park MD S, [address] [place] [address] Dr Suite [facility], [place], [address]. tel:[phone] [place] [facility], [address] [place] [address] Dr Khan 1000Suite [place] Brunson [place], [id number], [place] tel:[phone] CVR - [place] - [facility] Encounter for follow-up examination after completed treatment for conditions other than malignant neVaricose veins of right lower extremity with pain Apr-0 4 Landon WATSON RVT, MARY JO Gardiner. [address] [place] [address], [place], [id number], [place]. tel:[phone] Referring Provider: Daniel Park MD S, [address] [place] [address] Dr [address], [place], [address]. tel:[phone] [place] [facility], [address] [place] [address] Dr Khan [address], [id number], [place] tel:[phone] [facility] - [facility] Chronic venous hypertension (idiopathic) with inflammation of right lower extremity Apr-0 4 Landon WATSON RVT, MARY JO Gardiner. [address] [place] [address], [place], [id number], [place]. tel:[phone] Referring Provider: Daniel Park MD S, [address] [place] [address] Dr [address], [place], [address]. tel:[phone] Offic/outpt E&m Estab 5 Min Trial - Telemedicine [place] [facility], [address] [place] [address] Dr Khan [address]Suite [place] Brun[place], [id number], [place] tel:[phone] CVR [facility] Cramp and spasmRestless legs syndromeVenou s insufficiency (chronic) (peripheral)P ruritus, unspecified Mar-0 4 Conner Terry. [address] [facility] [address], [place], [id number], [place]. tel:[phone] Referring Provider: Daniel Park MD S, [address] [place] [address] Dr [address], [place], [address]. tel:[phone] Office/Oupt E&M New Pt 45 Mins [facility], [address] [place] [address] Dr Khan [address], [id number], [place] tel:[phone] CVR - [facility] Varicose veins of bilateral lower extremities with other complications Pain in right lower legPain in left lower legPain in right legRestless legs syndromePruri tus, unspecifiedPa in in left legCramp and spasm 4 Landon WATSON RVT, MARY JO Gardiner. [address] [facility], [place], [id number], [place]. tel:[phone] Referring Provider: Daniel Park MD S, [address] [place] [address] Dr [address], [place], [address]. tel:[phone] [facility], [address], [place], [id number], [place] tel:[phone] CV - [facility] Chronic venous hypertension (idiopathic) with other complications of bilateral lower extremity 4 Landon WATSON RVT, MARY JO Gardiner. [address] [facility], [facility] [address], [place], [id number], [place]. tel:[phone] Referring Provider: Daniel Park MD S, [address] [place] [address] Dr [address], [place], [address]. tel:[phone] Family History Family Member Type Diagnosis Age At Onset No Information Payers Payer name Insurance type Covered alliance party ID Authoriza tion(s) [facility] AARP Medic are Complete CI [id number] Social History Type Description Quantity Date Captured [...]
--- OUTSIDE RECORDS SUMMARY | 2024-09-30 08:37 | XMS_ITS | Patient Health Record ---
Author Organization [facility] Address [address] [place] [address] [address] [place] [address] Care Team Providers Care Monument Carver Name Role Phone YARITZA GARG Primary Care Provider TAMIE Navarro Unavailable [phone] Allergies Allergen (clinical drug ingredient) Drug/Non Drug [...] Start Date Coverage End Date [facility] MEDICARE SOLUTIONS [address] [address] [place] [address] [id number] DAVID MEREDITH Self - patient is the insured Medical (General) History Medical History History ICD Code Osteoporosis 733.0 COVID-19 U07.1 Surgical History Surgery Date(Month/Year) Hysterectomy 1979 Parathyroidectomy 01/2020 Left breast biopsy Hospitalization History Reason Date(Month/Year) childbirth
--- OUTSIDE RECORDS SUMMARY | 2024-09-30 08:37 | XMS_ITS | Clinical Summary ---
Author Organization [employer] Address [address] [facility] 7t [place] [address] Care Team Providers Care Market Reporter Name Role Phone Unavailable Primary Care Provider [...]
--- OUTSIDE RECORDS SUMMARY | 2024-09-30 08:37 | XMS_ITS | Patient Health Record ---
Author [facility] Address [address] [facility] [place] [address] Care Team Providers Care Manager Zone Name Role Phone Daniel Park MD Primary Care Provider Unavailab Saumya Christianson Unavailable [phone] Francesco Oleary Unavailable [phone] Allergies Allergen (clinical drug ingredient) Drug/Non Drug [...] Status Risk Notes Problem Plantar fascial fibromatosis (86264731) Plantar fascial fibromatosis (M72.2) Active confirmed Problem Acquired hammer toe of right foot (995626167330998 5) Other hammer toe(s) (acquired), right foot (M20.41) Active confirmed Vital Signs Blood pressure diastolic 80 mm Hg 02/22/2024 Height 5 ft 5 in in 02/22/2024 Blood pressure systolic 120 mm Hg 02/22/2024 Weight 144 lbs 02/22/2024 BMI 23.96 kg/m2 02/22/2024 Encounters Encounter Location Date Provider Diagnosis [address] [address] 11/13/2023 Francesco Oleary Tinea unguium B35.1 ; Ingrowing nail L60.0 ; Plantar fascial fibromatosis M72.2 ; Pain in right foot M79.671 ; Other hammer toe(s) (acquired), right foot M20.41 ; Xerosis cutis L85.3 ; Pain in right toe(s) M79.674 ; Pain in left toe(s) M79.675 and Abrasion of toe of left foot, initial encounter S90.415A [address] [address] 02/22/2024 Saumya Harris Pain in right toe(s) M79.674 and Contusion of lesser toe of right foot without damage to nail, initial encounter S90.121A [address] [address] 10/10/2023 Francesco Oleary [address] [address] 02/20/2024 Saumya Harris [address] [address] 07/11/2024 Saumya Harris Assessments Encounter Date Diagnosis [...] X ray : Foot, right 3V 02/22/2024 [id number] NAIL, 1-5 01/16/2013 69564-Lajvmprq Plate 05/03/2012 78014-Pzmwnber Plate 01/16/2013 68918-Sqymdfzs Plate 07/03/2013 31990-Kkwkynad Plate 12/31/2014 26514-Yxrlafht Plate Each Additional 05/2012 63166- Debride <25 sq cm 02/04/2013 91384- Debride <25 sq cm 11/30/2011 47427- Nail Unit Biopsy 06/07/2017 Insurance Providers Payer Name Payer Address Payer Phone Subscriber Number Group Number Insured Name Patient Relationship to Insured Coverage Start Date Coverage End Date [employer] Medicare Complete [address] [address] [place] [address] [id number] Carroll, Jody Self - patient is the insured Medical (General) History Medical History History ICD Code back, hip, knee pain measles mumps chicken pox covid-19 Surgical History Surgery Date(Month/Year) right foot hammertoe repair hysterectomy vericose vein surgery bilateral legs Condylectomy and hammertoe repair left biopsy on thyroid 10/24/19 parathyroidectomy 03/2020
--- NOTE | 2024-09-30 08:42 | AM.OFFVISNUR ---
Intake Visit Reasons: Prolia injection Allergies From BENADRYL Allergy (Unknown, Uncoded 09/12/24 19:11) RACING HEART Office Meds Prolia 60 mg/mL subcutaneous syringe Performing Provider: Rena Diamond MD [place]forming [place] [facility] Administered by: Dorothea Morelos RN on 09/30/24 08:42 Dose Route Admin Location Dispensed Lot Number Expiration Date [employer] Manager 60 mg subcut left upper arm 1 mL [id number] 10/13/26 73633-060-28 [facility] Total Dispensed Waste 1 mL 0 % Comments: Patient tolerated injection well. Patient denies any adverse reactions to previous injections. Patient scheduled for repeat injection in x6 months. Assessment & Plan Assessment & Plan Orders: Orders AMB Denosumab Injection Practice Supplied Today M81.0 - Age-related osteoporosis without current pathological fracture Coding
== END 2024-09-30 08:41 | disposition home or self-care (01) ==
LOC: HO.ENCR 08:17
PROVIDERS: PCP Family Medicine; Visit Provider Student in an Organized Health Care Education/Training Program
DX: M81.0 Age-related osteoporosis without current pathological fracture (principal)

== ENCOUNTER → 2024-09-30 08:16 | Outpatient (BNVA) | payer MEDICARE, SELFPAY | PROVIDERS: PCP Family Medicine; Visit Provider Student in an Organized Health Care Education/Training Program | DX: M81.0 Age-related osteoporosis without current pathological fracture (principal); E78.5 Hyperlipidemia, unspecified; E04.2 Nontoxic multinodular goiter; R74.01 Elevation of levels of liver transaminase levels; F41.9 Anxiety disorder, unspecified | CPT/HCPCS: 96372; 99202; J0897 ==

== ENCOUNTER 2024-09-30 13:31 | Outpatient (AMB) | payer MEDICARE, SELFPAY ==
--- NOTE | 2024-09-30 13:41 | MHC.PC.OV ---
Vital Signs 09/30/24 13:51 Height 5 ft 4 in Weight 67.585 kg BMI 25.6 BP 120/62 Pulse 87 Pulse Source Pulse Oximeter Temp 97.4 F Temp Source Temporal Artery Scan Pulse Oximetry (%) 96 Oxygen Delivery Method Room Air Intake Visit Reasons: Routine-Xavier Radiological Engineer Required: No Accompanied by: Spouse Allergies From [facility] Allergy (Unknown, Uncoded 09/30/24 13:41) RACING HEART HPI HPI Comments History of Present Illness Details 79 year old female with history of mutlinodular goiter, osteoporosis, htn, hld,gerd presents to the office today for management of chronic conditions and to establish care. Prior pcp notes reviewed. Multinodular goiter/osteoporosis- following with endo. Euthyroid. Has been on tymilose, changed to prolia q6m. On calcium and vitamin d. Very active Anxiety- started on fluoxetine which has been helpful. Her has dementia and she cares for him. Denies s/e. Feels she is able to cope better. Will be following with therapist. GERD- omeprazole HTN- on amlodipine HLD- zetia ROS: General: No fevers, malaise, unintentional weight loss HEENT: No blurred vision, diplopia. No sore throat, nasal congestion, rhinorrhea, sinus pain, ear pain Cardiovascular: No chest pain, palpitations, or leg edema Respiratory: No shortness of breath, wheezing, cough GI: No abdominal pain, nausea, vomiting, diarrhea, constipation, melena, hematochezia : No dysuria, hematuria, increased urinary frequency, decreased urinary output MSK: No myalgia, back pain Neuro: No headaches, weakness, paresthesias Skin: No rashes or lesions EXAM: Constitutional - Awake and Alert, No apparent distress Eyes - PERRL Cardiovascular - S1S2, RRR, No edema Respiratory - Normal lung expansion, Normal respiratory effort, No respiratory distress, CTA bilaterally Extremities - no calf tenderness bilaterally, no swelling Skin - Warm/Dry Neurological - Alert & oriented x3 Psychological - Appropriate affect [facility] Medical History (Updated 10/06/24 @ 16:04 by JUAN Lazaro) Anxiety Palpitation Non-toxic multinodular goiter Osteoporosis Primary hyperparathyroidism Surgical History Status post fine needle aspiration Hx of parathyroidectomy Hx of left breast biopsy Hx of tonsillectomy Hx of hysterectomy Family History Father Rectal cancer Mother Heart disease Diabetes Brother Celiac disease Social History Household Members: Spouse Alcohol intake: current Alcohol intake frequency: does not drink Alcohol type: wine Patient Tobacco Use Status: Never used Tobacco Questionnaire PHQ-9 Over the last 2 weeks, how often have you been bothered by any of the following problems? 1. Little interest or pleasure in doing things: not at all 2. Feeling down, depressed, or hopeless: several days 3. Trouble falling or staying asleep, or sleeping too much: more than half the days 4. Feeling tired or having little energy: several days 5. Poor appetite or overeating: not at all 6. Feeling bad about yourself - or that you are a failure or have let yourself or your family down: not at all 7. Trouble concentrating on things, such as reading the newspaper or watching television: not at all 8. Moving or speaking so slowly that other people could have noticed. Or the opposite - being so fidgety or restless that you have been moving around a lot more than usual: not at all 9. Thoughts that you would be better off or of hurting yourself in some way: not at all Total score: 4 Source: Developed by Drs. Abdifatah Rosario, Kasey Rai, Addi Bermudez and colleagues, with an educational vonda from [employer]. Thrive Questionnaire Date Thrive assessed: 09/30/24 I am a: Patient What is your living situation today?: I have a steady place to live Within the past 12 months, did the food you bought not last and you didn't have the money to get more?: Never true Within the past 12 months, did you worry whether your food would run out before you got money to buy more?: Never true Do you have trouble paying for medicines?: No Do you have trouble getting transportation to medical appointments?: No Do you have trouble paying your heating and electricity bill?: No Do you have trouble taking care of your child, family member or friend?: No Do you have trouble with day-to-day activities such as bathing, preparing meals, shopping, managing finances, etc.?: No Are you currently unemployed and looking for a job?: No Are you interested in more education?: No Please select the resources that you would like help with: None THRIVE Score: 0 JANETH-7 AMB Questionnaire JNAETH-7 Date JANETH - 7 assessed: 09/30/24 Feeling nervous, anxious, or on edge: 1 = Several days Not being able to stop or control worryin = Several days Worrying too much about different things: 1 = Several days Trouble relaxin = Several days Being so restless that it is hard to sit still: 0 = Not at all Becoming easily annoyed or irritable: 0 = Not at all Feeling afraid as if something awful might happen: 0 = Not at all Total JANETH-7 score (0-4 normal; 5-9 mild; 10-14 moderate; 15-21 severe): 4 Source: Developed by Drs. Abdifatah Rosario, Kasey Rai, Addi Bermudez and colleagues, with an educational vonda from [employer]. Physical exam (Primary Care) Vital Signs: Last Vital Signs Temp 97.4 F 09/30/24 13:51 Pulse 87 09/30/24 13:51 BP 120/62 09/30/24 13:51 Pulse Ox 96 09/30/24 13:51 Oxygen Delivery Method Room Air 09/30/24 13:51 BMI result Body Mass Index 25.6 Tobacco/Smoking Status: Tobacco use Status Patient Tobacco Use Status Never used Tobacco 09/30/24 13:41 PHQ-9: PHQ-9 Score PHQ-9: Total score 4 09/30/24 14:04 Thrive Assessment: Date of Thrive Assessment Date Thrive assessed 09/30/24 09/30/24 13:56 Coding Level of Care Code New Pt Level 4 (94876) Complex EM visit Add On G2211 Diagnoses Hyperlipidemia E78.5 Non-toxic multinodular goiter E04.2 Age-related osteoporosis without current pathological fracture M81.0 Osteoporosis type: age-related Presence of current pathological fracture: without current pathological fracture Elevated transaminase level R74.01 Anxiety F41.9 Assessment & Plan Assessment & Plan (1) Hyperlipidemia: Code(s): E78.5 - Hyperlipidemia, unspecified Category: Medical Plan: Lipid panel ordered. Continue zetia (2) Non-toxic multinodular goiter: Code(s): E04.2 - Nontoxic multinodular goiter Category: Medical Plan: Continue with endo (3) Osteoporosis: Code(s): M81.0 - Age-related osteoporosis without current pathological fracture Category: Medical Qualifiers: Osteoporosis type: age-related Presence of current pathological fracture: without current pathological fracture Qualified Code(s): M81.0 - Age-related osteoporosis without current pathological fracture Plan: Continue with endo. Continue with prolia, ca/vit d, and weight bearing exercise (4) Elevated transaminase level: Code(s): R74.01 - Elevation of levels of liver transaminase levels Category: Medical Plan: Recheck levels. Check hep b/c. ?iatrogenic. Plan to be adjusted pending results (5) Anxiety: Code(s): F41.9 - Anxiety disorder, unspecified Category: Medical Plan: Improving. Continue fluoxetine and follow up with counselor Plan Follow up in 4 months.Labs to be completed following visit today Orders: Orders Liver Panel 09/30/24 E78.5 - Hyperlipidemia, unspecified, K76.89 - Other specified diseases of liver, M81.0 - Age-related osteoporosis without current pathological fracture, R74.01 - Elevation of levels of liver transaminase levels Hepatitis B,C Profile 09/30/24 E78.5 - Hyperlipidemia, unspecified, K76.89 - Other specified diseases of liver, M81.0 - Age-related osteoporosis without current pathological fracture, R74.01 - Elevation of levels of liver transaminase levels Lipid Panel 09/30/24 E78.5 - Hyperlipidemia, unspecified, K76.89 - Other specified diseases of liver, M81.0 - Age-related osteoporosis without current pathological fracture, R74.01 - Elevation of levels of liver transaminase levels
[2024-09-30 13:51] VITALS: BP 120/62; PULSE 87; TEMP 36.3; O2SAT 96; BMI 25.6
== END 2024-09-30 14:34 | disposition home or self-care (01) ==
LOC: HO.HMCHD 13:31
PROVIDERS: PCP Family Medicine; Visit Provider Physician Assistant
DX: E78.5 Hyperlipidemia, unspecified (principal); E04.2 Nontoxic multinodular goiter; M81.0 Age-related osteoporosis without current pathological fracture; R74.01 Elevation of levels of liver transaminase levels; F41.9 Anxiety disorder, unspecified

== ENCOUNTER 2024-10-28 07:56 | Outpatient (REF) | payer MEDICARE, SELFPAY ==
--- OUTSIDE RECORDS SUMMARY | 2023-10-12 04:00 | XMS_ITS ---
Author Organization [facility] Address [address] [place] [address] Care Team Providers Care Whip Sawyer Name Role Phone Xavier WATSON, Daniel Primary Care Provider Unavailab Saumya Christianson Unavailable [phone] Francesco Oleary [phone] Encounters Encounter Location Date Provider Diagnosis [facility] [address] [place] [address] 10/12/2023 Francesco Oleary Plan Of Treatment No Information Progress Notes * Jody CARROLL ADOB: (79 yo F)Acc No.[id number]:10/12/2023 Progress Note Patient: Jody GOMEZ Provider: Maricruz Oleary DPM :1945 A ge:78 Y S ex:Female Date:10/12/2023 Address: [address] [id number] Pcp:Daniel Park MD Subjective: * Chief Complaints: * * Medical History: Objective: * Vitals: Assessment: Plan: * Treatment: * Images: * The named appointment provid er may or may not be the originator of this progress note, and it is not deemed complete until electronically signed by the appointment provider. Sign off status: Pending * Provider: Maricruz Oleary DPM Date: 10/12/2023 Generated for Neal virgen/Cynthia/eTransmitting on: 10/28/2024 08:00 AM EDT
--- OUTSIDE RECORDS SUMMARY | 2023-11-03 07:40 | XMS_ITS ---
Author Organization [facility] Address [address] [place] [address] Care Team Providers Care German Instructor Name Role Phone Xavier (RETIRED) , Daniel Primary Care Provider Unavailable Markus Rahman Jr [phone] REASON FOR VISIT LOWER QUADRANT PAIN /COLONOSCOPY Encounters Encounter Location Date Provider Diagnosis [facility] [address] [place] [address] 11/03/2023 Markus Rahman Jr Plan Of Treatment No Information Progress Notes * DAVID MEREDITHDOB:1945 (79 yo F)Acc No.[id number]:11/03/2023 Progress Notes Patient: DAVID GOMEZ Provider: Jonatan Rahman MD :1945 A ge:78 Y S ex:Female Date:11/03/2023 Address:[address] [place], [place] [phone] Pcp:Daniel Park (RETIRED) MD Subjective: * Chief Complaints: * 1 . LOWER QUADRANT PAIN /COLONOSCOPY. * Medical History: Objective: * Vitals: Assessment: Plan: * Treatment: * * The named appointment provid er may or may not be the originator of this progress note, and it is not deemed complete until electronically signed by the appointment provider. Sign off status: Pending * Provider: Jonatan Rahman MD Date: 11/03/2023 Generated for Printi ng/Famarzenag/eTransmitting on: 10/28/2024 07:59 AM EDT
--- OUTSIDE RECORDS SUMMARY | 2023-12-08 08:40 | XMS_ITS ---
Author Organization [facility] Address [address] [place] [address] Care Team Providers Care Unified Communications Architect Name Role Phone Xavier (RETIRED) , Daniel Primary Care Provider Unavailable Markus Rahman Jr REASON FOR VISIT abnormal ct scan Encounters Encounter Location Date Provider Diagnosis [facility] Outpatient [address] [place] [phone] 12/08/2023 Markus Rahman Jr Abnormal abdominal ultrasound R93.5 ; Abdominal pain R10.9 and Colon polyps K63.5 Assessments Encounter Date Diagnosis (ICD Code) Assessment Notes Treatment Notes Treatment Clinical Notes Section Notes 12/08/2023 Abnormal abdominal ultrasound (ICD-10 - R93.5) 12/08/2023 Abdominal pain (ICD-10 - R10.9) 12/08/2023 Colon polyps (ICD-10 - K63.5) Plan Of Treatment No Information Progress Notes * DAVID MEREDITHDOB:1945 (79 yo F)Acc No.[id number]:12/08/2023 COLON WITH MAC Patient: DAVID GOMEZ Provider: Jonatan Rahman MD :1945 A ge:78 Y S ex:Female Date:12/08/2023 Address:[address] [place], [place] [id number] Pcp:Daniel Park (RETIRED) MD Subjective: * Chief [...] 1 Generated for Neal virgen/Cynthia/Steveitting on: 0 10/28/2024 07:59 AM EDT
--- OUTSIDE RECORDS SUMMARY | 2024-05-13 05:00 | XMS_ITS ---
Author Organization [facility] Address [address] [place] [address] Care Team Providers Care Software Test Developer Name Role Phone Xavier WATSON, Daniel Primary Care Provider Unavailab Saumya Christianson Unavailable [phone] Brooks Encounters Encounter Location Date Provider Diagnosis [facility] [address] [place] [address] 05/13/2024 Saumya Harris Plan Of Treatment No Information Progress Notes * Jody CARROLL ADOB: (79 yo F)Acc No.[id number]:05/13/2024 Progress Note Patient: Jody GOMEZ Provider: Joy Harris DPM :1945 A ge:78 Y S ex:Female Date:05/13/2024 Address: [address] [id number] Pcp:Daniel Park MD Subjective: * Chief Complaints: [...] 0 05/13/2024 Generated for Dilciai param/Cynthia/eTransmitting on: 0 10/28/2024 07:59 AM EDT
--- OUTSIDE RECORDS SUMMARY | 2024-07-15 07:15 | XMS_ITS ---
Author Organization [facility] Address [address] [place] [address] Care Team Providers Care Industrial Staff Nurse Name Role Phone Xavier WATSON, Daniel Primary Care Provider UnavailSaumya Hill Unavailable [phone] Encounters Encounter Location Date Provider Diagnosis [facility] [address] [place] [address] 07/15/2024 Saumya Harris Plan Of Treatment No Information Progress Notes * Jody CARROLL ADOB: 5 (79 yo F)Acc No.[id number]:07/15/2024 Progress Note Patient: Jody GOMEZ Provider: Joy Harris DPM :1945 A ge:78 Y S ex:Female Date:07/15/2024 Address:[address] [id number] Pcp:Daniel Park MD Subjective: * Chief Complaints: [...] 0 07/15/2024 Generated for Printi ng/Faxing/eTransmitting on: 0 10/28/2024 07:59 AM EDT
--- OUTSIDE RECORDS SUMMARY | 2024-10-28 07:59 | XMS_ITS | Patient Health Record ---
Author Organization [facility] Address [address] [place] [address] Care Team Providers Care Accident Report Clerk Name Role Phone Xavier (RETIRED) , Daniel Primary Care Provider Unavailable Markus Rahman Jr Unavailable [phone] Allergies Allergen (clinical drug ingredient) Drug/Non Drug Allergy documented on EMR Reaction Allergy Type Onset Date Status diphenhydramine Benadryl Unknown Drug Allergy A ctive dairy (uncoded) Unknown Allergy Acti ve Results Component Value Reference Range Notes Pathology Reviewed date:12/14/2023 07:54:11 AM Interpretation: Performing Lab:[facility], [address] [place] [id number] Notes/Report: Reason For Referral No Information Medications Medication [...] Problem Status W/U Status Risk Notes Problem 758656537 Colon cancer screening (Z12.11) Active confirmed Problem 014817682 Left lower quadrant pain (R10.32) Active confirmed Problem 109658960 Abdominal bloati ng (R14.0) Active confirmed Problem 26852553 Encounter for other preprocedural examination (Z01.818) Active confirmed Problem 852673531 Change in bowel habits (R19.4) Active confirmed Problem 904722619 Family history o f colon cancer (Z80.0) Active confirmed Problem 600779663 Abnormal CT scan , colon (R93.3) Active confirmed Problem 988542103 Long-term use of aspirin therapy (Z79.82) Active confirmed Problem 05985348 Hypertension, unspecified type (I10) Active confirmed Vital Signs Blood pressure diastolic 00 mm Hg 11/30/2023 Height 65 in 11/30/2023 Blood pressure systolic 00 mm Hg 11/30/2023 Weight 151 lbs 11/30/2023 BMI 25.12 kg/m2 11/30/2023 Encounters Encounter Location Date Provider Diagnosis [facility] Outpatient [address] [place], [place] [id number] 12/08/2023 Markus Rahman Jr Abnormal abdominal ultrasound R93.5 ; Abdominal pain R10.9 and Colon polyps K63.5 [facility] [address] [place] [address] 11/30/2023 Markus Rahman Jr Abnormal CT scan, colon R93.3 ; Left lower quadrant pain R10.32 and Long-term use of aspirin therapy Z79.82 [facility] [address] [place] [address] 12/14/2023 Markus Rahman Jr Assessments Encounter Date [...] Insured Coverage Start Date Coverage End Date [facility] [address] [address] [place] [address] [id number] DAVID MEREDITH Self - patient is the insured Medical (General) History Medical History History ICD Code Hyperlipidemia Hypertension Osteoporosis Gastroesophageal reflux disease Colonoscopy 04/30, tubular adenoma, follo wup optional based on age Primary hyperparathyroidism Abnormal computed tomography of sigmoid colon R93.3 Surgical History Surgery Date(Month/Year) foot surgery hysterectomy
--- OUTSIDE RECORDS SUMMARY | 2024-10-28 07:59 | XMS_ITS | Patient Health Record ---
Author [facility] Address [address] [place] [address] Care Team Providers Care Network Operations Center Technician Name Role Phone Daniel Park MD Primary Care Provider Unavailab Saumya Christianson Unavailable [phone] Francesco Oleary Unavailable [phone] Allergies Allergen (clinical drug ingredient) Drug/Non Drug [...] Status Risk Notes Problem Plantar fascial fibromatosis (20764119) Plantar fascial fibromatosis (M72.2) Active confirmed Problem Acquired hammer toe of right foot (383223493799179 5) Other hammer toe(s) (acquired), right foot (M20.41) Active confirmed Vital Signs Blood pressure diastolic 80 mm Hg 02/22/2024 Height 5 ft 5 in in 02/22/2024 Blood pressure systolic 120 mm Hg 02/22/2024 Weight 144 lbs 02/22/2024 BMI 23.96 kg/m2 02/22/2024 Encounters Encounter Location Date Provider Diagnosis [address] [address] 11/13/2023 Francesco Oleary Tinea unguium B35.1 ; Ingrowing nail L60.0 ; Plantar fascial fibromatosis M72.2 ; Pain in right foot M79.671 ; Other hammer toe(s) (acquired), right foot M20.41 ; Xerosis cutis L85.3 ; Pain in right toe(s) M79.674 ; Pain in left toe(s) M79.675 and Abrasion of toe of left foot, [facility] S[facility].415A [facility] [address] 02/22/2024 Saumya Harris Pain in right toe(s) M79.674 and Contusion of lesser toe of right foot without damage to nail, initial encounter S90.121A [address] [address] 02/20/2024 [facility] [address] [address] 07/11/2024 Saumya Harris Assessments Encounter Date Diagnosis (ICD Code) Assessment Notes Treatment Notes Treatment Clinical Notes Section Notes 02/22/2024 Pain in right toe(s) (ICD-10 - M79.674) 02/22/2024 Contusion of lesser toe of right foot without damage to nail, initial encounter (ICD-10 - S90.121A) 11/13/2023 Tinea unguium (ICD-10 - B35.1) 11/13/2023 [...] X ray : Foot, right 3V 02/22/2024 13297-YJKERLA NAIL, 1-5 01/16/2013 95330-Yhrsxtos Plate 01/16/2013 74275-Mmcnrxea Plate 12/31/2014 03533-Uxmwxmjc Plate 07/03/2013 83166-Aipdxlvi Plate 05/03/2012 95911-Karigllg Plate Each Additional 05/2012 95888- Debride <25 sq cm 11/30/2011 15999- Debride <25 sq cm 02/04/2013 52249- Nail Unit Biopsy 06/07/2017 Insurance Providers Payer Name Payer Address Payer Phone Subscriber Number Group Number Insured Name Patient Relationship to Insured Coverage Start Date Coverage End Date [employer] Medicare Complete [address] [address] [place] [address] [id number] Jody Carroll Self - patient is the insured Medical (General) History Medical History History ICD Code back, hip, knee pain measles mumps chicken pox covid-19 Surgical History Surgery Date(Month/Year) right foot hammertoe repair hysterectomy vericose vein surgery bilateral legs Condylectomy and hammertoe repair left biopsy on thyroid 10/24/19 parathyroidectomy 03/2020
--- OUTSIDE RECORDS SUMMARY | 2024-10-28 07:59 | XMS_ITS | Patient Health Record ---
Author Organization [facility] Address [address] [place] [address] Care Team Providers Care Curriculum Designer Name Role Phone YARITZA GARG Primary Care Provider TAMIE Navarro Unavailable [phone] Allergies Allergen (clinical drug ingredient) Drug/Non Drug [...] Status Risk Notes Problem Postmenopausal atrophic vaginitis (72649448) Postmenopausal atrophic vaginitis (N95.2) Active confirmed Plan Of Treatment Pending Test Test Name Order Date MM Digital Screening Mammogram 3D 2019 MM Digital Screening Mammogram 3D 2021 Insurance Providers Payer Name Payer Address Payer Phone Subscriber Number Group Number Insured Name Patient Relationship to Insured Coverage Start Date Coverage End Date [facility] [employer] [address] [address] [place] [address] [id number] DAVID MEREDITH Self - patient is the insured Medical (General) History Medical History History ICD Code Osteoporosis 733.0 COVID-19 U07.1 Surgical History Surgery Date(Month/Year) Hysterectomy 1979 Parathyroidectomy 01/2020 Left breast biopsy Hospitalization History Reason Date(Month/Year) childbirth
--- OUTSIDE RECORDS SUMMARY | 2024-10-28 08:00 | XMS_ITS | Clinical Summary ---
Author Organization [facility] Address [address] [facility] [address] [place] [address] Care Team Providers Care Dental Ceramist Helper Name Role Phone Unavailable Primary Care Provider [...]
[2024-10-28 11:09] LABS: Alanine Aminotransferase 22 U/L (0-31); Albumin Level 4.4 g/dL (3.5-5.0); Alkaline Phosphatase 57 U/L (39-117); Aspartate Amino Transferase 28 U/L (5-31); Cholesterol 255 mg/dL (<200); HDL Cholesterol 52 mg/dL (>40); Total Protein 6.7 g/dL (6.5-8.0); Triglycerides 160 mg/dL (<150)
[2024-10-28 11:24] LABS: HBS Num1 0.17 mIU/mL (0-7.99); HBc Num1 0.06 S/CO (0.00-0.79); HBsAGNum1 0.64 S/CO (0.00-0.99); Hepatitis B Surface Antigen Negative (Negative); ~HepC Num1 0.08 S/CO (0.00-0.79); ~Hepatitis B Surface Antibody NONREACTIVE (Nonreactive); ~Hepatitis C Antibody Nonreactive (Nonreactive)
== END 2024-10-28 07:57 | disposition home or self-care (01) ==
LOC: HO.10HDL 07:56
PROVIDERS: Visit Provider Physician Assistant
DX: K76.89 Other specified diseases of liver (principal); R74.01 Elevation of levels of liver transaminase levels; M81.0 Age-related osteoporosis without current pathological fracture; E78.5 Hyperlipidemia, unspecified
CPT/HCPCS: 36415; 80061; 80076; 86704; 86706; 86803; 87340

== ENCOUNTER → 2024-10-31 08:52 | Outpatient (BNV) | payer MEDICARE, SELFPAY | PROVIDERS: PCP Physician Assistant; Visit Provider Radiology Diagnostic Radiology | DX: K76.89 Other specified diseases of liver (principal); K80.20 Calculus of gallbladder without cholecystitis without obstruction | CPT/HCPCS: 74183 ==

== ENCOUNTER 2024-10-31 08:58 | Outpatient (REF) | payer MEDICARE, SELFPAY ==
--- OUTSIDE RECORDS SUMMARY | 2023-10-12 04:00 | XMS_ITS ---
Author Organization [facility] Address [address] [place] [address] Care Team Providers Care Grommet Worker Name Role Phone Xavier WATSON, Daniel Primary Care Provider Unavailab Saumya Christianson Unavailable [phone] Francesco Oleary [phone] Encounters Encounter Location Date Provider Diagnosis [facility] [address] [place] [address] 10/12/2023 Francesco Oleary Plan Of Treatment No Information Progress Notes * Jody CARROLL ADOB: (79 yo F)Acc No.[id number]:10/12/2023 Progress Note Patient: Jody GOMEZ Provider: Maricruz Oleary DPM :1945 A ge:78 Y S ex:Female Date:10/12/2023 Address: [address] [id number] Pcp:Daniel Park MD Subjective: * Chief Complaints: [...] Date: 10/12/2023 Generated for Neal virgen/Cynthia/eTransmitting on: 10/31/2024 10:27 AM EDT
--- OUTSIDE RECORDS SUMMARY | 2023-11-03 07:40 | XMS_ITS ---
Author Organization [facility] Address [address] [place] [address] Care Team Providers Care Tool Room Lathe Operator Name Role Phone Xavier (RETIRED) , Daniel Primary Care Provider Unavailable Markus Rahman Jr [phone] REASON FOR VISIT LOWER QUADRANT PAIN /COLONOSCOPY Encounters Encounter Location Date Provider Diagnosis [facility] [address] [facility] [address] [place] [address] 11/03/2023 Markus Rahman Jr Plan Of Treatment No Information Progress Notes * DAVID MEREDITHDOB:1945 (79 yo F)Acc No.[id number]:11/03/2023 Progress Notes Patient: DAVID GOMEZ Provider: Jonatan Rahman MD :1945 A ge:78 Y S ex:Female Date:11/03/2023 Address:[address] [place], [place] [phone] Pcp:Daniel Park (RETIRED) MD Subjective: * Chief [...] Date: 11/03/2023 Generated for Printi ng/Famarzenag/eTransmitting on: 10/31/2024 10:27 AM EDT
--- OUTSIDE RECORDS SUMMARY | 2023-12-08 08:40 | XMS_ITS ---
Author Organization [facility] Address [address] [place] [address] Care Team Providers Care Chaperon Name Role Phone Xavier (RETIRED) , Daniel Primary Care Provider Unavailable Markus Rahman Jr [phone] REASON FOR VISIT abnormal ct scan Encounters Encounter Location Date Provider Diagnosis [facility] Outpatient [address] [place] [id number] 12/08/2023 Markus Rahman Jr Abnormal abdominal ultrasound R93.5 ; Abdominal pain R10.9 and Colon polyps K63.5 Assessments Encounter Date Diagnosis (ICD Code) Assessment Notes Treatment Notes Treatment Clinical Notes Section Notes 12/08/2023 Abnormal abdominal ultrasound (ICD-10 - R93.5) 12/08/2023 Abdominal pain (ICD-10 - R10.9) 12/08/2023 Colon polyps (ICD-10 - K63.5) Plan Of Treatment No Information Progress Notes * DAVID MEREDITHDOB:1945 (79 yo F)Acc No.[id number]:12/08/2023 COLON WITH MAC Patient: DAVID GOMEZ Provider: Jonatan Rahman MD :1945 A ge:78 Y S ex:Female Date:12/08/2023 Address:[address] [place], [place] [phone] Pcp:Daniel Park (RETIRED) MD Subjective: * Chief [...] 1 Generated for Neal virgen/Cynthia/Steveitting on: 0 10/31/2024 10:27 AM EDT
--- OUTSIDE RECORDS SUMMARY | 2024-05-13 05:00 | XMS_ITS ---
Author Organization [facility] Address [address] [place] [address] Care Team Providers Care Clinical Services Professional Name Role Phone Xavier WATSON, Daniel Primary Care Provider Unavailab Saumya Christianson Unavailable [phone] Brooks Encounters Encounter Location Date Provider Diagnosis [facility] [address] [place] [address] 05/13/2024 Saumya Harris Plan Of Treatment No Information Progress Notes * Jody CARROLL ADOB: (79 yo F)Acc No.[id number]:05/13/2024 Progress Note Patient: Jody GOMEZ Provider: Joy Harris DPM :1945 A ge:78 Y S ex:Female Date:05/13/2024 Address: [address] [id number] Pcp:Daniel Park MD Subjective: * Chief Complaints: [...] 05/13/2024 Generated for Dilciai param/Cynthia/eTransmitting on: 0 10/31/2024 10:27 AM EDT
--- OUTSIDE RECORDS SUMMARY | 2024-07-15 07:15 | XMS_ITS ---
Author Organization [facility] Address [address] [place] [address] Care Team Providers Care Road Builder Name Role Phone Xavier WATSON, Daniel Primary Care Provider UnavailSaumya Hill Unavailable [phone] Encounters Encounter Location Date Provider Diagnosis [facility] [address] [place] [address] 07/15/2024 Saumya Harris Plan Of Treatment No Information Progress Notes * Jody CARROLL ADOB: 5 (79 yo F)Acc No.[id number]:07/15/2024 Progress Note Patient: Jody GOMEZ Provider: Joy Harris DPM :1945 A ge:78 Y S ex:Female Date:07/15/2024 Address:[address] [id number] Pcp:Daniel Park MD Subjective: * Chief Complaints: [...] 07/15/2024 Generated for Printi ng/Faxing/eTransmitting on: 0 10/31/2024 10:27 AM EDT
--- NOTE | ~2024-10-31 | MR_ITS ---
EXAMINATION: MR ABDOMEN WITHOUT THEN WITH IV CONTRAST HISTORY: K76.89 - Other specified diseases of liver COMPARISON: Correlation is made with a CT of the abdomen without contrast dated 09/12/[address] of the abdomen with contrast dated 10/11/2023.. TECHNIQUE: Axial in and out of phase T1-weighted gradient echo, axial diffusion weighted, and axial and coronal HASTE T2 with fat saturation images were obtained through the abdomen. Subsequently, fat suppressed axial and coronal T1-weighted images were obtained after the intravenous administration of 6.5 mL Gadavist. FINDINGS: Liver: There is no loss of signal intensity in the liver on opposed phase imaging to suggest steatosis. Again seen is a 1.3 cm cyst in segment IV, a 2.9 x 2.1 cm cyst in segment III, and a 1.2 cm cyst in segment V. There is a 1.7 x 1.4 x 1.1 cm arterial hyperenhancing focus in segment IV which contains prominent vessels on the T2-weighted images. There is no significant washout. A portal vein branch is seen to enter the lesion and a draining hepatic vein is noted. Findings are consistent with a vascular malformation. The hepatic and portal veins are patent. There is no intrahepatic biliary dilatation. Gallbladder/biliary tree: Numerous calculi are noted in the gallbladder. The common bile duct is normal in caliber. No intraluminal filling defects are identified to suggest choledocholithiasis. Spleen: The spleen is unremarkable. Pancreas: The pancreas is unremarkable. There is no enhancing pancreatic mass. The pancreatic duct is normal in caliber. Adrenals: The adrenal glands are unremarkable. Kidneys: There are subcentimeter bilateral renal cysts. There is no hydronephrosis. Lymph nodes: There is no retroperitoneal lymphadenopathy in the upper abdomen. Fluid: There is no ascites in the upper abdomen. Visualized bowel: The visualized small and large bowel loops are unremarkable in appearance. Visualized bones: The visualized bones demonstrate normal marrow signal intensity. MR/MR abdomen wo/w con IMPRESSION: 1. 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 2. Multiple hepatic cysts as described. 3. Cholelithiasis. Electronically signed by: Abdifatah Caban MD 10/31/2024 10:26 AM EDT RP
--- OUTSIDE RECORDS SUMMARY | 2024-10-31 10:27 | XMS_ITS | Patient Health Record ---
Author Organization [facility] Address [address] [place] [address] Care Team Providers Care Cake Wringer Name Role Phone Xavier (RETIRED) , Daniel Primary Care Provider Unavailable Markus Rahman Jr Unavailable Allergies Allergen (clinical drug ingredient) Drug/Non Drug Allergy documented on EMR Reaction Allergy Type Onset Date Status diphenhydramine Benadryl Unknown Drug Allergy A ctive dairy (uncoded) Unknown Allergy Acti ve Results Component Value Reference Range Notes Pathology Reviewed date:12/14/2023 07:54:11 AM Interpretation: Performing Lab:[facility], [address] [place] [id number] Notes/Report: Reason For Referral No Information Medications [...] Problem Status W/U Status Risk Notes Problem 043482810 Colon cancer screening (Z12.11) Active confirmed Problem 513686541 Left lower quadrant pain (R10.32) Active confirmed Problem 203133381 Abdominal bloati ng (R14.0) Active confirmed Problem 19642306 Encounter for other preprocedural examination (Z01.818) Active confirmed Problem 740656513 Change in bowel habits (R19.4) Active confirmed Problem 323569618 Family history o f colon cancer (Z80.0) Active confirmed Problem 469000529 Abnormal CT scan , colon (R93.3) Active confirmed Problem 868736836 Long-term use of aspirin therapy (Z79.82) Active confirmed Problem 05039788 Hypertension, unspecified type (I10) Active confirmed Vital Signs Blood pressure diastolic 00 mm Hg 11/30/2023 Height 65 in 11/30/2023 Blood pressure systolic 00 mm Hg 11/30/2023 Weight 151 lbs 11/30/2023 BMI 25.12 kg/m2 11/30/2023 Encounters Encounter Location Date Provider Diagnosis [facility] Outpatient [address] [place], [place] [phone] 12/08/2023 Markus Rahman Jr Abnormal abdominal ultrasound R93.5 ; Abdominal pain R10.9 and Colon polyps K63.5 [facility] [address] [place] [address] 11/30/2023 Markus Rahman Jr Abnormal CT scan, colon R93.3 ; Left lower quadrant pain R10.32 and Long-term use of aspirin therapy Z79.82 [facility] [address] [place] [address] 12/14/2023 Markus Rahman Jr Assessments Encounter Date [...] Insured Coverage Start Date Coverage End Date [facility] [address] [address] [place] [id number] DAVID MEREDITH Self - patient is the insured Medical (General) History Medical History History ICD Code Hyperlipidemia Hypertension Osteoporosis Gastroesophageal reflux disease Colonoscopy 04/30, tubular adenoma, follo wup optional based on age Primary hyperparathyroidism Abnormal computed tomography of sigmoid colon R93.3 Surgical History Surgery Date(Month/Year) foot surgery hysterectomy
--- OUTSIDE RECORDS SUMMARY | 2024-10-31 10:27 | XMS_ITS | Patient Health Record ---
Author Organization [facility] Address [address] [place] [address] Care Team Providers Care Alterations Sewer Name Role Phone YARITZA GARG Primary Care Provider TAMIE Navarro Unavailable [phone] Allergies Allergen (clinical drug ingredient) Drug/Non Drug [...] Status Risk Notes Problem Postmenopausal atrophic vaginitis (81992315) Postmenopausal atrophic vaginitis (N95.2) Active confirmed Plan Of Treatment Pending Test Test Name Order Date MM Digital Screening Mammogram 3D 2019 MM Digital Screening Mammogram 3D 2021 Insurance Providers Payer Name Payer Address Payer Phone Subscriber Number Group Number Insured Name Patient Relationship to Insured Coverage Start Date Coverage End Date [facility] [employer] [address] [address] [place] [address] [id number] DAVID MEREDITH Self - patient is the insured Medical (General) History Medical History History ICD Code Osteoporosis 733.0 COVID-19 U07.1 Surgical History Surgery Date(Month/Year) Hysterectomy 1979 Parathyroidectomy 01/2020 Left breast biopsy Hospitalization History Reason Date(Month/Year) childbirth
--- OUTSIDE RECORDS SUMMARY | 2024-10-31 10:27 | XMS_ITS | Patient Health Record ---
Author [facility] Address [address] [place] [address] Care Team Providers Care Junior Art Director Name Role Phone Daniel Park MD Primary Care Provider Unavailab Saumya Christianson Unavailable [phone] Francesco Oleary Unavailable [phone] Allergies Allergen (clinical drug ingredient) Drug/Non Drug [...] Status Risk Notes Problem Plantar fascial fibromatosis (73113390) Plantar fascial fibromatosis (M72.2) Active confirmed Problem Acquired hammer toe of right foot (726017647472100 5) Other hammer toe(s) (acquired), right foot (M20.41) Active confirmed Vital Signs Blood pressure diastolic 80 mm Hg 02/22/2024 Height 5 ft 5 in in 02/22/2024 Blood pressure systolic 120 mm Hg 02/22/2024 Weight 144 lbs 02/22/2024 BMI 23.96 kg/m2 02/22/2024 Encounters Encounter Location Date Provider Diagnosis [address] [address] 11/13/2023 Francesco Oleary Tinea unguium B35.1 ; Ingrowing nail L60.0 ; Plantar fascial fibromatosis M72.2 ; Pain in right foot M79.671 ; Other hammer toe(s) (acquired), right foot M20.41 ; Xerosis cutis L85.3 ; Pain in right toe(s) M79.674 ; Pain in left toe(s) M79.675 and Abrasion of toe of left foot, initial encounter S90.415A [facility] [address] 02/22/2024 Saumya Harris Pain in right toe(s) M79.674 and Contusion of lesser toe of right foot without damage to nail, initial encounter S90.121A [address] [address] 02/20/2024 [facility]umya Harris [facility] [address] [address] 07/11/2024 Saumya Harris Assessments Encounter Date Diagnosis [...] X ray : Foot, right 3V 02/22/2024 55601-ZOHRFJX NAIL, 1-5 01/16/2013 59909-Efptdjvl Plate 05/03/2012 51344-Ktuvvqtz Plate 01/16/2013 87631-Zhwmfkiw Plate 07/03/2013 86802-Grxelawd Plate 12/31/2014 70268-Mmoisyjp Plate Each Additional 05/2012 23882- Debride <25 sq cm 02/04/2013 75810- Debride <25 sq cm 11/30/2011 53990- Nail Unit Biopsy 06/07/2017 Insurance Providers Payer Name Payer Address Payer Phone Subscriber Number Group Number Insured Name Patient Relationship to Insured Coverage Start Date Coverage End Date [employer] Medicare Complete [address] [address] [place] [address] [id number] Jody Carroll Self - patient is the insured Medical (General) History Medical History History ICD Code back, hip, knee pain measles mumps chicken pox covid-19 Surgical History Surgery Date(Month/Year) right foot hammertoe repair hysterectomy vericose vein surgery bilateral legs Condylectomy and hammertoe repair left biopsy on thyroid 10/24/19 parathyroidectomy 03/2020
--- OUTSIDE RECORDS SUMMARY | 2024-10-31 10:28 | XMS_ITS | Clinical Summary ---
Author Organization [employer] Address [address] [facility] 7[address] [place] [address] Care Team Providers Care Jail Guard Name Role Phone Unavailable Primary Care Provider [...]
== END 2024-10-31 08:59 | disposition home or self-care (01) ==
LOC: HO.MRI 08:58
PROVIDERS: PCP Physician Assistant; Visit Provider Physician Assistant
DX: K76.89 Other specified diseases of liver (principal); R74.01 Elevation of levels of liver transaminase levels
CPT/HCPCS: 74183; A9585

== ENCOUNTER 2024-11-04 13:11 | Outpatient (AMB) | payer MEDICARE, SELFPAY ==
--- NOTE | 2024-11-04 13:12 | A.OFFPC_ITS ---
Vital Signs 11/04/24 13:13 Height 5 ft 4 in BP 130/68 Pulse 88 Pulse Source Pulse Oximeter Temp 97.8 F Temp Source Temporal Artery Scan Pulse Oximetry (%) 97 Oxygen Delivery Method Room Air Intake Visit Reasons: MRI results Vp Medical Required: No Accompanied by: Self / Same As Patient Allergies From [facility] Allergy (Unknown, Uncoded 11/04/24 13:12) [facility] Medication List - Last Reconciled 11/04/24 by JUAN Lazaro amlodipine 5 mg PO DAILY 90 days aspirin 81 mg PO DAILY calcium carbonate 600 mg PO DAILY cholecalciferol (vitamin D3) 50 mcg PO DAILY 90 days denosumab (Prolia) 60 mg subcut [id number] ezetimibe 10 mg PO DAILY fluoxetine 10 mg PO DAILY omeprazole 20 mg PO DAILY HPI HPI Comments History of Present Illness Details 79 year old female with history of mutli nodular goiter, osteoporosis, htn, hld,gerd, anxiety presenting to the office today for follow-up. Recently had MRI of the abdomen with/without contrast performed which showed multiple hepatic cysts ?1.3 cm cyst in segment IV, a 2.9 x 2.1 cm cyst in segment III, and a 1.2 cm cyst in segment V?. Also showed: 1.7 x 1.4 x 1.1 cm arterial hyperenhanci ng focus in segment IV which contains prominent vessels on the T2-weighted images. There is no significant washout. A portal vein branch is seen to enter the lesion and a draining hepatic vein is noted. Findings are consistent with a vascular malformation. The hepatic and portal veins are patent. There is no intrahepatic biliary dilatation. She has no abdominal pain, nausea, vomiting. Anxiety-has noted significant improvement since starting fluoxetine 10 mg daily. Denies any adverse side effects. She is able to help her with dementia and plans on starting ballroom dancing again with him. She feels like she is coping much better and is attending support groups any sampling monthly ROS: None EXAM: Constitutional - Awake and Alert, No apparent distress Eyes - PERRL Cardiovascular - S1S2, RRR, No edema Respiratory - Normal lung expansion, Normal respiratory effort, No respiratory distress, CTA bilaterally Extremities - no calf tenderness bilaterally, no swelling Skin - Warm/Dry Neurological - Alert & oriented x3 Psychological - Appropriate affect [facility] Medical History (Updated 11/04/24 @ 13:20 by JUAN Lazaro) Anxiety Palpitation Non-toxic multinodular goiter Osteoporosis Primary hyperparathyroidism Surgical History Status post fine needle aspiration Hx of parathyroidectomy Hx of left breast biopsy Hx of tonsillectomy Hx of hysterectomy Family History Father Rectal cancer Mother Heart disease Diabetes Brother Celiac disease Social History Household Members: Spouse Alcohol intake: current Alcohol intake frequency: does not drink Alcohol type: wine Patient Tobacco Use Status: Never used Tobacco Questionnaire Thrive Questionnaire Date Thrive assessed: 09/30/24 JANETH-7 AMB Questionnaire JANETH-7 Date JANETH - 7 assessed: 09/30/24 Source: Developed by Drs. Abdifatah Rosario, Kasey Rai, Addi Bermudez and colleagues, with an educational vonda from [employer]. Physical exam (Primary Care) Vital Signs: Last Vital Signs Temp 97.8 F 11/04/24 13:13 Pulse 88 11/04/24 13:13 BP 130/68 11/04/24 13:13 Pulse Ox 97 11/04/24 13:13 Oxygen Delivery Method Room Air 11/04/24 13:13 Tobacco/Smoking Status: Tobacco use Status Patient Tobacco Use Status Never used Tobacco 11/04/24 13:14 Thrive Assessment: Date of Thrive Assessment Date Thrive assessed 09/30/24 11/04/24 13:14 Coding Level of Care Code Est Pt Level 3 (29602) Diagnoses Liver cyst K76.89 Vascular malformation of liver Q44.79 Assessment & Plan Assessment & Plan (1) Liver cyst: Code(s): K76.89 - Other specified diseases of liver Category: Medical Plan: Reviewed MRI with the patient. She is referred to Gastroenterology. Most recent LFTs within normal limits (2) Vascular malformation of liver: Code(s): Q44.79 - Other congenital malformations of liver Category: Medical Plan: Discussed with patient this has likely been present her entire life and likely not causing issues. However referred to Gastroenterology/hepatology Plan Follow-up in the office as scheduled Orders: Referrals Gastroenterology Referral K76.89 - Other specified diseases of liver, Q44.79 - Other congenital malformations of liver
[2024-11-04 13:13] VITALS: BP 130/68; PULSE 88; TEMP 36.6; O2SAT 97
== END 2024-11-04 13:33 | disposition home or self-care (01) ==
LOC: HO.HMCHD 13:11
PROVIDERS: PCP Physician Assistant; Visit Provider Physician Assistant
DX: K76.89 Other specified diseases of liver (principal); Q44.79 Other congenital malformations of liver

== ENCOUNTER → 2024-11-04 13:11 | Outpatient (BNVA) | payer MEDICARE, SELFPAY | PROVIDERS: PCP Physician Assistant; Visit Provider Physician Assistant | DX: K76.89 Other specified diseases of liver (principal); Q44.79 Other congenital malformations of liver | CPT/HCPCS: 99212 ==

== ENCOUNTER 2025-01-27 13:22 | Outpatient (AMB) | payer MEDICARE, SELFPAY ==
--- OUTSIDE RECORDS SUMMARY | 2023-10-12 03:00 | XMS_ITS ---
Author Organization [facility] Address [address] [place] [address] Care Team Providers Care Seismograph Chief Name Role Phone Xavier WATSON, Daniel Primary Care Provider Unavailab Saumya Christianson Unavailable [phone] Francesco Jacobs Unavailable [phone] Encounters Encounter Location Date Provider Diagnosis [facility] [address] [place] [address] 10/12/2023 Francesco Jacobs Plan Of Treatment No Information Progress Notes * Jody CARROLL ADOB: (79 yo F)Acc No.[id number]:10/12/2023 Progress Note Patient: Jody GOMEZ Provider: Maricruz Oleary DPM :1945 A ge:78 Y S ex:Female Date:10/12/2023 Address:[address] [id number] Pcp:Daniel Park MD Subjective: * Chief Complaints: * * Medical History: Objective: * Vitals: Assessment: Plan: * Treatment: * Images: * The named appointment provid er may or may not be the originator of this progress note, and it is not deemed complete until electronically signed by the appointment provider. Sign off status: Pending * Provider: Maricruz Oleary DPM Date: 0 10/12/2023 Generated for Dilciai param/Cynthia/eTransmitting on: 1 03/30/2024 07:22 PM EST
--- OUTSIDE RECORDS SUMMARY | 2023-11-03 06:40 | XMS_ITS ---
Author Organization [facility] Address [address] [place] [address] Care Team Providers Care Process Improvement Manager Name Role Phone COLLETTE GALVEZ Primary Care Provider Markus Diaz Jr REASON FOR VISIT LOWER QUADRANT PAIN /COLONOSCOPY Encounters Encounter Location Date Provider Diagnosis [facility] [address] [place] [address] 11/03/2023 Markus Rahman Jr Plan Of Treatment Next Appt Details Provider Name:Markus bustillo Jr, 02/10/2025 02:15:00 PM, [address], [address], [place], [address], Progress Notes * DAVID MEREDITHDOB:1945 (79 yo F)Acc No.[id number]:11/03/2023 Progress Notes Patient: DAVID GOMEZ Provider: Jonatan Rahman MD :1945 A ge:78 Y S ex:Female Date:11/03/2023 Address:[address] [place], [place] [id number] Pcp:COLLETTE GALVEZ Subjective: * Chief Complaints: * L OWER QUADRANT PAIN /COLONOSCOPY Billing Information: * Procedure Codes: * The named appointment provid er may or may not be the originator of this progress note, and it is not deemed complete until electronically signed by the appointment provider. Sign off status: Pending * Provider: Jonatan Rahman MD Date: 0 11/03/2023 Generated for Neal virgen/Cynthia/Eric on: 1 03/30/2024 07:21 PM EST
--- OUTSIDE RECORDS SUMMARY | 2023-12-08 07:40 | XMS_ITS ---
Author Organization [facility] Address [address] [place] [address] [place] [address] Care Team Providers Care Cancer Registrar Name Role Phone COLLETTE GALVEZ Primary Care Provider Markus Diaz Jr [phone] REASON FOR VISIT abnormal ct scan Encounters Encounter Location Date Provider Diagnosis [facility] Outpatient [address] [place] [phone] 12/08/2023 Markus Rahman Jr Abnormal abdominal ultrasound R93.5 ; Abdominal pain R10.9 and Colon polyps K63.5 Assessments Encounter Date Diagnosis (ICD Code) Assessment Notes Treatment Notes Treatment Clinical Notes Section Notes 12/08/2023 Abnormal abdominal ultrasound (ICD-10 - R93.5) 12/08/2023 Abdominal pain (ICD-10 - R10.9) 12/08/2023 Colon polyps (ICD-10 - K63.5) Plan Of Treatment Next Appt Details Provider Name:Markus bustillo Jr, 02/10/2025 02:15:00 PM, [address] [place] [address], [address], [place], [address], Progress Notes * DAVID MEREDITHDOB:1945 (79 yo F)Acc No.[id number]:12/08/2023 COLON WITH MAC Patient: DAVID GOMEZ Provider: Jonatan Rahman MD :1945 A ge:78 Y S ex:Female Date:12/08/2023 Address:[address] [place] [address] [id number] Pcp:COLLETTE GALVEZ Subjective: * Chief Complaints: * A bnormal ct scan Assessment: * Assessment: 1. A bnormal abdominal ultrasound - R93.5 (Primary) 2 . A bdominal pain - R10.9 3 . C olon polyps - K63.5 Plan: * Procedure Codes: 4 5380 COLONOSCOPY AND [id number] INTRVL 3+YRS PTS CLNSCP [id number] RCMND FLW-UP 10 YRS DOCD, Modifiers: 1P Billing Information: * Procedure Codes: 66886 COLONOSCOPY AND BIOPSY. 0529F INTRVL 3+YRS PTS CLNSCP DOCD. 0528F RCMND FLW-UP 10 YRS DOCD. Modifiers: 1P * The named appointment provid er may or may not be the originator of this progress note, and it is not deemed complete until electronically signed by the appointment provider. Sign off status: Pending * Provider: Jonatan Rahman MD Date: 1 Generated for Neal virgen/Cynthia/Steveitting on: 03/30/2024 07:21 PM EST
--- OUTSIDE RECORDS SUMMARY | 2024-05-13 04:00 | XMS_ITS ---
Author Organization [facility] Address [address] [place] [address] Care Team Providers Care Finance Vice President Name Role Phone Xavier WATSON, Daniel Primary Care Provider Unavailab Saumya Christianson Unavailable [phone] Brooks Encounters Encounter Location Date Provider Diagnosis [facility] [address] [place] [address] 05/13/2024 Saumya Harris Plan Of Treatment No Information Progress Notes * Jody CARROLL ADOB: (79 yo F)Acc No.[id number]:05/13/2024 Progress Note Patient: Jody GOMEZ Provider: Joy Harris DPM :1945 A ge:78 Y S ex:Female Date:05/13/2024 Address: [address] [id number] Pcp:Daniel Park MD Subjective: * Chief Complaints: * [address] Brooks. * Medical History: Objective: * Vitals: Assessment: Plan: * Treatment: * Images: * The named appointment provid er may or may not be the originator of this progress note, and it is not deemed complete until electronically signed by the appointment provider. Sign off status: Pending * Provider: Joy Harris DPM Date: 0 05/13/2024 Generated for Dilciai param/Cynthia/eTransmitting on: 1 03/30/2024 07:22 PM EST
--- OUTSIDE RECORDS SUMMARY | 2024-07-15 06:15 | XMS_ITS ---
Author Organization [facility] Address [address] [place] [address] Care Team Providers Care Digital Content Producer Name Role Phone Xavier WATSON, Daniel Primary Care Provider UnavailSaumya Hill Unavailable [phone] Encounters Encounter Location Date Provider Diagnosis [facility] [address] [place] [address] 07/15/2024 Saumya Harris Plan Of Treatment No Information Progress Notes * Jody CARROLL ADOB: 5 (79 yo F)Acc No.[id number]:07/15/2024 Progress Note Patient: Jody GOMEZ Provider: Joy Harris DPM :1945 A ge:78 Y S ex:Female Date:07/15/2024 Address:[address] [id number] Pcp:Daniel Park MD Subjective: * Chief Complaints: * * Medical History: Objective: * Vitals: Assessment: Plan: * Treatment: * Images: * The named appointment provid er may or may not be the originator of this progress note, and it is not deemed complete until electronically signed by the appointment provider. Sign off status: Pending * Provider: Joy Harris DPM Date: 0 07/15/2024 Generated for Printi ng/Faxing/eTransmitting on: 1 03/30/2024 07:23 PM EST
[2025-01-27 13:26] VITALS: BP 128/76; PULSE 91; TEMP 36.8; O2SAT 97; BMI 25.3
--- NOTE | 2025-01-27 13:26 | A.OFFPC_ITS ---
Vital Signs 01/27/25 13:26 Height 5 ft 4 in Weight 66.735 kg BMI 25.3 BP 128/76 Blood Pressure Location Lt brachial Position Sitting Pulse 91 Pulse Source Pulse Oximeter Temp 98.2 F Temp Source Temporal Artery Scan Pulse Oximetry (%) 97 Oxygen Delivery Method Room Air Intake Visit Reasons: 4 Month F/U Database Marketing Manager Required: No Accompanied by: Spouse Allergies From [facility] Allergy (Unknown, Uncoded 11/04/24 13:12) [facility] Medication List - Last Reconciled 01/27/25 by JUAN Lazaro amlodipine 5 mg PO DAILY calcium carbonate 600 mg PO DAILY cholecalciferol (vitamin D3) 50 mcg PO DAILY 90 days ezetimibe 10 mg PO DAILY fluoxetine 10 mg PO DAILY loratadine (Allergy Relief (loratadine)) 10 mg PO DAILY PRN omeprazole 20 mg PO DAILY Tobacco use date assessed: 01/27/25 Fall risk assessment: No Falls in past year Last assessed Fall Risk: 01/27/25 Dental Screening Dental Screen Date: 01/27/25 Did you have a dental visit in the last 12 months?: Yes Did you have a dental problem in the last 6 months where you did not have access to dental care?: No HPI HPI Comments History of Present Illness Details 79 year old female with history of mutli nodular goiter, osteoporosis, htn, hld,gerd presents to the office today for management of chronic conditions and to establish care. Prior pcp notes reviewed. Multinodular goiter/osteoporosis- following with endo. Euthyroid. Has been on tymilose, changed to prolia q6m. On calcium and vitamin d. Very active Anxiety- started on fluoxetine which has been helpful. Her has dementia and she cares for him. Denies s/e. Feels she is able to cope better. Will be following with therapist. GERD- omeprazole HTN- on amlodipine. bp 128/76 today HLD- zetia. last ldl 171, intolerant of statins. Has cardiology appt 03/05, interested in repatha Concerns: URI- ongoing several weeks. Started with runny noise. Cough. Feeling better, but has dry throat and feels voice is deep. Sleeping better, still taking nyquil. No fevers, chills. No st, ear pain. Does have sinus pressure, not worse with bending forward. Feels a thing under L breast. R flank- lesion. ?changes. No itch, pain, drainage ROS: See HPI EXAM: Constitutional - Awake and Alert, No apparent distress Eyes - PERRL Cardiovascular - S1S2, RRR, No edema Respiratory - Normal lung expansion, Normal respiratory effort, No respiratory distress, CTA bilaterally Extremities - no calf tenderness bilaterally, no swelling Skin - Warm/Dry. 1.3 cm by 3 mm nevus under the left breast with atypical borders, cunha in color with black speckles. Also has a hyperkeratotic stuck on lesion over the right flank Neurological - Alert & oriented x3 Psychological - Appropriate affect PFSH Medical History Statin intolerance Anxiety Palpitation Non-toxic multinodular goiter Osteoporosis Primary hyperparathyroidism Surgical History Status post fine needle aspiration Hx of parathyroidectomy Hx of left breast biopsy Hx of tonsillectomy Hx of hysterectomy Family History (Updated 01/27/25 @ 13:40 by Kinga Alvares MA) Father Rectal cancer Mother Heart disease Diabetes Brother Celiac disease Social History Household Members: Spouse Housing: House Alcohol intake: current Alcohol intake frequency: does not drink Alcohol type: wine Patient Tobacco Use Status: Never used Tobacco e-Cigarette/Vaping Use: Never Used service: No Current occupational status: retired Cognitive needs: No Hearing needs: No Vision needs: Yes (rx glasses) Questionnaire PHQ-9 Over the last 2 weeks, how often have you been bothered by any of the following problems? 1. Little interest or pleasure in doing things: not at all 2. Feeling down, depressed, or hopeless: several days 3. Trouble falling or staying asleep, or sleeping too much: several days 4. Feeling tired or having little energy: several days 5. Poor appetite or overeating: not at all 6. Feeling bad about yourself - or that you are a failure or have let yourself or your family down: not at all 7. Trouble concentrating on things, such as reading the newspaper or watching television: not at all 8. Moving or speaking so slowly that other people could have noticed. Or the opposite - being so fidgety or restless that you have been moving around a lot more than usual: not at all 9. Thoughts that you would be better off or of hurting yourself in some way: not at all Total score: 3 Source: Developed by Drs. Abdifatah Rosario, Addi Valadez and colleagues, with an educational vonda from [employer]. Thrive Questionnaire Date Thrive assessed: 01/27/25 I am a: Patient Within the past 12 months, did the food you bought not last and you didn't have the money to get more?: Never true Within the past 12 months, did you worry whether your food would run out before you got money to buy more?: Never true Do you have trouble paying for medicines?: No Do you have trouble getting transportation to medical appointments?: No Do you have trouble paying your heating and electricity bill?: No Do you have trouble taking care of your child, family member or friend?: No Do you have trouble with day-to-day activities such as bathing, preparing meals, shopping, managing finances, etc.?: No Are you currently unemployed and looking for a job?: No Are you interested in more education?: No THRIVE Score: 0 AUDIT C Alcohol Use Questionnaire (AUDIT-C) 1. How often do you have a drink containing alcohol?: Never 3. How often do you have six or more drinks on one occasion?: Never Total Score: 0 JANETH-7 AMB Questionnaire JANETH-7 Date JANETH - 7 assessed: 01/27/25 Feeling nervous, anxious, or on edge: 0 = Not at all Not being able to stop or control worryin = Not at all Worrying too much about different things: 0 = Not at all Trouble relaxin = Not at all Being so restless that it is hard to sit still: 0 = Not at all Becoming easily annoyed or irritable: 0 = Not at all Feeling afraid as if something awful might happen: 0 = Not at all Total JANETH-7 score (0-4 normal; 5-9 mild; 10-14 moderate; 15-21 severe): 0 Source: Developed by Drs. Abdifatah Rosario, Addi Valadez and colleagues, with an educational vonda from [employer]. Physical exam (Primary Care) Vital Signs: Last Vital Signs Temp 98.2 F 01/27/25 13:26 Pulse 91 01/27/25 13:26 BP 128/76 01/27/25 13:26 Pulse Ox 97 01/27/25 13:26 Oxygen Delivery Method Room Air 01/27/25 13:26 BMI result Body Mass Index 25.3 Tobacco/Smoking Status: Tobacco use Status Tobacco use date assessed 01/27/25 01/27/25 13:32 Patient Tobacco Use Status Never used Tobacco 01/27/25 13:32 e-Cigarette/Vaping Use Never Used 01/27/25 13:32 PHQ-9: PHQ-9 Score PHQ-9: Total score 3 01/27/25 13:52 Thrive Assessment: Date of Thrive Assessment Date Thrive assessed 01/27/25 01/27/25 13:32 Coding Level of Care Code Est Pt Level 4 (48417) Add On Problem Visit Only Diagnoses Hyperlipidemia E78.5 Non-toxic multinodular goiter E04.2 Age-related osteoporosis without current pathological fracture M81.0 Osteoporosis type: age-related Presence of current pathological fracture: without current pathological fracture Anxiety F41.9 Assessment & Plan Assessment & Plan (1) Hyperlipidemia: Code(s): E78.5 - Hyperlipidemia, unspecified Category: Medical Plan: Uncontrolled Continue zetia. Follow-up with cardiology for consideration of Repatha. Diet low in saturated fats and highly processed foods (2) Non-toxic multinodular goiter: Code(s): E04.2 - Nontoxic multinodular goiter Category: Medical Plan: Continue with endo (3) Osteoporosis: Code(s): M81.0 - Age-related osteoporosis without current pathological fracture Category: Medical Qualifiers: Osteoporosis type: age-related Presence of current pathological fracture: without current pathological fracture Qualified Code(s): M81.0 - Age- related osteoporosis without current pathological fracture Plan: Continue with endo. Completed course of Prolia. Continue calcium and vitamin-D as well as weight-bearing exercise (4) Anxiety: Code(s): F41.9 - Anxiety disorder, unspecified Category: Medical Plan: Controlled. Continue fluoxetine and follow up with counselor Plan Follow up in 4 months.Labs to be completed following visit in 4 months Recommend trialing Claritin for ongoing respiratory symptoms as this may be related to postnasal drip. Can also do sinus rinses Referred to Dermatology for further evaluation and management of what appears to be a seborrheic keratosis an atypical nevus Orders: Orders Basic Metabolic Panel 4 Months E78.5 - Hyperlipidemia, unspecified, F41.9 - Anxiety disorder, unspecified, M81.0 - Age-related osteoporosis without current pathological fracture Lipid Panel 4 Months E78.5 - Hyperlipidemia, unspecified, F41.9 - Anxiety disorder, unspecified, M81.0 - Age-related osteoporosis without current pathological fracture Vitamin D 25-OH Total 4 Months E78.5 - Hyperlipidemia, unspecified, F41.9 - Anxiety disorder, unspecified, M81.0 - Age-related osteoporosis without current pathological fracture Referrals Dermatology Referral D22.9 - Melanocytic nevi, unspecified, L82.1 - Other s eborrheic keratosis Medications: New loratadine (Allergy Relief (loratadine)) 10 mg PO DAILY PRN 30 caps 0RF cough/post nasal drip
--- OUTSIDE RECORDS SUMMARY | 2025-01-27 19:21 | XMS_ITS | Patient Health Record ---
Author Organization [facility] Address [address] [place] [address] Care Team Providers Care Diamond Cutter Name Role Phone Daniel Park MD Primary Care Provider Saumya Kaur Unavailable [phone] Allergies Allergen (clinical drug ingredient) Drug/Non Drug [...] Status Risk Notes Problem Plantar fascial fibromatosis (18748145) Plantar fascial fibromatosis (M72.2) Active confirmed Problem Acquired hammer toe of right foot (728226995613739 5) Other hammer toe(s) (acquired), right foot (M20.41) Active confirmed Vital Signs Blood pressure diastolic 80 mm Hg 02/22/2024 Height 5 ft 5 in in 02/22/2024 Blood pressure systolic 120 mm Hg 02/22/2024 Weight 144 lbs 02/22/2024 BMI 23.96 kg/m2 02/22/2024 Encounters Encounter Location Date Provider Diagnosis [facility] [address] 02/22/2024 Saumya Harris Pain in right toe(s) M79.674 and Contusion of lesser toe of right foot without damage to nail, initial encounter S90.121A [address] [address] 02/20/2024 [facility] [address] [address] 07/11/2024 Saumya Harris Assessments Encounter Date Diagnosis [...] X ray : Foot, right 3V 02/22/2024 [id number] NAIL, 1-5 01/16/2013 60473-Egeezkxo Plate 05/03/2012 67026-Jlalhvrv Plate 01/16/2013 32355-Zgcibfld Plate 07/03/2013 65594-Zxmtkvjy Plate 12/31/2014 37132-Qyrrdyvp Plate Each Additional 05/2012 01463- Debride <25 sq cm 02/04/2013 50584- Debride <25 sq cm 11/30/2011 33804- Nail Unit Biopsy 06/07/2017 Insurance Providers Payer Name Payer Address Payer Phone Subscriber Number Group Number Insured Name Patient Relationship to Insured Coverage Start Date Coverage End Date [employer] Medicare Complete [address] [address] [place] [address] [id number] Jody Carroll Self - patient is the insured Medical (General) History Medical History History ICD Code back, hip, knee pain measles mumps chicken pox covid-19 Surgical History Surgery Date(Month/Year) right foot hammertoe repair hysterectomy vericose vein surgery bilateral legs Condylectomy and hammertoe repair left biopsy on thyroid 10/24/19 parathyroidectomy 03/2020
--- OUTSIDE RECORDS SUMMARY | 2025-01-27 19:22 | XMS_ITS | Patient Health Record ---
Author Organization [facility] Address [address] [place] [address] Care Team Providers Care Pulverizer Tender Name Role Phone COLLETTE GALVEZ Primary Care Provider Markus Diaz Jr Unavailable Allergies Allergen (clinical drug ingredient) Drug/Non Drug Allergy documented on EMR Reaction Allergy Type Onset Date Status dairy (uncoded) Unknown Allergy Acti ve diphenhydramine Benadryl Unknown Drug Allergy A ctive Reason For Referral No Information Medications Medication SIG (Take, Route, Frequency, Duration) Notes Start Date End Date Status Vitamin B12 1000 MCG Tablet Extended Release 1 tablet Orally Once a day; Duration: 30 day(s) Active Ezetimibe 10 MG Tablet TAKE 1 TABLET BY MOUTH DAILY Oral; Duration: 90 Active Aspirin Adult Low Dose 81 MG Tablet Delayed Release 1 tablet Orally Once a day; Duration: 30 day(s) Active Calcium + D 600-200 MG-UNIT Tablet 1 tablet Orally Twice a day; Duration: 30 day(s) Active MiraLax (colon prep) 17 GM/SCOOP Powder mixed with Gatorade or Crystal Light Orally begin at 5:00 p.m. the day before the procedure; Duration: 1 day 11/30/2023 Active busPIRone HCl 5 MG Tablet TAKE 1 TABLET BY MOUTH TWICE DAILY NEEDED FOR ANXIETY Oral; Duration: 30 Activ e Omeprazole 20 MG Capsule Delayed Release TAKE 1 CAPSULE BY MOUTH EVERY DAY AT 4 PM Oral; Duration: 90 Active Immunizations Vaccine Route Administration Date Status Comme nts Influenza Unknown 12/21/2017 Administered Social History Tobacco Use: Social History Observation Description Date Details (start date - stop date) Never Smoker NA - NA Social History Drugs/Alcohol: Social Info Question Answer Notes Alcohol Screen Did you have a drink containing alcohol in the past year? Yes How often did you have a drink containing alcohol in the past year? 2 to 4 times a month (2 points) How many drinks did you have on a typical day when you were drinking in the past year? 1 or 2 drinks (0 point) How often did you have 6 or more drinks on one occasion in the past year? Never (0 point) Points 2 Interpretation Negative Tobacco Use: Social Info Question Answer Notes Tobacco Use/Smoking Patient is a nonsmoker Additional Details Category Social Info Options Details Miscellaneous: Marital status: Occupation: retired Problems Problem Type SNOMED Code ICD Code Onset Dates Problem Status W/U Status Risk Notes Problem Colon cancer screening (554437878) Colon cancer screening (Z12.11) Active confirmed Problem Left lower quadrant pain (514509900) Left lower quadrant pain (R10.32) Active confirmed Problem Abdominal bloating (156028878) Abdominal bloating (R14.0) Active confirmed Problem Pre-procedure evaluation check (250817242) Encounter for other preprocedural examination (Z01.818) Active confirmed Problem Change in bowel habit (88293077) Change in bowel habits (R19.4) Active confirmed Problem Family History of Cancer of Colon (Situation) (193280670) Family history of colon cancer (Z80.0) Active confirmed Problem Computed tomography result abnormal (535781143) Abnormal CT scan, colon (R93.3) Active confirmed Problem Long-term current use of antiplatelet drug (077422698589273 ) Long-term use of aspirin therapy (Z79.82) Active confirmed Problem Essential hypertension (27629990) Hypertension, unspecified type (I10) Active confirmed Plan Of Treatment Future Test Test Name Order Date COLONOSCOPY 01/11/2017 COLONOSCOPY 11/30/2023 COLONOSCOPY 12/04/2023 Next Appt Details Provider Name:Markus bustillo Jr, 02/10/2025 02:15:00 PM, [address] [place] [address], [facility] [address], [place], [address], Insurance Providers Payer Name Payer Address Payer Phone Subscriber Number Group Number Insured Name Patient Relationship to Insured Coverage Start Date Coverage End Date [facility] [address] [place] [address] [id number] DAVID MEREDITH Self - patient is the insured Medical (General) History Medical History History ICD Code Hyperlipidemia Hypertension Osteoporosis Gastroesophageal reflux disease Colonoscopy 04/30, tubular adenoma, follo wup optional based on age Primary hyperparathyroidism Abnormal computed tomography of sigmoid colon R93.3 Surgical History Surgery Date(Month/Year) foot surgery hysterectomy
--- OUTSIDE RECORDS SUMMARY | 2025-01-27 19:23 | XMS_ITS | Patient Health Record ---
Author Organization [facility] Address [address] [place] [address] Care Team Providers Care Stationary Engineer Apprentice Name Role Phone YARITZA GARG Primary Care Provider TAMIE Navarro Unavailable [phone] Allergies Allergen (clinical drug ingredient) Drug/Non Drug [...] Status Risk Notes Problem Postmenopausal atrophic vaginitis (15913956) Postmenopausal atrophic vaginitis (N95.2) Active confirmed Plan Of Treatment Pending Test Test Name Order Date MM Digital Screening Mammogram 3D 2019 MM Digital Screening Mammogram 3D 2021 Insurance Providers Payer Name Payer Address Payer Phone Subscriber Number Group Number Insured Name Patient Relationship to Insured Coverage Start Date Coverage End Date [facility] MED[employer] [address] [address] [place] [address] [id number] DAVID MEREDITH Self - patient is the insured Medical (General) History Medical History History ICD Code Osteoporosis 733.0 COVID-19 U07.1 Surgical History Surgery Date(Month/Year) Hysterectomy 1979 Parathyroidectomy 01/2020 Left breast biopsy Hospitalization History Reason Date(Month/Year) childbirth
== END 2025-01-27 14:26 | disposition home or self-care (01) ==
LOC: HO.HMCHD 13:23
PROVIDERS: PCP Physician Assistant; Visit Provider Physician Assistant
DX: E78.5 Hyperlipidemia, unspecified (principal); E04.2 Nontoxic multinodular goiter; M81.0 Age-related osteoporosis without current pathological fracture; F41.9 Anxiety disorder, unspecified

== ENCOUNTER → 2025-01-27 13:22 | Outpatient (BNVA) | payer MEDICARE, SELFPAY | PROVIDERS: PCP Physician Assistant; Visit Provider Physician Assistant | DX: E04.2 Nontoxic multinodular goiter (principal); M81.0 Age-related osteoporosis without current pathological fracture; F41.9 Anxiety disorder, unspecified; K21.9 Gastro-esophageal reflux disease without esophagitis; I10 Essential (primary) hypertension; E78.5 Hyperlipidemia, unspecified; D22.9 Melanocytic nevi, unspecified; L82.1 Other seborrheic keratosis; Z13.31 Encounter for screening for depression; Z13.39 Encounter for screening examination for other mental health and behavioral disorders; R09.81 Nasal congestion; R05.9 Cough, unspecified | CPT/HCPCS: 96127; 99212 ==